=== PATIENT | male | born 1980 | race Caucasian/White ===

== ENCOUNTER 2016-08-17 13:33 | Inpatient (IN) | payer MEDICAID ==
[~2016-08-17] VITALS: Ht 177.8 cm; Wt 153.7 kg
[2016-08-17 13:34] VITALS: BP 130/93; PULSE 125; RESP 20; TEMP 98.6; O2SAT 98
--- NOTE | 2016-08-17 13:53 | PD ---
Physical Exam Time Seen by Provider: 13:50 Narrative Pt presents to the ED for evaluation of SOB and CP that began 2 days ago. States hx of PE, DVT, CHF. States SOB is worse with laying flat. Denies anticoagulation. Tachycardic, otherwise vital signs within normal limits. Awaiting bed placement. Data Data Last Documented VS Vital Signs Date Time Temp Pulse Resp B/P Pulse Ox O2 Delivery O2 Flow Rate FiO2 08/17/16 13:34 98.6 125 20 130/93 98 Room Air MDM Supervised Visit with ROSA MARIA: Rosemary Reddy Aug 17, 2016 13:53
--- NOTE | 2016-08-17 14:25 | PD ---
HPI Chief Complaint: Chest Pain Time Seen by Provider: 14:10 Travel History International Travel<30 days: No Contact w/Intl Traveler<30days: No Traveled to known affect area: No History of Present Illness HPI This is a 36-year-old male with history of hypertension, CHF with a reported EF of 35%, diagnosed last year, previous history of PE and DVT, presents for evaluation of chest pain, shortness of breath, bilateral leg pain. Symptoms started 2 days ago. He reports that substernal chest pressure as well as dyspnea which is worse when lying down or moving. He endorses bilateral leg pain and swelling as well. He reports a chronic cough, denies any acute change. Denies any nausea or vomiting, fevers or chills, recent travel, recent surgery. He reports that he was diagnosed with a leg DVT and pulmonary embolism in 2011. 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 He reports that he was placed on Coumadin but he quit using after 1-2 months secondary to financial constraints. Since then he has been taking aspirin. He reports [place] Dr. Chris Ku, but he is in the process of trying to establish care with a different primary care physician. He has no other complaints at this time. [facility] Past Medical History Cardiovascular Problems: Yes (CHF) Respiratory: Yes (PE) ?: Not Social History Tobacco Use: Yes Allergies-Medications (Allergen,Severity, Reaction): Coded Allergies: No Known Allergies (Unverified , 08/17/16) Reported Meds & Prescriptions Reported Meds & Active Scripts Active Reported Omeprazole 40 Mg Cap 40 Mg PO DAILY Trazodone (Trazodone HCl) 50 Mg Tab 12.5 Mg PO HS Celexa (Citalopram Hydrobromide) 10 Mg Tab 10 Mg PO DAILY Lisinopril 5 Mg Tab 5 Mg PO DAILY Review of Systems Except as stated in HPI: all other systems reviewed are Neg Physical Exam Narrative GENERAL: Well-developed well-nourished male in no acute distress. He is tachycardic. SKIN: Warm and dry. HEAD: Atraumatic. Normocephalic. EYES: Pupils equal and round. No scleral icterus. No injection or drainage. ENT: No nasal bleeding or discharge. Mucous membranes pink and moist. NECK: Trachea midline. No JVD. CARDIOVASCULAR: Regular rate and rhythm. No murmur appreciated. RESPIRATORY: No accessory muscle use. Clear to auscultation. Breath sounds equal bilaterally. No crackles no wheezing or rhonchi GASTROINTESTINAL: Abdomen soft, non-tender, nondistended. Hepatic and splenic margins not palpable. MUSCULOSKELETAL: No obvious deformities. 1+ lower extremity edema bilaterally. There is some tenderness to palpation of the Thighs. NEUROLOGICAL: Awake and alert. No obvious cranial nerve deficits. Motor grossly within normal limits. Normal speech. PSYCHIATRIC: Appropriate mood and affect; insight and judgment normal. Data Data Last Documented VS Vital Signs Date Time Temp Pulse Resp B/P Pulse Ox O2 Delivery O2 Flow Rate FiO2 08/17/16 18:40 115 16 134/73 99 Room Air 08/17/16 14:18 2 08/17/16 13:34 98.6 Orders Electrocardiogram (08/17/16 ) B-Type Natriuretic Peptide (08/17/16 14:21) Ckmb (Isoenzyme) Profile (08/17/16 14:21) Complete Blood Count With Diff (08/17/16 14:21) Magnesium (Mg) (08/17/16 14:21) Prothrombin Time / Inr (Pt) (08/17/16 14:21) Act Partial Throm Time (Ptt) (08/17/16 14:21) Troponin I (08/17/16 14:21) Chest, Single Ap (08/17/16 14:21) Ecg Monitoring (08/17/16 14:21) Bilateral Bp Monitoring (08/17/16 14:21) Iv Access Insert/Monitor (08/17/16 14:21) Oximetry (08/17/16 14:21) Oxygen Administration (08/17/16 14:21) Sodium Chloride 0.9% Flush (Ns Flush) (08/17/16 14:30) Ct Pulmonary Angiogram (08/17/16 14:21) Us Leg Venous Doppler Bilat (08/17/16 14:21) Comprehensive Metabolic Panel (08/17/16 14:21) Morphine Inj (Morphine Inj) (08/17/16 16:00) CKMB (08/17/16 14:39) CKMB% (08/17/16 14:39) Ondansetron Inj (Zofran Inj) (08/17/16 16:30) Ondansetron Inj (Zofran Inj) (08/17/16 16:31) Iohexol 350 Inj (Omnipaque 350 Inj) (08/17/16 17:21) Ventilation & Perfusion Scan (08/17/16 ) Admit Order (Ed Use Only) (08/17/16 18:54) Labs Laboratory Tests Test 08/17/16 14:39 White Blood Count 8.5 TH/MM3 Red Blood Count 4.27 MIL/MM3 Hemoglobin 10.0 GM/DL Hematocrit 32.3 % Mean Corpuscular Volume 75.6 FL Mean Corpuscular Hemoglobin 23.4 PG Mean Corpuscular Hemoglobin 30.9 % Concent Red Cell Distribution Width 18.5 % Platelet Count 184 TH/MM3 Mean Platelet Volume 8.5 FL Neutrophils (%) (Auto) 75.0 % Lymphocytes (%) (Auto) 17.0 % Monocytes (%) (Auto) 5.0 % Eosinophils (%) (Auto) 2.3 % Basophils (%) (Auto) 0.7 % Neutrophils # (Auto) 6.4 TH/MM3 Lymphocytes # (Auto) 1.4 TH/MM3 Monocytes # (Auto) 0.4 TH/MM3 Eosinophils # (Auto) 0.2 TH/MM3 Basophils # (Auto) 0.1 TH/MM3 CBC Comment DIFF FINAL Differential Comment Prothrombin Time 12.9 SEC Prothromb Time International 1.2 RATIO Ratio Activated Partial 26.3 SEC Thromboplast Time Sodium Level 139 MEQ/L Potassium Level 4.4 MEQ/L Chloride Level 106 MEQ/L Carbon Dioxide Level 23.8 MEQ/L Anion Gap 9 MEQ/L Blood Urea Nitrogen 13 MG/DL Creatinine 0.88 MG/DL Estimat Glomerular Filtration 97 ML/MIN Rate Random Glucose 93 MG/DL Calcium Level 8.2 MG/DL Magnesium Level 1.7 MG/DL Total Bilirubin 0.9 MG/DL Aspartate Amino Transf 32 U/L (AST/SGOT) Alanine Aminotransferase 47 U/L (ALT/SGPT) Alkaline Phosphatase 102 U/L Total Creatine Kinase 118 U/L Creatine Kinase MB 2.1 NG/ML Troponin I 0.03 NG/ML B-Type Natriuretic Peptide 311 PG/ML Total Protein 7.5 GM/DL Albumin 3.1 GM/DL MDM Medical Decision Making Medical Screen Exam Complete: Yes Emergency Medical Condition: Yes Medical Record Reviewed: Yes Interpretation(s) EKG sinus tachycardia rate 124 Differential Diagnosis PE, CHF exacerbation, pneumonia, spontaneous pneumothorax, pleural effusion, acute coronary syndrome, pericarditis, myocarditis Narrative Course 36-year-old male with reported history of DVT/PE diagnosed in 2012, CHF diagnosed in 2016, presents for evaluation of 2 days of chest pain, shortness of breath and lower extremity edema. He is tachycardic in triage but he is not hypoxic. The patient was placed on ECG monitoring and pulse oximetry. A 12- lead EKG was obtained. Plan is for basic lab work, chest x-ray, CT pulmonary angiogram, ultrasound of the lower extremities. Lab work is been reviewed. Hemoglobin is 10. BNP mildly elevated at 311. CT angiography is nondiagnostic for PE and a VQ scan is recommended if clinically indicated. [id number] diffuse cardiomegaly. Given the patient's history of DVT and PE, noncompliant on anticoagulation, tachycardia and dyspnea here, the plan would be to admit the patient for chest pain, likely rule out ACS/PE. The patient is agreeable. Procedures EKG Prior to Arrival: Yes Diagnosis Primary Impression: Chest pain Qualified Code: R07.9 - Chest pain, unspecified type Admitting Information Admitting Physician Requests: Observation Wil Vargas Aug 17, 2016 14:25 Wil Vargas Aug 17, 2016 14:25
[2016-08-17] MEDS ORDERED: LISI-519 PO (14:28)
[2016-08-17] MEDS ORDERED: CELE10TA PO (14:28)
[2016-08-17] MEDS ORDERED: TRAZ50TA12 PO (14:28)
[2016-08-17] MEDS ORDERED: OMEP40CA2 PO (14:28)
[2016-08-17] MEDS ORDERED: SODIUM CHLORIDE 0.9% FLUSH 10 ML FLUSH IVF PRN (14:30)
--- NOTE | 2016-08-17 15:17 | RADRPT ---
EXAM DATE/TIME: 08/17/2016 14:36 [facility] COMPARISON: No previous studies available for comparison. INDICATIONS : Bilateral leg pain. MEDICAL HISTORY : Congestive heart failure. Deep venous thrombosis. Pulmonary embolism. Anticoagulant therapy, Aspirin 81mg. SURGICAL HISTORY : None. ENCOUNTER: Initial ACUITY: 4 - 6 days PAIN SCORE: 9/10 LOCATION: Bilateral leg. TECHNIQUE: Venous ultrasound of the left and right leg was performed from the inguinal ligament to the proximal calf. Real-time, color Doppler and spectral tracing, compression and augmentation techniques were us ed. FINDINGS: RIGHT LEG: There is normal compressibility of the deep venous system from the inguinal region to the proximal ca lf. No echogenic clot is seen in the lumen of the common femoral, femoral, popliteal, and posterior tibial veins. There is a normal response of the venous system to proximal and distal augmentation an d respiration. LEFT LEG: There is normal compressibility of the deep venous system from the inguinal region to the proximal ca lf. No echogenic clot is seen in the lumen of the common femoral, femoral, popliteal, and posterior tibial veins. There is a normal response of the venous system to proximal and distal augmentation an d respiration. CONCLUSION: Negative for deep venous thrombosis. John Solorio MD FACR on August 17, 2016 at 15:14 Board Certified Radiologist. This report was verified electronically.
[2016-08-17 15:30] VITALS: BP_SYST 136; BP_SYST 138; BP_DIAS 88; BP_DIAS 93
--- NOTE | 2016-08-17 15:43 | RADRPT ---
EXAM DATE/TIME: 08/17/2016 15:08 [facility] COMPARISON: No previous studies available for comparison. INDICATIONS : Short of breath, chest pain. MEDICAL HISTORY : Congestive heart failure. hx of PE SURGICAL HISTORY : None. ENCOUNTER: Initial ACUITY: 1 day PAIN SCORE: 6/10 LOCATION: Bilateral chest FINDINGS: Significant enlargement of the cardiac silhouette. No definite focal pleural or parenchymal opacities . Bony thorax is intact. CONCLUSION: 1. Significant enlargement of the cardiac silhouette. 2. Otherwise, no acute abnormality. Chet Booth MD on August 17, 2016 at 15:40 Board Certified Radiologist. This report was verified electronically.
[2016-08-17 15:44] LABS: AUTOMATED NEUTROPHIL # 6.4 TH/MM3 (1.8-7.7); BASOPHIL # 0.1 TH/MM3 (0-0.2); BASOPHIL % 0.7 % (0.0-2.0); EOSINOPHIL # 0.2 TH/MM3 (0-0.4); EOSINOPHIL % 2.3 % (0.0-4.0); HEMATOCRIT 32.3 % (39.0-51.0); HEMO FLAGS DIFF FINAL; LYMPHOCYTE # 1.4 TH/MM3 (1.0-4.8); MEAN CELL VOLUME 75.6 FL (80.0-100.0); MEAN CORPUSCULAR HEMOGLOBIN 23.4 PG (27.0-34.0); MEAN CORPUSCULAR HGB CONC 30.9 % (32.0-36.0); PLATELET COUNT 184 TH/MM3 (150-450); RED BLOOD COUNT 4.27 MIL/MM3 (4.50-5.90); RED CELL DISTRIBUTION WIDTH 18.5 % (11.6-17.2); WHITE BLOOD COUNT 8.5 TH/MM3 (4.0-11.0)
[2016-08-17 15:55] LABS: APTT (PATIENT) 26.3 SEC (24.3-30.1); INTERNATIONAL NORMALIZED RATIO 1.2 RATIO; PROTHROMBIN TIME - PATIENT 12.9 SEC (9.8-11.6)
[2016-08-17] MEDS ORDERED: MORPHINE SULFATE 4 MG/ML INJ IV PUSH ONE (16:00)
[2016-08-17 16:05] LABS: ALKALINE PHOSPHATASE 102 U/L (45-117); ALT (GPT) 47 U/L (12-78); ANION GAP 9 MEQ/L (5-15); AST (GOT) 32 U/L (15-37); BICARBONATE 23.8 MEQ/L (21.0-32.0); BLOOD UREA NITROGEN 13 MG/DL (7-18); CHLORIDE 106 MEQ/L (98-107); CREATINE KINASE 118 U/L (39-308); GLOMERULAR FILTRATION RATE 97 ML/MIN (>89); MAGNESIUM 1.7 MG/DL (1.5-2.5); SODIUM (NA) 139 MEQ/L (136-145); TOTAL BILIRUBIN ADULT 0.9 MG/DL (0.2-1.0)
[2016-08-17 16:06] LABS: POTASSIUM 4.4 MEQ/L (3.5-5.1)
[2016-08-17 16:18] LABS: CKMB 2.1 NG/ML (0.5-3.6)
[2016-08-17] MEDS ORDERED: ONDANSETRON HCL 4 MG/2 ML VIAL IV PUSH ONE (16:30)
[2016-08-17] MEDS ORDERED: ONDANSETRON HCL 4 MG/2 ML VIAL ONE (16:31)
[2016-08-17] MEDS ORDERED: IOHEXOL 350 MG/ML 10 ML VIAL (for RAD DIAG) IV ONE (17:21)
--- NOTE | 2016-08-17 17:41 | RADRPT ---
EXAM DATE/TIME: 08/17/2016 17:24 [facility] COMPARISON: No previous studies available for comparison. INDICATIONS : Chest pain with shorthness of breath past 2 days. History of emboli. IV CONTRAST: 74 cc Omnipaque 350 (iohexol) IV RADIATION DOSE: 23.38 CTDIvol (mGy) MEDICAL HISTORY : Cardiovascular disease. Hypertension. Pulnonary emboli SURGICAL HISTORY : None. ENCOUNTER: Initial ACUITY: 2 days PAIN SCALE: 6/10 LOCATION: Bilateral chest TECHNIQUE: Volumetric scanning of the chest was performed using a pulmonary embolism protocol MIP images were re constructed. Using automated exposure control and adjustment of the mA and/or kV according to patien t size, radiation dose was kept as low as reasonably achievable to obtain optimal diagnostic quality images. DICOM format image data is available electronically for review and comparison. FINDINGS: PULMONARY ARTERIES: Poor opacification of the pulmonary arteries. This is nondiagnostic for PE. LUNGS: There is no consolidation or pneumothorax . No concerning pulmonary nodule is visualized. PLEURAE: There is no pleural thickening or pleural effusion. MEDIASTINUM: There is good visualization of the great vessels of the middle mediastinum. No evidence of mediastin al or hilar adenopathy/mass. The heart size is diffusely enlarged. MUSCULOSKELETAL: Within normal limits for patient age. MISCELLANEOUS: The visualized upper abdominal organs demonstrate no acute abnormality. CONCLUSION: 1. Nondiagnostic for PE. A VQ scan could be performed if clinically indicated. 2. No acute pulmonary infiltrates 3. Moderate to prominent diffuse cardiomegaly. Sudheer Faulkner MD on August 17, 2016 at 17:37 Board Certified Radiologist. This report was verified electronically.
[2016-08-17 18:40] VITALS: BP 134/73; PULSE 115; RESP 16; O2SAT 99
--- NOTE | 2016-08-17 19:06 | HHI.HP ---
[facility] Service Family Medicine Primary Care Physician No Primary Care Physician Admission Diagnosis chest pain Diagnoses: International Travel<30 Days: No Contact w/Intl Traveler<30days: No Known Affected Area: No History of Present Illness Patient is a 36-year-old male with a PMH significant for CHF, HTN, PE in 2011. Presented today due to progressive worsening SOB over the last 2 days. Reports significant orthopnea with the slightest supine position when trying to lay down. Reports that he is only able to fall asleep for short intervals before he waking up gasping for air. During these episodes he endorses chest tightness, palpitations and skipped beats, diaphoresis, and nausea. Reports that over the last 2 months his exercise tolerance has significantly decreased. He has become more aware of this as he has become more active since moving to [place]. Reports giving SOB with only walking 100 feet. This is also associated with chest tightness. Does report 80 pound weight gain over the last 6-7 months. Denies any recent travel or sedentary activity. Has had an increased amount of fast food over the last several days. Reports prior history of PE was due to sedentary lifestyle. He was diagnosed with CHF one year ago but has no clear etiology on information about progression of events. Review of Systems Constitutional: COMPLAINS OF: Diaphoretic episodes, Weight gain, Change in appetite, DENIES: Fever Eyes: DENIES: Blurred vision, Eye pain Ears, nose, mouth, throat: COMPLAINS OF: Toothache (recently on abx treatment in anticipation of tooth removal), DENIES: Running Nose Respiratory: COMPLAINS OF: Shortness of breath, DENIES: Cough Cardiovascular: COMPLAINS OF: Chest pain, Palpitations, Dyspnea on Exertion, Lower Extremity Edema, Orthopnea Gastrointestinal: COMPLAINS OF: Abdominal pain, Nausea, DENIES: Black stools, Bloody stools, Constipation, Diarrhea, Vomiting, Difficulty Swallowing Genitourinary: DENIES: Hematuria, Dysuria Musculoskeletal: COMPLAINS OF: Joint Swelling, DENIES: Joint pain Integumentary: DENIES: Rash Hematologic/lymphatic: DENIES: Bruising, Lymphadenopathy Neurologic: DENIES: Headache Past Family Social History Past Medical History PE in 2011-non compliant with medication. Was only on therapy for 1-2mths. Contributed to sedentary lifestyle CHF 35%-etiology unclear (2015) Splenomegaly- etiology unclear HTN Past Surgical History Gallstones Appendectomy Reported Medications Reported Meds & Active Scripts Active Reported Omeprazole 40 Mg Cap 40 Mg PO DAILY Trazodone (Trazodone HCl) 50 Mg Tab 12.5 Mg PO HS Celexa (Citalopram Hydrobromide) 10 Mg Tab 10 Mg PO DAILY Lisinopril 5 Mg Tab 5 Mg PO DAILY Allergies: Coded Allergies: No Known Allergies (Unverified , 08/17/16) Family History Mother: lung cancer Father: melanoma/skin cancer Multiple members with cardiac issues Social History Recently moved from [place]. Does not follow with a doctor in the area Alcohol: denies Tobacco: 1/2ppd x23yrs Illicit: Denies present use of marijuana. Did use (smoked) cocaine about 10years ago. Physical Exam Vital Signs Vital Signs Date Time Temp Pulse Resp B/P Pulse Ox O2 Delivery O2 Flow Rate FiO2 08/17/16 18:40 115 16 134/73 99 Room Air 08/17/16 15:30 136/93 138/88 08/17/16 14:18 99 Nasal Cannula 2 08/17/16 13:34 98.6 125 20 130/93 98 Room Air Physical Exam GENERAL: This is a morbidly obese male sitting at the side of bed in no acute distress. SKIN: No rashes, ecchymoses. Cool and dry. EYES: Pupils equal round and reactive. Extraocular motions intact. No scleral icterus. No injection or drainage. ENT: Nose without bleeding, purulent drainage. Throat without erythema, tonsillar hypertrophy or exudate. Uvula midline. Airway patent. NECK: Trachea midline. No lymphadenopathy. Supple, nontender, no meningeal signs. CARDIOVASCULAR: Very muffled and distand heart sounds due to body habitus. Regular rate and rhythm without obvious murmurs, gallops, or rubs. RESPIRATORY: Clear to auscultation. Breath sounds equal bilaterally. No wheezes , rales, or rhonchi. GASTROINTESTINAL: Abdomen soft. MUSCULOSKELETAL: Extremities without clubbing, cyanosis. 2+ pitting edema bilaterally up to knees. No calf tenderness. NEUROLOGICAL: Awake and alert. Motor and sensory grossly within normal limits. Normal speech. Laboratory Laboratory Tests Test 08/17/16 14:39 White Blood Count 8.5 Red Blood Count 4.27 Hemoglobin 10.0 Hematocrit 32.3 Mean Corpuscular Volume 75.6 Mean Corpuscular Hemoglobin 23.4 Mean Corpuscular Hemoglobin 30.9 Concent Red Cell Distribution Width 18.5 Platelet Count 184 Mean Platelet Volume 8.5 Neutrophils (%) (Auto) 75.0 Lymphocytes (%) (Auto) 17.0 Monocytes (%) (Auto) 5.0 Eosinophils (%) (Auto) 2.3 Basophils (%) (Auto) 0.7 Neutrophils # (Auto) 6.4 Lymphocytes # (Auto) 1.4 Monocytes # (Auto) 0.4 Eosinophils # (Auto) 0.2 Basophils # (Auto) 0.1 CBC Comment DIFF FINAL Differential Comment Prothrombin Time 12.9 Prothromb Time International 1.2 Ratio Activated Partial 26.3 Thromboplast Time Sodium Level 139 Potassium Level 4.4 Chloride Level 106 Carbon Dioxide Level 23.8 Anion Gap 9 Blood Urea Nitrogen 13 Creatinine 0.88 Estimat Glomerular Filtration 97 Rate Random Glucose 93 Calcium Level 8.2 Magnesium Level 1.7 Total Bilirubin 0.9 Aspartate Amino Transf 32 (AST/SGOT) Alanine Aminotransferase 47 (ALT/SGPT) Alkaline Phosphatase 102 Total Creatine Kinase 118 Creatine Kinase MB 2.1 Troponin I 0.03 B-Type Natriuretic Peptide 311 Total Protein 7.5 Albumin 3.1 Result Diagram: 08/17/16 1439 08/17/161438 Imaging Last Impressions Lower Extremity Ultrasound 08/17/161420 Signed Impressions: Service Date/Time: Wednesday, August 17, 2016 14:36 - CONCLUSION: Negative for deep venous thrombosis. John Solorio MD FACR Chest X-Ray 08/17/161420 Signed Impressions: Service Date/Time: Wednesday, August 17, 2016 15:08 - CONCLUSION: 1. Significant enlargement of the cardiac silhouette. 2. Otherwise, no acute abnormality. Chet Booth MD CT Angiography 08/17/161420 Signed Impressions: Service Date/Time: Wednesday, August 17, 2016 17:24 - CONCLUSION: 1. Nondiagnostic for PE. A VQ scan could be performed if clinically indicated. 2. No acute pulmonary infiltrates 3. Moderate to prominent diffuse cardiomegaly. Sudheer Faulkner MD Lung Scan-VQ Nuclear Medicine 08/17/16 0000 Signed Impressions: Service Date/Time: Wednesday, August 17, 2016 20:25 - CONCLUSION: 1. No evidence for pulmonary embolus. Madi Simmons MD Assessment and Plan Assessment and Plan 36yo male with PMH significant for CHF, HTN, PE in 2011. Admitted for progressive SOB likely due to CHF exacerbation Code Status Full Problem List: (1) Acute exacerbation of CHF (congestive heart failure) Status: Acute Plan: History of CHF with an EF of 35%. Does not follow with a vat cleaner currently. Clinical history suggestive of fluid overload in the setting of increased salt intake. Symptoms are likely exacerbated by and linked to obesity hypoventilation syndrome. BNP slightly elevated but this, in conjunction with clinical history, supports exacerbation. -UDS ordered -ACS evaluation * EKG significant for sinus tachy -cardiac telemetry -Lipid panel in AM -monitor I&Os -echo ordered * stress test after echo due to concern for significant CHF Medications: * Aspirin x1 * Lasix 40mg daily + 20 KCL * lisinopril 5mg daily (2) SOB (shortness of breath) Status: Acute Plan: Concern for PE due to history of prior PE in 2011. CTA nondiagnostic. VQ scan negative. Suspect obesity hypoventilation syndrome. -recommend sleep study as outpatient for CPAP (3) Anemia Status: Acute Plan: Incidental finding of anemia with low MCV. Etiology unclear but may be due to excessive NSAID intake due to recent toothache. Denies any rectal bleeding/melena -Retic count elevated -ferritin and TIBC ordered -Hemoccult ordered -blood smear ordered (4) Sinus tachycardia Status: Acute Plan: Continues to have persistent sinus tachy. May be related to poor conditioning and/or anemia. -continue to monitor. (5) Nutrition, metabolism, and development symptoms Status: Acute Plan: Diet: NPO at midnight for possible stress tomorrow Fluids: none Electrolytes: unremarkable DVT PPX: Heparin q8 GI PPX: continue home PPI Suzy-Dominique Engle MD R2 Aug 17, 2016 19:06
[2016-08-17] MEDS ORDERED: ACETAMINOPHEN 325 MG TAB PO PRN (19:45)
[2016-08-17] MEDS ORDERED: SODIUM CHLORIDE 0.9% FLUSH 10 ML FLUSH IV FLUSH PRN (19:45)
[2016-08-17] MEDS ORDERED: SENNOSIDES 8.6 MG TAB PO PRN (19:45)
[2016-08-17] MEDS ORDERED: ASPIRIN 81 MG CHEW TAB PO SCH (19:45)
[2016-08-17] MEDS ORDERED: MAGNESIUM HYDROXIDE SUSP 30 ML CUP PO PRN (19:45)
[2016-08-17] MEDS ORDERED: NALOXONE HCL 0.4 MG/ML AMP IV PRN (19:45)
[2016-08-17] MEDS ORDERED: BISACODYL 10 MG SUPP RECTAL PRN (19:45)
[2016-08-17] MEDS ORDERED: ACETAMINOPHEN/HYDROcodone 325 MG/5 MG TAB PO PRN (19:45)
[2016-08-17] MEDS ORDERED: ENALAPRILAT 1.25 MG/ML VIAL IV PRN (20:15)
[2016-08-17] MEDS ORDERED: FUROSEMIDE 40 MG/4 ML VIAL IV PUSH ONE (20:15)
[2016-08-17] MEDS: MORPHINE SULFATE 4 MG/ML INJ IV PRN (20:55)
[2016-08-17] MEDS: DOCUSATE SODIUM 50 MG/SENNA 8.6 MG TAB PO SCH (21:00)
[2016-08-17] MEDS ORDERED: SODIUM CHLORIDE 0.9% FLUSH 10 ML FLUSH IV FLUSH SCH (21:00)
--- NOTE | 2016-08-17 21:05 | RADRPT ---
EXAM DATE/TIME: 08/17/2016 20:25 [facility] COMPARISON: No previous studies available for comparison. INDICATIONS : Chest pain with dyspnea and bilateral leg pain. DOSE: 8.5 mCi Tc99m MAA IV 0.75 mCi Tc99m DTPA aerosol MEDICAL HISTORY : Congestive hearrt failure. Hypertension. Deep venous thrombosis. Pulmonary embolism. Smoker. SURGICAL HISTORY : Appendectomy. ENCOUNTER: Initial ACUITY: 2 days PAIN SCALE: 3/10 LOCATION: chest TECHNIQUE: Following five minutes of tidal breathing of DTPA aerosol, planar images of the lungs were performed in eight projections. The patient was then injected with MAA, and eight-view perfusion scan was perf ormed. FINDINGS: There is a homogeneous pattern of aerosol delivery to the periphery of both lungs. No focal ventilat ory defects are seen. The perfusion lung scan demonstrates a homogenous pattern of uptake in both lungs. No segmental or s ubsegmental defects are seen. CONCLUSION: 1. No evidence for pulmonary embolus. Madi Simmons MD on August 17, 2016 at 21:01 Board Certified Radiologist. This report was verified electronically.
[2016-08-17 21:42] VITALS: PULSE 123
[2016-08-17] MEDS: HEPARIN SODIUM - SQ 10,000 UNITS/ML VIAL SQ SCH (21:51)
[2016-08-17] MEDS: SODIUM CHLORIDE 0.9% FLUSH 10 ML FLUSH IV FLUSH SCH (21:52)
[2016-08-17 22:16] VITALS: BP 129/90; PULSE 121; RESP 20; TEMP 97.8; O2SAT 97
[2016-08-17 23:14] LABS: RETIC % 3.6 % (0.4-3.0); REVIEW FLAG FINAL
[2016-08-17] MEDS: CALCIUM CARBONATE 500 MG CHEWABLE TAB CHEW PRN (23:46)
[2016-08-18] VITALS (13 sets, daily range): BP systolic 116–121; BP diastolic 58–86; PULSE 112–123; RESP 16–20; TEMP 97.6–98.3; O2SAT 95–100
[2016-08-18] MEDS ORDERED: ENALAPRILAT 1.25 MG/ML VIAL IV PRN (00:30)
[2016-08-18] MEDS: LISINOPRIL 5 MG TAB PO SCH ×2 (00:45→09:43)
[2016-08-18] MEDS: ACETAMINOPHEN/HYDROcodone 325 MG/10 MG TAB PO PRN ×3 (00:49→22:23)
[2016-08-18] MEDS: MORPHINE SULFATE 4 MG/ML INJ IV PRN ×3 (03:58→17:46)
[2016-08-18 04:09] LABS: AUTOMATED NEUTROPHIL # 6.3 TH/MM3 (1.8-7.7); BASOPHIL # 0.1 TH/MM3 (0-0.2); BASOPHIL % 0.7 % (0.0-2.0); EOSINOPHIL # 0.2 TH/MM3 (0-0.4); EOSINOPHIL % 2.4 % (0.0-4.0); HEMATOCRIT 29.9 % (39.0-51.0); HEMO FLAGS DIFF FINAL; LYMPH % 17.7 % (9.0-44.0); LYMPHOCYTE # 1.5 TH/MM3 (1.0-4.8); MEAN CELL VOLUME 74.7 FL (80.0-100.0); MEAN CORPUSCULAR HEMOGLOBIN 24.2 PG (27.0-34.0); MEAN CORPUSCULAR HGB CONC 32.5 % (32.0-36.0); MONO % 6.2 % (0.0-8.0); PLATELET COUNT 191 TH/MM3 (150-450); RED CELL DISTRIBUTION WIDTH 18.3 % (11.6-17.2); WHITE BLOOD COUNT 8.6 TH/MM3 (4.0-11.0)
[2016-08-18 04:35] LABS: ANION GAP 5 MEQ/L (5-15); BICARBONATE 29.6 MEQ/L (21.0-32.0); BLOOD UREA NITROGEN 13 MG/DL (7-18); CHLORIDE 103 MEQ/L (98-107); GLOMERULAR FILTRATION RATE 86 ML/MIN (>89); MAGNESIUM 1.7 MG/DL (1.5-2.5); POTASSIUM 3.9 MEQ/L (3.5-5.1); SODIUM (NA) 138 MEQ/L (136-145); TRANSFERRIN IRON PROFILE 314 MG/DL (200-360)
[2016-08-18 04:38] LABS: FERRITIN 40 NG/ML (26-388); HDL CHOLESTEROL 24.8 MG/DL (40.0-60.0); LDL CHOLESTEROL 60 MG/DL (0-99)
[2016-08-18] MEDS: HEPARIN SODIUM - SQ 10,000 UNITS/ML VIAL SQ SCH ×3 (06:18→21:42)
--- NOTE | 2016-08-18 07:41 | HHI.FPPN ---
Subjective Remarks Manjinder Wilcox is a 36yo gentleman with h/o CHF (last EF 35%), PE, obesity, and HTN admitted for worsening SOB x 2 days. Associated with orthopnea and paroxysmal nocturnal dyspnea. When he has these dyspneic episodes, he has associated chest tightness, palpitations, diaphoresis, and nausea. Worsening exercise tolerance x 2 months, with SOB after walking 100 feet. + weight gain of 80# over 6 months. For further details, please see resident H&P. This morning, he reports continued shortness of breath, which is slightly improved since receiving IV lasix. He reports having to lay on his abdomen, in prone position rather than on his back due to worsening SOB when supine. He reports good UOP with lasix administration and somewhat improved edema after lasix as well. ROS: + SOB, + chest pain, + orthopnea, + PND, + palpitations, + dyspnea on exertion. No nausea. + vomiting last night x 1. No hematemesis. All other systems reviewed are negative. PMH/PSxH/SocHx/FamHx: Per resident H&P. Significant for: CHF diagnosed in 2015 with EF 35%, PE in 2012 treated x 1-2 months due to nonadherence, HTN, splenomegaly, cholelithiasis. H/O appendectomy. Mother h/o lung cancer. Father with h/o melanoma. Moved to [facility] from [place] recently. No alcohol. 12 pack year tobacco history. Denies current recreational drug use, with h/o marijuana and cocaine. Objective Vitals Vital Signs Date Time Temp Pulse Resp B/P Pulse Ox O2 Delivery O2 Flow Rate FiO2 08/18/16 06:39 96 21 08/18/16 04:03 20 08/18/16 03:20 98.0 123 20 118/58 97 08/18/16 03:13 119 08/18/16 02:51 20 08/17/16 22:16 97.8 121 20 129/90 97 08/17/16 21:42 123 08/17/16 18:40 115 16 134/73 99 Room Air 08/17/16 15:30 136/93 138/88 08/17/16 14:18 99 Nasal Cannula 2 08/17/16 13:34 98.6 125 20 130/93 98 Room Air I/O 7/5/17 08/17/16 08/17/16 08/18/16 08/18/16 08/18/16 07:00 15:00 23:00 07:00 15:00 23:00 Intake Total 240 ml Output Total 600 ml Balance -360 ml Intake Oral 240 ml Output Urine Total 600 ml Result Diagram: 08/18/16 0354 08/18/16 0354 Objective Remarks GENERAL: in NAD, no resp distress, nontoxic. Talks in complete sentences. Initially lying prone in the hospital bed upon our entry to room. HEENT: NCAT, EOMI, no scleral icterus, no conjunctival injection. MMM. Poor dentition. NECK: Supple, no meningeal signs. CV: RRR, S1 S2. No murmurs. CHEST/PULM: CTAB, no crackles, no wheezes. Decreased breath sounds due to body habitus. ABD/GI: Obese. +BS, soft, nondistended. Mild tenderness at LUQ. Unable to palpate for hepatosplenomegaly due to habitus. EXT: 3+ pitting edema to knees. No calf tenderness. NEURO: Awake, alert. Grossly nonfocal. Normal muscle tone. SKIN: No rashes, no jaundice. Multiple tattoos. PSYCH: Mood and affect are appropriate. Speech fluent. Does not appear to respond to internal stimuli. A/P Assessment and Plan 36yo male with PMH significant for CHF, HTN, PE in 2011. Admitted for progressive SOB likely due to CHF exacerbation Attending Attestation Patient seen, examined, and discussed with resident team. Problem List: (1) Acute exacerbation of CHF (congestive heart failure) Status: Acute Plan: History of CHF with an EF of 35%. Does not follow with a funnel coater currently. Clinical history suggestive of fluid overload in the setting of increased salt intake. Symptoms are likely exacerbated by and linked to obesity hypoventilation syndrome. BNP only slightly elevated but this, in conjunction with clinical history, supports exacerbation. -UDS positive for opiates (administered in the hospital) -ACS evaluation essentially negative with serial troponins. * EKG significant for sinus tachy -cardiac telemetry without events overnight, occasional PVCs only. -Lipid panel with low HDL - may benefit from treatment. -monitor I&Os -echo ordered * stress test after echo due to concern for significant CHF possibly caused by ischemic cardiomyopathy * Hold on beta sekou as patient in CHF exacerbation Medications: * Aspirin x1 * Lasix 40mg daily + 20 KCL * lisinopril 5mg daily (2) SOB (shortness of breath) Status: Acute Plan: Likely secondary to CHF exacerbation but also consider PE vs CAD / ischemia vs sleep apnea vs obesity hypoventilation syndrome vs deconditioning vs other. CTA, VQ and Doppler US of lower extremities are not suggestive of PE. Of note, pt with h/o PE in 2012. Recommend sleep study as outpatient for CPAP treatment. Echo and stress test as above. Add incentive spirometry. Oxygen supplementation as needed. (3) Sinus tachycardia Status: Acute Plan: Continues to have persistent sinus tachy. May be related to poor conditioning and/or anemia. -continue to monitor with telemetry. Echo and stress test as above. (4) Microcytic anemia Status: Chronic Plan: Incidental finding of anemia with low MCV. Etiology unclear but may be due to excessive NSAID intake due to recent toothache. Denies any rectal bleeding/melena Pt reports a h/o chronic anemia for which he underwent a partial work up which was never completed. -Request records from prior [facility] facility. -Retic count elevated -ferritin and TIBC indicative of iron deficiency. -Hemoccult ordered -peripheral blood smear ordered (5) Splenomegaly Status: Chronic Plan: Unable to palpate splenomegaly due to habitus. Given anemia, known h/o splenomegaly (per pt), will evaluate with Abd US. HIV testing, Hepatitis profile as well. (Pt has consented) Consider CT abdomen to evaluate if indicated. Problem Qualifiers (1) Acute exacerbation of CHF (congestive heart failure): Qualified Code: I50.23 - Acute on chronic systolic congestive heart failure Chloe Pappas MD Aug 18, 2016 07:41
[2016-08-18] MEDS: CITALOPRAM HYDROBROMIDE 20 MG TAB PO SCH (09:00)
[2016-08-18] MEDS ORDERED: LISINOPRIL 5 MG TAB PO SCH (09:00)
[2016-08-18] MEDS: PANTOPRAZOLE SOD 40 MG DELAYED RELEASE TAB PO SCH (09:41)
[2016-08-18] MEDS: POTASSIUM CHLORIDE 20 MEQ CONTROLLED RELEASE TAB PO SCH (09:43)
[2016-08-18] MEDS: DOCUSATE SODIUM 50 MG/SENNA 8.6 MG TAB PO SCH ×2 (09:44→21:00)
[2016-08-18] MEDS: FUROSEMIDE 40 MG/4 ML VIAL IV PUSH SCH (09:44)
[2016-08-18] MEDS: SODIUM CHLORIDE 0.9% FLUSH 10 ML FLUSH IV FLUSH SCH ×2 (09:44→21:42)
[2016-08-18 11:12] LABS: BLOOD, URINE NEG (NEG); COMMENT (UR) CULT NOT INDICATED; CULTURE IF INDICATED CULT NOT INDICATED; GLUCOSE,URINE NEG (NEG); HYALINE CAST, URINE 3 /lpf (RARE); KETONE, URINE NEG (NEG); MUCUS URINE FEW /lpf (OCC); NITRITE,URINE NEG (NEG); PH, URINE 5.5 (5.0-8.5); SQUAMOUS EPITHELIAL CELL URINE <1 /hpf (0-5); URINE COLOR YELLOW (YELLW/STRAW)
[2016-08-18 11:14] LABS: AMPHETAMINE, URINE NEG (NEG); BARBITURATES, URINE NEG (NEG); COCAINE, URINE NEG (NEG)
--- NOTE | 2016-08-18 13:58 | RADRPT ---
EXAM DATE/TIME: 08/18/2016 10:30 [place] COMPARISON: CT PULMONARY ANGIOGRAM, August 17, 2016, 17:24. INDICATIONS : Abdominal pain. MEDICAL HISTORY : Congestive heart failure. Hypertension. Palpitations. Dsypnea. Pulmonary embolism. Pancitopenia. De nse liver. Anemia. Enlarged spleen. Substance use. SURGICAL HISTORY : Appendectomy. ENCOUNTER: Initial ACUITY: 1 day PAIN SCORE: 8/10 LOCATION: Abdomen. MEASUREMENTS: LIVER: 20.0 cm length COMMON DUCT: 6 mm RIGHT KIDNEY: 13.1 x 6.7 x 5.2 cm LEFT KIDNEY: 12.6 x 5.4 x 4.0 cm SPLEEN: 17.2 cm length AORTA: 2.7cm maximal FINDINGS: LIVER: Increased echotexture without focal lesion or ductal dilatation. Main portal vein is patent with hep atopedal blood flow. COMMON DUCT: No intraluminal mass or stone visualized. GALLBLADDER: There are stones within the gallbladder. Gallbladder wall measures 6 mm. Sonographic Marquez's sign is negative. PANCREAS: Not adequately visualized secondary to bowel gas. RIGHT KIDNEY: No hydronephrosis, stone or mass. LEFT KIDNEY: No hydronephrosis, stone or mass. SPLEEN: No focal lesion. AORTA: Non aneurysmal. IVC: Within normal limits. CONCLUSION: 1. Image quality less than optimal secondary to patient body habitus. There is cholelithiasis with as sociated mild gallbladder wall thickening. However, sonographic Marquez's sign is negative suggesting against acute cholecystitis. 2. Hepatomegaly with steatosis. 3. Splenomegaly. Shaquille Xavier MD on August 18, 2016 at 13:53 Board Certified Radiologist. This report was verified electronically.
--- NOTE | 2016-08-18 17:36 | EKG ---
Date Performed: 08/17/2016 Time Performed: 13:58:01 PTAGE: 36 years EKG: SINUS TACHYCARDIA NONSPECIFIC T-WAVE ABNORMALITY ABNORMAL RHYTHM ECG NO PREVIOUS TRACING DOCTOR: Maryann Quick Interpretating Date/Time 08/18/2016 17:34:26
--- NOTE | 2016-08-18 17:54 | ECHRPT ---
Indication: Chest pain, unspecified CONCLUSIONS Mildly dilated left ventricle. The left ventricular systolic function is severely reduced with an estimated ejection fraction of 25 %. There is global hypokinesis. The left atrial size is mildly dilated. There is mild tricuspid valve regurgitation. The estimated pulmonary arterial pressure is 34 mmHg. Mild mitral valve regurgitation. There is a trivial pericardial effusion present. BP: 118 / 58 HR: 123 Rhythm: Sinus MEASUREMENTS (Male / Female) Normal Values Technical Quality:Fair 2D ECHO LV Diastolic Diameter PLAX 5.0 cm 4.2 - 5.9 / 3.9 - 5.3 cm LV Systolic Diameter PLAX 4.6 cm IVS Diastolic Thickness 1.3 cm 0.6 - 1.0 / 0.6 - 0.9 cm LVPW Diastolic Thickness 0.9 cm 0.6 - 1.0 / 0.6 - 0.9 cm LV Relative Wall Thickness 0.4 RV Internal Dim ED PLAX 2.5 cm LA Systolic Diameter LX 4.6 cm 3.0 - 4.0 / 2.7 - 3.8 cm DOPPLER Mitral E Point Velocity 83.3 cm/s TR Peak Velocity 243.0 cm/s TR Peak Gradient 23.6 mmHg FINDINGS LEFT VENTRICLE Mildly dilated left ventricle. The left ventricular systolic function is severely reduced with an estimated ejection fraction of 2 5%. There is global hypokinesis. . RIGHT VENTRICLE Normal right ventricular size and systolic function. LEFT ATRIUM The left atrial size is mildly dilated. RIGHT ATRIUM The right atrial size is normal. ATRIAL SEPTUM Normal atrial septal thickness without atrial level shunting by limited color doppler interrogation. AORTA The aortic root and proximal ascending aorta are normal in size on limited imaging. MITRAL VALVE Mild mitral valve regurgitation. AORTIC VALVE Trileaflet aortic valve. No aortic valve stenosis or regurgitation. TRICUSPID VALVE There is mild tricuspid valve regurgitation. The estimated pulmonary arterial pressure is 34 mmHg. PULMONARY VALVE The pulmonary valve is not well visualized. VESSELS The inferior vena cava is normal in size. PERICARDIUM There is a trivial pericardial effusion present. Jorge Levin MD (Electronically Signed) Final Date:18 August 2016 17:53 Amended: 18 August 2016 19:24
[2016-08-18] MEDS ORDERED: LORazepam 0.5 MG TAB PO ONE (18:00)
--- NOTE | 2016-08-18 18:03 | EKG ---
Date Performed: 08/17/2016 Time Performed: 20:17:39 PTAGE: 36 years EKG: SINUS TACHYCARDIA MINIMAL VOLTAGE CRITERIA FOR LVH, CONSIDER NORMAL VARIANT NONSPECIFIC T-W AVE ABNORMALITY ABNORMAL ECG PREVIOUS TRACING : 08/17/2016 13.58 Compared to prior tracing no significant change DOCTOR: Maryann Quick Interpretating Date/Time 08/18/2016 18:01:38
--- NOTE | 2016-08-18 21:46 | HHI.PR ---
Addendum to Inpatient Note Addendum Reason: Additional Documentation Additional Information S: Resident's paged regarding patient with increasing shortness of breath. Patient stated that he did not feel that he was getting enough oxygen and asked to increase his CPAP. Respiratory therapy came to bedside and determined that patient would benefit from BiPAP. Patient seen and evaluated by residents at bedside. Patient states that he did not feel like he was getting enough air on the current CPAP settings. He tolerates room air with an oxygen saturation of 97% while sitting up, however while lying supine and trying to sleep, patient does not tolerate room air, desaturating to 85% and feels very short of breath. O: GENERAL: Well-nourished, well-developed morbidly obese male patient slumped in bed with CPAP mask in place. SKIN: Warm and dry. EYES: No scleral icterus. No conjunctival injection or drainage. NECK: Supple, trachea midline. CARDIOVASCULAR: Distant heart sounds, regular rate and rhythm without murmurs, gallops, or rubs. CHEST: Symmetric chest expansion with respiration. RESPIRATORY: Anterior lung coe clear to auscultation bilaterally. Distant breath sounds. Unable to speak in complete sentences without becoming short of breath. Able to speak in complete sentences and tolerate oral intake upon sitting up. A/P: - Initiate BiPAP overnight per respiratory therapy recommendation so that patient maintains adequate O2 saturation while sleeping. This requires transfer to a med/surge floor. - Elevate head of bed - Continue to monitor Siobhan Guy MD R2 Aug 18, 2016 21:46
[2016-08-19] VITALS (15 sets, daily range): BP systolic 115–135; BP diastolic 66–85; PULSE 117–125; RESP 16–22; TEMP 97.7–98.7; O2SAT 93–100
[2016-08-19] MEDS: ACETAMINOPHEN/HYDROcodone 325 MG/10 MG TAB PO PRN ×2 (03:20→08:41)
[2016-08-19] MEDS: HEPARIN SODIUM - SQ 10,000 UNITS/ML VIAL SQ SCH ×3 (05:17→20:24)
[2016-08-19] MEDS: MORPHINE SULFATE 4 MG/ML INJ IV PRN ×4 (05:18→23:21)
[2016-08-19] MEDS: PANTOPRAZOLE SOD 40 MG DELAYED RELEASE TAB PO SCH ×2 (08:40→09:00)
[2016-08-19] MEDS: LISINOPRIL 5 MG TAB PO SCH (08:40)
[2016-08-19] MEDS: CITALOPRAM HYDROBROMIDE 20 MG TAB PO SCH ×2 (08:40→09:00)
[2016-08-19] MEDS: DOCUSATE SODIUM 50 MG/SENNA 8.6 MG TAB PO SCH ×2 (08:40→20:24)
[2016-08-19] MEDS: POTASSIUM CHLORIDE 20 MEQ CONTROLLED RELEASE TAB PO SCH (08:40)
[2016-08-19] MEDS: FUROSEMIDE 40 MG/4 ML VIAL IV PUSH SCH (08:47)
[2016-08-19] MEDS: SODIUM CHLORIDE 0.9% FLUSH 10 ML FLUSH IV FLUSH SCH ×2 (08:47→20:24)
[2016-08-19 10:00] LABS: HEMATOCRIT 30.4 % (39.0-51.0); MEAN CELL VOLUME 74.1 FL (80.0-100.0); MEAN CORPUSCULAR HEMOGLOBIN 23.9 PG (27.0-34.0); MEAN CORPUSCULAR HGB CONC 32.2 % (32.0-36.0); PLATELET COUNT 196 TH/MM3 (150-450); RED BLOOD COUNT 4.09 MIL/MM3 (4.50-5.90); RED CELL DISTRIBUTION WIDTH 18.3 % (11.6-17.2); REVIEW FLAG FINAL; WHITE BLOOD COUNT 8.8 TH/MM3 (4.0-11.0)
[2016-08-19] MEDS ORDERED: oxyCODONE/ACETAMINOPHEN 5 MG/325 MG TAB PO PRN (10:00)
[2016-08-19] MEDS ORDERED: MORPHINE SULFATE 4 MG/ML INJ IV PRN (10:00)
[2016-08-19 10:26] LABS: BICARBONATE 27.2 MEQ/L (21.0-32.0); POTASSIUM 3.9 MEQ/L (3.5-5.1)
[2016-08-19] MEDS ORDERED: REGADENOSON INJ 0.4 MG/5 ML SYR ONE (10:34)
[2016-08-19] MEDS: oxyCODONE/ACETAMINOPHEN 10 MG/325 MG TAB PO PRN ×2 (13:24→20:24)
[2016-08-19] MEDS: SPIRONOLACTONE 25 MG TAB PO SCH (13:24)
[2016-08-19] MEDS: FERROUS SULFATE 325 MG (65 MG ELEMENTAL IRON) TAB PO SCH ×2 (13:24→20:24)
[2016-08-19] MEDS: ONDANSETRON HCL 4 MG/2 ML VIAL IVP PRN (13:26)
--- NOTE | 2016-08-19 16:24 | HHI.FPPN ---
Subjective Remarks Manjinder Wilcox is a 36yo gentleman with h/o CHF (last EF 35%), PE, obesity, and HTN admitted for worsening SOB x 2 days. Last night, patient desatted to 82% on CIPAP while laying back in bed. Showed improvement when returned to sitting position. Was placed on BiPAP and showed improvement in sx and PO2. Patient admitted to floor and continued on BiPAP. Patient also reports that chronic back and joint was not improved with norco and worsened with having to adjust due to sleepin in sitting position. States percocet has worked for him in the past. Denies chest pain or abdominal pain, diarrhea/constipation. (Marla Pat MD R1) Objective Vitals Vital Signs Date Time Temp Pulse Resp B/P Pulse Ox O2 Delivery O2 Flow Rate FiO2 08/19/16 13:56 96 21 08/19/16 13:46 96 30 08/19/16 12:00 98.4 119 20 121/66 97 08/19/16 10:48 97 21 08/19/16 08:10 Nasal Cannula 2.00 08/19/16 08:00 97.7 117 22 134/68 97 08/19/16 04:38 93 30 08/19/16 04:00 98.5 121 20 119/85 100 08/19/16 03:21 93 30 08/19/16 01:25 121 08/19/16 01:15 Nasal Cannula 2.00 08/19/16 00:49 98.1 120 20 120/83 96 08/19/16 00:19 97.8 118 20 120/67 96 08/18/16 23:46 112 08/18/16 23:42 18 08/18/16 22:38 100 30 08/18/16 20:00 122 08/18/16 19:53 98.1 118 18 116/65 100 08/18/16 19:32 99 30 08/18/16 18:00 18 08/18/16 15:57 97.6 116 16 121/86 96 I/O 08/18/16 08/18/16 08/18/16 08/19/16 08/19/16 08/19/16 07:00 15:00 23:00 07:00 15:00 23:00 Intake Total 240 ml 480 ml Output Total 600 ml Balance -360 ml 480 ml Intake Oral 240 ml 480 ml Output Urine Total 600 ml # Voids 2 # Bowel Movements 0 (Marla Pat MD R1) Result Diagram: 08/19/1693008/19/16930 Objective Remarks GENERAL: in NAD, no resp distress, nontoxic. Talks in complete sentences. HEENT: NCAT, EOMI, no scleral icterus, no conjunctival injection. CV: RRR, S1 S2. No murmurs. CHEST/PULM: CTAB, no crackles, no wheezes. Decreased breath sounds due to body habitus. ABD/GI: Obese. +BS, soft, nondistended. EXT: 3+ pitting edema to knees. No calf tenderness. NEURO: Awake, alert. Grossly nonfocal. Normal muscle tone. SKIN: No rashes, no jaundice. Multiple tattoos. PSYCH: Mood and affect are appropriate. Speech fluent. Does not appear to respond to internal stimuli. (Marla aPt MD R1) A/P Assessment and Plan 36yo male with PMH significant for CHF, HTN, PE in 2011. Admitted for progressive SOB likely due to CHF exacerbation (Marla Pat MD R1) Attending Attestation Patient seen and examined, discussed with resident team. I agree with assessment and management as documented and discussed with me. The patient has been seen and examined. The chart and all resident notes have been reviewed. I agree that inpatient care is appropriate and that a two midnight stay is expected for the reasons documented in the resident history and physical. I have discussed this with the resident and certify the resident s order for inpatient admission. Pt reports that he is feeling better after receiving BiPAP when he sleeps. Overnight, patient had desaturations to low 80s, requiring BiPAP. He expresses appreciation for the care that he has received. ROS: + edema, + SOB (although improved). No abdominal pain. No current chest pain. All other systems reviewed are negative. PMH/PSxH/SocHx/FamHx: Per resident H&P. Significant for: H/O CHF with last EF 35 % per pt report, PE in 2012, chronic anemia, splenomegaly gallstones. Appendectomy. Fam Hx of lung CA. + tobacco use; prior marijuana and cocaine. ( Chloe Pappas MD) Problem List: (1) Acute exacerbation of CHF (congestive heart failure) Status: Acute Plan: - EF on echo shows EF 25% and global hypokinesis - Will start spironolactone 25 mg PO daily, d/c potassium - consult cardiology for further management and AICD placement - will con't to monitor I&O's and weight checks (2) SOB (shortness of breath) Status: Acute Plan: Likely secondary to CHF exacerbation vs sleep apnea vs obesity hypoventilation syndrome - outpatient sleep study - stress test today and tomorrow - incentive spirometry - NC Oxygen supplementation as needed. - con't BIPAP at night with pulse ox monitor (3) Sinus tachycardia Status: Acute Plan: - Continues to have persistent sinus tachy. May be related to poor conditioning and/or anemia v CHF exacerbation. - should improve with treatment of CHF exacerbation - con't to monitor (4) Microcytic anemia Status: Chronic Plan: Stable - Hgb 9.8 today, low MCV Incidental finding of anemia with low MCV -ferritin and TIBC indicative of iron deficiency, however, also hemoglobinopathy also possible based on peripheral smear findings -Hemoccult neg - will consult w/patient whether he would like to pursue with electrophoresis - order iron supplements FEN: heart healthy diet DVT prophy: Heparin Code: Full Dispo: Monday, after stress test completed (Marla Pat MD R1) Problem Qualifiers (1) Acute exacerbation of CHF (congestive heart failure): Qualified Code: I50.23 - Acute on chronic systolic congestive heart failure Marla Pat MD R1 Aug 19, 2016 16:24 Chloe Pappas MD Aug 19, 2016 20:19
--- NOTE | 2016-08-19 23:07 | MB ---
cc: CLOVIS NAVARRETE DO DATE OF CONSULTATION 08/17/16 REASON FOR CONSULTATION Patient needs cardiology follow up, congestive heart failure. HISTORY OF PRESENT ILLNESS Manjinder Wilcox is a 36-year-old male who originally presented to [facility] on August 17, 2016 due to shortness of breath. He states that his shortness of breath has gotten progressively worse. He has been unable to sleep as he is unable to lay flat. When he lays flat he feels that he is drowning. He will wake up gasping for air during these episodes. He states that during these episodes he also gets some chest tightness and palpitations. He states that he has put on around 40 pounds in the past 6 months. He also notes shortness of breath with walking a short distance. He admits that he eats at fast food restaurants and has been doing this excessively over the past several days. He notes that he was previously diagnosed with congestive heart failure while in [place], while there he underwent some type of ischemic evaluation but he is unsure of the results. PAST MEDICAL HISTORY 1. Pulmonary embolus (2001). 2. Congestive heart failure with an unknown etiology. 3. Splenomegaly. 4. Hypertension. PAST SURGICAL HISTORY 1. Gallstones. 2. Appendectomy. ALLERGIES NO KNOWN DRUG ALLERGIES. MEDICATIONS 1. Lisinopril 5 milligrams daily ( the patient was previously on but since change in his insurance was unable to get for a while so had stopped it for sometime). 2. [id number] milligrams daily. 3. Trazodone 12.5 milligrams at night. 4. Omeprazole 40 milligrams daily. FAMILY HISTORY Mother had history of lung cancer. Father had melanoma and skin cancer. Denies sudden cardiac within the family. SOCIAL HISTORY The patient recently moved to [facility] from [place]. He denies alcohol. Denies drug abuse other than smoking cocaine about 10 years ago. He smoked around a half pack of cigarettes a day. REVIEW OF SYSTEMS 14-systems were reviewed including osteopathic, pertinent positives and negatives above otherwise negative. PHYSICAL EXAMINATION VITAL SIGNS: Temperature 98.5, heart rate 120, blood pressure 122/77, respirations 20, pulse ox 95% on room air. GENERAL: In general the patient appears mildly disheveled but alert, awake and oriented, in no acute distress. HEENT: Extraocular muscles intact. Mucous membranes moist. NECK: Supple. No JVD at 45 degrees. No carotid bruits heard bilaterally. Carotid upstroke is brisk in nature. HEART: Heart is tachycardic. Positive first and second heart sounds noted. No murmurs, gallops or rubs. ___ difficult to ascertain due to body habitus. LUNGS: Decrease breath sounds bilaterally. No overt wheezes, rales or rhonchi. ABDOMEN: Obese, nontender, nondistended. No organomegaly noted. EXTREMITIES: Show 1 to 2+ pitting edema bilaterally. NEUROLOGICALLY: No focal deficits. SKIN: Warm, dry and intact. OSTEOPATHIC: Mild lordosis. No kyphoscoliosis or paraspinal tender points. LABORATORY FINDINGS Hemoglobin 9.8, hematocrit 30.4, platelets 196. Potassium 3.9, BUN 16, creatinine 0.94. Troponin negative times three. BNP 311. Total cholesterol 107, LDL 60, HDL 25, triglycerides 111. CARDIOLOGY STUDIES Electrocardiogram (July 18, 2016 at 20:17) sinus tachycardia, LVH by voltage criteria, nonspecific STT wave changes. IMPRESSION 1. Acute exacerbation of congestive heart failure. 2. Cardiomyopathy of unknown cause with an ejection fraction of 25% and global hypokinesis. 3. Sinus tachycardia. 4. Microcytic anemia. 5. Morbid obesity with a BMI of 50. 6. Previous medical noncompliance. 7. History of PE in 2011. 8. Hypertension. 9. Tobacco abuse. RECOMMENDATIONS 1. Mr. Wilcox appears to have an episode of acute exacerbation of congestive heart failure which may be due to noncompliance with sodium intake due to excessive fast food recently. 2. Previously he was on Lisinopril but no other heart failure medications and he will need to be started back on Lisinopril as well as carvedilol. 3. We will continue to diurese him as possible with Lasix. 4. It is difficult to ascertain if a cause for his congestive heart failure has been established as he is unsure of his previous testing. As of now he has undergone the first portion of his pharmacologic nuclear stress test with his second portion tomorrow. 5. If any ischemic areas are noted we will plan on cardiac catheterization once he is able to lay flat. 6. I was asked to consider if the patient is recommended an AICD and at this time I would say no even though he was told previously that his ejection fraction is low. Concern is that he does not have an established etiology of his cardiomyopathy, but secondly he has not been on optimal medical treatment for three months. 7. I have counseled the patient for greater than 3 minutes about tobacco cessation which he states he is not ready to quit at this time. Thank you for allowing me to see Manjinder Wilcox. If there are any questions please do not hesitate to call. Clovis Navarrete DO VGP/EO /10:21 PM /10:37 PM
[2016-08-19] MEDS: CARVEDILOL 3.125 MG TAB PO SCH (23:20)
[2016-08-19] MEDS: LACTULOSE SYRUP 20 GM/30 ML CUP PO PRN (23:27)
[2016-08-20] VITALS (10 sets, daily range): BP systolic 111–126; BP diastolic 79–84; PULSE 105–122; RESP 16–20; TEMP 97.4–98.5; O2SAT 95–100
[2016-08-20] MEDS: oxyCODONE/ACETAMINOPHEN 10 MG/325 MG TAB PO PRN ×3 (03:10→18:58)
[2016-08-20] MEDS: LORazepam 0.5 MG TAB PO PRN ×2 (04:05→10:01)
[2016-08-20] MEDS: HEPARIN SODIUM - SQ 10,000 UNITS/ML VIAL SQ SCH ×3 (06:14→20:48)
[2016-08-20] MEDS: MORPHINE SULFATE 4 MG/ML INJ IV PRN ×3 (06:15→22:01)
[2016-08-20] MEDS: ASPIRIN 81 MG CHEW TAB CHEW SCH (08:46)
[2016-08-20] MEDS: FUROSEMIDE 40 MG/4 ML VIAL IV PUSH SCH (08:47)
[2016-08-20] MEDS: SODIUM CHLORIDE 0.9% FLUSH 10 ML FLUSH IV FLUSH SCH ×2 (08:48→20:51)
[2016-08-20] MEDS: FERROUS SULFATE 325 MG (65 MG ELEMENTAL IRON) TAB PO SCH ×2 (08:51→20:46)
[2016-08-20] MEDS: DOCUSATE SODIUM 50 MG/SENNA 8.6 MG TAB PO SCH ×2 (08:52→20:45)
[2016-08-20] MEDS: PANTOPRAZOLE SOD 40 MG DELAYED RELEASE TAB PO SCH (08:52)
[2016-08-20] MEDS: SPIRONOLACTONE 25 MG TAB PO SCH (08:52)
[2016-08-20] MEDS: CITALOPRAM HYDROBROMIDE 20 MG TAB PO SCH (08:53)
[2016-08-20] MEDS: CARVEDILOL 3.125 MG TAB PO SCH ×2 (08:54→20:45)
[2016-08-20] MEDS: LISINOPRIL 5 MG TAB PO SCH (08:54)
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
[2016-08-20] MEDS: GABAPENTIN 400 MG CAP PO SCH ×2 (13:00→18:00)
[2016-08-20] MEDS: CALCIUM CARBONATE 500 MG CHEWABLE TAB CHEW PRN (13:05)
--- NOTE | 2016-08-20 13:06 | RADRPT ---
EXAM DATE/TIME: 08/19/2016 10:21 [place] COMPARISON: No previous studies available for comparison. INDICATIONS : Left chest pain with dyspnea. Abnormal EKG. DOSE: 30.4 mCi Tc99m Myoview at stress. 32 mCi Tc99m Myoview at rest. 0.4 mg Lexiscan STRESS SYMPTOMS: Nausea, warm feeling and chest pain. EJECTION FRACTION: 26% MEDICAL HISTORY : Congestive hearrt failure. Hypertension. Deep venous thrombosis. Smoker. GERD. SURGICAL HISTORY : Appendectomy. ENCOUNTER: Initial ACUITY: 2 days PAIN SCALE: 6/10 LOCATION: Left chest TECHNIQUE: The patient underwent pharmacologic stress with infusion of prescribed dose. Continuous ECG tracing was monitored during stress. Gated SPECT imaging was performed after stress and conventional SPECT i maging was performed at rest. The examination was performed on a SPECT/CT scanner, both attenuation and non-corrected datasets were reviewed. FINDINGS: DISTRIBUTION: The maximum perfused segment at stress is in the <anterolateral wall. PERFUSION STUDY: The chamber appears dilated on the axial images . The pattern of perfusion at stress is within normal limits. GATED STUDY: There is intact wall motion and thickening with global hypokinesis. CONCLUSION: Global hypokinesis with a dilated chamber. Ejection fraction calculated to be only 26% RISK CATEGORY: 3 Gulshan Woody MD on August 20, 2016 at 13:02 Board Certified Radiologist. This report was verified electronically.
--- NOTE | 2016-08-20 13:25 | PD.CARD.PN ---
Subjective Subjective Remarks Still with shortness of breath, denies chest pain Objective Medications Current Medications Medications (Trade) Dose Ordered Sig/Gideon Route Start Time Stop Time Status Last Admin (CeleXA) 10 mg DAILY PO 08/18/16 09:00 08/20/16 08:53 (Protonix) 40 mg DAILY PO 08/18/16 09:00 08/18/16 09:41 (NS Flush) 2 ml UNSCH PRN IV FLUSH 08/17/16 19:45 (NS Flush) 2 ml BID IV FLUSH 08/17/16 21:00 08/20/16 08:48 (Zofran Inj) 4 mg Q6H PRN IVP 08/17/16 19:45 08/19/16 13:26 (Heparin Inj) 5,000 units Q8HR SQ 08/17/16 22:00 08/20/16 06:14 (Tylenol) 650 mg Q6H PRN PO 08/17/16 19:45 (Morphine Inj) 4 mg Q3H PRN IV 08/17/16 19:45 08/20/16 10:02 (Narcan Inj) 0.4 mg UNSCH PRN IV 08/17/16 19:45 (Mercy-Colace) 1 tab BID PO 08/17/16 21:00 08/20/16 08:52 (Milk Of Magnesia Liq) 30 ml Q12H PRN PO 08/17/16 19:45 (Senokot) 17.2 mg Q12H PRN PO 08/17/16 19:45 (Dulcolax Supp) 10 mg DAILY PRN RECTAL 08/17/16 19:45 (Lactulose Liq) 30 ml DAILY PRN PO 08/17/16 19:45 08/19/16 23:27 (Vasotec Inj) 1.25 mg Q6H PRN IV 08/17/16 20:15 (Tums Chew) 500 mg Q6H PRN CHEW 08/17/16 23:30 08/20/16 13:05 (Prinivil) 5 mg DAILY PO 08/18/16 00:30 08/20/16 08:54 (Vasotec Inj) 1.25 mg Q6H PRN IV 08/18/16 00:30 (Lasix Inj) 40 mg DAILY IV PUSH 08/18/16 09:00 08/20/16 08:47 (Ativan) 0.5 mg Q6H PRN PO 08/18/16 18:00 08/20/16 10:01 (Percocet 5-325 Mg) 1 tab Q6H PRN PO 08/19/16 10:00 (Percocet 10-325 Mg) 1 tab Q6H PRN PO 08/19/16 10:00 08/20/16 08:55 (Morphine Inj) 4 mg Q3H PRN IV 08/19/16 10:00 (Ferrous Sulfate) 325 mg BID PO 08/19/16 11:00 08/20/16 08:51 (Aldactone) 25 mg DAILY PO 08/19/16 11:30 08/20/16 08:52 (Aspirin Chew) 81 mg DAILY CHEW 08/20/16 09:00 08/20/16 08:46 (Coreg) 3.125 mg Q12HR PO 08/19/16 22:30 08/20/16 08:54 (Neurontin) 400 mg TID PO 08/20/16 13:00 (Skelaxin) 800 mg HS PO 08/20/16 21:00 Vital Signs / I&O Vital Signs Date Time Temp Pulse Resp B/P Pulse Ox O2 Delivery O2 Flow Rate FiO2 08/20/16 09:54 96 21 08/20/16 09:00 98.5 117 20 126/79 95 08/20/16 08:05 111 08/20/16 05:12 97.7 122 16 121/84 98 08/20/16 04:08 100 30 08/19/16 23:50 98.7 123 16 115/85 95 08/19/16 20:17 98.0 125 16 135/82 98 08/19/16 20:10 123 08/19/16 20:07 21 08/19/16 19:30 Nasal Cannula 2.00 08/19/16 16:00 98.5 120 20 122/77 95 08/19/16 16:00 Room Air 08/19/16 13:56 96 21 08/19/16 13:46 96 30 I/O 08/19/16 08/19/16 08/19/16 08/20/16 08/20/16 08/20/16 07:00 15:00 23:00 07:00 15:00 23:00 Intake Total 480 ml 480 ml 480 ml 480 ml Output Total 550 ml 150 ml Balance 480 ml -70 ml 330 ml 480 ml Intake Oral 480 ml 480 ml 480 ml 480 ml Output Urine Total 550 ml 150 ml # Voids 2 2 # Bowel Movements 0 0 0 2 Physical Exam GENERAL: NAD, AAOx3 SKIN: Warm and dry. HEAD: Atraumatic. Normocephalic. EYES: Pupils equal and round. No scleral icterus. No injection or drainage. ENT: No nasal bleeding or discharge. Mucous membranes pink and moist. NECK: Trachea midline. No JVD. CARDIOVASCULAR: Regular rhythm, tachycardic RESPIRATORY: No accessory muscle use. Decreased breath sounds bilaterally GASTROINTESTINAL: Abdomen soft, non-tender, nondistended. Hepatic and splenic margins not palpable. MUSCULOSKELETAL: 1-2+ pitting edema bilaterally NEUROLOGICAL: Awake and alert. No obvious cranial nerve deficits. Motor grossly within normal limits. Five out of 5 muscle strength in the arms and legs. Normal speech. PSYCHIATRIC: Appropriate mood and affect; insight and judgment normal. Laboratory Laboratory Tests Test 08/17/16 08/17/16 08/18/16 08/18/16 14:39 20:24 03:54 10:00 White Blood Count 8.5 TH/MM3 8.6 TH/MM3 (4.0-11.0) (4.0-11.0) Red Blood Count 4.27 MIL/MM3 4.00 MIL/MM3 (4.50-5.90) (4.50-5.90) Hemoglobin 10.0 GM/DL 9.7 GM/DL (13.0-17.0) (13.0-17.0) Hematocrit 32.3 % 29.9 % (39.0-51.0) (39.0-51.0) Mean Corpuscular Volume 75.6 FL 74.7 FL (80.0-100.0) (80.0-100.0) Mean Corpuscular Hemoglobin 23.4 PG 24.2 PG (27.0-34.0) (27.0-34.0) Mean Corpuscular Hemoglobin 30.9 % 32.5 % Concent (32.0-36.0) (32.0-36.0) Red Cell Distribution Width 18.5 % 18.3 % (11.6-17.2) (11.6-17.2) Platelet Count 184 TH/MM3 191 TH/MM3 (150-450) (150-450) Mean Platelet Volume 8.5 FL 8.0 FL (7.0-11.0) (7.0-11.0) Neutrophils (%) (Auto) 75.0 % 73.0 % (16.0-70.0) (16.0-70.0) Lymphocytes (%) (Auto) 17.0 % 17.7 % (9.0-44.0) (9.0-44.0) Monocytes (%) (Auto) 5.0 % (0.0-8.0) 6.2 % (0.0-8.0) Eosinophils (%) (Auto) 2.3 % (0.0-4.0) 2.4 % (0.0-4.0) Basophils (%) (Auto) 0.7 % (0.0-2.0) 0.7 % (0.0-2.0) Neutrophils # (Auto) 6.4 TH/MM3 6.3 TH/MM3 (1.8-7.7) (1.8-7.7) Lymphocytes # (Auto) 1.4 TH/MM3 1.5 TH/MM3 (1.0-4.8) (1.0-4.8) Monocytes # (Auto) 0.4 TH/MM3 0.5 TH/MM3 (0-0.9) (0-0.9) Eosinophils # (Auto) 0.2 TH/MM3 0.2 TH/MM3 (0-0.4) (0-0.4) Basophils # (Auto) 0.1 TH/MM3 0.1 TH/MM3 (0-0.2) (0-0.2) CBC Comment DIFF FINAL DIFF FINAL Differential Comment Blood Smear Pathologist Review Reticulocyte Count 3.6 % (0.4-3.0) Absolute Reticulocyte Count 155.5 MIL/L (20.0-150.0) Prothrombin Time 12.9 SEC (9.8-11.6) Prothromb Time International 1.2 RATIO Ratio Activated Partial 26.3 SEC Thromboplast Time (24.3-30.1) Sodium Level 139 MEQ/L 138 MEQ/L (136-145) (136-145) Potassium Level 4.4 MEQ/L 3.9 MEQ/L (3.5-5.1) (3.5-5.1) Chloride Level 106 MEQ/L 103 MEQ/L (98-107) (98-107) Carbon Dioxide Level 23.8 MEQ/L 29.6 MEQ/L (21.0-32.0) (21.0-32.0) Anion Gap 9 MEQ/L (5-15) 5 MEQ/L (5-15) Blood Urea Nitrogen 13 MG/DL (7-18) 13 MG/DL (7-18) Creatinine 0.88 MG/DL 0.98 MG/DL (0.60-1.30) (0.60-1.30) Estimat Glomerular Filtration 97 ML/MIN (>89) 86 ML/MIN (>89) Rate Random Glucose 93 MG/DL 99 MG/DL (74-106) (74-106) Calcium Level 8.2 MG/DL 8.0 MG/DL (8.5-10.1) (8.5-10.1) Magnesium Level 1.7 MG/DL 1.7 MG/DL (1.5-2.5) (1.5-2.5) Total Bilirubin 0.9 MG/DL (0.2-1.0) Aspartate Amino Transf 32 U/L (15-37) (AST/SGOT) Alanine Aminotransferase 47 U/L (12-78) (ALT/SGPT) Alkaline Phosphatase 102 U/L (45-117) Total Creatine Kinase 118 U/L 93 U/L (39-308) 80 U/L (39-308) (39-308) Creatine Kinase MB 2.1 NG/ML (0.5-3.6) Troponin I 0.03 NG/ML 0.03 NG/ML 0.03 NG/ML (0.02-0.05) (0.02-0.05) (0.02-0.05) B-Type Natriuretic Peptide 311 PG/ML (0-100) Total Protein 7.5 GM/DL (6.4-8.2) Albumin 3.1 GM/DL (3.4-5.0) Iron Level 32 MCG/DL (65-175) Total Iron Binding Capacity 440 MCG/DL (250-450) Percent Iron Saturation 7.3 % (20-50) Ferritin 40 NG/ML (26-388) Triglycerides Level 111 MG/DL (42-150) Cholesterol Level 107 MG/DL (120-200) LDL Cholesterol 60 MG/DL (0-99) HDL Cholesterol 24.8 MG/DL (40.0-60.0) Cholesterol/HDL Ratio 4.31 RATIO Urine Color YELLOW (YELLW/STRAW) Urine Turbidity CLEAR (CLEAR) Urine pH 5.5 (5.0-8.5) Urine Specific [place] 1.029 (1.002-1.035) Urine Protein TRACE mg/dL (NEG-TRACE) Urine Glucose (UA) NEG mg/dL (NEG) Urine Ketones NEG mg/dL (NEG) Urine Occult Blood NEG (NEG) Urine Nitrite NEG (NEG) Urine Bilirubin NEG (NEG) Urine Urobilinogen LESS THAN 2.0 MG/DL (LESS THAN 2.0) Urine Leukocyte Esterase NEG (NEG) Urine RBC 1 /hpf (0-3) Urine WBC 1 /hpf (0-5) Urine Squamous Epithelial <1 /hpf (0-5) Cells Urine Hyaline Casts 3 /lpf (RARE) Urine Mucus FEW /lpf (OCC) Microscopic Urinalysis Comment CULT NOT INDICATED Urine Opiates Screen POS (NEG) Urine Barbiturates Screen NEG (NEG) Urine Amphetamines Screen NEG (NEG) Urine Benzodiazepines Screen NEG (NEG) Urine Cocaine Screen NEG (NEG) Urine Cannabinoids Screen NEG (NEG) Test 08/18/16 08/19/16 12:14 09:31 Hepatitis A IgM Antibody NEGATIVE (NEGATIVE) Hepatitis B Surface Antigen NEGATIVE (NEGATIVE) Hepatitis B Core IgM Antibody NEGATIVE (NEGATIVE) Hepatitis C Antibody NEGATIVE (NEGATIVE) HIV (1&2) Antibody NEGATIVE (NEGATIVE) White Blood Count 8.8 TH/MM3 (4.0-11.0) Red Blood Count 4.09 MIL/MM3 (4.50-5.90) Hemoglobin 9.8 GM/DL (13.0-17.0) Hematocrit 30.4 % (39.0-51.0) Mean Corpuscular Volume 74.1 FL (80.0-100.0) Mean Corpuscular Hemoglobin 23.9 PG (27.0-34.0) Mean Corpuscular Hemoglobin 32.2 % Concent (32.0-36.0) Red Cell Distribution Width 18.3 % (11.6-17.2) Platelet Count 196 TH/MM3 (150-450) Mean Platelet Volume 8.3 FL (7.0-11.0) Sodium Level 135 MEQ/L (136-145) Potassium Level 3.9 MEQ/L (3.5-5.1) Chloride Level 99 MEQ/L (98-107) Carbon Dioxide Level 27.2 MEQ/L (21.0-32.0) Anion Gap 9 MEQ/L (5-15) Blood Urea Nitrogen 16 MG/DL (7-18) Creatinine 0.94 MG/DL (0.60-1.30) Estimat Glomerular Filtration 90 ML/MIN (>89) Rate Random Glucose 110 MG/DL (74-106) Calcium Level 8.5 MG/DL (8.5-10.1) Assessment and Plan Problem List: (1) Acute exacerbation of CHF (congestive heart failure) (2) SOB (shortness of breath) (3) Sinus tachycardia (4) Anemia (5) Splenomegaly (6) Microcytic anemia (7) Morbid obesity with body mass index (BMI) of 40.0 or higher Assessment and Plan 1) Has not diuresed well, will attempt to increase Lasix dose to see if it helps , will have to watch creatinine 2) Stress test showing no ischemic areas Con't heart failure medications 3) Not an AICD candidate, has not been on optimal medical management for over 3 months 4) Tobacco cessation Problem Qualifiers (1) Acute exacerbation of CHF (congestive heart failure): Qualified Code: I50.23 - Acute on chronic systolic congestive heart failure Clovis Pearson DO Aug 20, 2016 13:25
[2016-08-20] MEDS: IRON SUCROSE INJ 200 MG in SODIUM CHLORIDE 0.9% INJ 100 ML IV SCH (14:47)
--- NOTE | 2016-08-20 16:09 | MB ---
cc: ДМИТРИЙ MOSER MD DATE OF CONSULTATION: 08/20/2016. REASON FOR CONSULTATION: Microcytic hypochromic anemia. CHIEF COMPLAINT: 1. Increasing difficulty breathing, especially while lying down. 2. Progressive lower extremity edema, abdominal distension and unintended weight gain of approximately 40 pounds over the past four months. HISTORY OF PRESENT ILLNESS: Mr. 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 Mr. Wilcox recently relocated to the [facility] from [place], [place]. He had been in [place] for about two years. Prior to this, he and his moved from [facility] to [facility]. He has no followup in this area and is new to all the medical providers here. Mr. Wilcox's history with difficulty breathing, congestive heart failure and anemia goes back to about a year and a half ago. His describes symptoms of progressive difficulty breathing, fatigue and weakness that developed about a year and a half ago. The patient was evaluated and treated at the [facility] in [place]. While there, he was found on cardiac functional assessment to have congestive heart failure. He was also found on abdominal imaging to have splenomegaly. He had pancytopenia as she describes at that time and the patient was seen by a building materials sales attendant as well as a corridor redevelopment manager, both located in [facility]. Per the patient's , there appeared to be no true consensus as to the etiology of the congestive heart failure or the cause of splenomegaly. From what she recalls, the patient did receive oral iron replacement therapy for a period of time with which his anemia did resolve; however, a cause of the iron deficiency anemia was not identified. The patient and his relocated to the [facility] about two months ago, and over this period of time Mr. Wilcox had been on his lisinopril as well as other antihypertensive medications. She tells me that there were multiple changes made to his congestive heart failure medication regimen over the past year and a half. At some point, he was on Coreg and this was discontinued and at some point he was also on Lasix, which was also discontinued. Prior to this admission, Mr. Wilcox had several weeks of progressive difficulty breathing. The reports worsening snoring when he was able to sleep; however, over the past few days he has not been able to sleep because the moment he would "try to recline to sleep" he would feel a "choking sensation" and would sit up. She tells me the patient has been dozing off to sleep for several seconds in the middle of a sentence and is concerned about him being able to get enough rest. Additionally, he developed chest pain on the day of presentation to the hospital and was brought into the emergency department. Echocardiography performed indicated an left ventricular ejection fraction of about 25% and this was confirmed on nuclear medicine cardiac functional assessment. His hemoglobin was noted be 10 gm/dl. His MCV was in the mid 70s and his RDW was elevated. Serum iron studies indicate likely iron deficiency with normal ferritin, low percent iron saturation, borderline elevated TIBC as well. PAST MEDICAL HISTORY: 1. Reported history of scarlet fever as a child. 2. History of DVT and PE, treated with anticoagulation a little over 10 years ago. 3. Congestive heart failure. 4. Hypertension. 5. Morbid obesity. 6. Anxiety. 7. Steatohepatitis. 8. Splenomegaly. 9. Obstructive sleep apnea. PAST SURGICAL HISTORY: Appendectomy. FAMILY HISTORY AND SOCIAL HISTORY: Mother was a smoker, she had lung cancer. She is living. Father has had multiple melanoma skin cancers. SOCIAL HISTORY: The patient lives at home with his . He has two children aged 15 and 11. 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 He reports smoking about a pack a day for 20 years; more recently he has cut down to about a third of a pack daily. ALLERGIES: 1. PENICILLIN. 2. TORADOL. 3. TRAMADOL. CURRENT INPATIENT MEDICATIONS: 1. Iron sucrose 200 milligrams IV daily. 2. Aspirin 81 milligrams once a day. 3. Calcium carbonate 500 milligrams q. 6 hours as needed. 4. Coreg 3.125 milligrams p.o. q. 12. 5. Citalopram 10 milligrams p.o. daily. 6. Enalapril 1.25 milligrams IV q. 6 hours as needed. 7. Lasix 40 milligrams IV daily. 8. Gabapentin 400 milligrams p.o. three times a day. 9. Heparin 500 units subcutaneous q. 8 hours. 10. Lisinopril 40 milligrams subcutaneous daily. 11. Lorazepam 0.5 milligrams p.o. q. 6 hours as needed for anxiety. 12. 800 milligrams p.o. at bedtime. 13. Zofran 4 milligrams IV q. 6 hours as needed for nausea. 14. Oxycodone / acetaminophen 5 / 325 one tablet p.o. q. 6 hours. 15. Pantoprazole 40 milligrams p.o. daily. 16. Spironolactone 25 milligrams p.o. daily. REVIEW OF SYSTEMS: A thirteen point review of systems was obtained and the following are the pertinent positives: CONSTITUTIONAL: Fatigue, weakness. Denies fevers, chills or night sweats. HEAD, EYES, EARS, NOSE, THROAT: Denies headaches, denies blurry vision, denies difficulty swallowing. Reports recent toothache / tooth infection. RESPIRATORY: Reports difficulty breathing with minimal exertion and even at rest. Denies cough, hemoptysis. Denies pleuritic chest pain. CARDIOVASCULAR: Reports orthopnea, reports PND. Denies palpitations, reports lower extremity edema. Denies angina-like chest pain. GASTROINTESTINAL: Denies nausea, vomiting, diarrhea hematochezia, melena. Reports abdominal distension. : Denies dysuria, hematuria, urinary incontinence. LOWER EXTREMITIES: Bilateral pretibial edema. No calf tenderness. LIVESTOCK FARM MANAGER: Denies any focal sensory or motor deficits. PHYSICAL EXAMINATION: VITAL SIGNS: The vital signs reveal temperature 98.5 degrees Fahrenheit, heart rate 117 beats per minute, respiratory rate 20, blood pressure is 126/79, 02 saturations are 95% on two liters nasal cannula. GENERAL PHYSICAL APPEARANCE: Mr. Wilcox is a young male. He is heavyset. He is sitting up at the side of the bed. His is at bedside. She does most of the talking. Mr. Wilcox seems to nod off to sleep for seconds at a time mid-sentence. He does appear to be somewhat pale. HEAD, EYES, EARS, NOSE, THROAT: Head is atraumatic and normocephalic. Conjunctivae are mildly pale. The sclerae are anicteric. Extraocular muscles intact. Pupils equal, round and reactive to light and accommodation. ORAL EXAM: No pharyngeal erythema. NECK EXAM: No palpable cervical or supraclavicular lymphadenopathy. RESPIRATORY EXAM: Good air movement bilaterally. No added breath sounds. CARDIOVASCULAR EXAM: Regular rate and rhythm. S1 plus S2. No obvious murmurs, rubs or gallops. ABDOMINAL EXAM: Obese belly. Soft and nontender. He does have what appears to be anasarca of the lower abdominal wall. The examination is limited by his body habitus. LOWER EXTREMITIES: Pitting edema over bilateral lower extremities. No calf tenderness. LIVESTOCK FARM MANAGER: No focal sensory or motor deficits. He does seem to not be able to maintain consciousness due to dozing off to sleep. LABORATORY FINDINGS: Blood work dated 08/19/2016: WBC count 8.8, hemoglobin 90, 9.8 gm/dl, hematocrit 30.4%, MCV 74, platelet count is 196,000. Absolute reticulocyte count is 155. Chemistries: Sodium 135, potassium 3.9, chloride 99, bicarb 27.2, BUN 16, creatinine 0.94, EGFR 90, random glucose 110, calcium 8.5. Serum iron studies: Iron level 32 (low), TIBC 440 (borderline elevated), percent iron saturation 7.3%, ferritin level is 40 (lower limit of normal 26). IMAGING STUDIES: Abdominal ultrasound dated 08/18/2016: Hepatomegaly with steatosis, splenomegaly with spleen measuring 17.5 cm. Ultrasound Dopplers of the lower extremities dated 08/17/2016 indicate no evidence of lower extremity deep venous thrombosis. Neck CT angiogram dated 08/17/2016 indicates nondiagnostic for pulmonary emboli. No acute pulmonary infiltrates. Moderate to prominently diffuse cardiomegaly with enlargement of all the chambers. Myocardial perfusion scan dated 08/19/2016: Indicates global hypokinesis with dilated chambers. Ejection fraction calculated at approximately 26%. ASSESSMENT: Mr. Wilcox is a 36-year-old man with multiple medical comorbid conditions. It appears his medical issues are routed in his morbid obesity, obstructive sleep apnea, congestive heart failure, personal history of tobaccoism, and from a hematologic standpoint, he has iron deficiency anemia with resultant microcytosis. He presented to the hospital with complaints of progressive difficulty breathing, chest pain, fatigue and severe obstructive sleep apnea with inability to sleep at night. I did review his serum iron studies and they appear to be consistent with iron deficiency given the microcytosis, elevated RDW, low percentage iron saturation, borderline elevation in TIBC, elevated reticulocyte count. RECOMMENDATIONS: 1. Microcytic anemia: I would like to continue oral iron replacement therapy; however, to replete his iron stores more rapidly, I would like him to receive intravenous iron replacement with iron sucrose 200 mg daily x3 doses. Await stool for occult blood studies. He ought to also at some point be evaluated GI and this may be done as an outpatient. 2. Continue ongoing workup for his congestive heart failure. I would suggest especially addressing his obstructive sleep apnea which based on the updated [place] Study findings was an important under-recognized etiology for congestive heart failure. MD RAKAN Kaye/CHON /2:10 PM /3:50 PM
[2016-08-20] MEDS: ONDANSETRON HCL 4 MG/2 ML VIAL IVP PRN (18:55)
[2016-08-20] MEDS: LACTULOSE SYRUP 20 GM/30 ML CUP PO PRN (18:58)
[2016-08-20] MEDS: METAXALONE 800 MG TAB PO SCH (20:46)
[2016-08-21] VITALS (9 sets, daily range): BP systolic 109–132; BP diastolic 59–98; PULSE 95–115; RESP 20; TEMP 97.4–97.9; O2SAT 93–98
[2016-08-21] MEDS: oxyCODONE/ACETAMINOPHEN 10 MG/325 MG TAB PO PRN ×2 (03:10→09:13)
[2016-08-21] MEDS: HEPARIN SODIUM - SQ 10,000 UNITS/ML VIAL SQ SCH ×3 (06:05→21:20)
[2016-08-21] MEDS: ONDANSETRON HCL 4 MG/2 ML VIAL IVP PRN (06:06)
[2016-08-21] MEDS: MORPHINE SULFATE 4 MG/ML INJ IV PRN (06:07)
[2016-08-21] MEDS: PANTOPRAZOLE SOD 40 MG DELAYED RELEASE TAB PO SCH (09:00)
[2016-08-21] MEDS: ASPIRIN 81 MG CHEW TAB CHEW SCH (09:11)
[2016-08-21] MEDS: CITALOPRAM HYDROBROMIDE 20 MG TAB PO SCH (09:11)
[2016-08-21] MEDS: DOCUSATE SODIUM 50 MG/SENNA 8.6 MG TAB PO SCH ×2 (09:11→21:20)
[2016-08-21] MEDS: LISINOPRIL 5 MG TAB PO SCH (09:12)
[2016-08-21] MEDS: SPIRONOLACTONE 25 MG TAB PO SCH (09:12)
[2016-08-21] MEDS: FERROUS SULFATE 325 MG (65 MG ELEMENTAL IRON) TAB PO SCH ×2 (09:12→21:20)
[2016-08-21] MEDS: GABAPENTIN 400 MG CAP PO SCH ×3 (09:12→17:39)
[2016-08-21] MEDS: FUROSEMIDE 40 MG/4 ML VIAL IV PUSH SCH (09:13)
[2016-08-21] MEDS: IRON SUCROSE INJ 200 MG in SODIUM CHLORIDE 0.9% INJ 100 ML IV SCH (09:13)
[2016-08-21] MEDS: CARVEDILOL 3.125 MG TAB PO SCH ×2 (09:13→21:20)
[2016-08-21] MEDS: SODIUM CHLORIDE 0.9% FLUSH 10 ML FLUSH IV FLUSH SCH ×2 (09:16→21:00)
--- NOTE | 2016-08-21 10:02 | HHI.FPPN ---
Subjective Remarks No acute events overnight. Patient has remained tachycardic to the 110s, but otherwise afebrile and vital signs stable. Patient denies any shortness of breath or chest pain at rest. However, he continues to endorse anxiety, pleuritic chest pain, feeling tired. He also endorses some pleuritic chest pain and 1 episode of nonbilious nonbloody vomiting that look like what he just ate last night. He reports that his back pain may be a little bit better and his leg pain is about the same. Discussed the results of his stress test and his plan of care with the patient and his . Patient reported yesterday that he is going to quit smoking. Patient reports difficulty tolerating BiPAP. He doesn't like the feeling of air forcefully being pushed into his lungs. Pt reports cold legs that hurt worse with walking. (Jose Antonio Moreno MD R1) Objective Vitals Vital Signs Date Time Temp Pulse Resp B/P Pulse Ox O2 Delivery O2 Flow Rate FiO2 08/21/16 09:00 111 08/21/16 09:00 Room Air 08/21/16 08:00 97.7 112 20 129/98 97 08/21/16 04:00 97.9 115 20 132/94 95 08/21/16 00:00 97.4 112 20 121/83 96 08/20/16 20:15 Nasal Cannula 2.00 08/20/16 20:14 112 08/20/16 20:00 97.4 112 20 117/84 97 08/20/16 19:52 97 08/20/16 16:00 97.7 105 20 111/83 95 08/20/16 12:00 98.5 117 20 126/79 95 I/O 08/20/16 08/20/16 08/20/16 08/21/16 08/21/16 08/21/16 07:00 15:00 23:00 07:00 15:00 23:00 Intake Total 480 ml 480 ml 240 ml 240 ml Output Total 150 ml 150 ml Balance 480 ml 480 ml 90 ml 90 ml Intake Oral 480 ml 480 ml 240 ml 240 ml Output Urine Total 150 ml 150 ml # Voids 2 3 # Bowel Movements 2 1 1 1 (Jose Antonio Moreno MD R1) Result Diagram: 08/19/1631 08/19/16930 Objective Remarks GENERAL: Obese male patient lying prone in bed in NAD, no resp distress, nontoxic. Talks in complete sentences. HEENT: NCAT, EOMI, no scleral icterus, no conjunctival injection. CV: RRR, S1 S2. No murmurs. CHEST/PULM: CTAB, no crackles, no wheezes. ABD/GI: Obese, nondistended. EXT: 2+ pitting edema to knees. Legs taut with edema and diffusely tender to palpation. No calf tenderness. Relatively cold legs. BACK: Grossly normal NEURO: Awake, alert. Grossly nonfocal. Normal muscle tone. SKIN: No rashes, no jaundice. Multiple tattoos. PSYCH: Mood and affect are appropriate. Speech fluent. (Jose Antonio Moreno MD R1) A/P Assessment and Plan 36yo male with PMH significant for CHF, HTN, PE in 2011. Admitted for progressive SOB likely due to CHF exacerbation Discharge Planning Anticipate discharge on Monday after we call provider services to arrange discharge with CPAP or BiPAP. We'll call provider services at . He may get medical equipment from [facility], [employer]. (Jose Antonio Moreno MD R1) Attending Attestation Patient seen and examined, discussed with resident team. I agree with assessment and management as documented and discussed with me. Pt complains of waves/episodes of shortness of breath and tachypnea, which last a few minutes and then resolve. With this, he feels incredibly anxious like a panic attack. He denies chest pain or chest pressure. He refuses work up at this time, including EKG, ABG, cardiac enzymes, etc. He also complains of n/v since yesterday and gets up to bathroom to vomit after my exam/interaction. For N/V: Consider opiates causing n/v; gallstones; anxiety; etc. Will provide IV zofran. Hold opiates. HIDA scan tomorrow. Consider GI consult if indicated. If cholecystectomy is indicated, he would be high risk for surgery. (Chloe Pappas MD) Problem List: (1) Acute exacerbation of CHF (congestive heart failure) Status: Acute Plan: - EF on echo shows EF 25% and global hypokinesis. Stress test was negative. - Will start spironolactone 25 mg PO daily, d/c potassium - cardiology consult appreciated. started carvedilol bid. Appreciate recommendations below: 1) Has not diuresed well, will attempt to increase Lasix dose to see if it helps , will have to watch creatinine 2) Stress test showing no ischemic areas; Con't heart failure medications 3) Not an AICD candidate, has not been on optimal medical management for over 3 months 4) Tobacco cessation - patient has reported that he intends to quit; discussed resources yesterday - will con't to monitor I&O's and weight checks (2) SOB (shortness of breath) Status: Acute Plan: Likely secondary to CHF exacerbation vs sleep apnea vs obesity hypoventilation syndrome vs anemia vs anxiety vs. multi-factorial - will look into discharging patient with BiPAP or CPAP after this inpatient admission. we deem it medically necessary. If not possible, will recommend outpatient sleep study. - stress test negative for reversible ischemia - incentive spirometry - NC Oxygen supplementation as needed. - con't BiPAP at night as tolerated with pulse ox monitor - continue Ativan PRN (3) Sinus tachycardia Status: Acute Plan: - Continues to have persistent sinus tachycardia. May be related to poor conditioning and/or anemia v CHF exacerbation v excessive sympathetic tone - may improve with treatment of CHF exacerbation; patient may need increased dose of beta sekou - con't to monitor (4) Microcytic anemia Status: Chronic Plan: Stable - Hgb 9.8 today, low MCV, hypochromic, increased RDW c/w iron deficiency anemia , but unknown etiology of blood loss given Hemoccult negative. - iron studies unclear for iron deficiency vs anemia of chronic disease, inflammation, malignancy, however, hemoglobinopathy also possible based on peripheral smear findings - Hgb electrophoresis pending - ordered iron supplements - hematology consult: Continue oral iron replacement therapy, IV iron with iron sucrose 200 mg daily 3 doses. Hemoccult negative. Outpatient sleep study for SHERLY as a contributing factor to his CHF. FEN: heart healthy diet DVT prophylaxis: Heparin Code: Full Dispo: Monday, after stress test completed (5) Low back pain radiating to both legs Status: Acute Plan: Patient reports chronic low back pain with neuropathic pain radiating down both legs. Discussed with patient that his leg pain is likely multifactorial with a combination of claudication, edema, neuropathic pain. Discussed with patient that he may need to be started on cilostazol as an outpatient. Gabapentin 400 mg by mouth 3 times a day Skelaxin daily at bedtime Patient has been on these medications and past, so we know they're well- tolerated (Jose Antonio Moreno MD R1) Problem Qualifiers (1) Acute exacerbation of CHF (congestive heart failure): Qualified Code: I50.23 - Acute on chronic systolic congestive heart failure Jose Antonio Moreno MD R1 Aug 21, 2016 10:02 Chloe Pappas MD Aug 21, 2016 15:20
--- NOTE | 2016-08-21 12:05 | PD.CARD.PN ---
Subjective Subjective Remarks No events overnight Feels somewhat better Unwilling to wear Bipap last night, will attempt again tonight Objective Medications Current Medications Medications (Trade) Dose Ordered Sig/Gideon Route Start Time Stop Time Status Last Admin (CeleXA) 10 mg DAILY PO 08/18/16 09:00 08/21/16 09:11 (Protonix) 40 mg DAILY PO 08/18/16 09:00 08/18/16 09:41 (NS Flush) 2 ml UNSCH PRN IV FLUSH 08/17/16 19:45 (NS Flush) 2 ml BID IV FLUSH 08/17/16 21:00 08/21/16 09:16 (Zofran Inj) 4 mg Q6H PRN IVP 08/17/16 19:45 08/21/16 06:06 (Heparin Inj) 5,000 units Q8HR SQ 08/17/16 22:00 08/21/16 06:05 (Tylenol) 650 mg Q6H PRN PO 08/17/16 19:45 (Morphine Inj) 4 mg Q3H PRN IV 08/17/16 19:45 08/21/16 06:07 (Narcan Inj) 0.4 mg UNSCH PRN IV 08/17/16 19:45 (Mercy-Colace) 1 tab BID PO 08/17/16 21:00 08/21/16 09:11 (Milk Of Magnesia Liq) 30 ml Q12H PRN PO 08/17/16 19:45 (Senokot) 17.2 mg Q12H PRN PO 08/17/16 19:45 (Dulcolax Supp) 10 mg DAILY PRN RECTAL 08/17/16 19:45 (Lactulose Liq) 30 ml DAILY PRN PO 08/17/16 19:45 08/20/16 18:58 (Vasotec Inj) 1.25 mg Q6H PRN IV 08/17/16 20:15 (Tums Chew) 500 mg Q6H PRN CHEW 08/17/16 23:30 08/20/16 13:05 (Prinivil) 5 mg DAILY PO 08/18/16 00:30 08/21/16 09:12 (Vasotec Inj) 1.25 mg Q6H PRN IV 08/18/16 00:30 (Lasix Inj) 40 mg DAILY IV PUSH 08/18/16 09:00 08/21/16 09:13 (Ativan) 0.5 mg Q6H PRN PO 08/18/16 18:00 08/20/16 10:01 (Percocet 5-325 Mg) 1 tab Q6H PRN PO 08/19/16 10:00 (Percocet 10-325 Mg) 1 tab Q6H PRN PO 08/19/16 10:00 08/21/16 09:13 (Morphine Inj) 4 mg Q3H PRN IV 08/19/16 10:00 (Ferrous Sulfate) 325 mg BID PO 08/19/16 11:00 08/21/16 09:12 (Aldactone) 25 mg DAILY PO 08/19/16 11:30 08/21/16 09:12 (Aspirin Chew) 81 mg DAILY CHEW 08/20/16 09:00 08/21/16 09:11 (Coreg) 3.125 mg Q12HR PO 08/19/16 22:30 08/21/16 09:13 (Neurontin) 400 mg TID PO 08/20/16 13:00 08/21/16 09:12 Metaxalone 800 mg 800 mg HS PO 08/20/16 21:00 08/20/16 20:46 (Venofer Inj/NS Inj) 110 ml @ 110 mls/hr DAILY IV 08/20/16 14:00 08/22/16 09:59 08/21/16 09:13 Vital Signs / I&O Vital Signs Date Time Temp Pulse Resp B/P Pulse Ox O2 Delivery O2 Flow Rate FiO2 08/21/16 10:38 98 21 08/21/16 09:00 111 08/21/16 09:00 Room Air 08/21/16 08:00 97.7 112 20 129/98 97 08/21/16 04:00 97.9 115 20 132/94 95 08/21/16 00:00 97.4 112 20 121/83 96 08/20/16 20:15 Nasal Cannula 2.00 08/20/16 20:14 112 08/20/16 20:00 97.4 112 20 117/84 97 08/20/16 19:52 97 08/20/16 16:00 97.7 105 20 111/83 95 I/O 7/8/17 708/20/16 08/21/16 08/21/16 08/21/16 07:00 15:00 23:00 07:00 15:00 23:00 Intake Total 480 ml 480 ml 240 ml 240 ml Output Total 150 ml 150 ml Balance 480 ml 480 ml 90 ml 90 ml Intake Oral 480 ml 480 ml 240 ml 240 ml Output Urine Total 150 ml 150 ml # Voids 2 3 # Bowel Movements 2 1 1 1 Physical Exam GENERAL: NAD, AAOx3 SKIN: Warm and dry. HEAD: Atraumatic. Normocephalic. EYES: Pupils equal and round. No scleral icterus. No injection or drainage. ENT: No nasal bleeding or discharge. Mucous membranes pink and moist. NECK: Trachea midline. No JVD. CARDIOVASCULAR: Regular rhythm, tachycardic RESPIRATORY: No accessory muscle use. Decreased breath sounds bilaterally GASTROINTESTINAL: Abdomen soft, non-tender, nondistended. Hepatic and splenic margins not palpable. MUSCULOSKELETAL: 1-2+ pitting edema bilaterally NEUROLOGICAL: Awake and alert. No obvious cranial nerve deficits. Motor grossly within normal limits. Five out of 5 muscle strength in the arms and legs. Normal speech. PSYCHIATRIC: Appropriate mood and affect; insight and judgment normal. Assessment and Plan Problem List: (1) Acute exacerbation of CHF (congestive heart failure) (2) SOB (shortness of breath) (3) Sinus tachycardia (4) Anemia (5) Splenomegaly (6) Microcytic anemia (7) Morbid obesity with body mass index (BMI) of 40.0 or higher Assessment and Plan 1) Has not diuresed well, will attempt to increase Lasix dose to see if it helps , will have to watch creatinine 2) Stress test showing no ischemic areas Con't heart failure medications 3) Not an AICD candidate, has not been on optimal medical management for over 3 months 4) Tobacco cessation 5) Attempt Bipap, agree with Dr. Espinal's consult that SHERLY may be a significant component here Problem Qualifiers (1) Acute exacerbation of CHF (congestive heart failure): Qualified Code: I50.23 - Acute on chronic systolic congestive heart failure Clovis Pearson DO Aug 21, 2016 12:05
[2016-08-21] MEDS: LORazepam 0.5 MG TAB PO PRN (14:24)
[2016-08-21] MEDS ORDERED: FUROSEMIDE 40 MG/4 ML VIAL IV PUSH ONE (14:30)
[2016-08-21] MEDS ORDERED: ACETAMINOPHEN 1000 MG/100 ML VIAL IV PRN (15:15)
[2016-08-21] MEDS: METAXALONE 800 MG TAB PO SCH (21:00)
[2016-08-21] MEDS ORDERED: ACETAMINOPHEN 1000 MG/100 ML VIAL IV ONE (22:30)
[2016-08-22] VITALS (10 sets, daily range): BP systolic 105–131; BP diastolic 55–86; PULSE 103–216; RESP 19–22; TEMP 97.4–98.1; O2SAT 90–98
[2016-08-22] MEDS: HEPARIN SODIUM - SQ 10,000 UNITS/ML VIAL SQ SCH ×3 (04:59→20:46)
[2016-08-22] MEDS: ACETAMINOPHEN 1000 MG/100 ML VIAL IV SCH ×2 (04:59→12:00)
--- NOTE | 2016-08-22 08:22 | RADRPT ---
EXAM DATE/TIME: 08/22/2016 08:08 [facility] COMPARISON: CHEST SINGLE AP, August 17, 2016, 15:08. INDICATIONS : Shortness of breath. CHF. MEDICAL HISTORY : Cardiovascular disease. Hypertension. Pulnonary emboli SURGICAL HISTORY : None. ENCOUNTER: Initial ACUITY: 4 - 6 days PAIN SCORE: 5/10 LOCATION: Bilateral chest FINDINGS: Redemonstration of marked enlargement of the cardiac silhouette. Mild diffuse interstitial prominence exaggerated by low lung volumes. The vascularity is minimally indistinct. Remainder of the exam is u nchanged. CONCLUSION: 1. Cardiomegaly with mild positive fluid balance. Chet Booth MD on August 22, 2016 at 8:19 Board Certified Radiologist. This report was verified electronically.
[2016-08-22] MEDS: DOCUSATE SODIUM 50 MG/SENNA 8.6 MG TAB PO SCH ×2 (08:26→20:45)
[2016-08-22] MEDS: IRON SUCROSE INJ 200 MG in SODIUM CHLORIDE 0.9% INJ 100 ML IV SCH (08:26)
[2016-08-22] MEDS: SPIRONOLACTONE 25 MG TAB PO SCH (08:27)
[2016-08-22] MEDS: FUROSEMIDE 40 MG/4 ML VIAL IV PUSH SCH (08:27)
[2016-08-22] MEDS: FERROUS SULFATE 325 MG (65 MG ELEMENTAL IRON) TAB PO SCH ×2 (08:27→20:45)
[2016-08-22] MEDS: CITALOPRAM HYDROBROMIDE 20 MG TAB PO SCH (08:27)
[2016-08-22] MEDS: GABAPENTIN 400 MG CAP PO SCH ×3 (08:28→17:19)
[2016-08-22] MEDS: SODIUM CHLORIDE 0.9% FLUSH 10 ML FLUSH IV FLUSH SCH ×2 (08:28→20:46)
[2016-08-22] MEDS: CARVEDILOL 3.125 MG TAB PO SCH (08:28)
[2016-08-22] MEDS: LISINOPRIL 5 MG TAB PO SCH (08:28)
[2016-08-22] MEDS: ASPIRIN 81 MG CHEW TAB CHEW SCH (08:29)
[2016-08-22] MEDS: PANTOPRAZOLE SOD 40 MG DELAYED RELEASE TAB PO SCH (08:37)
[2016-08-22 09:31] LABS: AUTOMATED NEUTROPHIL # 6.2 TH/MM3 (1.8-7.7); BASOPHIL # 0.1 TH/MM3 (0-0.2); BASOPHIL % 0.7 % (0.0-2.0); EOSINOPHIL # 0.2 TH/MM3 (0-0.4); EOSINOPHIL % 2.1 % (0.0-4.0); HEMATOCRIT 31.6 % (39.0-51.0); HEMO FLAGS DIFF FINAL; LYMPH % 17.6 % (9.0-44.0); LYMPHOCYTE # 1.5 TH/MM3 (1.0-4.8); MEAN CELL VOLUME 75.7 FL (80.0-100.0); MEAN CORPUSCULAR HEMOGLOBIN 23.7 PG (27.0-34.0); MEAN CORPUSCULAR HGB CONC 31.2 % (32.0-36.0); NEUT % 72.6 % (16.0-70.0); PLATELET COUNT 226 TH/MM3 (150-450); RED BLOOD COUNT 4.18 MIL/MM3 (4.50-5.90); RED CELL DISTRIBUTION WIDTH 18.3 % (11.6-17.2); WHITE BLOOD COUNT 8.5 TH/MM3 (4.0-11.0)
[2016-08-22 09:44] LABS: BICARBONATE 30.8 MEQ/L (21.0-32.0); POTASSIUM 4.1 MEQ/L (3.5-5.1)
[2016-08-22] MEDS ORDERED: SINCALIDE 5 MCG/5 ML VIAL IV PUSH ONE (11:39)
--- NOTE | 2016-08-22 12:40 | RADRPT ---
EXAM DATE/TIME: 08/22/2016 10:07 [facility] COMPARISON: CT PULMONARY ANGIOGRAM, August 17, 2016, 17:24. US ABDOMEN - COMPLETE, August 18, 2016, 10:30. INDICATIONS : Right upper quadrant pain. DOSE: 4.1 mCi Tc99m Mebrofenin IV MEDICATION: 2.5 mcg Cholecystokinin IV; No symptomatic response. Cholecystokinin was administered by slow infusion over 8 minutes beginning at 75 minutes. MEDICAL HISTORY : Congestive hearrt failure. Hypertension. SURGICAL HISTORY : Inguinal hernia repair. Appendectomy. ENCOUNTER: Initial ACUITY: 1 day PAIN SCALE: 2/10 LOCATION: Right upper quadrant TECHNIQUE: Following the intravenous administration of radiotracer, dynamic sequential image were performed with continuous acquisition. Time-activity curves were generated. FINDINGS: HEPATIIC KINETICS: There is prompt uptake of radiotracer in the liver. No focal defects are seen. There is normal rate of washout from the hepatic parenchyma. BILIARY CLEARANCE: Activity is first seen in the extrahepatic biliary system at 10-15 minutes. There is normal excretio n into the small bowel. GALLBLADDER: Activity is first seen in the gallbladder at 70 minutes. POST CHOLECYSTOKININ: After Cholecystokinin administration, there is poor emptying of the gallbladder with a less than 20 % ejection fraction. Common bile duct kinetics are normal and there is no evidence of biliary obstruc tion. BILIARY ENTERIC REFLUX: None observed. CLINICAL: The patient was asymptomatic after Cholecystokinin administration. CONCLUSION: Delayed gallbladder filling and sluggish gallbladder response to CCK suggesting chronic cholecystitis . Shaquille Moya MD on August 22, 2016 at 12:33 Board Certified Radiologist. This report was verified electronically.
[2016-08-22] MEDS ORDERED: KETOROLAC TROMETHAMINE 30 MG/ML (IVP) VIAL IV PUSH PRN (14:30)
[2016-08-22] MEDS ORDERED: KETOROLAC TROMETHAMINE 30 MG/ML (IVP) VIAL IV PUSH ONE (14:30)
--- NOTE | 2016-08-22 15:10 | HHI.FPPN ---
Subjective Remarks No acute events overnight. Patient has remained tachycardic to the 110s, but otherwise afebrile and vital signs stable. Patient states shortness of breath has improved and denies chest pain at rest. However, he reports he has finally been able to sleep and has been feeling fatigued. Endorses continued pain in legs. States he has been able to eat food w/o vomiting, hasn't vomited since the day before yesterday; he thinks that IV Tylenol caused his vomiting. He did not receive BIPAP last night because "he didn't ask for it," and "nobody came by to set it up." In addition, he states he has been taking Lasix and " urinating alot." Does not have any other complaints. (Marla Pat MD R1) Objective Vitals Vital Signs Date Time Temp Pulse Resp B/P Pulse Ox O2 Delivery O2 Flow Rate FiO2 08/22/16 12:50 98.1 111 20 131/86 98 08/22/16 08:20 Room Air 08/22/16 08:02 109 08/22/16 08:00 97.8 110 20 105/67 90 08/22/16 06:25 97.7 103 20 114/74 97 08/22/16 01:34 97.5 106 19 114/68 93 08/22/16 00:02 18 08/21/16 21:30 Nasal Cannula 2.00 08/21/16 21:06 97.4 104 20 112/64 95 08/21/16 20:00 95 08/21/16 16:00 97.8 105 20 109/60 95 I/O 08/21/16 08/21/16 08/21/16 08/22/16 08/22/16 08/22/16 07:00 15:00 23:00 07:00 15:00 23:00 Intake Total 240 ml 720 ml 86 ml 360 ml Output Total 150 ml Balance 90 ml 720 ml 86 ml 360 ml Intake Oral 240 ml 720 ml 360 ml IV Total 86 ml Output Urine Total 150 ml # Voids 1 # Bowel Movements 1 5 (Marla Pat MD R1) Result Diagram: 08/22/16 0821 08/22/16 0821 Imaging Last Impressions Chest X-Ray 08/22/16 0700 Signed Impressions: Service Date/Time: Monday, August 22, 2016 08:08 - CONCLUSION: 1. Cardiomegaly with mild positive fluid balance. Chet Booth MD Hepatobiliary Scan Nuclear Medicine 08/22/16 0600 Signed Impressions: Service Date/Time: Monday, August 22, 2016 10:07 - CONCLUSION: Delayed gallbladder filling and sluggish gallbladder response to CCK suggesting chronic cholecystitis. Shaquille Moya MD Myocardial Perfusion Scan Nuc Med 08/19/16 06 Signed Impressions: Service Date/Time: Friday, August 19, 2016 10:21 - CONCLUSION: Global hypokinesis with a dilated chamber. Ejection fraction calculated to be only 26%% RISK CATEGORY: 3 Gulshan Woody MD Abdomen Ultrasound 08/18/16 0000 Signed Impressions: Service Date/Time: August 10:30 - CONCLUSION: 1. Image quality less than optimal secondary to patient body habitus. There is cholelithiasis with associated mild gallbladder wall thickening. However, sonographic Marquez' s sign is negative suggesting against acute cholecystitis. 2. Hepatomegaly with steatosis. 3. Splenomegaly. Shaquille Xavier MD Lower Extremity Ultrasound 08/17/161420 Signed Impressions: Service Date/Time: Wednesday, August 17, 2016 14:36 - CONCLUSION: Negative for deep venous thrombosis. John Solorio MD FACR CT Angiography 08/17/16 142 Signed Impressions: Service Date/Time: Wednesday, August 17, 2016 17:24 - CONCLUSION: 1. Nondiagnostic for PE. A VQ scan could be performed if clinically indicated. 2. No acute pulmonary infiltrates 3. Moderate to prominent diffuse cardiomegaly. Sudheer Faulkner MD Lung Scan-VQ Nuclear Medicine 08/17/16 0000 Signed Impressions: Service Date/Time: Wednesday, August 17, 2016 20:25 - CONCLUSION: 1. No evidence for pulmonary embolus. Madi Simmons MD Objective Remarks GENERAL: Obese male patient lying prone in bed in NAD, no resp distress. HEENT: NCAT, EOMI, no scleral icterus, no conjunctival injection. CV: RRR, S1 S2. No murmurs. CHEST/PULM: CTAB, no crackles, no wheezes. ABD/GI: Obese, nondistended, normal bowel sounds in all 4 quadrants. Tenderness to palpation of the RUQ. EXT: 2+ pitting edema to knees. Legs taut with edema and diffusely tender to palpation. BACK: Grossly normal NEURO: Awake, alert. Grossly nonfocal. Normal muscle tone. SKIN: No rashes, no jaundice. Multiple tattoos. PSYCH: Mood and affect are appropriate. Speech fluent. (Marla Pat MD R1) A/P Assessment and Plan 36yo male with PMH significant for CHF, HTN, PE in 2011. Admitted for progressive SOB likely due to CHF exacerbation Discharge Planning Anticipate discharge on Monday. Attempts were made to contact insurance about securing a BIPAP w/discharge but unsuccessful. Patient w/need to f/u with cardio and pulm to undergo sleep study before obtaining BIPAP. (Marla Pat MD R1) Attending Attestation Patient seen, examined, and discussed with resident team. I agree with assessment and management as documented and discussed with me. Pt reports he is feeling better. He is seen initially sleeping in room laying fairly flat and comfortable. Awakens to voice easily. He did not use BiPAP last night despite being encouraged to do so and being advised that settings were changed. He will consider using this tonight. Again the team expressed concern that sleep apnea is a significant source of his problems. (Chloe Pappas MD) Problem List: (1) Acute exacerbation of CHF (congestive heart failure) Status: Acute Plan: - EF on echo shows EF 25% and global hypokinesis. Negative stress test. - spironolactone 25 mg PO daily, carvedilol - patient has shown significant improvement with Lasix. Suspect patient is fluid positive today. Will provide 40mg IV Lasix today in addition to 60 mg IV Lasix daily scheduled - cardiology consulted appreciated - will con't to monitor I&O's and weight checks (2) SOB (shortness of breath) Status: Acute Plan: Likely secondary to CHF exacerbation in combination with sleep apnea and obesity hypoventilation syndrome - recommend outpatient sleep study ALTAGRACIA and obtaining BIPAP - incentive spirometry - NC Oxygen supplementation as needed. - con't BiPAP at night as tolerated with pulse ox monitor - continue Ativan PRN - PFTs results pending (3) Sinus tachycardia Status: Acute Plan: - Continues to have persistent sinus tachycardia since admission. May be related to poor conditioning in combination with anemia v CHF exacerbation - may improve with treatment of CHF exacerbation, 40 mg IV Lasix today in addition to scheduled 60 mg IV Lasix - patient should f/u with PCP or genetics physician for tachycardia. BB should be increased at least after 2 weeks (started 08/19/16). - con't to monitor (4) Microcytic anemia Status: Chronic Plan: Stable - Hgb <10, low MCV, hypochromic, increased RDW c/w iron deficiency anemia, hemoccult negative - iron supplements daily (5) Low back pain radiating to both legs Status: Chronic Plan: Patient reports chronic low back pain with neuropathic pain radiating down both legs. Likely multifactorial with a combination of arthritis, edema, neuropathic pain. - cilastozol outpatient Gabapentin 400 mg by mouth 3 times a day Skelaxin daily at bedtime (6) FEN Status: Acute Plan: FEN: heart healthy diet DVT prophylaxis: Heparin Code: Full (Marla Pat MD R1) Problem Qualifiers (1) Acute exacerbation of CHF (congestive heart failure): Qualified Code: I50.23 - Acute on chronic systolic congestive heart failure Marla Pat MD R1 Aug 22, 2016 15:10 Chloe Pappas MD Aug 22, 2016 20:16
[2016-08-22] MEDS ORDERED: ACETAMINOPHEN 1000 MG/100 ML VIAL IV PRN (15:30)
--- NOTE | 2016-08-22 17:58 | PD.CARD.PN ---
Subjective Subjective Remarks Overall less heavy breathing Feels he urinated a lot from Lasix Objective Medications Current Medications Medications (Trade) Dose Ordered Sig/Gideon Route Start Time Stop Time Status Last Admin (CeleXA) 10 mg DAILY PO 08/18/16 09:00 08/22/16 08:27 (Protonix) 40 mg DAILY PO 08/18/16 09:00 08/18/16 09:41 (NS Flush) 2 ml UNSCH PRN IV FLUSH 08/17/16 19:45 (NS Flush) 2 ml BID IV FLUSH 08/17/16 21:00 08/22/16 08:28 (Zofran Inj) 4 mg Q6H PRN IVP 08/17/16 19:45 08/21/16 06:06 (Heparin Inj) 5,000 units Q8HR SQ 08/17/16 22:00 08/22/16 13:31 (Morphine Inj) 4 mg Q3H PRN IV 08/17/16 19:45 Hold 08/21/16 06:07 (Narcan Inj) 0.4 mg UNSCH PRN IV 08/17/16 19:45 (Mercy-Colace) 1 tab BID PO 08/17/16 21:00 08/22/16 08:26 (Milk Of Magnesia Liq) 30 ml Q12H PRN PO 08/17/16 19:45 (Senokot) 17.2 mg Q12H PRN PO 08/17/16 19:45 (Dulcolax Supp) 10 mg DAILY PRN RECTAL 08/17/16 19:45 (Lactulose Liq) 30 ml DAILY PRN PO 08/17/16 19:45 08/20/16 18:58 (Tums Chew) 500 mg Q6H PRN CHEW 08/17/16 23:30 08/20/16 13:05 (Prinivil) 5 mg DAILY PO 08/18/16 00:30 08/22/16 08:28 (Vasotec Inj) 1.25 mg Q6H PRN IV 08/18/16 00:30 (Ativan) 0.5 mg Q6H PRN PO 08/18/16 18:00 08/21/16 14:24 (Percocet 10-325 Mg) 1 tab Q6H PRN PO 08/19/16 10:00 Hold 08/21/16 09:13 (Morphine Inj) 4 mg Q3H PRN IV 08/19/16 10:00 Hold (Ferrous Sulfate) 325 mg BID PO 08/19/16 11:00 08/22/16 08:27 (Aldactone) 25 mg DAILY PO 08/19/16 11:30 08/22/16 08:27 (Aspirin Chew) 81 mg DAILY CHEW 08/20/16 09:00 08/22/16 08:29 (Coreg) 3.125 mg Q12HR PO 08/19/16 22:30 08/22/16 08:28 (Neurontin) 400 mg TID PO 08/20/16 13:00 08/22/16 17:19 (Skelaxin) 800 mg HS PO 08/20/16 21:00 08/21/16 21:00 (Lasix Inj) 60 mg DAILY IV PUSH 08/22/16 09:00 08/22/16 08:27 (Lasix Inj) 40 mg ONCE ONCE IV PUSH 08/22/16 21:00 08/22/16 21:01 (Ofirmev Inj) 1,000 mg Q6H PRN IV 08/22/16 15:30 Vital Signs / I&O Vital Signs Date Time Temp Pulse Resp B/P Pulse Ox O2 Delivery O2 Flow Rate FiO2 08/22/16 16:00 97.4 107 20 121/55 94 08/22/16 14:36 91 21 08/22/16 12:50 98.1 111 20 131/86 98 08/22/16 08:20 Room Air 08/22/16 08:02 109 08/22/16 08:00 97.8 110 20 105/67 90 08/22/16 06:25 97.7 103 20 114/74 97 08/22/16 01:34 97.5 106 19 114/68 93 08/22/16 00:02 18 08/21/16 21:30 Nasal Cannula 2.00 08/21/16 21:06 97.4 104 20 112/64 95 08/21/16 20:00 95 I/O 08/21/16 08/21/16 08/21/16 08/22/16 08/22/16 08/22/16 07:00 15:00 23:00 07:00 15:00 23:00 Intake Total 240 ml 720 ml 86 ml 360 ml Output Total 150 ml Balance 90 ml 720 ml 86 ml 360 ml Intake Oral 240 ml 720 ml 360 ml IV Total 86 ml Output Urine Total 150 ml # Voids 1 # Bowel Movements 1 5 Physical Exam GENERAL: NAD, AAOx3 SKIN: Warm and dry. HEAD: Atraumatic. Normocephalic. EYES: Pupils equal and round. No scleral icterus. No injection or drainage. ENT: No nasal bleeding or discharge. Mucous membranes pink and moist. NECK: Trachea midline. No JVD. CARDIOVASCULAR: Regular rhythm, tachycardic RESPIRATORY: No accessory muscle use. Decreased breath sounds bilaterally GASTROINTESTINAL: Abdomen soft, non-tender, nondistended. Hepatic and splenic margins not palpable. MUSCULOSKELETAL: 1-2+ pitting edema bilaterally NEUROLOGICAL: Awake and alert. No obvious cranial nerve deficits. Motor grossly within normal limits. Five out of 5 muscle strength in the arms and legs. Normal speech. PSYCHIATRIC: Appropriate mood and affect; insight and judgment normal. Laboratory Laboratory Tests Test 08/22/16 08:21 White Blood Count 8.5 TH/MM3 Red Blood Count 4.18 MIL/MM3 Hemoglobin 9.9 GM/DL Hematocrit 31.6 % Mean Corpuscular Volume 75.7 FL Mean Corpuscular Hemoglobin 23.7 PG Mean Corpuscular Hemoglobin 31.2 % Concent Red Cell Distribution Width 18.3 % Platelet Count 226 TH/MM3 Mean Platelet Volume 8.2 FL Neutrophils (%) (Auto) 72.6 % Lymphocytes (%) (Auto) 17.6 % Monocytes (%) (Auto) 7.0 % Eosinophils (%) (Auto) 2.1 % Basophils (%) (Auto) 0.7 % Neutrophils # (Auto) 6.2 TH/MM3 Lymphocytes # (Auto) 1.5 TH/MM3 Monocytes # (Auto) 0.6 TH/MM3 Eosinophils # (Auto) 0.2 TH/MM3 Basophils # (Auto) 0.1 TH/MM3 CBC Comment DIFF FINAL Differential Comment Sodium Level 135 MEQ/L Potassium Level 4.1 MEQ/L Chloride Level 97 MEQ/L Carbon Dioxide Level 30.8 MEQ/L Anion Gap 7 MEQ/L Blood Urea Nitrogen 17 MG/DL Creatinine 0.89 MG/DL Estimat Glomerular Filtration 96 ML/MIN Rate Random Glucose 89 MG/DL Calcium Level 8.2 MG/DL Lipase 67 U/L Assessment and Plan Problem List: (1) Acute exacerbation of CHF (congestive heart failure) (2) SOB (shortness of breath) (3) Sinus tachycardia (4) Anemia (5) Splenomegaly (6) Microcytic anemia (7) Morbid obesity with body mass index (BMI) of 40.0 or higher Assessment and Plan 1) Diuresed today... weight is currently down from 159kg on admit to 154kg 2) Stress test showing no ischemic areas Con't heart failure medications 3) Not an AICD candidate, has not been on optimal medical management for over 3 months 4) Tobacco cessation 5) Attempt Bipap, agree with Dr. Espinal's consult that SHERLY may be a significant component here 6) May have Pickwickian Syndrome, with SHERLY/OHS which would go with his overall symptoms/comorbidities 7) Will increase Coreg to 6.25mg BID Problem Qualifiers (1) Acute exacerbation of CHF (congestive heart failure): Qualified Code: I50.23 - Acute on chronic systolic congestive heart failure Clovis Pearson DO Aug 22, 2016 17:58
[2016-08-22] MEDS: CARVEDILOL 6.25 MG TAB PO SCH (20:45)
[2016-08-22] MEDS: METAXALONE 800 MG TAB PO SCH (20:46)
[2016-08-22] MEDS ORDERED: FUROSEMIDE 40 MG/4 ML VIAL IV PUSH ONE (21:00)
[2016-08-23] VITALS (8 sets, daily range): BP systolic 97–122; BP diastolic 65–105; PULSE 98–114; RESP 16–18; TEMP 97.8–98.3; O2SAT 93–97
[2016-08-23] MEDS: HEPARIN SODIUM - SQ 10,000 UNITS/ML VIAL SQ SCH ×2 (05:44→13:31)
[2016-08-23] MEDS: FUROSEMIDE 40 MG/4 ML VIAL IV PUSH SCH (07:47)
[2016-08-23] MEDS: SPIRONOLACTONE 25 MG TAB PO SCH (07:47)
[2016-08-23] MEDS: GABAPENTIN 400 MG CAP PO SCH ×2 (07:48→13:30)
[2016-08-23] MEDS: LISINOPRIL 5 MG TAB PO SCH (07:48)
[2016-08-23] MEDS: CARVEDILOL 6.25 MG TAB PO SCH (07:48)
[2016-08-23] MEDS: ASPIRIN 81 MG CHEW TAB CHEW SCH (07:48)
[2016-08-23] MEDS: CITALOPRAM HYDROBROMIDE 20 MG TAB PO SCH (07:48)
[2016-08-23] MEDS: FERROUS SULFATE 325 MG (65 MG ELEMENTAL IRON) TAB PO SCH (07:48)
[2016-08-23] MEDS: SODIUM CHLORIDE 0.9% FLUSH 10 ML FLUSH IV FLUSH SCH (07:49)
[2016-08-23] MEDS: DOCUSATE SODIUM 50 MG/SENNA 8.6 MG TAB PO SCH (07:55)
[2016-08-23] MEDS: PANTOPRAZOLE SOD 40 MG DELAYED RELEASE TAB PO SCH (07:55)
[2016-08-23 08:46] LABS: HEMATOCRIT 30.9 % (39.0-51.0); MEAN CELL VOLUME 75.3 FL (80.0-100.0); MEAN CORPUSCULAR HEMOGLOBIN 24.3 PG (27.0-34.0); MEAN CORPUSCULAR HGB CONC 32.3 % (32.0-36.0); PLATELET COUNT 230 TH/MM3 (150-450); RED CELL DISTRIBUTION WIDTH 18.5 % (11.6-17.2); REVIEW FLAG FINAL; WHITE BLOOD COUNT 9.9 TH/MM3 (4.0-11.0)
[2016-08-23 09:05] LABS: BICARBONATE 28.7 MEQ/L (21.0-32.0)
[2016-08-23] MEDS ORDERED: SPIR25 PO (10:54)
[2016-08-23] MEDS ORDERED: FURO1TAB60 PO (10:54)
[2016-08-23] MEDS ORDERED: CARV6.25 PO (10:54)
[2016-08-23] MEDS ORDERED: LORA-392 PO (10:54)
[2016-08-23] MEDS ORDERED: FERR325T20 PO (10:54)
--- NOTE | 2016-08-23 10:56 | HHI.DCPOC ---
Discharge Care Plan Diagnosis: (1) Acute exacerbation of CHF (congestive heart failure) (2) Microcytic anemia Goals to Promote Your Health * To prevent worsening of your condition and complications * To maintain your health at the optimal level Directions to Meet Your Goals Take your medications as prescribed Follow your dietary instruction Follow activity as directed Keep your appointments as scheduled Take your immunizations and boosters as scheduled If your symptoms worsen call your PCP, if no PCP go to Urgent Care Center or Emergency Room Smoking is Dangerous to Your Health. Avoid second hand smoke Call the 24-hour hour crisis hotline for domestic abuse at Marla Pat MD R1 Aug 23, 2016 10:56
--- NOTE | 2016-08-23 12:44 | PD.CARD.PN ---
Subjective Subjective Remarks No chest pain, decreased shortness of breath Objective Medications Current Medications Medications (Trade) Dose Ordered Sig/Gideon Route Start Time Stop Time Status Last Admin (CeleXA) 10 mg DAILY PO 08/18/16 09:00 08/23/16 07:48 (Protonix) 40 mg DAILY PO 08/18/16 09:00 08/18/16 09:41 (NS Flush) 2 ml UNSCH PRN IV FLUSH 08/17/16 19:45 (NS Flush) 2 ml BID IV FLUSH 08/17/16 21:00 08/23/16 07:49 (Zofran Inj) 4 mg Q6H PRN IVP 08/17/16 19:45 08/21/16 06:06 (Heparin Inj) 5,000 units Q8HR SQ 08/17/16 22:00 08/23/16 05:44 (Morphine Inj) 4 mg Q3H PRN IV 08/17/16 19:45 Hold 08/21/16 06:07 (Narcan Inj) 0.4 mg UNSCH PRN IV 08/17/16 19:45 (Mercy-Colace) 1 tab BID PO 08/17/16 21:00 08/22/16 20:45 (Milk Of Magnesia Liq) 30 ml Q12H PRN PO 08/17/16 19:45 (Senokot) 17.2 mg Q12H PRN PO 08/17/16 19:45 (Dulcolax Supp) 10 mg DAILY PRN RECTAL 08/17/16 19:45 (Lactulose Liq) 30 ml DAILY PRN PO 08/17/16 19:45 08/20/16 18:58 (Tums Chew) 500 mg Q6H PRN CHEW 08/17/16 23:30 08/20/16 13:05 (Prinivil) 5 mg DAILY PO 08/18/16 00:30 08/23/16 07:48 (Vasotec Inj) 1.25 mg Q6H PRN IV 08/18/16 00:30 (Ativan) 0.5 mg Q6H PRN PO 08/18/16 18:00 08/21/16 14:24 (Percocet 10-325 Mg) 1 tab Q6H PRN PO 08/19/16 10:00 Hold 08/21/16 09:13 (Morphine Inj) 4 mg Q3H PRN IV 08/19/16 10:00 Hold (Ferrous Sulfate) 325 mg BID PO 08/19/16 11:00 08/23/16 07:48 (Aldactone) 25 mg DAILY PO 08/19/16 11:30 08/23/16 07:47 (Aspirin Chew) 81 mg DAILY CHEW 08/20/16 09:00 08/23/16 07:48 (Neurontin) 400 mg TID PO 08/20/16 13:00 08/23/16 07:48 (Skelaxin) 800 mg HS PO 08/20/16 21:00 08/22/16 20:46 (Lasix Inj) 60 mg DAILY IV PUSH 08/22/16 09:00 08/23/16 07:47 (Ofirmev Inj) 1,000 mg Q6H PRN IV 08/22/16 15:30 (Coreg) 6.25 mg Q12HR PO 08/22/16 21:00 08/23/16 07:48 Vital Signs / I&O Vital Signs Date Time Temp Pulse Resp B/P Pulse Ox O2 Delivery O2 Flow Rate FiO2 08/23/16 12:30 93 21 08/23/16 09:45 106 08/23/16 08:00 98.3 108 16 122/74 97 08/23/16 07:58 Room Air 08/23/16 04:25 97 Room Air 08/23/16 04:00 97.8 109 18 106/65 96 08/23/16 00:10 Room Air 08/23/16 00:00 97.8 114 18 108/79 94 08/22/16 22:34 90 21 08/22/16 21:10 Room Air 08/22/16 20:37 113 08/22/16 20:00 97.6 114 22 97 08/22/16 16:00 Room Air 08/22/16 16:00 97.4 107 20 121/55 94 08/22/16 14:36 91 21 08/22/16 12:50 98.1 111 20 131/86 98 I/O 08/22/16 08/22/16 08/22/16 08/23/16 08/23/16 08/23/16 07:00 15:00 23:00 07:00 15:00 23:00 Intake Total 86 ml 360 ml 482 ml 240 ml Output Total 250 ml Balance 86 ml 360 ml 232 ml 240 ml Intake Oral 360 ml 480 ml 240 ml IV Total 86 ml 2 ml Output Urine Total 250 ml # Voids 1 Physical Exam GENERAL: NAD, AAOx3 SKIN: Warm and dry. HEAD: Atraumatic. Normocephalic. EYES: Pupils equal and round. No scleral icterus. No injection or drainage. ENT: No nasal bleeding or discharge. Mucous membranes pink and moist. NECK: Trachea midline. No JVD. CARDIOVASCULAR: Regular rhythm, tachycardic RESPIRATORY: No accessory muscle use. Decreased breath sounds bilaterally GASTROINTESTINAL: Abdomen soft, non-tender, nondistended. Hepatic and splenic margins not palpable. MUSCULOSKELETAL: 1-2+ pitting edema bilaterally NEUROLOGICAL: Awake and alert. No obvious cranial nerve deficits. Motor grossly within normal limits. Five out of 5 muscle strength in the arms and legs. Normal speech. PSYCHIATRIC: Appropriate mood and affect; insight and judgment normal. Laboratory Laboratory Tests Test 08/23/16 08:00 White Blood Count 9.9 TH/MM3 Red Blood Count 4.10 MIL/MM3 Hemoglobin 10.0 GM/DL Hematocrit 30.9 % Mean Corpuscular Volume 75.3 FL Mean Corpuscular Hemoglobin 24.3 PG Mean Corpuscular Hemoglobin 32.3 % Concent Red Cell Distribution Width 18.5 % Platelet Count 230 TH/MM3 Mean Platelet Volume 8.0 FL Sodium Level 133 MEQ/L Potassium Level 4.0 MEQ/L Chloride Level 97 MEQ/L Carbon Dioxide Level 28.7 MEQ/L Anion Gap 7 MEQ/L Blood Urea Nitrogen 14 MG/DL Creatinine 0.93 MG/DL Estimat Glomerular Filtration 91 ML/MIN Rate Random Glucose 92 MG/DL Calcium Level 8.3 MG/DL Assessment and Plan Problem List: (1) Acute exacerbation of CHF (congestive heart failure) (2) SOB (shortness of breath) (3) Sinus tachycardia (4) Anemia (5) Splenomegaly (6) Microcytic anemia (7) Morbid obesity with body mass index (BMI) of 40.0 or higher Assessment and Plan 1) Diuresed today... weight is currently down from 159kg on admit to 154kg In and Outs not accurate as patient not following instructions... would follow weights 2) Stress test showing no ischemic areas Con't heart failure medications 3) Not an AICD candidate, has not been on optimal medical management for over 3 months 4) Tobacco cessation 5) Attempt Bipap, agree with Dr. Espinal's consult that SHERLY may be a significant component here... will attempt at home 6) May have Pickwickian Syndrome, with SHERLY/OHS which would go with his overall symptoms/comorbidities 7) Will increase Coreg to 6.25mg BID 8) Cardiovascularly stable for discharge, he will call his insurance to see who takes it in the area Problem Qualifiers (1) Acute exacerbation of CHF (congestive heart failure): Qualified Code: I50.23 - Acute on chronic systolic congestive heart failure Clovis Pearson DO Aug 23, 2016 12:44
--- NOTE | 2016-08-23 14:15 | HHI.FPPN ---
Subjective Remarks Patient is a 36yo male with PMH significant for CHF, HTN, PE in 2011. Admitted for treatment of COPD exacerbation. Patient endorses con't pain "in my joints, everywhere). Has not used the pain medication (IV Tylenol) provided. States that "nothing good has come out of this hospital visit." Did not use BIPAP last night. States all he wants to do is sleep, was only using BIPAP in an effort to try to sleep better. Denies shortness of breath, constipation, or chest pain. No problems with PO intake. (Marla Pat MD R1) Objective Vitals Vital Signs Date Time Temp Pulse Resp B/P Pulse Ox O2 Delivery O2 Flow Rate FiO2 08/23/16 12:30 93 21 08/23/16 12:00 98.3 98 16 104/65 95 08/23/16 09:45 106 08/23/16 08:00 98.3 108 16 122/74 97 08/23/16 07:58 Room Air 08/23/16 04:25 97 Room Air 08/23/16 04:00 97.8 109 18 106/65 96 08/23/16 00:10 Room Air 08/23/16 00:00 97.8 114 18 108/79 94 08/22/16 22:34 90 21 08/22/16 21:10 Room Air 08/22/16 20:37 113 08/22/16 20:00 97.6 114 22 97 08/22/16 16:00 Room Air 08/22/16 16:00 97.4 107 20 121/55 94 08/22/16 14:36 91 21 I/O 08/22/16 08/22/16 08/22/16 08/23/16 08/23/16 08/23/16 07:00 15:00 23:00 07:00 15:00 23:00 Intake Total 86 ml 360 ml 482 ml 240 ml Output Total 250 ml Balance 86 ml 360 ml 232 ml 240 ml Intake Oral 360 ml 480 ml 240 ml IV Total 86 ml 2 ml Output Urine Total 250 ml # Voids 1 (Marla Pat MD R1) Result Diagram: 08/23/16 0800 08/23/16 0800 Objective Remarks GENERAL: Obese male patient lying prone in bed in NAD, no resp distress. HEENT: NCAT, EOMI, no scleral icterus, no conjunctival injection. CV: distant heart sounds due to body habitus, RRR, S1 S2. No murmurs. CHEST/PULM: CTAB, no crackles, no wheezes. ABD/GI: Obese, nondistended, normal bowel sounds in all 4 quadrants. EXT: 2+ pitting edema to knees. Legs taut with edema and no tenderness to palpation. BACK: Grossly normal NEURO: Awake, alert. Grossly nonfocal. Normal muscle tone. SKIN: No rashes, no jaundice. Multiple tattoos. PSYCH: Mood and affect are appropriate. Speech fluent. (Marla Pat MD R1) A/P Assessment and Plan 36yo morbidly obese male with PMH significant for CHF, HTN, PE in 2011. Admitted for progressive SOB likely due to CHF exacerbation Discharge Planning D/C today (Marla Pat MD R1) Attending Attestation Patient seen, examined, and discussed with Dr. Pat. I agree with assessment and management as documented and discussed with me. Pt has lost weight since hospital visit, likely secondary to diuresis. He reports that he has not been using the urinal to measure his I/Os. He did not use the BiPAP despite extensive discussion yesterday as to the importance of trying it. Case discussed with cardiology, who agrees with discharge. Discussed with patient the importance of taking his medications as prescribed, and of follow up with cardiology, pulmonology, and PCP. Discussed with patient that likely his sleep apnea is a big contributor to his medical problems. Discharge home today. Greater than 30 minutes spent personally counselling and coordinating care at discharge. (Chloe Pappas MD) Problem List: (1) Acute exacerbation of CHF (congestive heart failure) Status: Acute Plan: - EF on echo shows EF 25% and global hypokinesis. Negative stress test for ischemic areas. - spironolactone 25 mg PO daily, carvedilol, lasix 60 mg IV daily, home med lisinopril - Additional 40 mg IV lasix given today and yesterday - lost around 5.3 kg in weight this admission. patient shows slight hyponatremia of 135. Will reduce lasix administration upon d/c - cardiology consulted. Coreg increased to 6.25 BID - will con't to monitor I&O's and weight checks (2) SOB (shortness of breath) Status: Acute Plan: Worsens w/movement. Likely secondary to CHF exacerbation in combination with obstructive sleep apnea and obesity hypoventilation syndrome - PFT results show w/restrictive lung disease, consistent with obesity hypoventilation syndrome - counseled patient on weight loss - recommend outpatient sleep study ALTAGRACIA and obtaining BIPAP - incentive spirometry, NC Oxygen supplementation as needed. - con't BiPAP at night as tolerated with pulse ox monitor - continue Ativan PRN for anxiety (3) Sinus tachycardia Status: Acute Plan: - Continues to have persistent sinus tachycardia since admission. May be related to poor conditioning and CHF exacerbation, with microcytic anemia as a possible contributing factor - patient should f/u with PCP or air quality specialist for tachycardia. BB may be increased at least after 2 weeks (started 08/19/16). - con't to monitor vitals daily (4) Microcytic anemia Status: Chronic Plan: Stable - Hgb <10, low MCV, hypochromic, increased RDW c/w iron deficiency anemia, hemoccult negative - iron supplements daily (5) Low back pain radiating to both legs Status: Chronic Plan: Patient reports chronic low back pain with neuropathic pain radiating down both legs. Likely multifactorial with a combination of arthritis, edema, neuropathic pain. Gabapentin 400 mg by mouth 3 times a day Skelaxin daily at bedtime (6) FEN Status: Acute Plan: FEN: heart healthy diet DVT prophylaxis: Heparin Code: Full (Marla Pat MD R1) Problem Qualifiers (1) Acute exacerbation of CHF (congestive heart failure): Qualified Code: I50.23 - Acute on chronic systolic congestive heart failure Marla Pat MD R1 Aug 23, 2016 14:15 Chloe Pappas MD Aug 23, 2016 20:10
--- NOTE | 2016-08-23 14:57 | HHI.DS ---
Discharge Summary Admission Date Aug 19, 2016 at 11:40 Discharge Date: Aug 23, 2016 Admitting Diagnosis chest pain (1) Acute exacerbation of CHF (congestive heart failure) Diagnosis: Principal Plan: - EF on echo shows EF 25% and global hypokinesis. Negative stress test. - spironolactone 25 mg PO daily, carvedilol, lasix 60 mg IV daily, home med lisinopril - additional 40 mg IV lasix given today and yesterday - lost around 5.3 kg in weight this admission. patient shows slight hyponatremia of 135. Will reduce lasix administration upon d/c - cardiology consulted. Coreg increased to 6.25 BID - will con't to monitor I&O's and weight checks (2) SOB (shortness of breath) Diagnosis: Principal Plan: Worsens w/movement. Likely secondary to CHF exacerbation in combination with obstructive sleep apnea and obesity hypoventilation syndrome - PFT results show w/restrictive lung disease, consistent with obesity hypoventilation syndrome - counseled patient on weight loss - recommend outpatient sleep study ALTAGRACIA and obtaining BIPAP - incentive spirometry, NC Oxygen supplementation as needed. - con't BiPAP at night as tolerated with pulse ox monitor - continue Ativan PRN for anxiety (3) Sinus tachycardia Diagnosis: Principal Plan: - Continues to have persistent sinus tachycardia since admission. May be related to poor conditioning and CHF exacerbation, with microcytic anemia as a possible contributing factor - patient should f/u with PCP or [facility] for tachycardia. BB may be increased at least after 2 weeks (started 08/19/16). - con't to monitor vitals daily (4) Microcytic anemia Diagnosis: Secondary Plan: Stable - Hgb <10, low MCV, hypochromic, increased RDW c/w iron deficiency anemia, hemoccult negative - iron supplements daily (5) Low back pain radiating to both legs Diagnosis: Secondary Plan: Patient reports chronic low back pain with neuropathic pain radiating down both legs. Likely multifactorial with a combination of arthritis, edema, neuropathic pain. Gabapentin 400 mg by mouth 3 times a day Skelaxin daily at bedtime (6) FEN Plan: FEN: heart healthy diet DVT prophylaxis: Heparin Code: Full Consultants cardiology, hematology Procedures Cardiac stress test 08/19-08/20 Brief History Patient is a 36-year-old male with a PMH significant for CHF, HTN, PE in 2011. Presented today due to progressive worsening SOB over the last 2 days. Reports significant orthopnea with the slightest supine position when trying to lay down. Reports that he is only able to fall asleep for short intervals before he waking up gasping for air. During these episodes he endorses chest tightness, palpitations and skipped beats, diaphoresis, and nausea. Reports that over the last 2 months his exercise tolerance has significantly decreased. He has become more aware of this as he has become more active since moving to [place]. Reports giving SOB with only walking 100 feet. This is also associated with chest tightness. Does report 80 pound weight gain over the last 6-7 months. Denies any recent travel or sedentary activity. Has had an increased amount of fast food over the last several days. Reports prior history of PE was due to sedentary lifestyle. He was diagnosed with CHF one year ago but has no clear etiology on information about progression of events. CBC/BMP: 08/23/16 0800 08/23/16 0800 Significant Findings Laboratory Tests Test 08/22/16 08/23/16 08:21 08:00 Red Blood Count 4.18 MIL/MM3 4.10 MIL/MM3 (4.50-5.90) (4.50-5.90) Hemoglobin 9.9 GM/DL 10.0 GM/DL (13.0-17.0) (13.0-17.0) Hematocrit 31.6 % 30.9 % (39.0-51.0) (39.0-51.0) Mean Corpuscular Volume 75.7 FL 75.3 FL (80.0-100.0) (80.0-100.0) Mean Corpuscular Hemoglobin 23.7 PG 24.3 PG (27.0-34.0) (27.0-34.0) Mean Corpuscular Hemoglobin 31.2 % Concent (32.0-36.0) Red Cell Distribution Width 18.3 % 18.5 % (11.6-17.2) (11.6-17.2) Neutrophils (%) (Auto) 72.6 % (16.0-70.0) Sodium Level 135 MEQ/L 133 MEQ/L (136-145) (136-145) Chloride Level 97 MEQ/L 97 MEQ/L (98-107) (98-107) Calcium Level 8.2 MG/DL 8.3 MG/DL (8.5-10.1) (8.5-10.1) Lipase 67 U/L (73-393) Imaging Chest X-Ray 08/22/16 0700 Signed Impressions: Service Date/Time: Monday, August 22, 2016 08:08 - CONCLUSION: 1. Cardiomegaly with mild positive fluid balance. Chet Booth MD Hepatobiliary Scan Nuclear Medicine 08/22/16 0600 Signed Impressions: Service Date/Time: Monday, August 22, 2016 10:07 - CONCLUSION: Delayed gallbladder filling and sluggish gallbladder response to CCK suggesting chronic cholecystitis. Shaquille Moya MD Abdomen Ultrasound 08/18/16 0000 Signed Impressions: Service Date/Time: August 10:30 - CONCLUSION: 1. Image quality less than optimal secondary to patient body habitus. There is cholelithiasis with associated mild gallbladder wall thickening. However, sonographic Marquez' s sign is negative suggesting against acute cholecystitis. 2. Hepatomegaly with steatosis. 3. Splenomegaly. Shaquille Xavier MD Lower Extremity Ultrasound [id number]/[id number] Signed Impressions: Service Date/Time: Wednesday, August 17, 2016 14:36 - CONCLUSION: Negative for deep venous thrombosis. John Solorio MD FACR Chest X-Ray [id number]/17/[id number] Signed Impressions: Service Date/Time: Wednesday, August 17, 2016 15:08 - CONCLUSION: 1. Significant enlargement of the cardiac silhouette. 2. Otherwise, no acute abnormality. Chet Booth MD CT Angiography 08/17/16 142 Signed Impressions: Service Date/Time: Wednesday, August 17, 2016 17:24 - CONCLUSION: 1. Nondiagnostic for PE. A VQ scan could be performed if clinically indicated. 2. No acute pulmonary infiltrates 3. Moderate to prominent diffuse cardiomegaly. Sudheer Faulkner MD Lung Scan-VQ Nuclear Medicine 08/17/16 0000 Signed Impressions: Service Date/Time: Wednesday, August 17, 2016 20:25 - CONCLUSION: 1. No evidence for pulmonary embolus. Madi Simmons MD PE at Discharge GENERAL: Obese male patient lying prone in bed in NAD, no resp distress. HEENT: NCAT, EOMI, no scleral icterus, no conjunctival injection. CV: Distant heart sounds due to body habitus, RRR, S1 S2. No murmurs. CHEST/PULM: CTAB, no crackles, no wheezes. ABD/GI: Obese, nondistended, normal bowel sounds in all 4 quadrants. EXT: 2+ pitting edema to knees. Legs taut with edema and no tenderness to palpation. BACK: Grossly normal NEURO: Awake, alert. Grossly nonfocal. Normal muscle tone. SKIN: No rashes, no jaundice. Multiple tattoos. PSYCH: Mood and affect are appropriate. Speech fluent. Hospital Course Patient is a 36-year-old male with a PMH significant for CHF (EF of 35%), HTN, PE in 2011 who presented on 08/19/16 with progressive worsening SOB over the last 2 days. SOB worsened with laying down. In the ED, ACS was ruled out, EKG performed showed only sinus tachycardia. No tachyarrhythmias were observed on overnight telemetry. Sinus tachycardia attributed to poor conditioning and possibly anemia. Patient was found to be edematous in the lower extremities and BNP was found to be elevated, so echo and stress test were ordered, and patient was given 40 mg Lasix as a part of treatment for CHF exacerbation. Cardiology was consulted. Due to concern about possible PE given patient's history, CTA and VQ scan were performed, found to be negative. Patient stated he had planned to attend sleep study outpatient for CPAP but never made it. On 08/19/16, patient had an episode of shortness of breath while moving to lay back in bed, with oxygen saturation dropping to 82%. Showed improvement in returning to sitting position. BIPAP was ordered, and patient showed improvement in symptoms on 08/20 and 08/21. However, patient did not use BIPAP afterwards, stating it was uncomfortable. Echo results showed systolic ejection fraction of 25% and global hypokinesis. Spironolactone and Carvedilol were added to patient's active medication list. Stress test negative for ischemic areas. It was determined that untreated obstructive sleep apnea and obesity hypoventilation syndrome were likely contributing factors to CHF and shortness of breath. Microcytic anemia was found on CBC and splenomegaly was observed on imaging. Ferritin levels were ordered and result was low. Hematology was consulted and patient was given iron supplements for iron deficiency anemia. Electrophoresis was ordered and negative for hemoglobinopathy. Splenomegaly noted on imaging attributed to splenic congestion from hepatic steatosis. On 08/21, patient had an episode of vomiting food and nausea and right upper quadrant pain. Abdominal U/S was ordered due to concern for gallbladder disease. Results showed a chronic cholecystitis, not likely the cause of the acute symptoms. Patient was taking opiate pain medications at the time, which were held, and patient symptoms improved. Patient was counseled on weight loss, compliance with medications, and appropriate follow-up w/cardiology and pulmonology for sleep study. It was found that patient's insurance would not allow for discharge with BIPAP machine without diagnostic sleep study. Patient was discharged with appropriate instructions and to f/u with PCP to help with proper coordination of next steps. Because patient underwent significant diuresis in the last two days of hospitalization, f/u up w/BMP was ordered to monitor electrolytes. . Pt Condition on Discharge: Stable Discharge Disposition: Discharge Home Discharge Instructions DIET: Follow Instructions for: Heart Healthy Diet Activities you can perform: Regular-No Restrictions Follow up Referrals: Cardiology - 2 Weeks PCP Follow-up - 2 Weeks Pulmonology New Orders: BASIC METABOLIC PROF - 1 Week New Medications: Furosemide (Lasix) 40 Mg Tab 40 MG PO BID #60 Ref 0 TAB Carvedilol (Coreg) 6.25 Mg Tab 6.25 MG PO Q12HR #60 TAB Ferrous Sulfate (Ferosul) 325 Mg Tablet 325 MG PO BID #60 TAB Lorazepam (Ativan) 0.5 Mg Tab 0.5 MG PO Q6H PRN Anxiety/Insomnia #10 TAB Spironolactone (Aldactone) 25 Mg Tab 25 MG PO DAILY #30 TAB Continued Medications: Citalopram (Celexa) 10 Mg Tab 10 MG PO DAILY Control Depression #30 Ref 0 TAB Lisinopril (Lisinopril) 5 Mg Tab 5 MG PO DAILY Blood Pressure Management #30 Ref 0 TAB Omeprazole (Omeprazole) 40 Mg Cap 40 MG PO DAILY #30 Ref 0 CAP Discontinued Medications: Trazodone (Trazodone) 50 Mg Tab 12.5 MG PO HS Control Depression #30 Ref 0 TAB Marla Pat MD R1 Aug 23, 2016 14:57
== END 2016-08-23 17:43 | disposition home or self-care (01) | DRG 292 ==
LOC: NEPC 13:33 → UNDOADMOB 18:55 → NEDA 18:55 → NEDH 18:55 → OBSVTOIN 19:13 → INTOOBSV 19:13 → NEPGCP 21:24 → N04B 08-19 00:49 → OBSVTOIN 08-19 11:40
PROVIDERS: ADMIT Family Medicine; ATTEND Family Medicine
PROC: 5A09457 Assistance with Respiratory Ventilation, 24-96 Consecutive Hours, Continuous Positive Airway Pressure (ICD-10-PCS; principal; 2016-08-19)
DX: I50.23 Acute on chronic systolic (congestive) heart failure (principal); E66.2 Morbid (severe) obesity with alveolar hypoventilation; I42.9 Cardiomyopathy, unspecified; Z68.42 Body mass index [BMI] 45.0-49.9, adult; R16.1 Splenomegaly, not elsewhere classified; G62.9 Polyneuropathy, unspecified; I10 Essential (primary) hypertension; D50.9 Iron deficiency anemia, unspecified; F17.210 Nicotine dependence, cigarettes, uncomplicated; R00.0 Tachycardia, unspecified; G47.33 Obstructive sleep apnea (adult) (pediatric); M54.5 Low back pain; Z86.711 Personal history of pulmonary embolism
CPT/HCPCS: 71010; 71275; 76700; 76937; 78227; 78452; 78582; 80048; 80053; 80061; 80074; 80307; 81001; 82272; 82550; 82552; 82728; 83020; 83540; 83550; 83690; 83735; 83880; 84484; 85025; 85027; 85044; 85060; 85610; 85730; 86703; 93005; 93017; 93306; 93970; 94002; 94003; 94060; 94150; 94620; 96374; 96375; A9502; A9537; A9540; A9567; J0131; J1644; J1756; J1940; J2270; J2405; J2785; J2805; Q9967

== ENCOUNTER 2016-09-18 23:50 | Emergency (ER) | payer MEDICAID ==
[~2016-09-18] VITALS: Ht 180.3 cm; Wt 153.0 kg
[~2016-09-18 23:50] MED LIST: CARV6.25 PO; CELE10TA PO; FERR325T20 PO; FURO1TAB60 PO; LISI-519 PO; LORA-392 PO; OMEP40CA2 PO; SPIR25 PO
[2016-09-18 23:52] VITALS: BP_SYST 160; BP_SYST 180; BP_DIAS 80; BP_DIAS 86; PULSE 120; RESP 20; TEMP 98; O2SAT 99
--- NOTE | 2016-09-19 00:57 | PD ---
HPI Chief Complaint: Oral / Dental Pain or Problem Time Seen by Provider: 00:45 Travel History International Travel<30 days: No Contact w/Intl Traveler<30days: No Traveled to known affect area: No History of Present Illness HPI This is a 36-year-old male with history of CHF who presents for evaluation of dental pain. Symptoms started one month ago. The pain is an aching pain localized to the right maxillary first premolar and first molar. It is constant and worse when chewing, unrelieved with the use [id number] NSAIDs. He was seen by a dentist 6 days ago and prescribed Flagyl and Tylenol with Codeine which has not helped with his symptoms. He is being referred to an oral surgeon, currently in the process of that. He is here today primarily for pain control. Denies any fevers or chills. No other complaints. PFSH Past Medical History Anemia: Yes Anxiety: Yes Depression: No Cancer: No Cardiovascular Problems: Yes (CHF) Chest Pain: Yes Congestive Heart Failure: Yes Endocrine: No GERD: Yes Genitourinary: No Hiatal Hernia: Yes Hypertension: Yes Immune Disorder: No Implanted Vascular Access Dvce: No Musculoskeletal: Yes Neurologic: Yes Psychiatric: Yes Reproductive: No Respiratory: Yes (PE) Immunizations Current: Yes Tetanus Vaccination: < 5 Years Influenza Vaccination: Yes Past Surgical History Appendectomy: Yes (NOVEMBER 2015) Other Surgery: Yes (apendectomy november 2015) Social History Alcohol Use: No Tobacco Use: Yes Substance Use: No Allergies-Medications (Allergen,Severity, Reaction): Coded Allergies: Ketorolac (Verified Allergy, Severe, GENERALIZED HIVES/RASH WHICH LAST FOR ABOUT A WEEK, 09/19/16) Penicillin (Verified Allergy, Severe, Anaphylaxis, 09/19/16) Tramadol (Verified Allergy, Severe, GENERALIZED HIVES WHICH LAST FOR ABOUT A WEEK, 09/19/16) Reported Meds & Prescriptions Reported Meds & Active Scripts Active Lortab (Hydrocodone-Acetaminophen) 5-325 Mg Tab 1 Tab PO Q6H PRN Magic Mouthwash Adult Liq (Multi-Ingredient Mouthwash/Gargle) 120 Ml Susp 10 Ml SWISH-SPIT ACHS Each 5mL contains: Nystatin 200,000units, Diphenhydramine 4.25mg, Viscous Lidocaine 10mg, Adams syrup 0.8 mL Clindamycin (Clindamycin HCl) 300 Mg Cap 300 Mg PO TID Ativan (Lorazepam) 0.5 Mg Tab 0.5 Mg PO Q6H PRN Coreg (Carvedilol) 6.25 Mg Tab 6.25 Mg PO Q12HR Aldactone (Spironolactone) 25 Mg Tab 25 Mg PO DAILY Lasix (Furosemide) 40 Mg Tab 40 Mg PO BID Ferosul (Ferrous Sulfate) 325 Mg Tablet 325 Mg PO BID Reported Omeprazole 40 Mg Cap 40 Mg PO DAILY Celexa (Citalopram Hydrobromide) 10 Mg Tab 10 Mg PO DAILY Lisinopril 5 Mg Tab 5 Mg PO DAILY Review of Systems Except as stated in HPI: all other systems reviewed are Neg Physical Exam Narrative GENERAL: Well-developed well-nourished male who appears uncomfortable on initial examination. SKIN: Warm and dry. HEAD: Atraumatic. Normocephalic. EYES: Pupils equal and round. No scleral icterus. No injection or drainage. ENT: No nasal bleeding or discharge. Mucous membranes pink and moist. Some dental decay is noted to the maxillary mandibular teeth. He has some tenderness to palpation to the right maxillary first premolar and first molar. There is no gingival edema, no facial edema, no trismus, no sublingual edema. There is no lymphadenopathy. NECK: Trachea midline. No JVD. CARDIOVASCULAR: Regular rate and rhythm. No murmur appreciated. RESPIRATORY: No accessory muscle use. Clear to auscultation. Breath sounds equal bilaterally. Data Data Last Documented VS Vital Signs Date Time Temp Pulse Resp B/P Pulse Ox O2 Delivery O2 Flow Rate FiO2 09/18/16 23:52 98.0 120 20 160/80 99 Room Air Orders Bupivacaine Pf 0.5% Inj (Marcaine Pf 0.5 (09/19/16 01:00) Lidocaine Pf 1% Inj (Xylocaine-Mpf 1% In (09/19/16 01:00) Electrocardiogram (09/19/16 ) Clindamycin (Cleocin) (09/19/16 01:45) MDM Medical Decision Making Medical Screen Exam Complete: Yes Emergency Medical Condition: Yes Medical Record Reviewed: Yes Differential Diagnosis Dental caries, pulpitis, pericoronitis, periodontal abscess Narrative Course 36-year-old male presents with one-month duration dental pain, unrelieved after the completion of prescriptions for Flagyl and Tylenol with Codeine. On initial examination he is tachycardic and therefore an EKG has been ordered. EKG reveals sinus tachycardia with a rate of 127. The patient reports that his heart rate is always elevated, typically in the 120s, he is currently on carvedilol for rate control. The patient was admitted here for chest pain in early August and he was consistently tachycardic during his whole stay. He is currently in the process of trying to establish care with a supply aide for outpatient follow-up in regards to sinus tachycardia and his congestive heart failure. He is not having any palpitations or chest pain or shortness of breath today. The plan will be to provide the patient with a dental block and start him on clindamycin. The alveolar block was performed with a mixture of 0.5% Marcaine and 1% lidocaine. This completely relieved the patient's pain. He is stable for discharge. Diagnosis Primary Impression: Dental caries Additional Instructions: Medication as prescribed. Do not drive or drink alcohol when taking Lortab. Follow-up with oral surgeon as scheduled. Return for any emergent medical conditions. Med/Other Pt SpecificInfo: Prescription(s) given Scripts Hydrocodone-Acetaminophen (Lortab)5-325 Mg Tab1 Tab PO Q6H PRN (PAIN) #20 TAB Ref 0 Prov:Carmelita Orozco MD 09/19/16 Zsbpyrcx-Ofmpbxcebiusnbd-Tmcgxhfxq Liq (Magic Mouthwash Adult Liq)120 Ml Susp10 Ml SWISH-SPIT ACHS #120 ML Ref 1 Each 5mL contains: Nystatin 200,000units, Diphenhydramine 4.25mg, Viscous Lidocaine 10mg, Adams syrup 0.8 mL Prov:Carmelita Orozco MD 09/19/16 Clindamycin 300 Mg [id number] Mg PO TID #21 CAP Ref 0 Prov:Carmelita Orozco MD 09/19/16 Disposition: DISCHARGE HOME Condition: Stable Wil Vargas Sep 19, 2016 00:57
[2016-09-19] MEDS ORDERED: BUPIVACAINE HCL PF 0.5% 10 ML VIAL INFIL ONE (01:00)
[2016-09-19] MEDS ORDERED: LIDOCAINE HCL 1% PF 30 ML VIAL INFIL ONE (01:00)
[2016-09-19] MEDS ORDERED: MAGICADU2 SWISH-SPIT (01:40)
[2016-09-19] MEDS ORDERED: HYDR-3533 PO (01:40)
[2016-09-19] MEDS ORDERED: CLIN1CAP6 PO (01:40)
[2016-09-19] MEDS ORDERED: CLINDAMYCIN 150 MG CAP PO ONE (01:45)
--- NOTE | 2016-09-19 16:41 | EKG ---
Date Performed: 09/19/2016 Time Performed: 00:51:54 PTAGE: 36 years EKG: SINUS TACHYCARDIA POSSIBLE LEFT VENTRICULAR HYPERTROPHY NONSPECIFIC T-WAVE ABNORMALITY ABNO RMAL ECG PREVIOUS TRACING 08/17/2016 20.17.39 Since previous tracing, no significant change noted DOCTOR: Tray Lofton Interpretating Date/Time 09/19/2016 16:40:53
== END 2016-09-19 02:00 | disposition home or self-care (01) ==
LOC: NEPD 23:50
DX: K02.9 Dental caries, unspecified (principal); I11.0 Hypertensive heart disease with heart failure; I50.9 Heart failure, unspecified; K21.9 Gastro-esophageal reflux disease without esophagitis; Z88.0 Allergy status to penicillin
CPT/HCPCS: 93005; 96372

== ENCOUNTER 2016-09-29 07:34 | Inpatient (IN) | payer MEDICAID ==
[~2016-09-29] VITALS: Ht 177.8 cm; Wt 161.1 kg
[~2016-09-29 07:34] MED LIST changes: +CLIN1CAP6 PO; +HYDR-3533 PO; +MAGICADU2 SWISH-SPIT
[2016-09-29 07:37] VITALS: BP 123/86; PULSE 104; RESP 18; TEMP 97.6; O2SAT 97
--- NOTE | 2016-09-29 08:30 | PD ---
HPI Chief Complaint: Respiratory Symptoms Time Seen by Provider: 08:14 Travel History International Travel<30 days: No Contact w/Intl Traveler<30days: No Traveled to known affect area: No History of Present Illness HPI 36-year-old male complains of coughing congestion shortness of breath generalized malaise and weakness. Patient has history of CHF and PE. Patient states that he started having productive cough 7 days ago and get worse for the past 3 days. Patient also has decrease in urine output for the past 3 days. Patient states that he has been confused. Patient states that he has mild aching headache. Patient denies any visual change. Patient denies any neck pain. Patient states that the cough is persistent and nonproductive. Patient denies any chest pain. Patient denies abdominal pain. Patient denies any nausea vomiting diarrhea. Patient states that he has increasing swelling low extremity recently. Patient has history of CHF with ejection fraction between 20-25%. Patient also has history of PE and was on Coumadin in the past. Patient was advised by his physician to stop taking Coumadin because of financial situation. PFSH Past Medical History Anemia: Yes Anxiety: Yes Depression: No Cancer: No Cardiovascular Problems: Yes (chf) Chest Pain: Yes Congestive Heart Failure: Yes Diminished Hearing: No Endocrine: No GERD: Yes Genitourinary: No Hiatal Hernia: Yes Hypertension: Yes Immune Disorder: No Implanted Vascular Access Dvce: No Musculoskeletal: Yes Neurologic: Yes Psychiatric: Yes Reproductive: No Respiratory: Yes (PE) Immunizations Current: Yes Tetanus Vaccination: < 5 Years Influenza Vaccination: Yes Past Surgical History Appendectomy: Yes (NOVEMBER 2015) Other Surgery: Yes (apendectomy november 2015) Social History Alcohol Use: No Tobacco Use: Yes (1 ppd) Substance Use: Yes (HX CRACK) Allergies-Medications (Allergen,Severity, Reaction): Coded Allergies: ketorolac (Verified Allergy, Severe, GENERALIZED HIVES/RASH WHICH LAST FOR ABOUT A WEEK, 09/29/16) penicillin G (Verified Allergy, Severe, Anaphylaxis, 09/29/16) tramadol (Verified Allergy, Severe, GENERALIZED HIVES WHICH LAST FOR ABOUT A WEEK, 09/29/16) Reported Meds & Prescriptions Reported Meds & Active Scripts Active Lortab (Hydrocodone-Acetaminophen) 5-325 Mg Tab 1 Tab PO Q6H PRN Ativan (Lorazepam) 0.5 Mg Tab 0.5 Mg PO Q6H PRN Coreg (Carvedilol) 6.25 Mg Tab 6.25 Mg PO Q12HR Aldactone (Spironolactone) 25 Mg Tab 25 Mg PO DAILY Lasix (Furosemide) 40 Mg Tab 40 Mg PO BID Ferosul (Ferrous Sulfate) 325 Mg Tablet 325 Mg PO BID Reported Omeprazole 40 Mg Cap 40 Mg PO DAILY Celexa (Citalopram Hydrobromide) 10 Mg Tab 10 Mg PO DAILY Lisinopril 5 Mg Tab 5 Mg PO DAILY Review of Systems General / Constitutional: No: Fever Eyes: No: Visual changes HENT: No: Headaches Cardiovascular: No: Chest Pain or Discomfort Respiratory: Positive: Cough, Shortness of Breath Gastrointestinal: No: Abdominal Pain Genitourinary: No: Dysuria Musculoskeletal: No: Pain Skin: No Rash Neurologic: No: Weakness Psychiatric: No: Depression Endocrine: No: Polydipsia Hematologic/Lymphatic: No: Easy Bruising Physical Exam Narrative GENERAL: Well-nourished, well-developed patient. SKIN: Focused skin assessment warm/dry. HEAD: Normocephalic. EYES: Bilateral scleral icterus. No injection or drainage. NECK: Supple, trachea midline. No JVD or lymphadenopathy. CARDIOVASCULAR: Regular rate and rhythm without murmurs, gallops, or rubs. RESPIRATORY: Breath sounds equal bilaterally. No accessory muscle use. Patient has mild expiratory wheezes bilaterally. Mild rhonchi at the bases. GASTROINTESTINAL: Abdomen soft, non-tender, nondistended. MUSCULOSKELETAL: No cyanosis, or edema. BACK: Nontender without obvious deformity. No CVA tenderness. Neurologic exam normal. Data Data Last Documented VS Vital Signs Date Time Temp Pulse Resp B/P Pulse Ox O2 Delivery O2 Flow Rate FiO2 09/29/16 07:58 96 Room Air 09/29/16 07:37 97.6 104 18 123/86 Orders Electrocardiogram (09/29/16 08:23) Complete Blood Count With Diff (09/29/16 08:23) Comprehensive Metabolic Panel (09/29/16 08:23) Creatine Kinase (Cpk) (09/29/16 08:23) Troponin I (09/29/16 08:23) B-Type Natriuretic Peptide (09/29/16 08:23) Prothrombin Time / Inr (Pt) (09/29/16 08:23) Act Partial Throm Time (Ptt) (09/29/16 08:23) Blood Culture (09/29/16 08:23) Urinalysis - C+S If Indicated (09/29/16 08:23) Thyroid Stimulating Hormone (09/29/16 08:23) Influenzae A/B Antigen (09/29/16 08:23) Chest, Single Ap (09/29/16 08:23) Iv Access Insert/Monitor (09/29/16 08:23) Ecg Monitoring (09/29/16:) Oximetry (09/29/16 08:23) Lactic Acid (09/29/16 08:23) CKMB (09/29/16 08:40) CKMB% (09/29/16 08:40) Ammonia (09/29/16 10:12) Labs Laboratory Tests Test 09/29/16 08:40 White Blood Count 7.7 TH/MM3 Red Blood Count 5.08 MIL/MM3 Hemoglobin 13.0 GM/DL Hematocrit 41.4 % Mean Corpuscular Volume 81.4 FL Mean Corpuscular Hemoglobin 25.6 PG Mean Corpuscular Hemoglobin 31.4 % Concent Red Cell Distribution Width 22.6 % Platelet Count 47 TH/MM3 Mean Platelet Volume 8.8 FL Neutrophils (%) (Auto) 77.6 % Lymphocytes (%) (Auto) 14.8 % Monocytes (%) (Auto) 5.2 % Eosinophils (%) (Auto) 2.2 % Basophils (%) (Auto) 0.2 % Neutrophils # (Auto) 6.0 TH/MM3 Lymphocytes # (Auto) 1.1 TH/MM3 Monocytes # (Auto) 0.4 TH/MM3 Eosinophils # (Auto) 0.2 TH/MM3 Basophils # (Auto) 0.0 TH/MM3 CBC Comment AUTO DIFF Prothrombin Time 40.1 SEC Prothromb Time International 3.4 RATIO Ratio Activated Partial 35.5 SEC Thromboplast Time Sodium Level 129 MEQ/L Potassium Level 4.4 MEQ/L Chloride Level 95 MEQ/L Carbon Dioxide Level 27.4 MEQ/L Anion Gap 7 MEQ/L Blood Urea Nitrogen 46 MG/DL Creatinine 1.49 MG/DL Estimat Glomerular Filtration 53 ML/MIN Rate Random Glucose 92 MG/DL Lactic Acid Level 2.2 mmol/L Calcium Level 7.6 MG/DL Total Bilirubin 11.4 MG/DL Aspartate Amino Transf 1159 U/L (AST/SGOT) Alanine Aminotransferase 2184 U/L (ALT/SGPT) Alkaline Phosphatase 174 U/L Total Creatine Kinase 497 U/L Creatine Kinase MB 10.8 NG/ML Creatine Kinase MB % 2.2 % Troponin I 0.07 NG/ML B-Type Natriuretic Peptide 1164 PG/ML Total Protein 6.1 GM/DL Albumin 2.6 GM/DL Thyroid Stimulating Hormone 1.590 uIU/ML 3rd Gen [facility] Medical Decision Making Medical Screen Exam Complete: Yes Emergency Medical Condition: Yes Interpretation(s) 8:30 AM. EKG shows sinus tachycardia at rate 102. Nonspecific ST-T wave change. Differential Diagnosis Differential diagnosis including bronchitis, pneumonia, PE, pneumothorax, acute exacerbation CHF. Narrative Course 36-year-old male with coughing congestion shortness of breath. Diagnosis Primary Impression: Acute renal failure Qualified Code: N17.9 - Acute renal failure, unspecified acute renal failure type Additional Impressions: Transaminitis CHF (congestive heart failure) Qualified Code: I50.9 - Acute on chronic congestive heart failure, unspecified congestive heart failure type Admitting Information Admitting Physician Requests: it Celestine White MD Sep 29, 2016 08:30
--- NOTE | 2016-09-29 08:47 | RADRPT ---
EXAM DATE/TIME: 09/29/2016 08:24 [facility] COMPARISON: CHEST SINGLE AP, August 22, 2016, 8:08. INDICATIONS : Shortness of breath. MEDICAL HISTORY : Congestive heart failure. Hypertension SURGICAL HISTORY : Inguinal hernia repair. Appendectomy. ENCOUNTER: Initial ACUITY: 4 - 6 days PAIN SCORE: 0/10 LOCATION: Bilateral chest FINDINGS: The heart is enlarged. Slight increased aeration of the lungs is noted with minimal residual pulmona ry vascular congestion noted. CONCLUSION: 1. Increased aeration of the lungs with minimal residual pulmonary vascular congestion. 2. Marked cardiomegaly. Suraj Vaughan MD on September 29, 2016 at 8:41 Board Certified Radiologist. This report was verified electronically.
[2016-09-29 09:00] VITALS: BP 137/82; PULSE 108; RESP 20; O2SAT 96
[2016-09-29 09:25] LABS: BASOPHIL % 0.2 % (0.0-2.0); EOSINOPHIL # 0.2 TH/MM3 (0-0.4); EOSINOPHIL % 2.2 % (0.0-4.0); HEMATOCRIT 41.4 % (39.0-51.0); LYMPH % 14.8 % (9.0-44.0); LYMPHOCYTE # 1.1 TH/MM3 (1.0-4.8); MEAN CELL VOLUME 81.4 FL (80.0-100.0); MEAN CORPUSCULAR HEMOGLOBIN 25.6 PG (27.0-34.0); MEAN CORPUSCULAR HGB CONC 31.4 % (32.0-36.0); MONO % 5.2 % (0.0-8.0); NEUT % 77.6 % (16.0-70.0); PLATELET COUNT 47 TH/MM3 (150-450); RED BLOOD COUNT 5.08 MIL/MM3 (4.50-5.90); RED CELL DISTRIBUTION WIDTH 22.6 % (11.6-17.2); WHITE BLOOD COUNT 7.7 TH/MM3 (4.0-11.0)
[2016-09-29 09:35] LABS: HEMO FLAGS AUTO DIFF
[2016-09-29 09:41] LABS: APTT (PATIENT) 35.5 SEC (24.3-30.1); INTERNATIONAL NORMALIZED RATIO 3.4 RATIO; PROTHROMBIN TIME - PATIENT 40.1 SEC (9.8-11.6)
[2016-09-29 09:58] LABS: ALKALINE PHOSPHATASE 174 U/L (45-117); ALT (GPT) 2184 U/L (12-78); ANION GAP 7 MEQ/L (5-15); AST (GOT) 1159 U/L (15-37); BICARBONATE 27.4 MEQ/L (21.0-32.0); BLOOD UREA NITROGEN 46 MG/DL (7-18); CHLORIDE 95 MEQ/L (98-107); CREATINE KINASE 497 U/L (39-308); GLOMERULAR FILTRATION RATE 53 ML/MIN (>89); POTASSIUM 4.4 MEQ/L (3.5-5.1); SODIUM (NA) 129 MEQ/L (136-145)
[2016-09-29 09:59] LABS: TOTAL BILIRUBIN ADULT 11.4 MG/DL (0.2-1.0)
[2016-09-29 10:11] LABS: CKMB 10.8 NG/ML (0.5-3.6)
[2016-09-29 10:18] LABS: BANDS 12 % (0-6); CORRECTED NUCLEATED RBC 2 /100 WBC (0-0); EOSINOPHILS 3 % (0-4); METAMYELOCYTES 1 % (0-1); NEUTROPHIL # MANUAL DIFF 6.9 TH/MM3 (1.8-7.7); POLYS (SEG NEUTROPHILS) 76 % (16-70); WBC DIFF SAMPLE 100
[2016-09-29 10:19] LABS: OVALOCYTES 1+ (NORMAL); PLATELET ESTIMATE SMEAR LOW (NORMAL)
[2016-09-29 10:20] LABS: PLATELET MORPHOLOGY NORMAL (NORMAL); SCAN/DIFF FINAL DIFF MANUAL
[2016-09-29] MEDS ORDERED: SODIUM CHLOR 0.9% 1000 ML INJ 1,000 ML IV SCH (10:54)
[2016-09-29] MEDS ORDERED: NALOXONE HCL 0.4 MG/ML AMP IV PRN (11:00)
[2016-09-29] MEDS ORDERED: ONDANSETRON HCL 4 MG/2 ML VIAL IVP PRN (11:00)
[2016-09-29] MEDS ORDERED: BISACODYL 10 MG SUPP RECTAL PRN (11:00)
[2016-09-29] MEDS ORDERED: MAGNESIUM HYDROXIDE SUSP 30 ML CUP PO PRN (11:00)
[2016-09-29] MEDS ORDERED: SODIUM CHLORIDE 0.9% FLUSH 10 ML FLUSH IV FLUSH PRN (11:00)
[2016-09-29] MEDS ORDERED: LACTULOSE SYRUP 20 GM/30 ML CUP PO PRN (11:00)
[2016-09-29] MEDS ORDERED: SENNOSIDES 8.6 MG TAB PO PRN (11:00)
--- NOTE | 2016-09-29 12:16 | HHI.HP ---
[facility] No Primary Care Physician Admission Diagnosis acute renal failure. Transaminitis. Acute exacerbation CHF. Diagnoses: Chief Complaint: Shortness of breath, weakness. Travel History International Travel<30 Days: No Contact w/Intl Traveler <30 Da: No Traveled to Known Affected Are: No History of Present Illness This is a pleasant 36 y/o male with cough and shortness of breath, generalized malaise and weakness, he has history of CHF, and PE not taking Warfarin for the last 10 years, as per patient having productive cough, for the last seven days, got worse for the last 3 days, decreased urine output for the past 3 days, has been confused, with mild aching headache, denied any visual changes, denied Neck pain , persistent cough, denied chest pain, no abdominal pain, no nausea, vomit or diarrhea, y chest pain. worsening lower extremity edema, has CHF with EF 20-25% . Seen in Emergency room and discussed at this time with Doctor Celestine White for me is more related to Hepatic Failure due to elevated INR in 3.4 he states he is been mixing Marijuana and Cocaine but denied any alcohol intake, as per ER specialist questioned about Tylenol and asked for Drug screen and Tylenol level , consult placed to GI specialist, will continue heart healthy diet and follow recommendations he is morbidly obese. he was seen on recent opportunities in ER. he states he has slurred speech and somnolence. Review of Systems ROS Limitations: Altered Mental Status, Speech Impaired Constitutional: DENIES: Fever, Chills, Change in appetite Endocrine: DENIES: Heat/cold intolerance Eyes: DENIES: Blurred vision, Eye pain Except as stated in HPI: all other systems reviewed are Neg Past Family Social History Past Medical History Anemia Anxiety disorder CHF GERD Hypertension Hiatal Hernia PE by history Morbid Obesity Past Surgical History Appendectomy November 2015 Reported Medications Reported Meds & Active Scripts Active Lortab (Hydrocodone-Acetaminophen) 5-325 Mg Tab 1 Tab PO Q6H PRN Ativan (Lorazepam) 0.5 Mg Tab 0.5 Mg PO Q6H PRN Coreg (Carvedilol) 6.25 Mg Tab 6.25 Mg PO Q12HR Aldactone (Spironolactone) 25 Mg Tab 25 Mg PO DAILY Lasix (Furosemide) 40 Mg Tab 40 Mg PO BID Ferosul (Ferrous Sulfate) 325 Mg Tablet 325 Mg PO BID Reported Omeprazole 40 Mg Cap 40 Mg PO DAILY Celexa (Citalopram Hydrobromide) 10 Mg Tab 10 Mg PO DAILY Lisinopril 5 Mg Tab 5 Mg PO DAILY Allergies: Coded Allergies: ketorolac (Verified Allergy, Severe, GENERALIZED HIVES/RASH WHICH LAST FOR ABOUT A WEEK, 09/29/16) penicillin G (Verified Allergy, Severe, Anaphylaxis, 09/29/16) tramadol (Verified Allergy, Severe, GENERALIZED HIVES WHICH LAST FOR ABOUT A WEEK, 09/29/16) Active Ordered Medications Current Medications Medications (Trade) Dose Ordered Sig/Gideon Route Start Time Stop Time Status Last Admin (NS Flush) 2 ml UNSCH PRN IV FLUSH 09/29/16 11:00 (NS Flush) 2 ml BID IV FLUSH 09/29/16 21:00 (Zofran Inj) 4 mg Q6H PRN IVP 09/29/16 11:00 (Narcan Inj) 0.4 mg UNSCH PRN IV 09/29/16 11:00 (Mercy-Colace) 1 tab BID PO 09/29/16 21:00 (Milk Of Magnesia Liq) 30 ml Q12H PRN PO 09/29/16 11:00 (Senokot) 17.2 mg Q12H PRN PO 09/29/16 11:00 (Dulcolax Supp) 10 mg DAILY PRN RECTAL 09/29/16 11:00 (Lactulose Liq) 30 ml DAILY PRN PO 09/29/16 11:00 (Mucinex Er) 600 mg BID PO 09/29/16 12:30 09/29/16 14:01 (CeleXA) 10 mg DAILY PO 09/30/16 09:00 (Ferrous Sulfate) 325 mg BID PO 09/29/16 21:00 (Prinivil) 5 mg DAILY PO 09/30/16 09:00 (Aldactone) 25 mg DAILY PO 09/30/16 09:00 (Protonix) 40 mg DAILY PO 09/30/16 09:00 (Lopressor) 12.5 mg Q12HR PO 09/29/16 13:00 09/29/16 14:01 (Pill Splitter) 1 ea UNSCH PRN OTHER 09/29/16 13:45 Sodium Chloride 2 ml 2 ml UNSCH PRN IVF 09/29/16 15:00 Acetylcysteine 98383 mg/Dextrose 301.25 ml @ 200 mls/ hr ONCE IV 09/29/16 15:00 09/29/16 15:59 Acetylcysteine 6750 mg/Dextrose 533.75 ml @ 125 mls/ hr ONCE IV 09/29/16 16:00 09/29/16 19:59 (Acetadote Inj/ D5W 1000 ml Inj) 1,067.5 ml @ 62.5 mls/ hr ONCE IV 09/29/16 20:00 09/30/16 11:59 Family History Mother with Lung cancer Social History tobacco dependence one pack daily also mixed with Cocaine denies other toxic habits. states is at home with his children and do not work, asking for disability. Physical Exam Vital Signs Vital Signs Date Time Temp Pulse Resp B/P Pulse Ox O2 Delivery O2 Flow Rate FiO2 09/29/16 07:58 96 Room Air 09/29/16 07:37 97.6 104 18 123/86 97 Room Air 09/29/16 07:37 97.6 104 18 123/86 97 Physical Exam GENERAL: Well developed, Morbid obesity. SKIN: Focused skin assessment warm/dry. HEAD: Normocephalic. EYES: Bilateral scleral icterus. No injection or drainage. NECK: Supple, trachea midline. No JVD or lymphadenopathy. CARDIOVASCULAR: Regular rate and rhythm without murmurs, gallops, or rubs. RESPIRATORY: Breath sounds equal bilaterally. No accessory muscle use. Patient has mild expiratory wheezes bilaterally. Mild rhonchi at the bases. GASTROINTESTINAL: Abdomen soft, non-tender, severe distention due to fat. edema. MUSCULOSKELETAL: No cyanosis, Edema 4+ BACK: Nontender without obvious deformity. No CVA tenderness. Neurologic exam normal. slurred speech. Laboratory Laboratory Tests Test 09/29/16 08:40 White Blood Count 7.7 Red Blood Count 5.08 Hemoglobin 13.0 Hematocrit 41.4 Mean Corpuscular Volume 81.4 Mean Corpuscular Hemoglobin 25.6 Mean Corpuscular Hemoglobin 31.4 Concent Red Cell Distribution Width 22.6 Platelet Count 47 Mean Platelet Volume 8.8 Neutrophils (%) (Auto) 77.6 Lymphocytes (%) (Auto) 14.8 Monocytes (%) (Auto) 5.2 Eosinophils (%) (Auto) 2.2 Basophils (%) (Auto) 0.2 Neutrophils # (Auto) 6.0 Lymphocytes # (Auto) 1.1 Monocytes # (Auto) 0.4 Eosinophils # (Auto) 0.2 Basophils # (Auto) 0.0 CBC Comment AUTO DIFF Differential Total Cells 100 Counted Neutrophils % (Manual) 76 Band Neutrophils % 12 Lymphocytes % 3 Monocytes % 5 Eosinophils % 3 Neutrophils # (Manual) 6.9 Metamyelocytes 1 Nucleated Red Blood Cells 2 Differential Comment FINAL DIFF MANUAL Platelet Estimate LOW Platelet Morphology Comment NORMAL Ovalocytes 1+ Prothrombin Time 40.1 Prothromb Time International 3.4 Ratio Activated Partial 35.5 Thromboplast Time Sodium Level 129 Potassium Level 4.4 Chloride Level 95 Carbon Dioxide Level 27.4 Anion Gap 7 Blood Urea Nitrogen 46 Creatinine 1.49 Estimat Glomerular Filtration 53 Rate Random Glucose 92 Lactic Acid Level 2.2 Calcium Level 7.6 Total Bilirubin 11.4 Aspartate Amino Transf 1159 (AST/SGOT) Alanine Aminotransferase 2184 (ALT/SGPT) Alkaline Phosphatase 174 Total Creatine Kinase 497 Creatine Kinase MB 10.8 Creatine Kinase MB % 2.2 Troponin I 0.07 B-Type Natriuretic Peptide 1164 Total Protein 6.1 Albumin 2.6 Thyroid Stimulating Hormone 1.590 3rd Gen Date/Time Procedure Status Source Growth 09/29/16 08:45 Influenza Types A,B Antigen (MUNDO) - Final Complete Nasal Washing Positive For Flu B Antigen 09/29/16 08:23 Aerobic Blood Culture Received Blood Peripheral Pending 09/29/16 08:23 Anaerobic Blood Culture Received Blood Peripheral Pending Result Diagram: 09/29/16 0840 09/29/16 0840 Imaging Last Impressions Chest X-Ray 09/29/16 0823 Signed Impressions: Service Date/Time: September 08:24 - CONCLUSION: 1. Increased aeration of the lungs with minimal residual pulmonary vascular congestion. 2. Marked cardiomegaly. Suraj Vaughan MD Assessment and Plan Assessment and Plan 1. Liver Failure ALT double from AST making more cellular liver damage, questioned for what the patient says Intoxication discussed with Doctor Celestine White and asked for Toxicology screen also Tylenol level asked by ER specialist. consult placed for GI specialist. CT abdomen and Pelvis no contrast due to KENIA. 2. Anxiety disorder by history 3. CHF with EF 20-25%, with BNP 1164, he states he does not like to continue Coreg, I switch for low dose of Metoprolol 4. GERD by history on gastric protection on home PPIs 5. Hypertension controlled 6. PE by history not using Warfarin as per patient for the last 10 years. 7. Morbid Obesity strongly recommended diet and exercise as outpatient. 8. Thrombocytopenia 47 no clear reason for this 9. Altered Mental status and slurred speech asked for CT brain. 10. Increased CK levels at this time overloaded may help a trial of Albumin IV two doses and follow result in am tomorrow. 11. Equivocal troponin elevation DVT prophylaxis he has INR in 3.4 Discussed with doctor Celestine White Code Status Full Code. Discussed Condition With Patient and ER specialist. Physician Certification 2 Midnight Certification Type: Admission for Inpatient Services Order for Inpatient Services The services are ordered in accordance with Medicare regulations or non- Medicare payer requirements, as applicable. In the case of services not specified as inpatient-only, they are appropriately provided as inpatient services in accordance with the 2-midnight benchmark. Estimated LOS (days): 3 days is the estimated time the patient will need to remain in the hospital, assuming treatment plan goals are met and no additional complications. Post-Hospital Plan: Not yet determined Jerry Reese MD Sep 29, 2016 12:16
[2016-09-29] MEDS: RESP: BUDESONIDE 0.5 MG/2 ML NEB NEB SCH ×2 (12:30→20:00)
[2016-09-29 13:10] LABS: CKMB 10.3 NG/ML (0.5-3.6)
[2016-09-29 13:10] LABS: BLOOD, URINE SMALL (NEG); COMMENT (UR) CULT NOT INDICATED; CULTURE IF INDICATED CULT NOT INDICATED; GLUCOSE,URINE NEG (NEG); KETONE, URINE NEG (NEG); NITRITE,URINE NEG (NEG); URINE COLOR DARK-YELLOW (YELLW/STRAW)
[2016-09-29] MEDS ORDERED: PILL SPLITTER OTHER PRN (13:45)
[2016-09-29] MEDS: METOPROLOL TARTRATE 25 MG TAB PO SCH ×2 (14:01→21:36)
[2016-09-29] MEDS: guaiFENesin E.R. 600 MG TAB PO SCH ×2 (14:01→21:36)
[2016-09-29 14:03] VITALS: BP 127/77
--- NOTE | 2016-09-29 14:11 | PD.CONS ---
HPI History of Present Illness This is a 36 year old male with a history of congestive heart failure and pulmonary embolism, who presented to the ER for evaluation of worsening cough, fevers, generalized malaise and weakness, and decreased urinary output. He is very lethargic and not able to provide much history. When I ask him questions, he becomes slightly agitated and tells me "I just cannot think right now, I'm in too much pain to talk to you." But then he cannot tell me where his pain is and drifts back to sleep. He has a history of Pulmonary embolism back in 2011, but states that he has not taken coumadin since that time. He denies any history of hepatitis or liver cirrhosis. He reports that he gets chronic pain from tooth problems and he takes a lot of Tylenol. He cannot quantify the amount but states he takes large amounts of Tylenol at home, although he cannot tell me the last time that he took this. He is not having any nausea, vomiting , abdominal pain. I was not able to provide any further history from the patient. He denies any history of liver disease in himself or other family members. He adamantly denies any ETOH use. He cannot tell the name of his physician. (Miriam De La Cruz) PFSH Past Medical History Anemia Anxiety disorder CHF GERD Hypertension Hiatal Hernia PE 2011 Past Surgical History Appendectomy (Miriam De La Cruz) Coded Allergies: ketorolac (Verified Allergy, Severe, GENERALIZED HIVES/RASH WHICH LAST FOR ABOUT A WEEK, 09/29/16) penicillin G (Verified Allergy, Severe, Anaphylaxis, 09/29/16) tramadol (Verified Allergy, Severe, GENERALIZED HIVES WHICH LAST FOR ABOUT A WEEK, 09/29/16) Medications Allergies Coded Allergies Type Severity Reaction Last Updated Verified ketorolac Allergy Severe GENERALIZED HIVES/RASH WHICH LAST FOR ABOUT A WEEK Yes penicillin G Allergy Severe Anaphylaxis 09/29/16 Yes tramadol Allergy Severe GENERALIZED HIVES WHICH LAST FOR ABOUT A WEEK 09/29/16 Yes Active Scripts Medications Dose Route/Sig Days Date Category Lortab (Hydrocodone-Acetaminophen) 5-325 Mg Tab 1 Tab PO Q6H PRN 09/19/16 Rx Ativan (Lorazepam) 0.5 Mg Tab 0.5 Mg PO Q6H PRN 08/23/16 Rx Coreg (Carvedilol) 6.25 Mg Tab 6.25 Mg PO Q12HR 08/23/16 Rx Aldactone (Spironolactone) 25 Mg Tab 25 Mg PO DAILY 08/23/16 Rx Lasix (Furosemide) 40 Mg Tab 40 Mg PO BID 08/23/16 Rx Ferosul (Ferrous Sulfate) 325 Mg Tablet 325 Mg PO BID 08/23/16 Rx Omeprazole 40 Mg Cap 40 Mg PO DAILY 08/17/16 Reported Celexa (Citalopram Hydrobromide) 10 Mg Tab 10 Mg PO DAILY 08/17/16 Reported Lisinopril 5 Mg Tab 5 Mg PO DAILY 08/17/16 Reported Family History Denies any family history of liver disease Social History Tobacco 1 PPD Denies ETOH Hx crack cocaine (Miriam De La Cruz) Review of Systems Constitutional: COMPLAINS OF: Fatigue, Fever, Chills Respiratory: COMPLAINS OF: Cough, Shortness of breath Cardiovascular: DENIES: Chest pain Gastrointestinal: COMPLAINS OF: Constipation, Heartburn, DENIES: Abdominal pain, Black stools, Bloody stools, Nausea, Vomiting Musculoskeletal: COMPLAINS OF: Back pain Psychiatric: COMPLAINS OF: Confusion ROS Poor historian. Unable to provide much history (Miriam De La Cruz) GI Exam Vitals I&O Vital Signs Date Time Temp Pulse Resp B/P Pulse Ox O2 Delivery O2 Flow Rate FiO2 09/29/16 14:03 102 20 127/77 97 09/29/16 07:58 96 Room Air 09/29/16 07:37 97.6 104 18 123/86 97 Room Air 09/29/16 07:37 97.6 104 18 123/86 97 Imaging Last Impressions Chest X-Ray 09/29/16 08 Signed Impressions: Service Date/Time: September 08:24 - CONCLUSION: 1. Increased aeration of the lungs with minimal residual pulmonary vascular congestion. 2. Marked cardiomegaly. Suraj Vaughan MD Laboratory Test 09/29/16 09/29/16 09/29/16 08:40 12:05 12:30 White Blood Count 7.7 TH/MM3 Red Blood Count 5.08 MIL/MM3 Hemoglobin 13.0 GM/DL Hematocrit 41.4 % Mean Corpuscular Volume 81.4 FL Mean Corpuscular Hemoglobin 25.6 PG Mean Corpuscular Hemoglobin 31.4 % Concent Red Cell Distribution Width 22.6 % Platelet Count 47 TH/MM3 Mean Platelet Volume 8.8 FL Neutrophils (%) (Auto) 77.6 % Lymphocytes (%) (Auto) 14.8 % Monocytes (%) (Auto) 5.2 % Eosinophils (%) (Auto) 2.2 % Basophils (%) (Auto) 0.2 % Neutrophils # (Auto) 6.0 TH/MM3 Lymphocytes # (Auto) 1.1 TH/MM3 Monocytes # (Auto) 0.4 TH/MM3 Eosinophils # (Auto) 0.2 TH/MM3 Basophils # (Auto) 0.0 TH/MM3 CBC Comment AUTO DIFF Differential Total Cells 100 Counted Neutrophils % (Manual) 76 % Band Neutrophils % 12 % Lymphocytes % 3 % Monocytes % 5 % Eosinophils % 3 % Neutrophils # (Manual) 6.9 TH/MM3 Metamyelocytes 1 % Nucleated Red Blood Cells 2 /100 WBC Differential Comment FINAL DIFF MANUAL Platelet Estimate LOW Platelet Morphology Comment NORMAL Ovalocytes 1+ Prothrombin Time 40.1 SEC Prothromb Time International 3.4 RATIO Ratio Activated Partial 35.5 SEC Thromboplast Time Sodium Level 129 MEQ/L Potassium Level 4.4 MEQ/L Chloride Level 95 MEQ/L Carbon Dioxide Level 27.4 MEQ/L Anion Gap 7 MEQ/L Blood Urea Nitrogen 46 MG/DL Creatinine 1.49 MG/DL Estimat Glomerular Filtration 53 ML/MIN Rate Random Glucose 92 MG/DL Lactic Acid Level 2.2 mmol/L Calcium Level 7.6 MG/DL Total Bilirubin 11.4 MG/DL Aspartate Amino Transf 1159 U/L (AST/SGOT) Alanine Aminotransferase 2184 U/L (ALT/SGPT) Alkaline Phosphatase 174 U/L Total Creatine Kinase 497 U/L 356 U/L Creatine Kinase MB 10.8 NG/ML 10.3 NG/ML Creatine Kinase MB % 2.2 % 2.9 % Troponin I 0.07 NG/ML 0.06 NG/ML B-Type Natriuretic Peptide 1164 PG/ML Total Protein 6.1 GM/DL Albumin 2.6 GM/DL Thyroid Stimulating Hormone 1.590 uIU/ML 3rd Gen Ammonia 28 MCMOL/L Urine Color DARK-YELLOW Urine Turbidity CLEAR Urine pH 6.0 Urine Specific [place] 1.023 Urine Protein TRACE mg/dL Urine Glucose (UA) NEG mg/dL Urine Ketones NEG mg/dL Urine Occult Blood SMALL Urine Nitrite NEG Urine Bilirubin SMALL Urine Urobilinogen 2.0 MG/DL Urine Leukocyte Esterase NEG Urine RBC 1 /hpf Urine WBC LESS THAN 1 /hpf Microscopic Urinalysis Comment CULT NOT INDICATED Date/Time Procedure Status Source Growth 09/29/16 12:15 Aerobic Blood Culture Received Blood Peripheral Pending 09/29/16 12:15 Anaerobic Blood Culture Received Blood Peripheral Pending 09/29/16 08:45 Influenza Types A,B Antigen (MUNDO) - Final Complete Nasal Washing Positive For Flu B Antigen Physical Examination HEENT: Normocephalic; atraumatic; + jaundice. CHEST: Resp even/unlabored, course CARDIAC: Regular ABDOMEN: Soft, obese, nondistended, nontender; hepatomegaly; bowel sounds are present in all four quadrants. EXTREMITIES: BLE edema. SKIN: BLE slightly erythematous, + jaundice. 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 Pt has a hx of CHF with low EF, but also admits to taking large amount of Tylenol on a regular basis. He is very somnolent and it is difficult to obtain a clear history from the patient. His coag's are elevated. He is very adamant that he has not been on coumadin since 2011. Will start acetylcysteine per protocol in case there is any Tyelenol toxicity component. He does deny any ETOH use. Will also get toxicology screen and liver workup along with US. Of note , positive for flu. Differentials include medication induced, including possible tylenol toxicity, shocked liver, viral hepatitis, vs other. - Coagulopathy. He does have a history of PE, but states he has not been on coumadin since 2011. He does admit to taking large amounts of Tylenol for tooth pain. PT 40.1, INR 3.4, APTT 35.5. - AMS. Ammonia 28. Per attending. - Fever, fatigue, malaise. WBC 7.7. FLU B Ag (+). BCx pending. - Cough. CXR (09/29/16)---> increased aeration of the lungs with minimal residual pulmonary vascular congestion, marked cardiomegaly. - GERD. 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 Protonix - Supportive care - Further recommendations to follow based on results of above - Pt seen and examined by Dr. Navarrete and myself and this note is written on his behalf (Miriam De La Cruz) Physician Comments Patient seen and examined Agree with above Continue with current supportive care Monitor labs Acute hepatitis etiology unclear but patient presents with a history of excessive Tylenol use we will start with the Mucomyst protocol Liver workup in progress (Ernesto Navarrete MD) Miriam De La Cruz Sep 29, 2016 14:10 Ernesto Navarrete MD Sep 29, 2016 19:03
[2016-09-29] MEDS ORDERED: WATER IV SCH ×2 (15:00)
[2016-09-29] MEDS ORDERED: DEXTROSE 5% IV SCH ×6 (15:00→20:00)
[2016-09-29] MEDS ORDERED: ACETYLCYSTEINE IV SCH ×6 (15:00→20:00)
[2016-09-29] MEDS ORDERED: SODIUM CHLORIDE 0.9% FLUSH 10 ML FLUSH IVF PRN (15:00)
[2016-09-29] MEDS ORDERED: WATE IV SCH ×4 (16:00→20:00)
[2016-09-29 16:10] VITALS: BP 106/77; PULSE 99; RESP 18; TEMP 98.4; O2SAT 97
[2016-09-29 16:15] LABS: ACETAMINOPHEN LESS THAN 2.0 MCG/ML (10.0-30.0); ALCOHOL LESS THAN 3 MG/DL (0-5)
--- NOTE | 2016-09-29 16:44 | EKG ---
Date Performed: 09/29/2016 Time Performed: 08:11:23 PTAGE: 36 years EKG: SINUS TACHYCARDIA POSSIBLE LEFT ATRIAL ENLARGEMENT NONSPECIFIC T-WAVE ABNORMALITY ABNORMAL RHYTHM ECG PREVIOUS TRACING : 09/19/2016 00.51 Compared to prior tracing no significant change DOCTOR: Thien Arias Interpretating Date/Time 09/29/2016 16:42:40
[2016-09-29] MEDS: ALBUMIN HUMAN 25% 25 GM/100 ML BAGP IV SCH (17:28)
--- NOTE | 2016-09-29 18:04 | RADRPT ---
EXAM DATE/TIME: 09/29/2016 16:56 [facility] COMPARISON: No previous studies available for comparison. INDICATIONS : Increased lab values. MEDICAL HISTORY : Hypercholesterolemia. Gastroesophageal reflux disease. Congestive heart failure. Numbness. Irregular heartbeat. Hypertension. Cholelithiasis. Hiatal hernia. Pulmonary embolism. Liver disease. PTSD. Anxi ety. Anemia. Thrombocytopenia. Measles. SURGICAL HISTORY : Appendectomy. ENCOUNTER: Subsequent ACUITY: 1 day PAIN SCORE: 3/10 LOCATION: Bilateral upper quadrant MEASUREMENTS: LIVER: 19.6 cm length COMMON DUCT: 4 mm RIGHT KIDNEY: 13.9 x 6.0 x 6.0 cm SPLEEN: Non visualized. FINDINGS: The study is suboptimal due to the patient's body habitus. LIVER: The liver is prominent with increased echogenicity and no focal mass or ductal dilatation.. COMMON DUCT: No intraluminal mass or stone visualized. GALLBLADDER: There are multiple echogenic gallstones with posterior shadowing. The gallbladder wall is mildly thic kened measuring 5 mm with no pericholecystic fluid. PANCREAS: Not visualized or evaluated. RIGHT KIDNEY: No hydronephrosis, stone or mass. SPLEEN: Not visualized or evaluated. CONCLUSION: 1. Cholelithiasis with gallbladder wall thickening and no pericholecystic fluid. 2. No evidence of biliary obstruction. 3. The liver is enlarged with findings characteristic of fatty infiltration. Jose Antonio Miles MD on September 29, 2016 at 18:01 Board Certified Radiologist. This report was verified electronically.
--- NOTE | 2016-09-29 18:15 | RADRPT ---
EXAM DATE/TIME: 09/29/2016 18:04 [facility] COMPARISON: No previous studies available for comparison. INDICATIONS : Altered mental status. RADIATION DOSE: 64.41 CTDIvol (mGy) ; Tabletop CT Head; Patient motion MEDICAL HISTORY : Hypertension. SURGICAL HISTORY : None. ENCOUNTER: Initial ACUITY: 1 day PAIN SCALE: 0/10 LOCATION: cranial TECHNIQUE: Multiple contiguous axial images were obtained of the head. Using automated exposure control and adj ustment of the mA and/or kV according to patient size, radiation dose was kept as low as reasonably a chievable to obtain optimal diagnostic quality images. DICOM format image data is available electro nically for review and comparison. FINDINGS: CEREBRUM: The ventricles are normal for age. No evidence of midline shift, mass lesion, hemorrhage or acute in farction. No extra-axial fluid collections are seen. POSTERIOR FOSSA: The cerebellum and brainstem are intact. The 4th ventricle is midline. The cerebellopontine angle i s unremarkable. EXTRACRANIAL: The visualized portion of the orbits is intact. SKULL: The calvaria is intact. No evidence of skull fracture. CONCLUSION: Normal examination for a patient of this age. Madi Simmons MD on September 29, 2016 at 18:12 Board Certified Radiologist. This report was verified electronically.
[2016-09-29 19:00] VITALS: PULSE 99
--- NOTE | 2016-09-29 19:03 | RADRPT ---
EXAM DATE/TIME: 09/29/2016 18:07 [facility] COMPARISON: No previous studies available for comparison. INDICATIONS : Abdominal pain, decreased urine output. Evaluate liver disorder. ORAL CONTRAST: No oral contrast ingested. RADIATION DOSE: 22.95 CTDIvol (mGy) ; Patient body habitus MEDICAL HISTORY : Hypertension. Congestive heart failure. Hernia, hiatal. SURGICAL HISTORY : Appendectomy. ENCOUNTER: Initial ACUITY: 1 day PAIN SCALE: 6/10 LOCATION: abdomen TECHNIQUE: Volumetric scanning of the abdomen and pelvis was performed. Using automated exposure control and ad justment of the mA and/or kV according to patient size, radiation dose was kept as low as reasonably achievable to obtain optimal diagnostic quality images. DICOM format image data is available electro nically for review and comparison. FINDINGS: Minimal basilar atelectasis. No focal liver lesions. Spleen enlarged up to 18.6 cm in length. Multipl e calcified gallstones. No biliary ductal dilatation. Adrenals, kidneys and pancreas unremarkable. There is mild anasarca. Trace ascites. No bowel obstruction. Colonic diverticula without evidence for diverticulitis. Bladder mildly distended with a right-sided bladder diverticulum extending into the inguinal canal on the right and some fluid in the left inguinal canal. CONCLUSION: 1. Mild anasarca and ascites. Splenomegaly. No focal liver lesions. 2. Multiple calcified gallstones without biliary ductal dilatation. 3. There is bladder diverticulum on the right extending into the proximal right inguinal canal. Fluid in left inguinal canal. No bowel obstruction or free air. Madi Simmons MD on September 29, 2016 at 18:51 Board Certified Radiologist. This report was verified electronically.
[2016-09-29] MEDS: RESP: ALBUTEROL 2.5 MG/IPRATROPIUM 0.5 MG NEB (SCH) NEB (20:00)
[2016-09-29 20:35] VITALS: O2SAT 98
[2016-09-29] MEDS: SODIUM CHLORIDE 0.9% FLUSH 10 ML FLUSH IV FLUSH SCH (21:00)
[2016-09-29] MEDS ORDERED: CARVEDILOL 6.25 MG TAB PO SCH (21:00)
[2016-09-29] MEDS: DOCUSATE SODIUM 50 MG/SENNA 8.6 MG TAB PO SCH (21:36)
[2016-09-29] MEDS: FERROUS SULFATE 325 MG (65 MG ELEMENTAL IRON) TAB PO SCH (21:36)
[2016-09-30] VITALS (9 sets, daily range): BP systolic 103–144; BP diastolic 68–90; PULSE 102–114; RESP 18–20; TEMP 97.4–98.3; O2SAT 93–100
[2016-09-30] MEDS: RESP: ALBUTEROL 2.5 MG/IPRATROPIUM 0.5 MG NEB (SCH) NEB ×5 (01:22→19:55)
[2016-09-30] MEDS: ALBUMIN HUMAN 25% 25 GM/100 ML BAGP IV SCH (03:15)
[2016-09-30] MEDS: RESP: BUDESONIDE 0.5 MG/2 ML NEB NEB SCH ×2 (07:56→19:55)
[2016-09-30] MEDS: PANTOPRAZOLE SOD 40 MG DELAYED RELEASE TAB PO SCH (08:38)
[2016-09-30] MEDS: METOPROLOL TARTRATE 25 MG TAB PO SCH ×2 (08:38→21:43)
[2016-09-30] MEDS: guaiFENesin E.R. 600 MG TAB PO SCH ×2 (08:39→21:43)
[2016-09-30] MEDS: DOCUSATE SODIUM 50 MG/SENNA 8.6 MG TAB PO SCH ×2 (08:39→21:55)
[2016-09-30] MEDS: CITALOPRAM HYDROBROMIDE 20 MG TAB PO SCH (08:39)
[2016-09-30] MEDS: SPIRONOLACTONE 25 MG TAB PO SCH (08:39)
[2016-09-30] MEDS: FERROUS SULFATE 325 MG (65 MG ELEMENTAL IRON) TAB PO SCH ×2 (08:39→21:43)
[2016-09-30] MEDS: LISINOPRIL 5 MG TAB PO SCH (08:39)
[2016-09-30] MEDS: SODIUM CHLORIDE 0.9% FLUSH 10 ML FLUSH IV FLUSH SCH ×2 (08:40→21:55)
--- NOTE | 2016-09-30 09:17 | HHI.GIFU ---
Subjective Remarks Resting in bed. Lethargic, but slightly improved from yesterday as far as his mental status. Significant coughing, mildly labored breathing. (Miriam De La Cruz) Objective Vitals I&O Vital Signs Date Time Temp Pulse Resp B/P Pulse Ox O2 Delivery O2 Flow Rate FiO2 09/30/16 08:00 97.9 104 18 115/69 98 09/30/16 07:57 97 09/30/16 04:00 97.4 102 20 133/75 96 09/30/16 00:00 98.3 106 18 130/90 93 09/29/16 20:35 98 21 09/29/16 19:00 99 09/29/16 16:10 98.4 99 18 106/77 97 09/29/16 14:03 102 20 127/77 97 I/O 09/29/16 09/29/16 09/29/16 09/30/16 09/30/16 09/30/16 07:00 15:00 23:00 07:00 15:00 23:00 Intake Total 300 ml Balance 300 ml Intake IV Total 300 ml # Voids 4 Laboratory Laboratory Tests Test 09/29/16 09/29/16 12:05 12:30 Ammonia 28 Total Creatine Kinase 356 Creatine Kinase MB 10.3 Creatine Kinase MB % 2.9 Troponin I 0.06 Acetaminophen Level LESS THAN 2.0 Ethyl Alcohol Level LESS THAN 3 Urine Color DARK-YELLOW Urine Turbidity CLEAR Urine pH 6.0 Urine Specific [place] 1.023 Urine Protein TRACE Urine Glucose (UA) NEG Urine Ketones NEG Urine Occult Blood SMALL Urine Nitrite NEG Urine Bilirubin SMALL Urine Urobilinogen 2.0 Urine Leukocyte Esterase NEG Urine RBC 1 Urine WBC LESS THAN 1 Microscopic Urinalysis Comment CULT NOT INDICATED Urine Opiates Screen NEG Urine Barbiturates Screen NEG Urine Amphetamines Screen NEG Urine Benzodiazepines Screen NEG Urine Cocaine Screen POS Urine Cannabinoids Screen POS Date/Time Procedure Status Source Growth 09/29/16 12:15 Aerobic Blood Culture Resulted Blood Peripheral Pending 09/29/16 12:15 Anaerobic Blood Culture - Final Resulted Blood Peripheral QNS - SEE AEROBE REPORT 09/29/16 08:45 Influenza Types A,B Antigen (MUNDO) - Final Complete Nasal Washing Positive For Flu B Antigen Imaging Last Impressions Chest X-Ray 09/29/16 0823 Signed Impressions: Service Date/Time: September 08:24 - CONCLUSION: 1. Increased aeration of the lungs with minimal residual pulmonary vascular congestion. 2. Marked cardiomegaly. Suraj Vaughan MD Liver Ultrasound 09/29/16 0000 Signed Impressions: Service Date/Time: September 16:56 - CONCLUSION: 1. Cholelithiasis with gallbladder wall thickening and no pericholecystic fluid. 2. No evidence of biliary obstruction. 3. The liver is enlarged with findings characteristic of fatty infiltration. Jose Antonio Miles MD Head CT 09/29/16 0000 Signed Impressions: Service Date/Time: September 18:04 - CONCLUSION: Normal examination for a patient of this age. Madi Simmons MD Abdomen/Pelvis CT 09/29/16 0000 Signed Impressions: Service Date/Time: , September 29, 2016 18:07 - CONCLUSION: 1. Mild anasarca and ascites. Splenomegaly. No focal liver lesions. 2. Multiple calcified gallstones without biliary ductal dilatation. 3. There is bladder diverticulum on the right extending into the proximal right inguinal canal. Fluid in left inguinal canal. No bowel obstruction or free air. Madi Simmons MD Physical Exam HEENT: Normocephalic; atraumatic; + jaundice. CHEST: Resp even/unlabored, course CARDIAC: Regular ABDOMEN: Soft, obese, nondistended, nontender; hepatomegaly; bowel sounds are present in all four quadrants. EXTREMITIES: BLE edema. SKIN: BLE slightly erythematous, + jaundice. 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 Pt has a hx of CHF with low EF, but also admits to taking large amount of Tylenol on a regular basis. He is very somnolent and it is difficult to obtain a clear history from the patient. His coag's are elevated. He is very adamant that he has not been on coumadin since 2011. No ETOH use, but was (+) cocaine and cannabinoids. Acetaminophen < 2.0, ETOH <3. (+) FLU B. Of note, patient admitted to taking large amounts of Tylenol for tooth pain, but not for two days. confirmed this. Timed LFTs/INR/Ammonia was cancelled by lab and has not been drawn since admission. Called lab. Liver workup labs were ordered yesterday, but not drawn. Liver Ultrasound (09/29/16)-----> 1. Cholelithiasis with gallbladder wall thickening and no pericholecystic fluid. 2. No evidence of biliary obstruction. 3. The liver is enlarged with findings characteristic of fatty infiltration Differentials include medication induced , including possible tylenol toxicity, shocked liver, viral hepatitis, vs other. Acetylcysteine IV per protocol. - Coagulopathy. He does have a history of PE, but states he has not been on coumadin since 2011. This was confirmed by his today. PT 40.1, INR 3.4 , APTT 35.5 yesterday, repeat labs have not been drawn. - AMS. Ammonia 28 yesterday, still lethargic Per attending. - Fever, fatigue, malaise. FLU B Ag (+). BCx pending. - Cough. CXR (09/29/16)---> increased aeration of the lungs with minimal residual pulmonary vascular congestion, marked cardiomegaly. - GERD. 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 Protonix - Supportive care - Further recommendations to follow based on results of above - Pt seen and examined by Dr. Navarrete and myself and this note is written on his behalf (Miriam De La Cruz) Physician Comments Patient seen and examined agree with above Continue with current supportive care Monitor labs With a drug screen coming back positive for cannabis and cocaine most likely patient had drug-induced hepatitis or shocked liver as a result (Ernesto Navarrete MD) Miriam De La Cruz Sep 30, 2016 09:17 Ernesto Navarrete MD Sep 30, 2016 22:20
--- NOTE | 2016-09-30 10:19 | HHI.PR ---
Subjective Remarks This is a pleasant 36 y/o male with cough and shortness of breath, generalized malaise and weakness, he has history of CHF, and PE not taking Warfarin for the last 10 years, as per patient having productive cough, for the last seven days, got worse for the last 3 days, decreased urine output for the past 3 days, has been confused, with mild aching headache, denied any visual changes, denied Neck pain , persistent cough, denied chest pain, no abdominal pain, no nausea, vomit or diarrhea, y chest pain. worsening lower extremity edema, has CHF with EF 20-25% . Seen in Emergency room and discussed at this time with Doctor Celestine White for me is more related to Hepatic Failure due to elevated INR in 3.4 he states he is been mixing Marijuana and Cocaine but denied any alcohol intake, as per ER specialist questioned about Tylenol and asked for Drug screen and Tylenol level , consult placed to GI specialist, will continue heart healthy diet and follow recommendations he is morbidly obese. he was seen on recent opportunities in ER. he states he has slurred speech and somnolence. 09/30: Seen in his bedroom laying in bed, discussed with patient and nurse Mr. Canchola also with his mother Mrs. Wolf to the phone number [phone] she knows he son abuse substances for a long time, and also for his Heart condition, she wants to get Cardiology involved in his Son's Case I agree, he was seen in the past by Doctor Clovis Pearson was consulted, the patient has positive marijuana and Cocaine during this admission also he states he was mixing some substances we do not know what else he took and is not in our screen to produce this Liver Damage, no nausea, vomit or diarrhea. Objective Vital Signs Date Time Temp Pulse Resp B/P Pulse Ox O2 Delivery O2 Flow Rate FiO2 09/30/16 08:00 97.9 104 18 115/69 98 09/30/16 07:57 97 09/30/16 04:00 97.4 102 20 133/75 96 09/30/16 00:00 98.3 106 18 130/90 93 09/29/16 20:35 98 21 09/29/16 19:00 99 09/29/16 16:10 98.4 99 18 106/77 97 09/29/16 14:03 102 20 127/77 97 I/O 09/29/16 09/29/16 09/29/16 09/30/16 09/30/16 09/30/16 06:59 14:59 22:59 06:59 14:59 22:59 Intake Total 300 ml Balance 300 ml Intake IV Total 300 ml # Voids 4 Result Diagram: 09/29/16 0840 09/29/16 0840 Imaging Last Impressions Chest X-Ray 09/29/16 0823 Signed Impressions: Service Date/Time: September 08:24 - CONCLUSION: 1. Increased aeration of the lungs with minimal residual pulmonary vascular congestion. 2. Marked cardiomegaly. Suraj Vaughan MD Liver Ultrasound 09/29/16 0000 Signed Impressions: Service Date/Time: September 16:56 - CONCLUSION: 1. Cholelithiasis with gallbladder wall thickening and no pericholecystic fluid. 2. No evidence of biliary obstruction. 3. The liver is enlarged with findings characteristic of fatty infiltration. Jose Antonio Miles MD Head CT 09/29/16 0000 Signed Impressions: Service Date/Time: , September 29, 2016 18:04 - CONCLUSION: Normal examination for a patient of this age. Madi Simmons MD Abdomen/Pelvis CT 09/29/16 0000 Signed Impressions: Service Date/Time: September 18:07 - CONCLUSION: 1. Mild anasarca and ascites. Splenomegaly. No focal liver lesions. 2. Multiple calcified gallstones without biliary ductal dilatation. 3. There is bladder diverticulum on the right extending into the proximal right inguinal canal. Fluid in left inguinal canal. No bowel obstruction or free air. Madi Simmons MD Procedures None Other Results Laboratory Tests Test 09/29/16 09/29/16 09/29/16 08:40 12:05 12:30 White Blood Count 7.7 TH/MM3 Red Blood Count 5.08 MIL/MM3 Hemoglobin 13.0 GM/DL Hematocrit 41.4 % Mean Corpuscular Volume 81.4 FL Mean Corpuscular Hemoglobin 25.6 PG Mean Corpuscular Hemoglobin 31.4 % Concent Red Cell Distribution Width 22.6 % Platelet Count 47 TH/MM3 Mean Platelet Volume 8.8 FL Neutrophils (%) (Auto) 77.6 % Lymphocytes (%) (Auto) 14.8 % Monocytes (%) (Auto) 5.2 % Eosinophils (%) (Auto) 2.2 % Basophils (%) (Auto) 0.2 % Neutrophils # (Auto) 6.0 TH/MM3 Lymphocytes # (Auto) 1.1 TH/MM3 Monocytes # (Auto) 0.4 TH/MM3 Eosinophils # (Auto) 0.2 TH/MM3 Basophils # (Auto) 0.0 TH/MM3 CBC Comment AUTO DIFF Differential Total Cells 100 Counted Neutrophils % (Manual) 76 % Band Neutrophils % 12 % Lymphocytes % 3 % Monocytes % 5 % Eosinophils % 3 % Neutrophils # (Manual) 6.9 TH/MM3 Metamyelocytes 1 % Nucleated Red Blood Cells 2 /100 WBC Differential Comment FINAL DIFF MANUAL Platelet Estimate LOW Platelet Morphology Comment NORMAL Ovalocytes 1+ Prothrombin Time 40.1 SEC Prothromb Time International 3.4 RATIO Ratio Activated Partial 35.5 SEC Thromboplast Time Sodium Level 129 MEQ/L Potassium Level 4.4 MEQ/L Chloride Level 95 MEQ/L Carbon Dioxide Level 27.4 MEQ/L Anion Gap 7 MEQ/L Blood Urea Nitrogen 46 MG/DL Creatinine 1.49 MG/DL Estimat Glomerular Filtration 53 ML/MIN Rate Random Glucose 92 MG/DL Lactic Acid Level 2.2 mmol/L Calcium Level 7.6 MG/DL Total Bilirubin 11.4 MG/DL Aspartate Amino Transf 1159 U/L (AST/SGOT) Alanine Aminotransferase 2184 U/L (ALT/SGPT) Alkaline Phosphatase 174 U/L B-Type Natriuretic Peptide 1164 PG/ML Total Protein 6.1 GM/DL Albumin 2.6 GM/DL Thyroid Stimulating Hormone 1.590 uIU/ML 3rd Gen Ammonia 28 MCMOL/L Total Creatine Kinase 356 U/L Creatine Kinase MB 10.3 NG/ML Creatine Kinase MB % 2.9 % Troponin I 0.06 NG/ML Acetaminophen Level LESS THAN 2.0 MCG/ML Ethyl Alcohol Level LESS THAN 3 MG/DL Urine Color DARK-YELLOW Urine Turbidity CLEAR Urine pH 6.0 Urine Specific [place] 1.023 Urine Protein TRACE mg/dL Urine Glucose (UA) NEG mg/dL Urine Ketones NEG mg/dL Urine Occult Blood SMALL Urine Nitrite NEG Urine Bilirubin SMALL Urine Urobilinogen 2.0 MG/DL Urine Leukocyte Esterase NEG Urine RBC 1 /hpf Urine WBC LESS THAN 1 /hpf Microscopic Urinalysis Comment CULT NOT INDICATED Urine Opiates Screen NEG Urine Barbiturates Screen NEG Urine Amphetamines Screen NEG Urine Benzodiazepines Screen NEG Urine Cocaine Screen POS Urine Cannabinoids Screen POS Objective Remarks GENERAL: Well developed, Morbid obesity. SKIN: Focused skin assessment warm/dry. HEAD: Normocephalic. EYES: Bilateral scleral icterus. No injection or drainage. NECK: Supple, trachea midline. No JVD or lymphadenopathy. CARDIOVASCULAR: Regular rate and rhythm without murmurs, gallops, or rubs. RESPIRATORY: Breath sounds equal bilaterally. No accessory muscle use. Patient has mild expiratory wheezes bilaterally. Mild rhonchi at the bases. GASTROINTESTINAL: Abdomen soft, non-tender, severe distention due to fat. edema. MUSCULOSKELETAL: No cyanosis, Edema 4+, but improving, BACK: Nontender without obvious deformity. No CVA tenderness. Neurologic exam normal. slurred speech. Medications and IVs Current Medications Medications (Trade) Dose Ordered Sig/Gideon Route Start Time Stop Time Status Last Admin (NS Flush) 2 ml UNSCH PRN IV FLUSH 09/29/16 11:00 (NS Flush) 2 ml BID IV FLUSH 09/29/16 21:00 09/29/16 21:00 (Zofran Inj) 4 mg Q6H PRN IVP 09/29/16 11:00 (Narcan Inj) 0.4 mg UNSCH PRN IV 09/29/16 11:00 (Mercy-Colace) 1 tab BID PO 09/29/16 21:00 09/30/16 08:39 (Milk Of Magnesia Liq) 30 ml Q12H PRN PO 09/29/16 11:00 (Senokot) 17.2 mg Q12H PRN PO 09/29/16 11:00 (Dulcolax Supp) 10 mg DAILY PRN RECTAL 09/29/16 11:00 (Lactulose Liq) 30 ml DAILY PRN PO 09/29/16 11:00 (Mucinex Er) 600 mg BID PO 09/29/16 12:30 09/30/16 08:39 (CeleXA) 10 mg DAILY PO 09/30/16 09:00 09/30/16 08:39 (Ferrous Sulfate) 325 mg BID PO 09/29/16 21:00 09/30/16 08:39 (Prinivil) 5 mg DAILY PO 09/30/16 09:00 09/30/16 08:39 (Aldactone) 25 mg DAILY PO 09/30/16 09:00 09/30/16 08:39 (Protonix) 40 mg DAILY PO 09/30/16 09:00 09/30/16 08:38 (Lopressor) 12.5 mg Q12HR PO 09/29/16 13:00 09/30/16 08:38 (Pill Splitter) 1 ea UNSCH PRN OTHER 09/29/16 13:45 Sodium Chloride 2 ml 2 ml UNSCH PRN IVF 09/29/16 15:00 (Acetadote Inj/ D5W 1000 ml Inj) 1,067.5 ml @ 62.5 mls/ hr ONCE IV 09/29/16 20:00 09/30/16 11:59 09/29/16 22:49 (Albumin 25% Inj) 25 gm Q12H IV 09/29/16 16:00 09/30/16 12:00 09/30/16 03:15 A/P Assessment and Plan 1. Liver Failure ALT double from AST making more cellular liver damage, questioned for what the patient says Intoxication Drug screen positive for marijuana and Cocaine. 2. Anxiety disorder by history 3. CHF with EF 20-25%, with BNP 1164, he states he does not like to continue Coreg, will continue low dose metoprolol and added Diuretics. will start with 40 mg and follow in am tomorrow. with laboratory, 4. GERD by history on gastric protection on home PPIs 5. Hypertension controlled 6. PE by history not using Warfarin as per patient for the last 10 years. 7. Morbid Obesity strongly recommended diet and exercise as outpatient. 8. Thrombocytopenia improving to 64 9. Altered Mental status and slurred speech asked for CT brain. Improved to full alert and oriented x 4. 10. Increased CK Improving. 11. Equivocal troponin elevation DVT prophylaxis he has INR in 2.5 Discussed with patient and nurse Mr. Canchola also with his mother Mrs. Wolf to the phone number [phone] she knows he son abuse substances for a long time, and also for his Heart condition, she wants to get Cardiology involved in his Son's Case I agree, he was seen in the past by Doctor Clovis Pearson was consulted, the patient has positive marijuana and Cocaine during this admission also he states he was mixing some substances we do not know what else he took and is not in our screen to produce this Liver Damage. Code Status Full Code. Discharge Planning Once cleared by specialists. Jerry Reese MD Sep 30, 2016 10:19
[2016-09-30] MEDS ORDERED: cefTRIAXone INJ 1,000 MG in SODIUM CHLORIDE 0.9% INJ 100 ML IV SCH (11:00)
[2016-09-30 12:33] LABS: AUTOMATED NEUTROPHIL # 5.9 TH/MM3 (1.8-7.7); BASOPHIL % 0.5 % (0.0-2.0); EOSINOPHIL # 0.2 TH/MM3 (0-0.4); EOSINOPHIL % 2.2 % (0.0-4.0); HEMATOCRIT 39.8 % (39.0-51.0); LYMPHOCYTE # 1.3 TH/MM3 (1.0-4.8); MEAN CELL VOLUME 79.8 FL (80.0-100.0); MEAN CORPUSCULAR HEMOGLOBIN 26.2 PG (27.0-34.0); MEAN CORPUSCULAR HGB CONC 32.8 % (32.0-36.0); MONO % 7.6 % (0.0-8.0); NEUT % 73.7 % (16.0-70.0); PLATELET COUNT 64 TH/MM3 (150-450); RED BLOOD COUNT 4.99 MIL/MM3 (4.50-5.90); RED CELL DISTRIBUTION WIDTH 23.1 % (11.6-17.2)
[2016-09-30 12:35] LABS: HEMO FLAGS AUTO DIFF
[2016-09-30 12:43] LABS: INTERNATIONAL NORMALIZED RATIO 2.5 RATIO; PROTHROMBIN TIME - PATIENT 28.6 SEC (9.8-11.6)
[2016-09-30 13:05] LABS: ALKALINE PHOSPHATASE 189 U/L (45-117); ALT (GPT) 1464 U/L (12-78); ANION GAP 8 MEQ/L (5-15); AST (GOT) 467 U/L (15-37); BICARBONATE 31.5 MEQ/L (21.0-32.0); BLOOD UREA NITROGEN 34 MG/DL (7-18); CHLORIDE 94 MEQ/L (98-107); GLOMERULAR FILTRATION RATE 64 ML/MIN (>89); POTASSIUM 3.7 MEQ/L (3.5-5.1); SODIUM (NA) 133 MEQ/L (136-145); TOTAL BILIRUBIN ADULT 10.3 MG/DL (0.2-1.0)
[2016-09-30 13:06] LABS: ALKALINE PHOSPHATASE 183 U/L (45-117); ALT (GPT) 1390 U/L (12-78); CREATINE KINASE 176 U/L (39-308); FERRITIN 305 NG/ML (26-388); TOTAL BILIRUBIN ADULT 9.9 MG/DL (0.2-1.0); TRANSFERRIN IRON PROFILE 236 MG/DL (200-360)
[2016-09-30 13:13] LABS: AST (GOT) 462 U/L (15-37); INDIRECT BILIRUBIN 4.1 MG/DL (0.0-0.8)
[2016-09-30 13:18] LABS: ACETAMINOPHEN LESS THAN 2.0 MCG/ML (10.0-30.0); ALCOHOL LESS THAN 3 MG/DL (0-5)
[2016-09-30 13:28] LABS: PLATELET ESTIMATE SMEAR LOW (NORMAL); PLATELET MORPHOLOGY NORMAL (NORMAL); SCAN/DIFF AUTO DIFF CONFIRMED
[2016-09-30] MEDS: OSELTAMIVIR PHOSPHATE 30 MG CAP PO SCH (13:34)
[2016-09-30] MEDS: CLINDAMYCIN INJ 600 MG in SODIUM CHLORIDE 0.9% INJ 100 ML IV SCH ×2 (15:13→21:55)
[2016-09-30 16:16] LABS: INTERNATIONAL NORMALIZED RATIO 2.4 RATIO; PROTHROMBIN TIME - PATIENT 27.5 SEC (9.8-11.6)
[2016-09-30 16:29] LABS: INDIRECT BILIRUBIN 3.6 MG/DL (0.0-0.8); TOTAL BILIRUBIN ADULT 9.2 MG/DL (0.2-1.0)
[2016-09-30] MEDS: FUROSEMIDE 20 MG/2 ML VIAL IV PUSH SCH (17:19)
[2016-09-30] MEDS ORDERED: FUROSEMIDE 40 MG/4 ML VIAL IV PUSH SCH (18:00)
[2016-09-30 21:29] LABS: INTERNATIONAL NORMALIZED RATIO 2.3 RATIO; PROTHROMBIN TIME - PATIENT 26.3 SEC (9.8-11.6)
[2016-09-30 21:39] LABS: INDIRECT BILIRUBIN 3.3 MG/DL (0.0-0.8); TOTAL BILIRUBIN ADULT 8.4 MG/DL (0.2-1.0)
--- NOTE | 2016-09-30 23:38 | MB ---
cc: CLOVIS NAVARRETE DO DATE OF CONSULTATION 09/30/16 REASON FOR CONSULTATION Congestive heart failure. HISTORY OF PRESENT ILLNESS Manjinder Wilcox is a 36-year-old male who presented to [facility] on September 29, 2016 due to a cough and shortness of breath. He also states that he was feeling general malaise and weakness. He has had a productive cough for the past week or so and it got worse over the past 3 days. He has also noticed he has not been urinating as much. He was previously seen for chest pain and congestive heart failure. He was placed on carvedilol but states that he stopped it because he felt like it was slowing him down too much. He admits that he has been in more pain as part of his chronic pain and he attempted to try marijuana to see if this made him feel better. He was positive for marijuana and cocaine. He felt that the marijuana was most likely laced with cocaine. In seeing him he currently is without chest pain or palpitations. His shortness of breath is essentially chronic in nature. PAST MEDICAL HISTORY 1. Anemia. 2. Anxiety disorder. 3. Systolic congestive heart failure. 4. Gastroesophageal reflux disease. 5. Hypertension. 6. Hiatal hernia. 7. History of PE. 8. Morbid obesity. PAST SURGICAL HISTORY Appendectomy (November 2015). ALLERGIES 1. KETOROLAC. 2. PENICILLIN. 3. TRAMADOL. MEDICATIONS 1. Lisinopril 5 milligrams daily. 2. Celexa 10 milligrams daily. 3. Ativan 1/2 milligram every 6 hours as needed for anxiety. 4. Coreg 6.25 milligrams every 12 hours. 5. Iron 325 milligrams b.i.d. 6. Lasix 40 milligrams b.i.d. 7. Aldactone 25 milligrams daily. 8. Lortab 5/325 milligrams every 6 hours as needed for pain. 9. Omeprazole 40 milligrams daily. FAMILY HISTORY Denies premature coronary artery disease or sudden cardiac within the family. SOCIAL HISTORY The patient admits to smoking tobacco as well as trying marijuana to help with his sleep. He denies to me directly that he used cocaine and feels that his marijuana was most likely laced with cocaine. REVIEW OF SYSTEMS 14-systems were reviewed including osteopathic. Pertinent positives and negatives above, otherwise negative. PHYSICAL EXAMINATION VITAL SIGNS: Temperature 97.7, heart rate 110, blood pressure 144/83, respirations 18, pulse ox 94% on room air. GENERAL: In general the patient appears well in no acute distress, alert, awake and oriented x3. HEENT: Extraocular muscles intact. Mucous membranes moist. NECK: Neck is supple. No JVD at 45 degrees. No carotid bruits heard bilaterally. Carotid upstroke is brisk in nature. HEART: Heart is regular rate and rhythm. Positive first and second heart sounds with a 1/6 holosystolic murmur noted at the apex. LUNGS: Lungs have decreased breath sounds bilaterally but no overt wheezes, rales or rhonchi. ABDOMEN: Soft, nontender, nondistended. No organomegaly noted. EXTREMITIES: Show 1+ pitting edema bilaterally. Venous stasis ulcers appear to be present. NEUROLOGICALLY: No focal deficits. SKIN: Warm, dry and intact. OSTEOPATHIC: Mild lordosis. No kyphoscoliosis or paraspinal tender points. LABORATORY FINDINGS Hemoglobin 13.1, hematocrit 39.8, platelets 64. INR 2.3. Potassium 3.7, BUN 34, creatinine 1.27, AST 467, ALT 1464. Troponin 0.07 decreasing to 0.05. UDS positive for cocaine and cannabis. Flu B positive. CARDIOLOGY STUDIES Electrocardiogram (September 29, 2016 at 08:11) sinus tachycardia, left atrial enlargement, nonspecific ST-T wave changes. IMPRESSION 1. Systolic congestive heart failure, somewhat decompensated. 2. Shortness of breath due to congestive heart failure as well as influenza B positive. 3. Liver failure which may be somewhat due to congestive heart failure versus possible viral illness. 4. Anxiety disorder by history. 5. Positive for cocaine and marijuana for which the patient states he was using marijuana to decrease his pain and this was most likely laced with cocaine. 6. Hypertension. 7. History of PE. 8. Morbid obesity. 9. Thrombocytopenia. 10. Minimally elevated troponin most likely secondary to his overall illness. RECOMMENDATIONS 1. He will continue on Lasix IV for his overall congestive heart failure. 2. I will continue on his medications for his congestive heart failure including spironolactone and lisinopril. Carvedilol will be switched to metoprolol tartrate that can be switched to metoprolol succinate upon discharge. 3. Spoke to him for greater than 3 minutes about tobacco cessation which he is not ready to quit. 4. Will consider BiPap at night due to his possibility of his obstructive sleep apnea being a component of his overall heart failure, hypertension and shortness of breath. 5. At this time he is not a candidate for AICD placement as he has not been on optimal medical treatment for 3 months. I have asked that he call his insurance agency to see which caddy in the area takes his insurance. 6. Further recommendations will be made based on the hospital course. Thank you for allowing me to see Manjinder Wilcox. If there are any questions please do not hesitate to call. Clovis Navarrete DO VGP/EO /10:49 PM /11:09 PM
[2016-10-01] VITALS (9 sets, daily range): BP systolic 111–146; BP diastolic 57–77; PULSE 106–121; RESP 18–21; TEMP 96.5–98.5; O2SAT 96–100
[2016-10-01] MEDS: RESP: ALBUTEROL 2.5 MG/IPRATROPIUM 0.5 MG NEB (SCH) NEB ×6 (04:00→19:57)
[2016-10-01] MEDS: CLINDAMYCIN INJ 600 MG in SODIUM CHLORIDE 0.9% INJ 100 ML IV SCH ×3 (05:30→21:57)
[2016-10-01] MEDS: RESP: BUDESONIDE 0.5 MG/2 ML NEB NEB SCH ×2 (08:14→19:57)
[2016-10-01] MEDS: DOCUSATE SODIUM 50 MG/SENNA 8.6 MG TAB PO SCH ×2 (09:00→21:56)
[2016-10-01] MEDS: FUROSEMIDE 20 MG/2 ML VIAL IV PUSH SCH (09:00)
[2016-10-01] MEDS: SODIUM CHLORIDE 0.9% FLUSH 10 ML FLUSH IV FLUSH SCH ×2 (09:00→21:57)
[2016-10-01 09:17] LABS: BICARBONATE 25.7 MEQ/L (21.0-32.0); MAGNESIUM 2.5 MG/DL (1.5-2.5)
[2016-10-01 09:18] LABS: POTASSIUM 4.6 MEQ/L (3.5-5.1)
[2016-10-01 09:25] LABS: CALCIUM-PROTEIN CORRECTED 7.6 MG/DL (8.5-10.1); TOTAL BILIRUBIN ADULT 7.6 MG/DL (0.2-1.0)
[2016-10-01] MEDS: guaiFENesin E.R. 600 MG TAB PO SCH ×2 (10:03→21:56)
[2016-10-01] MEDS: PANTOPRAZOLE SOD 40 MG DELAYED RELEASE TAB PO SCH (10:03)
[2016-10-01] MEDS: SPIRONOLACTONE 25 MG TAB PO SCH (10:04)
[2016-10-01] MEDS: OSELTAMIVIR PHOSPHATE 30 MG CAP PO SCH (10:05)
[2016-10-01] MEDS: FERROUS SULFATE 325 MG (65 MG ELEMENTAL IRON) TAB PO SCH ×2 (10:06→21:55)
[2016-10-01] MEDS: CITALOPRAM HYDROBROMIDE 20 MG TAB PO SCH (10:06)
[2016-10-01] MEDS: LISINOPRIL 5 MG TAB PO SCH (10:07)
[2016-10-01] MEDS: METOPROLOL TARTRATE 25 MG TAB PO SCH ×2 (10:08→21:56)
[2016-10-01] MEDS ORDERED: BUMETANIDE INJ 1 MG/4 ML VIAL IV PUSH ONE (10:45)
--- NOTE | 2016-10-01 11:01 | HHI.PR ---
Subjective Remarks This is a pleasant 36 y/o male with cough and shortness of breath, generalized malaise and weakness, he has history of CHF, and PE not taking Warfarin for the last 10 years, as per patient having productive cough, for the last seven days, got worse for the last 3 days, decreased urine output for the past 3 days, has been confused, with mild aching headache, denied any visual changes, denied Neck pain , persistent cough, denied chest pain, no abdominal pain, no nausea, vomit or diarrhea, y chest pain. worsening lower extremity edema, has CHF with EF 20-25% . Seen in Emergency room and discussed at this time with Doctor Celestine White for me is more related to Hepatic Failure due to elevated INR in 3.4 he states he is been mixing Marijuana and Cocaine but denied any alcohol intake, as per ER specialist questioned about Tylenol and asked for Drug screen and Tylenol level , consult placed to GI specialist, will continue heart healthy diet and follow recommendations he is morbidly obese. he was seen on recent opportunities in ER. he states he has slurred speech and somnolence. 09/30: Seen in his bedroom laying in bed, discussed with patient and nurse Mr. Canchola also with his mother Mrs. Wolf to the phone number [phone] she knows he son abuse substances for a long time, and also for his Heart condition, she wants to get Cardiology involved in his Son's Case I agree, he was seen in the past by Doctor Clovis Pearson was consulted, the patient has positive marijuana and Cocaine during this admission also he states he was mixing some substances we do not know what else he took and is not in our screen to produce this Liver Damage. 10/01: Seen in his bedroom and discussed with his , also his children present, explained in the presence of nurse Miss Del Toro that he needs to stop abusing substances if he wants to improve his condition, seen by emr specialist switched to Lopressor and from Lasix to Bumex. no nausea, vomit or diarrhea. Objective Vital Signs Date Time Temp Pulse Resp B/P Pulse Ox O2 Delivery O2 Flow Rate FiO2 10/01/16 08:16 98 21 10/01/16 08:00 97.5 113 20 125/57 98 10/01/16 04:47 97.6 106 18 146/70 100 10/01/16 01:08 97.8 107 21 123/74 100 09/30/16 20:16 97.5 111 18 143/83 100 09/30/16 20:00 114 09/30/16 19:57 96 09/30/16 16:29 97.7 113 18 103/68 94 09/30/16 12:00 98.1 110 18 144/83 94 I/O 09/30/16 09/30/16 09/30/16 10/01/16 10/01/16 10/01/16 07:00 15:00 23:00 07:00 15:00 23:00 Intake Total 1437 ml Balance 1437 ml Intake Oral 480 ml IV Total 957 ml # Voids 6 3 # Bowel Movements 2 Result Diagram: 09/30/16 1203 10/01/16 0730 Imaging Last Impressions Chest X-Ray 09/29/16 0823 Signed Impressions: Service Date/Time: September 08:24 - CONCLUSION: 1. Increased aeration of the lungs with minimal residual pulmonary vascular congestion. 2. Marked cardiomegaly. Suraj Vaughan MD Liver Ultrasound 09/29/16 0000 Signed Impressions: Service Date/Time: September 16:56 - CONCLUSION: 1. Cholelithiasis with gallbladder wall thickening and no pericholecystic fluid. 2. No evidence of biliary obstruction. 3. The liver is enlarged with findings characteristic of fatty infiltration. Jose Antonio Miles MD Head CT 09/29/16 0000 Signed Impressions: Service Date/Time: September 18:04 - CONCLUSION: Normal examination for a patient of this age. Madi Simmons MD Abdomen/Pelvis CT 09/29/16 0000 Signed Impressions: Service Date/Time: September 18:07 - CONCLUSION: 1. Mild anasarca and ascites. Splenomegaly. No focal liver lesions. 2. Multiple calcified gallstones without biliary ductal dilatation. 3. There is bladder diverticulum on the right extending into the proximal right inguinal canal. Fluid in left inguinal canal. No bowel obstruction or free air. Madi Simmons MD Procedures None Other Results Laboratory Tests Test 09/29/16 09/29/16 09/29/16 09/30/16 08:40 12:05 12:30 09:47 Differential Total Cells 100 Counted Neutrophils % (Manual) 76 % Band Neutrophils % 12 % Lymphocytes % 3 % Monocytes % 5 % Eosinophils % 3 % Neutrophils # (Manual) 6.9 TH/MM3 Metamyelocytes 1 % Nucleated Red Blood Cells 2 /100 WBC Ovalocytes 1+ Activated Partial 35.5 SEC Thromboplast Time B-Type Natriuretic Peptide 1164 PG/ML Thyroid Stimulating Hormone 1.590 uIU/ML 3rd Gen Creatine Kinase MB 10.3 NG/ML Creatine Kinase MB % 2.9 % Urine Color DARK-YELLOW Urine Turbidity CLEAR Urine pH 6.0 Urine Specific [place] 1.023 Urine Protein TRACE mg/dL Urine Glucose (UA) NEG mg/dL Urine Ketones NEG mg/dL Urine Occult Blood SMALL Urine Nitrite NEG Urine Bilirubin SMALL Urine Urobilinogen 2.0 MG/DL Urine Leukocyte Esterase NEG Urine RBC 1 /hpf Urine WBC LESS THAN 1 /hpf Microscopic Urinalysis Comment CULT NOT INDICATED Urine Opiates Screen NEG Urine Barbiturates Screen NEG Urine Amphetamines Screen NEG Urine Benzodiazepines Screen NEG Urine Cocaine Screen POS Urine Cannabinoids Screen POS Tumor Marker Alpha Fetoprotein 3.0 NG/ML Salicylates Level LESS THAN 1.7 MG/DL HIV (1&2) Antibody NEGATIVE Test 09/30/16 09/30/16 10/01/16 12:03 20:49 07:30 White Blood Count 8.0 TH/MM3 Red Blood Count 4.99 MIL/MM3 Hemoglobin 13.1 GM/DL Hematocrit 39.8 % Mean Corpuscular Volume 79.8 FL Mean Corpuscular Hemoglobin 26.2 PG Mean Corpuscular Hemoglobin 32.8 % Concent Red Cell Distribution Width 23.1 % Platelet Count 64 TH/MM3 Mean Platelet Volume 9.8 FL Neutrophils (%) (Auto) 73.7 % Lymphocytes (%) (Auto) 16.0 % Monocytes (%) (Auto) 7.6 % Eosinophils (%) (Auto) 2.2 % Basophils (%) (Auto) 0.5 % Neutrophils # (Auto) 5.9 TH/MM3 Lymphocytes # (Auto) 1.3 TH/MM3 Monocytes # (Auto) 0.6 TH/MM3 Eosinophils # (Auto) 0.2 TH/MM3 Basophils # (Auto) 0.0 TH/MM3 CBC Comment AUTO DIFF Differential Comment AUTO DIFF CONFIRMED Platelet Estimate LOW Platelet Morphology Comment NORMAL Lactic Acid Level 2.3 mmol/L Iron Level 70 MCG/DL Total Iron Binding Capacity 330 MCG/DL Percent Iron Saturation 21.2 % Ferritin 305 NG/ML Total Creatine Kinase 176 U/L Troponin I 0.05 NG/ML Lipase 362 U/L Acetaminophen Level LESS THAN 2.0 MCG/ML Ethyl Alcohol Level LESS THAN 3 MG/DL Prothrombin Time 26.3 SEC Prothromb Time International 2.3 RATIO Ratio Direct Bilirubin 5.1 MG/DL Indirect Bilirubin 3.3 MG/DL Ammonia 36 MCMOL/L Sodium Level 128 MEQ/L Potassium Level 4.6 MEQ/L Chloride Level 95 MEQ/L Carbon Dioxide Level 25.7 MEQ/L Anion Gap 7 MEQ/L Blood Urea Nitrogen 28 MG/DL Creatinine 1.10 MG/DL Estimat Glomerular Filtration 75 ML/MIN Rate Random Glucose 121 MG/DL Calcium Level 7.1 MG/DL Protein Corrected Calcium 7.6 MG/DL Magnesium Level 2.5 MG/DL Total Bilirubin 7.6 MG/DL Aspartate Amino Transf 261 U/L (AST/SGOT) Alanine Aminotransferase 1028 U/L (ALT/SGPT) Alkaline Phosphatase 175 U/L Total Protein 6.2 GM/DL Albumin 2.7 GM/DL Objective Remarks GENERAL: Well developed, Morbid obesity. SKIN: Focused skin assessment warm/dry. HEAD: Normocephalic. EYES: Bilateral scleral icterus. No injection or drainage. NECK: Supple, trachea midline. No JVD or lymphadenopathy. CARDIOVASCULAR: Regular rate and rhythm without murmurs, gallops, or rubs. RESPIRATORY: Breath sounds equal bilaterally. No accessory muscle use. Patient has mild expiratory wheezes bilaterally. Mild rhonchi at the bases. GASTROINTESTINAL: Abdomen soft, non-tender, severe distention due to fat. edema. MUSCULOSKELETAL: No cyanosis, Edema 4+, but improving, BACK: Nontender without obvious deformity. No CVA tenderness. Neurologic exam normal. slurred speech. Medications and IVs Current Medications Medications (Trade) Dose Ordered Sig/Gideon Route Start Time Stop Time Status Last Admin (NS Flush) 2 ml UNSCH PRN IV FLUSH 09/29/16 11:00 (NS Flush) 2 ml BID IV FLUSH 09/29/16 21:00 10/01/16 09:00 (Zofran Inj) 4 mg Q6H PRN IVP 09/29/16 11:00 (Narcan Inj) 0.4 mg UNSCH PRN IV 09/29/16 11:00 (Mercy-Colace) 1 tab BID PO 09/29/16 21:00 09/30/16 08:39 (Milk Of Magnesia Liq) 30 ml Q12H PRN PO 09/29/16 11:00 (Senokot) 17.2 mg Q12H PRN PO 09/29/16 11:00 (Dulcolax Supp) 10 mg DAILY PRN RECTAL 09/29/16 11:00 (Lactulose Liq) 30 ml DAILY PRN PO 09/29/16 11:00 (Mucinex Er) 600 mg BID PO 09/29/16 12:30 10/01/16 10:03 (CeleXA) 10 mg DAILY PO 09/30/16 09:00 10/01/16 10:06 (Ferrous Sulfate) 325 mg BID PO 09/29/16 21:00 10/01/16 10:06 (Prinivil) 5 mg DAILY PO 09/30/16 09:00 10/01/16 10:07 (Aldactone) 25 mg DAILY PO 09/30/16 09:00 10/01/16 10:04 (Protonix) 40 mg DAILY PO 09/30/16 09:00 10/01/16 10:03 (Lopressor) 12.5 mg Q12HR PO 09/29/16 13:00 10/01/16 10:08 (Pill Splitter) 1 ea UNSCH PRN OTHER 09/29/16 13:45 (NS Flush) 2 ml UNSCH PRN IVF 09/29/16 15:00 Oseltamivir Phosphate 30 mg 30 mg DAILY PO 09/30/16 12:00 10/01/16 10:05 (Cleocin Inj/NS Inj) 104 ml @ 208 mls/hr Q8H IV 09/30/16 14:00 10/01/16 05:30 (Bumex Inj) 1 mg BID@,18 IV PUSH 10/01/16 18:00 A/P Assessment and Plan 1. Liver Failure ALT double from AST making more cellular liver damage, questioned for what the patient says Intoxication Drug screen positive for marijuana and Cocaine. 2. Anxiety disorder by history 3. CHF with EF 20-25%, with BNP 1164, on Lopressor and Bumex Doctor Clovis Pearson emr specialist following. 4. GERD by history on gastric protection on home PPIs 5. Hypertension controlled 6. PE by history not using Warfarin as per patient for the last 10 years. 7. Morbid Obesity strongly recommended diet and exercise as outpatient. 8. Thrombocytopenia improving to 64 9. Altered Mental status and slurred speech asked for CT brain. Improved to full alert and oriented x 4. 10. Increased CK Improving. 11. Equivocal troponin elevation DVT prophylaxis he has INR in 2.3 Discussed with patient, his , his children in the room and nurse Miss Del Toro all questions answered to the best of my abilities. Code Status Full Code. Discharge Planning Once cleared by specialists. Jerry Reese MD Oct 01, 2016 11:01 Once cleared by specialists. Jerry Reese MD Oct 01, 2016 11:01
--- NOTE | 2016-10-01 13:04 | HHI.GIFU ---
Subjective Remarks Awake and alert , complaining about generalized pain and SOB. Objective Vitals I&O Vital Signs Date Time Temp Pulse Resp B/P Pulse Ox O2 Delivery O2 Flow Rate FiO2 10/01/16 12:00 97.8 114 19 111/75 96 10/01/16 11:22 111 10/01/16 08:16 98 21 10/01/16 08:00 97.5 113 20 125/57 98 10/01/16 04:47 97.6 106 18 146/70 100 10/01/16 01:08 97.8 107 21 123/74 100 09/30/16 20:16 97.5 111 18 143/83 100 09/30/16 20:00 114 09/30/16 19:57 96 09/30/16 16:29 97.7 113 18 103/68 94 I/O 09/30/16 09/30/16 09/30/16 10/01/16 10/01/16 10/01/16 07:00 15:00 23:00 07:00 15:00 23:00 Intake Total 1437 ml Balance 1437 ml Intake Oral 480 ml IV Total 957 ml # Voids 6 3 # Bowel Movements 2 Laboratory Laboratory Tests Test 09/30/16 09/30/16 10/01/16 15:42 20:49 07:30 Prothrombin Time 27.5 26.3 Prothromb Time International 2.4 2.3 Ratio Total Bilirubin 9.2 8.4 7.6 Direct Bilirubin 5.6 5.1 Indirect Bilirubin 3.6 3.3 Aspartate Amino Transf 373 333 261 (AST/SGOT) Alanine Aminotransferase 1298 1172 1028 (ALT/SGPT) Alkaline Phosphatase 169 170 175 Ammonia 20 36 Total Protein 6.2 6.1 6.2 Albumin 2.9 2.8 2.7 Sodium Level 128 Potassium Level 4.6 Chloride Level 95 Carbon Dioxide Level 25.7 Anion Gap 7 Blood Urea Nitrogen 28 Creatinine 1.10 Estimat Glomerular Filtration 75 Rate Random Glucose 121 Calcium Level 7.1 Protein Corrected Calcium 7.6 Magnesium Level 2.5 Date/Time Procedure Status Source Growth 09/29/16 12:15 Aerobic Blood Culture - Preliminary Resulted Blood Peripheral NO GROWTH IN 2 DAYS 09/29/16 12:15 Anaerobic Blood Culture - Final Resulted Blood Peripheral QNS - SEE AEROBE REPORT 09/29/16 08:45 Influenza Types A,B Antigen (MUNDO) - Final Complete Nasal Washing Positive For Flu B Antigen 09/29/16 08:23 Aerobic Blood Culture Received Blood Peripheral Pending 09/29/16 08:23 Anaerobic Blood Culture Received Blood Peripheral Pending Physical Exam HEENT: Normocephalic; atraumatic; + jaundice. CHEST: Resp even/unlabored, course CARDIAC: Regular ABDOMEN: Soft, obese, nondistended, nontender; hepatomegaly; bowel sounds are present in all four quadrants. EXTREMITIES: BLE edema. SKIN: BLE slightly erythematous, + jaundice. PRODUCTION CONTROL COORDINATOR: Somnolent Assessment and Plan Plan ASSESSMENT: - Acute hepatitis, etiology unclear. Pt has a hx of CHF with low EF, but also admits to taking large amount of Tylenol on a regular basis. He is very somnolent and it is difficult to obtain a clear history from the patient. His coag's are elevated. He is very adamant that he has not been on coumadin since 2011. No ETOH use, but was (+) cocaine and cannabinoids. Acetaminophen < 2.0, ETOH <3. (+) FLU B. Of note, patient admitted to taking large amounts of Tylenol for tooth pain, but not for two days. confirmed this. Timed LFTs/INR/Ammonia was cancelled by lab and has not been drawn since admission. Called lab. Liver workup labs were ordered yesterday, but not drawn. Liver Ultrasound (09/29/16)-----> 1. Cholelithiasis with gallbladder wall thickening and no pericholecystic fluid. 2. No evidence of biliary obstruction. 3. The liver is enlarged with findings characteristic of fatty infiltration Differentials include medication induced , including possible tylenol toxicity, shocked liver, viral hepatitis, vs other. Acetylcysteine IV per protocol. - Coagulopathy. He does have a history of PE, but states he has not been on coumadin since 2011. This was confirmed by his today. PT 40.1, INR 3.4 , APTT 35.5 yesterday, repeat labs have not been drawn. - AMS. Ammonia 28 yesterday, still lethargic Per attending. - Fever, fatigue, malaise. FLU B Ag (+). BCx pending. - Cough. CXR (09/29/16)---> increased aeration of the lungs with minimal residual pulmonary vascular congestion, marked cardiomegaly. - GERD. 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 Protonix - Supportive care - Further recommendations to follow based on results of above Alexis Still MD Oct 01, 2016 13:04
--- NOTE | 2016-10-01 13:35 | PD.CARD.PN ---
Subjective Subjective Remarks No events overnight Not sleeping, overall exhausted No chest pain Objective Medications Current Medications Medications (Trade) Dose Ordered Sig/[place] Route Start Time Stop Time Status Last Admin (NS Flush) 2 ml UNSCH PRN IV FLUSH 09/29/16 11:00 (NS Flush) 2 ml BID IV FLUSH 09/29/16 21:00 10/01/16 09:00 (Zofran Inj) 4 mg Q6H PRN IVP 09/29/16 11:00 (Narcan Inj) 0.4 mg UNSCH PRN IV 09/29/16 11:00 (Mercy-Colace) 1 tab BID PO 09/29/16 21:00 09/30/16 08:39 (Milk Of Magnesia Liq) 30 ml Q12H PRN PO 09/29/16 11:00 (Senokot) 17.2 mg Q12H PRN PO 09/29/16 11:00 (Dulcolax Supp) 10 mg DAILY PRN RECTAL 09/29/16 11:00 (Lactulose Liq) 30 ml DAILY PRN PO 09/29/16 11:00 (Mucinex Er) 600 mg BID PO 09/29/16 12:30 10/01/16 10:03 (CeleXA) 10 mg DAILY PO 09/30/16 09:00 10/01/16 10:06 (Ferrous Sulfate) 325 mg BID PO 09/29/16 21:00 10/01/16 10:06 (Prinivil) 5 mg DAILY PO 09/30/16 09:00 10/01/16 10:07 (Aldactone) 25 mg DAILY PO 09/30/16 09:00 10/01/16 10:04 (Protonix) 40 mg DAILY PO 09/30/16 09:00 10/01/16 10:03 (Lopressor) 12.5 mg Q12HR PO 09/29/16 13:00 10/01/16 10:08 (Pill Splitter) 1 ea UNSCH PRN OTHER 09/29/16 13:45 (NS Flush) 2 ml UNSCH PRN IVF 09/29/16 15:00 Oseltamivir Phosphate 30 mg 30 mg DAILY PO 09/30/16 12:00 10/01/16 10:05 (Cleocin Inj/NS Inj) 104 ml @ 208 mls/hr Q8H IV 09/30/16 14:00 10/01/16 05:30 (Bumex Inj) 1 mg BID@,18 IV PUSH 10/01/16 18:00 Vital Signs / I&O Vital Signs Date Time Temp Pulse Resp B/P Pulse Ox O2 Delivery O2 Flow Rate FiO2 10/01/16 12:00 97.8 114 19 111/75 96 10/01/16 11:22 111 10/01/16 08:16 98 21 10/01/16 08:00 97.5 113 20 125/57 98 10/01/16 04:47 97.6 106 18 146/70 100 10/01/16 01:08 97.8 107 21 123/74 100 09/30/16 20:16 97.5 111 18 143/83 100 09/30/16 20:00 114 09/30/16 19:57 96 09/30/16 16:29 97.7 113 18 103/68 94 I/O 09/30/16 09/30/16 09/30/16 10/01/16 10/01/16 10/01/16 07:00 15:00 23:00 07:00 15:00 23:00 Intake Total 1437 ml Balance 1437 ml Intake Oral 480 ml IV Total 957 ml # Voids 6 3 # Bowel Movements 2 Physical Exam GENERAL: NAD, AAOx3 SKIN: Warm and dry. HEAD: Atraumatic. Normocephalic. EYES: Pupils equal and round. No scleral icterus. No injection or drainage. ENT: No nasal bleeding or discharge. Mucous membranes pink and moist. NECK: Trachea midline. No JVD. CARDIOVASCULAR: Regular rate and rhythm. RESPIRATORY: No accessory muscle use. Decreased breath sounds bilaterally GASTROINTESTINAL: Abdomen soft, non-tender, nondistended. Hepatic and splenic margins not palpable. MUSCULOSKELETAL: 1-2+ pitting edema NEUROLOGICAL: Awake and alert. No obvious cranial nerve deficits. Motor grossly within normal limits. Five out of 5 muscle strength in the arms and legs. Normal speech. PSYCHIATRIC: Appropriate mood and affect; insight and judgment normal. Laboratory Laboratory Tests Test 09/30/16 09/30/16 10/01/16 15:42 20:49 07:30 Prothrombin Time 27.5 SEC 26.3 SEC Prothromb Time International 2.4 RATIO 2.3 RATIO Ratio Total Bilirubin 9.2 MG/DL 8.4 MG/DL 7.6 MG/DL Direct Bilirubin 5.6 MG/DL 5.1 MG/DL Indirect Bilirubin 3.6 MG/DL 3.3 MG/DL Aspartate Amino Transf 373 U/L 333 U/L 261 U/L (AST/SGOT) Alanine Aminotransferase 1298 U/L 1172 U/L 1028 U/L (ALT/SGPT) Alkaline Phosphatase 169 U/L 170 U/L 175 U/L Ammonia 20 MCMOL/L 36 MCMOL/L Total Protein 6.2 GM/DL 6.1 GM/DL 6.2 GM/DL Albumin 2.9 GM/DL 2.8 GM/DL 2.7 GM/DL Sodium Level 128 MEQ/L Potassium Level 4.6 MEQ/L Chloride Level 95 MEQ/L Carbon Dioxide Level 25.7 MEQ/L Anion Gap 7 MEQ/L Blood Urea Nitrogen 28 MG/DL Creatinine 1.10 MG/DL Estimat Glomerular Filtration 75 ML/MIN Rate Random Glucose 121 MG/DL Calcium Level 7.1 MG/DL Protein Corrected Calcium 7.6 MG/DL Magnesium Level 2.5 MG/DL Assessment and Plan Problem List: (1) Transaminitis (2) Flu (3) CHF (congestive heart failure) (4) SOB (shortness of breath) (5) Low back pain radiating to both legs (6) Morbid obesity with body mass index (BMI) of 40.0 or higher (7) Sinus tachycardia Assessment and Plan 1) Transaminitis per GI 2) Chronic systolic heart failure Con't current medications Did not like Coreg, so switched to Lopressor Did not like Lasix, so switched to Bumex 3) Previous MPI negative for ischemia 4) Tobacco/marijuana cessation Claims not have used cocaine, but felt his marijuana was laced with it Problem Qualifiers (1) CHF (congestive heart failure): Qualified Code: I50.9 - Acute on chronic congestive heart failure, unspecified congestive heart failure type Clovis Pearson DO Oct 01, 2016 13:35
[2016-10-01] MEDS: BUMETANIDE INJ 1 MG/4 ML VIAL IV PUSH SCH (17:33)
[2016-10-02] VITALS (7 sets, daily range): BP systolic 108–125; BP diastolic 73–94; PULSE 107–115; RESP 17–22; TEMP 96.7–99; O2SAT 95–100
[2016-10-02] MEDS: RESP: ALBUTEROL 2.5 MG/IPRATROPIUM 0.5 MG NEB (SCH) NEB ×5 (04:00→20:30)
--- NOTE | 2016-10-02 06:18 | HHI.PR ---
Subjective Remarks This is a pleasant 36 y/o male with cough and shortness of breath, generalized malaise and weakness, he has history of CHF, and PE not taking Warfarin for the last 10 years, as per patient having productive cough, for the last seven days, got worse for the last 3 days, decreased urine output for the past 3 days, has been confused, with mild aching headache, denied any visual changes, denied Neck pain , persistent cough, denied chest pain, no abdominal pain, no nausea, vomit or diarrhea, y chest pain. worsening lower extremity edema, has CHF with EF 20-25% . Seen in Emergency room and discussed at this time with Doctor Celestine Whiet for me is more related to Hepatic Failure due to elevated INR in 3.4 he states he is been mixing Marijuana and Cocaine but denied any alcohol intake, as per ER specialist questioned about Tylenol and asked for Drug screen and Tylenol level , consult placed to GI specialist, will continue heart healthy diet and follow recommendations he is morbidly obese. he was seen on recent opportunities in ER. he states he has slurred speech and somnolence. 09/30: Seen in his bedroom laying in bed, discussed with patient and nurse Mr. Canchola also with his mother Mrs. Wolf to the phone number [phone] she knows he son abuse substances for a long time, and also for his Heart condition, she wants to get Cardiology involved in his Son's Case I agree, he was seen in the past by Doctor Clovis Pearson was consulted, the patient has positive marijuana and Cocaine during this admission also he states he was mixing some substances we do not know what else he took and is not in our screen to produce this Liver Damage. 10/01: Seen in his bedroom and discussed with his , also his children present, explained in the presence of nurse Miss Del Toro that he needs to stop abusing substances if he wants to improve his condition, seen by retail zone specialist switched to Lopressor and from Lasix to Bumex. 10/02: The patient was discussed with him his children were left out of the room also with his Mother he was asked again what he is taking he tells to his Mother and to me that he is mixing Marijuana and Crack cocaine, asked how he is abusing this drugs he states he only smokes them, also abuse Energy drinks and Soda, More than 45 minutes talking and discussing different issues with his Mother, she is planning to come back with the patient to [place] to try to help him there with an shipping and receiving specialist, discussed at this time with Doctor Clovis Pearson and with nurse Mr. Lawrence patient Improving condition on present medicines. Objective Vital Signs Date Time Temp Pulse Resp B/P Pulse Ox O2 Delivery O2 Flow Rate FiO2 10/02/16 04:22 96.7 115 18 117/74 100 10/02/16 00:49 96.8 112 18 124/94 100 10/01/16 21:02 96.5 112 18 114/77 98 10/01/16 19:56 98 21 10/01/16 15:59 98.5 121 19 120/75 97 10/01/16 12:00 97.8 114 19 111/75 96 10/01/16 11:22 111 10/01/16 08:16 98 21 10/01/16 08:00 97.5 113 20 125/57 98 I/O 10/01/16 10/01/16 10/01/16 10/02/16 10/02/16 10/02/16 07:00 15:00 23:00 07:00 15:00 23:00 Intake Total 1920 ml Balance 1920 ml Intake Oral 1920 ml # Voids 3 5 4 Result Diagram: 09/30/16 1203 10/01/16 0730 Imaging Last Impressions Chest X-Ray 09/29/16 0823 Signed Impressions: Service Date/Time: September 08:24 - CONCLUSION: 1. Increased aeration of the lungs with minimal residual pulmonary vascular congestion. 2. Marked cardiomegaly. Suraj Vaughan MD Liver Ultrasound 09/29/16 0000 Signed Impressions: Service Date/Time: September 16:56 - CONCLUSION: 1. Cholelithiasis with gallbladder wall thickening and no pericholecystic fluid. 2. No evidence of biliary obstruction. 3. The liver is enlarged with findings characteristic of fatty infiltration. Jose Antonio Miles MD Head CT 09/29/16 0000 Signed Impressions: Service Date/Time: September 18:04 - CONCLUSION: Normal examination for a patient of this age. Madi Simmons MD Abdomen/Pelvis CT 09/29/16 0000 Signed Impressions: Service Date/Time: September 18:07 - CONCLUSION: 1. Mild anasarca and ascites. Splenomegaly. No focal liver lesions. 2. Multiple calcified gallstones without biliary ductal dilatation. 3. There is bladder diverticulum on the right extending into the proximal right inguinal canal. Fluid in left inguinal canal. No bowel obstruction or free air. Madi Simmons MD Procedures None Other Results Laboratory Tests Test 09/29/16 09/29/16 09/29/16 09/30/16 08:40 12:05 12:30 09:47 Differential Total Cells 100 Counted Neutrophils % (Manual) 76 % Band Neutrophils % 12 % Lymphocytes % 3 % Monocytes % 5 % Eosinophils % 3 % Neutrophils # (Manual) 6.9 TH/MM3 Metamyelocytes 1 % Nucleated Red Blood Cells 2 /100 WBC Ovalocytes 1+ Activated Partial 35.5 SEC Thromboplast Time B-Type Natriuretic Peptide 1164 PG/ML Thyroid Stimulating Hormone 1.590 uIU/ML 3rd Gen Creatine Kinase MB 10.3 NG/ML Creatine Kinase MB % 2.9 % Urine Color DARK-YELLOW Urine Turbidity CLEAR Urine pH 6.0 Urine Specific [place] 1.023 Urine Protein TRACE mg/dL Urine Glucose (UA) NEG mg/dL Urine Ketones NEG mg/dL Urine Occult Blood SMALL Urine Nitrite NEG Urine Bilirubin SMALL Urine Urobilinogen 2.0 MG/DL Urine Leukocyte Esterase NEG Urine RBC 1 /hpf Urine WBC LESS THAN 1 /hpf Microscopic Urinalysis Comment CULT NOT INDICATED Urine Opiates Screen NEG Urine Barbiturates Screen NEG Urine Amphetamines Screen NEG Urine Benzodiazepines Screen NEG Urine Cocaine Screen POS Urine Cannabinoids Screen POS Tumor Marker Alpha Fetoprotein 3.0 NG/ML Salicylates Level LESS THAN 1.7 MG/DL HIV (1&2) Antibody NEGATIVE Anti-Smooth Muscle Antibody Negative Test 09/30/16 09/30/16 10/01/16 12:03 20:49 07:30 White Blood Count 8.0 TH/MM3 Red Blood Count 4.99 MIL/MM3 Hemoglobin 13.1 GM/DL Hematocrit 39.8 % Mean Corpuscular Volume 79.8 FL Mean Corpuscular Hemoglobin 26.2 PG Mean Corpuscular Hemoglobin 32.8 % Concent Red Cell Distribution Width 23.1 % Platelet Count 64 TH/MM3 Mean Platelet Volume 9.8 FL Neutrophils (%) (Auto) 73.7 % Lymphocytes (%) (Auto) 16.0 % Monocytes (%) (Auto) 7.6 % Eosinophils (%) (Auto) 2.2 % Basophils (%) (Auto) 0.5 % Neutrophils # (Auto) 5.9 TH/MM3 Lymphocytes # (Auto) 1.3 TH/MM3 Monocytes # (Auto) 0.6 TH/MM3 Eosinophils # (Auto) 0.2 TH/MM3 Basophils # (Auto) 0.0 TH/MM3 CBC Comment AUTO DIFF Differential Comment AUTO DIFF CONFIRMED Platelet Estimate LOW Platelet Morphology Comment NORMAL Lactic Acid Level 2.3 mmol/L Iron Level 70 MCG/DL Total Iron Binding Capacity 330 MCG/DL Percent Iron Saturation 21.2 % Ferritin 305 NG/ML Total Creatine Kinase 176 U/L Troponin I 0.05 NG/ML Lipase 362 U/L Acetaminophen Level LESS THAN 2.0 MCG/ML Ethyl Alcohol Level LESS THAN 3 MG/DL [id number] 235 mg/dL Prothrombin Time 26.3 SEC Prothromb Time International 2.3 RATIO Ratio Direct Bilirubin 5.1 MG/DL Indirect Bilirubin 3.3 MG/DL Ammonia 36 MCMOL/L Sodium Level 128 MEQ/L Potassium Level 4.6 MEQ/L Chloride Level 95 MEQ/L Carbon Dioxide Level 25.7 MEQ/L Anion Gap 7 MEQ/L Blood Urea Nitrogen 28 MG/DL Creatinine 1.10 MG/DL Estimat Glomerular Filtration 75 ML/MIN Rate Random Glucose 121 MG/DL Calcium Level 7.1 MG/DL Protein Corrected Calcium 7.6 MG/DL Magnesium Level 2.5 MG/DL Total Bilirubin 7.6 MG/DL Aspartate Amino Transf 261 U/L (AST/SGOT) Alanine Aminotransferase 1028 U/L (ALT/SGPT) Alkaline Phosphatase 175 U/L Total Protein 6.2 GM/DL Albumin 2.7 GM/DL Objective Remarks GENERAL: Well developed, Morbid obesity. SKIN: Focused skin assessment warm/dry. HEAD: Normocephalic. EYES: Bilateral scleral icterus. No injection or drainage. NECK: Supple, trachea midline. No JVD or lymphadenopathy. CARDIOVASCULAR: Regular rate and rhythm without murmurs, gallops, or rubs. RESPIRATORY: Breath sounds equal bilaterally. No accessory muscle use. Patient has mild expiratory wheezes bilaterally. Mild rhonchi at the bases. GASTROINTESTINAL: Abdomen soft, non-tender, severe distention due to fat. edema. MUSCULOSKELETAL: No cyanosis, Edema 4+, but improving, BACK: Nontender without obvious deformity. No CVA tenderness. Neurologic exam normal. Medications and IVs Current Medications Medications (Trade) Dose Ordered Sig/Gideon Route Start Time Stop Time Status Last Admin (NS Flush) 2 ml UNSCH PRN IV FLUSH 09/29/16 11:00 (NS Flush) 2 ml BID IV FLUSH 09/29/16 21:00 10/01/16 21:57 (Zofran Inj) 4 mg Q6H PRN IVP 09/29/16 11:00 (Narcan Inj) 0.4 mg UNSCH PRN IV 09/29/16 11:00 (Mercy-Colace) 1 tab BID PO 09/29/16 21:00 10/01/16 21:56 (Milk Of Magnesia Liq) 30 ml Q12H PRN PO 09/29/16 11:00 (Senokot) 17.2 mg Q12H PRN PO 09/29/16 11:00 (Dulcolax Supp) 10 mg DAILY PRN RECTAL 09/29/16 11:00 (Lactulose Liq) 30 ml DAILY PRN PO 09/29/16 11:00 (Mucinex Er) 600 mg BID PO 09/29/16 12:30 10/01/16 21:56 (CeleXA) 10 mg DAILY PO 09/30/16 09:00 10/01/16 10:06 (Ferrous Sulfate) 325 mg BID PO 09/29/16 21:00 10/01/16 21:55 (Prinivil) 5 mg DAILY PO 09/30/16 09:00 10/01/16 10:07 (Aldactone) 25 mg DAILY PO 09/30/16 09:00 10/01/16 10:04 (Protonix) 40 mg DAILY PO 09/30/16 09:00 10/01/16 10:03 (Lopressor) 12.5 mg Q12HR PO 09/29/16 13:00 10/01/16 21:56 (Pill Splitter) 1 ea UNSCH PRN OTHER 09/29/16 13:45 (NS Flush) 2 ml UNSCH PRN IVF 09/29/16 15:00 Oseltamivir Phosphate 30 mg 30 mg DAILY PO 09/30/16 12:00 10/01/16 10:05 (Cleocin Inj/NS Inj) 104 ml @ 208 mls/hr Q8H IV 09/30/16 14:00 10/01/16 21:57 (Bumex Inj) 1 mg BID@09,18 IV PUSH 10/01/16 18:00 10/01/16 17:33 A/P Assessment and Plan 1. Liver Failure ALT double from AST making more cellular liver damage, questioned for what the patient says Intoxication Drug screen positive for marijuana and Cocaine. Zaki improvement from admission, definitely associated with the history of drug abuse, the patient also states he abuse Tylenol and Advil, Energy drinks. 2. Anxiety disorder by history 3. CHF with EF 20-25%, with BNP 1164, on Lopressor and Bumex Doctor Clovis Pearson retail zone specialist following. 4. GERD by history on gastric protection on home PPIs 5. Hypertension controlled 6. PE by history not using Warfarin as per patient for the last 10 years. 7. Morbid Obesity strongly recommended diet and exercise as outpatient. 8. Thrombocytopenia improving to 64 9. Altered Mental status and slurred speech asked for CT brain. Improved to full alert and oriented x 4. 10. Equivocal troponin elevation 11. SHERLY on CPAP asked for RT for CPAP DVT prophylaxis he has INR in 2.3 Discussed with patient, and with Mrs. Wolf his Mother for more than 45 minutes, she asked for all possibilities for her son she wants to go with him to [place]. input given by nurse Mr. Lawrence appreciated. Follow laboratory in am tomorrow customer care manager for discharge add Albumin IV to improve diuresis. As Always a pleasure to talk about cases receive input and recommendations by retail zone specialist Doctor Clovis Pearson highly appreciated. Code Status Full Code. Discharge Planning Once cleared by specialists. Jerry Reese MD Oct 02, 2016 06:18
[2016-10-02] MEDS: FERROUS SULFATE 325 MG (65 MG ELEMENTAL IRON) TAB PO SCH ×2 (09:00→19:54)
[2016-10-02] MEDS: BUMETANIDE INJ 1 MG/4 ML VIAL IV PUSH SCH ×2 (09:00→17:24)
[2016-10-02] MEDS: PANTOPRAZOLE SOD 40 MG DELAYED RELEASE TAB PO SCH (09:00)
[2016-10-02] MEDS: DOCUSATE SODIUM 50 MG/SENNA 8.6 MG TAB PO SCH ×2 (09:00→19:55)
[2016-10-02] MEDS: CITALOPRAM HYDROBROMIDE 20 MG TAB PO SCH (09:00)
[2016-10-02] MEDS: guaiFENesin E.R. 600 MG TAB PO SCH ×2 (09:00→19:55)
[2016-10-02] MEDS: RESP: BUDESONIDE 0.5 MG/2 ML NEB NEB SCH ×2 (09:00→20:30)
[2016-10-02] MEDS: LISINOPRIL 5 MG TAB PO SCH (09:00)
[2016-10-02] MEDS: SODIUM CHLORIDE 0.9% FLUSH 10 ML FLUSH IV FLUSH SCH ×2 (09:00→19:56)
[2016-10-02] MEDS: METOPROLOL TARTRATE 25 MG TAB PO SCH ×2 (09:00→19:55)
[2016-10-02] MEDS: SPIRONOLACTONE 25 MG TAB PO SCH (09:00)
[2016-10-02] MEDS: OSELTAMIVIR PHOSPHATE 30 MG CAP PO SCH (09:00)
[2016-10-02] MEDS: CLINDAMYCIN INJ 600 MG in SODIUM CHLORIDE 0.9% INJ 100 ML IV SCH ×3 (14:00→22:08)
[2016-10-02] MEDS: ALBUMIN HUMAN 25% 12.5 GM/50 ML BAGP IV SCH (15:47)
[2016-10-02] MEDS ORDERED: LIDOCAINE HCL 5% PATCH T-DERMAL ONE (19:30)
--- NOTE | 2016-10-02 20:09 | PD.CARD.PN ---
Subjective Subjective Remarks Patient seen this morning No chest pain SOB stable Objective Medications Current Medications Medications (Trade) Dose Ordered Sig/Gideon Route Start Time Stop Time Status Last Admin (NS Flush) 2 ml UNSCH PRN IV FLUSH 09/29/16 11:00 (NS Flush) 2 ml BID IV FLUSH 09/29/16 21:00 10/02/16 19:56 (Zofran Inj) 4 mg Q6H PRN IVP 09/29/16 11:00 (Narcan Inj) 0.4 mg UNSCH PRN IV 09/29/16 11:00 (Mercy-Colace) 1 tab BID PO 09/29/16 21:00 10/02/16 19:55 (Milk Of Magnesia Liq) 30 ml Q12H PRN PO 09/29/16 11:00 (Senokot) 17.2 mg Q12H PRN PO 09/29/16 11:00 (Dulcolax Supp) 10 mg DAILY PRN RECTAL 09/29/16 11:00 (Lactulose Liq) 30 ml DAILY PRN PO 09/29/16 11:00 (Duoneb Neb) 1 ampule Q4HR NEB NEB 09/29/16 16:00 10/02/16 09:00 (Pulmicort Respule Neb) 0.5 mg Q12HR NEB NEB 09/29/16 12:30 10/02/16 09:00 (Mucinex Er) 600 mg BID PO 09/29/16 12:30 10/02/16 19:55 (CeleXA) 10 mg DAILY PO 09/30/16 09:00 10/02/16 09:00 (Ferrous Sulfate) 325 mg BID PO 09/29/16 21:00 10/02/16 19:54 (Prinivil) 5 mg DAILY PO 09/30/16 09:00 10/02/16 09:00 (Aldactone) 25 mg DAILY PO 09/30/16 09:00 10/02/16 09:00 (Protonix) 40 mg DAILY PO 09/30/16 09:00 10/02/16 09:00 (Lopressor) 12.5 mg Q12HR PO 09/29/16 13:00 10/02/16 19:55 (Pill Splitter) 1 ea UNSCH PRN OTHER 09/29/16 13:45 (NS Flush) 2 ml UNSCH PRN IVF 09/29/16 15:00 (Tamiflu) 30 mg DAILY PO 09/30/16 12:00 10/02/16 09:00 Clindamycin Phosphate 600 mg/ Sodium Chloride 104 ml @ 208 mls/hr Q8H IV 09/30/16 14:00 10/02/16 14:00 (Bumex Inj) 1 mg BID@09,18 IV PUSH 10/01/16 18:00 10/02/16 17:24 (Albumin 25% Inj) 12.5 gm Q12H IV 10/02/16 14:00 10/02/16 15:47 Vital Signs / I&O Vital Signs Date Time Temp Pulse Resp B/P (MAP) Pulse Ox O2 Delivery O2 Flow Rate FiO2 10/02/16 16:00 99.0 112 20 117/73 (88) 96 10/02/16 12:00 98.0 108 17 111/76 (88) 98 10/02/16 08:00 98.4 113 20 125/74 (91) 96 10/02/16 04:22 96.7 115 18 117/74 (88) 100 10/02/16 00:49 96.8 112 18 124/94 (104) 100 10/01/16 21:02 96.5 112 18 114/77 (89) 98 I/O 10/01/16 10/01/16 10/01/16 10/02/16 10/02/16 10/02/16 06:59 14:59 22:59 06:59 14:59 22:59 Intake Total 1920 ml 1680 ml Balance 1920 ml 1680 ml Intake Oral 1920 ml 1680 ml # Voids 3 5 4 Physical Exam GENERAL: NAD, AAOx3 SKIN: Warm and dry. HEAD: Atraumatic. Normocephalic. EYES: Pupils equal and round. No scleral icterus. No injection or drainage. ENT: No nasal bleeding or discharge. Mucous membranes pink and moist. NECK: Trachea midline. No JVD. CARDIOVASCULAR: Regular rate and rhythm. RESPIRATORY: No accessory muscle use. Decreased breath sounds bilaterally GASTROINTESTINAL: Abdomen soft, non-tender, nondistended. Hepatic and splenic margins not palpable. MUSCULOSKELETAL: 1-2+ pitting edema NEUROLOGICAL: Awake and alert. No obvious cranial nerve deficits. Motor grossly within normal limits. Five out of 5 muscle strength in the arms and legs. Normal speech. PSYCHIATRIC: Appropriate mood and affect; insight and judgment normal. Laboratory Laboratory Tests Test 10/02/16 06:55 Assessment and Plan Problem List: (1) Transaminitis ICD Codes: R74.0 - Nonspecific elevation of levels of transaminase and lactic acid dehydrogenase [LDH] Status: Acute (2) Flu ICD Codes: J11.1 - Influenza due to unidentified influenza virus with other respiratory manifestations Status: Acute (3) CHF (congestive heart failure) ICD Codes: I50.9 - Heart failure, unspecified Status: Acute (4) SOB (shortness of breath) ICD Codes: R06.02 - Shortness of breath Status: Acute (5) Low back pain radiating to both legs ICD Codes: M54.5 - Low back pain Status: Chronic (6) Morbid obesity with body mass index (BMI) of 40.0 or higher ICD Codes: E66.01 - Morbid (severe) obesity due to excess calories Status: Acute (7) Sinus tachycardia ICD Codes: R00.0 - Tachycardia, unspecified Status: Acute Assessment and Plan 1) Transaminitis per GI 2) Chronic systolic heart failure Con't current medications Did not like Coreg, so switched to Lopressor Did not like Lasix, so switched to Bumex Doing better on Bumex 3) Previous MPI negative for ischemia 4) Tobacco/marijuana cessation Claims not have used cocaine, but felt his marijuana was laced with it... now admitting to smoking crack cocaine and marijuana mixed Also abuses energy drinks Overall he needs to be on BB therapy for his cardiomyopathy, if he continues to use crack cocaine then it should be switched back to Coreg 5) CPAP for SHERLY Problem Qualifiers (1) CHF (congestive heart failure): Clovis Pearson DO Oct 02, 2016 20:09
[2016-10-03] VITALS (10 sets, daily range): BP systolic 97–122; BP diastolic 60–80; PULSE 108–117; RESP 16–20; TEMP 97.3–98.3; O2SAT 93–98
[2016-10-03] MEDS: ALBUMIN HUMAN 25% 12.5 GM/50 ML BAGP IV SCH ×2 (01:34→17:45)
[2016-10-03] MEDS: RESP: ALBUTEROL 2.5 MG/IPRATROPIUM 0.5 MG NEB (SCH) NEB ×4 (03:50→11:19)
[2016-10-03] MEDS: CLINDAMYCIN INJ 600 MG in SODIUM CHLORIDE 0.9% INJ 100 ML IV SCH ×3 (06:32→22:45)
[2016-10-03] MEDS: RESP: BUDESONIDE 0.5 MG/2 ML NEB NEB SCH ×2 (07:57→21:20)
[2016-10-03] MEDS: SODIUM CHLORIDE 0.9% FLUSH 10 ML FLUSH IV FLUSH SCH ×2 (09:00→21:00)
[2016-10-03] MEDS: METOPROLOL TARTRATE 25 MG TAB PO SCH ×2 (09:00→22:47)
[2016-10-03 09:36] LABS: AUTOMATED NEUTROPHIL # 4.5 TH/MM3 (1.8-7.7); BASOPHIL % 0.5 % (0.0-2.0); EOSINOPHIL # 0.2 TH/MM3 (0-0.4); EOSINOPHIL % 2.9 % (0.0-4.0); HEMATOCRIT 39.2 % (39.0-51.0); LYMPHOCYTE # 1.2 TH/MM3 (1.0-4.8); MEAN CELL VOLUME 80.7 FL (80.0-100.0); MEAN CORPUSCULAR HEMOGLOBIN 25.6 PG (27.0-34.0); MEAN CORPUSCULAR HGB CONC 31.7 % (32.0-36.0); NEUT % 68.6 % (16.0-70.0); PLATELET COUNT 112 TH/MM3 (150-450); RED BLOOD COUNT 4.86 MIL/MM3 (4.50-5.90); RED CELL DISTRIBUTION WIDTH 23.5 % (11.6-17.2); WHITE BLOOD COUNT 6.6 TH/MM3 (4.0-11.0)
[2016-10-03 09:43] LABS: HEMO FLAGS AUTO DIFF
[2016-10-03] MEDS: OSELTAMIVIR PHOSPHATE 30 MG CAP PO SCH (10:01)
[2016-10-03] MEDS: FERROUS SULFATE 325 MG (65 MG ELEMENTAL IRON) TAB PO SCH ×2 (10:01→22:45)
[2016-10-03] MEDS: DOCUSATE SODIUM 50 MG/SENNA 8.6 MG TAB PO SCH ×2 (10:01→21:00)
[2016-10-03] MEDS: BUMETANIDE INJ 1 MG/4 ML VIAL IV PUSH SCH ×2 (10:01→19:15)
[2016-10-03] MEDS: guaiFENesin E.R. 600 MG TAB PO SCH ×2 (10:01→22:45)
[2016-10-03 10:02] LABS: ALKALINE PHOSPHATASE 151 U/L (45-117); ALT (GPT) 602 U/L (12-78); ANION GAP 7 MEQ/L (5-15); AST (GOT) 92 U/L (15-37); BICARBONATE 30.3 MEQ/L (21.0-32.0); BLOOD UREA NITROGEN 30 MG/DL (7-18); CHLORIDE 94 MEQ/L (98-107); GLOMERULAR FILTRATION RATE 70 ML/MIN (>89); MAGNESIUM 2.2 MG/DL (1.5-2.5); POTASSIUM 4.1 MEQ/L (3.5-5.1); SODIUM (NA) 131 MEQ/L (136-145); TOTAL BILIRUBIN ADULT 5.6 MG/DL (0.2-1.0)
[2016-10-03] MEDS: SPIRONOLACTONE 25 MG TAB PO SCH (10:02)
[2016-10-03] MEDS: CITALOPRAM HYDROBROMIDE 20 MG TAB PO SCH (10:02)
[2016-10-03] MEDS: LISINOPRIL 5 MG TAB PO SCH (10:02)
[2016-10-03] MEDS: PANTOPRAZOLE SOD 40 MG DELAYED RELEASE TAB PO SCH (10:02)
[2016-10-03 10:20] LABS: OVALOCYTES 2+ (NORMAL); PLATELET ESTIMATE SMEAR LOW (NORMAL); PLATELET MORPHOLOGY NORMAL (NORMAL); SCAN/DIFF AUTO DIFF CONFIRMED; TEARDROP RBCS 1+ (NORMAL)
--- NOTE | 2016-10-03 10:23 | HHI.PR ---
Subjective Remarks This is a pleasant 36 y/o male with cough and shortness of breath, generalized malaise and weakness, he has history of CHF, and PE not taking Warfarin for the last 10 years, as per patient having productive cough, for the last seven days, got worse for the last 3 days, decreased urine output for the past 3 days, has been confused, with mild aching headache, denied any visual changes, denied Neck pain , persistent cough, denied chest pain, no abdominal pain, no nausea, vomit or diarrhea, y chest pain. worsening lower extremity edema, has CHF with EF 20-25% . Seen in Emergency room and discussed at this time with Doctor Celestine White for me is more related to Hepatic Failure due to elevated INR in 3.4 he states he is been mixing Marijuana and Cocaine but denied any alcohol intake, as per ER specialist questioned about Tylenol and asked for Drug screen and Tylenol level , consult placed to GI specialist, will continue heart healthy diet and follow recommendations he is morbidly obese. he was seen on recent opportunities in ER. he states he has slurred speech and somnolence. 09/30: Discussed with his mother Mrs. Wolf to the phone number [phone] she knows he son abuse substances for a long time, and also for his Heart condition, she wants to get Cardiology involved in his Son's Case I agree, he was seen in the past by Doctor Clovis Pearson was consulted, the patient has positive marijuana and Cocaine during this admission also he states he was mixing some substances we do not know what else he took and is not in our screen to produce this Liver Damage. 10/01: Discussed with his , also his children present, explained in the presence of nurse Miss Del Toro that he needs to stop abusing substances if he wants to improve his condition, seen by corporate real estate specialist switched to Lopressor and from Lasix to Bumex. 10/02: The patient was discussed with him his children were left out of the room also with his Mother he was asked again what he is taking he tells to his Mother and to me that he is mixing Marijuana and Crack cocaine, asked how he is abusing this drugs he states he only smokes them, also abuse Energy drinks and Soda, More than 45 minutes talking and discussing different issues with his Mother, she is planning to come back with the patient to [place] to try to help him 10/03: Seen in his bedroom, discussed with nurse Mr. Lawrence, patient stable improving Liver enzymes, continue supportive care. no nausea vomit or diarrhea and the patient is feeling better. Objective Vital Signs Date Time Temp Pulse Resp B/P (MAP) Pulse Ox O2 Delivery O2 Flow Rate FiO2 10/03/16 08:02 94 10/03/16 08:00 97.6 108 16 120/60 (80) 97 10/03/16 05:41 97.5 108 20 122/68 (86) 96 10/03/16 02:32 114 10/03/16 00:52 97.6 108 20 113/74 (87) 93 10/02/16 20:34 95 21 10/02/16 20:00 97.5 107 22 108/80 (89) 98 10/02/16 16:00 99.0 112 20 117/73 (88) 96 10/02/16 12:00 98.0 108 17 111/76 (88) 98 I/O 10/02/16 10/02/16 10/02/16 10/03/16 10/03/16 10/03/16 06:59 14:59 22:59 06:59 14:59 22:59 Intake Total 1680 ml 750 ml Balance 1680 ml 750 ml Intake Oral 1680 ml 250 ml IV Total 500 ml # Voids 4 # Bowel Movements 1 Result Diagram: 10/03/16 0830 10/03/16 0830 Imaging Last Impressions Chest X-Ray 09/29/16 0823 Signed Impressions: Service Date/Time: September 08:24 - CONCLUSION: 1. Increased aeration of the lungs with minimal residual pulmonary vascular congestion. 2. Marked cardiomegaly. Suraj Vaughan MD Liver Ultrasound 09/29/16 0000 Signed Impressions: Service Date/Time: September 16:56 - CONCLUSION: 1. Cholelithiasis with gallbladder wall thickening and no pericholecystic fluid. 2. No evidence of biliary obstruction. 3. The liver is enlarged with findings characteristic of fatty infiltration. Jose Antonio Miles MD Head CT 09/29/16 0000 Signed Impressions: Service Date/Time: September 18:04 - CONCLUSION: Normal examination for a patient of this age. Madi Simmons MD Abdomen/Pelvis CT 09/29/16 0000 Signed Impressions: Service Date/Time: September 18:07 - CONCLUSION: 1. Mild anasarca and ascites. Splenomegaly. No focal liver lesions. 2. Multiple calcified gallstones without biliary ductal dilatation. 3. There is bladder diverticulum on the right extending into the proximal right inguinal canal. Fluid in left inguinal canal. No bowel obstruction or free air. Madi Simmons MD Procedures None Other Results Laboratory Tests Test 09/29/16 08:40 09/29/16 12:05 09/29/16 12:30 09/30/16 09:47 Differential Total Cells Counted 100 Neutrophils % (Manual) 76 % Band Neutrophils % 12 % Lymphocytes % 3 % Monocytes % 5 % Eosinophils % 3 % Neutrophils # (Manual) 6.9 TH/MM3 Metamyelocytes 1 % Nucleated Red Blood Cells 2 /100 WBC Activated Partial Thromboplast Time 35.5 SEC B-Type Natriuretic Peptide 1164 PG/ML Thyroid Stimulating Hormone 3rd Gen 1.590 uIU/ML Creatine Kinase MB 10.3 NG/ML Creatine Kinase MB % 2.9 % Urine Color DARK-YELLOW Urine Turbidity CLEAR Urine pH 6.0 Urine Specific [place] 1.023 Urine Protein TRACE mg/dL Urine Glucose (UA) NEG mg/dL Urine Ketones NEG mg/dL Urine Occult Blood SMALL Urine Nitrite NEG Urine Bilirubin SMALL Urine Urobilinogen 2.0 MG/DL Urine Leukocyte Esterase NEG Urine RBC 1 /hpf Urine WBC LESS THAN 1 /hpf Microscopic Urinalysis Comment CULT NOT INDICATED Urine Opiates Screen NEG Urine Barbiturates Screen NEG Urine Amphetamines Screen NEG Urine Benzodiazepines Screen NEG Urine Cocaine Screen POS Urine Cannabinoids Screen POS Tumor Marker Alpha Fetoprotein 3.0 NG/ML Salicylates Level LESS THAN 1.7 MG/DL Anti-Smooth Muscle Antibody Negative Rapid Plasma Reagin NON-REACTIVE HIV (1&2) Antibody NEGATIVE Test 09/30/16 12:03 09/30/16 20:49 10/01/16 07:30 10/02/16 06:55 Lactic Acid Level 2.3 mmol/L Iron Level 70 MCG/DL Total Iron Binding Capacity 330 MCG/DL Percent Iron Saturation 21.2 % Ferritin 305 NG/ML Total Creatine Kinase 176 U/L Troponin I 0.05 NG/ML [id number] 235 mg/dL Lipase 362 U/L Acetaminophen Level LESS THAN 2.0 MCG/ML Ethyl Alcohol Level LESS THAN 3 MG/DL Prothrombin Time 26.3 SEC Prothromb Time International Ratio 2.3 RATIO Direct Bilirubin 5.1 MG/DL Indirect Bilirubin 3.3 MG/DL Ammonia 36 MCMOL/L Protein Corrected Calcium 7.6 MG/DL Test 10/03/16 08:30 White Blood Count 6.6 TH/MM3 Red Blood Count 4.86 MIL/MM3 Hemoglobin 12.4 GM/DL Hematocrit 39.2 % Mean Corpuscular Volume 80.7 FL Mean Corpuscular Hemoglobin 25.6 PG Mean Corpuscular Hemoglobin Concent 31.7 % Red Cell Distribution Width 23.5 % Platelet Count 112 TH/MM3 Mean Platelet Volume 9.1 FL Neutrophils (%) (Auto) 68.6 % Lymphocytes (%) (Auto) 18.0 % Monocytes (%) (Auto) 10.0 % Eosinophils (%) (Auto) 2.9 % Basophils (%) (Auto) 0.5 % Neutrophils # (Auto) 4.5 TH/MM3 Lymphocytes # (Auto) 1.2 TH/MM3 Monocytes # (Auto) 0.7 TH/MM3 Eosinophils # (Auto) 0.2 TH/MM3 Basophils # (Auto) 0.0 TH/MM3 CBC Comment AUTO DIFF Differential Comment AUTO DIFF CONFIRMED Platelet Estimate LOW Platelet Morphology Comment NORMAL Tear Drop Cells 1+ Ovalocytes 2+ Blood Urea Nitrogen 30 MG/DL Creatinine 1.17 MG/DL Random Glucose 86 MG/DL Total Protein 7.0 GM/DL Albumin 3.2 GM/DL Calcium Level 8.4 MG/DL Phosphorus Level 3.0 MG/DL Magnesium Level 2.2 MG/DL Alkaline Phosphatase 151 U/L Aspartate Amino Transf (AST/SGOT) 92 U/L Alanine Aminotransferase (ALT/SGPT) 602 U/L Total Bilirubin 5.6 MG/DL Sodium Level 131 MEQ/L Potassium Level 4.1 MEQ/L Chloride Level 94 MEQ/L Carbon Dioxide Level 30.3 MEQ/L Anion Gap 7 MEQ/L Estimat Glomerular Filtration Rate 70 ML/MIN Objective Remarks GENERAL: Well developed, Morbid obesity. SKIN: Focused skin assessment warm/dry. HEAD: Normocephalic. EYES: Bilateral scleral icterus. No injection or drainage. NECK: Supple, trachea midline. No JVD or lymphadenopathy. CARDIOVASCULAR: Regular rate and rhythm without murmurs, gallops, or rubs. RESPIRATORY: Decreased breath sounds bilateral, but no wheezing or crackles. GASTROINTESTINAL: Abdomen soft, non-tender, severe distention due to fat. edema. Weeping. MUSCULOSKELETAL: No cyanosis, Edema 4+, but improving, BACK: Nontender without obvious deformity. No CVA tenderness. Neurologic exam normal. Medications and IVs Current Medications Medications (Trade) Dose Ordered Sig/Gideon Route Start Time Stop Time Status Last Admin (NS Flush) 2 ml UNSCH PRN IV FLUSH 09/29/16 11:00 (NS Flush) 2 ml BID IV FLUSH 09/29/16 21:00 10/02/16 19:56 (Zofran Inj) 4 mg Q6H PRN IVP 09/29/16 11:00 (Narcan Inj) 0.4 mg UNSCH PRN IV 09/29/16 11:00 (Mercy-Colace) 1 tab BID PO 09/29/16 21:00 10/03/16 10:01 (Milk Of Magnesia Liq) 30 ml Q12H PRN PO 09/29/16 11:00 (Senokot) 17.2 mg Q12H PRN PO 09/29/16 11:00 (Dulcolax Supp) 10 mg DAILY PRN RECTAL 09/29/16 11:00 (Lactulose Liq) 30 ml DAILY PRN PO 09/29/16 11:00 (Duoneb Neb) 1 ampule Q4HR NEB NEB 09/29/16 16:00 10/03/16 07:57 (Pulmicort Respule Neb) 0.5 mg Q12HR NEB NEB 09/29/16 12:30 10/03/16 07:57 (Mucinex Er) 600 mg BID PO 09/29/16 12:30 10/03/16 10:01 (CeleXA) 10 mg DAILY PO 09/30/16 09:00 10/03/16 10:02 (Ferrous Sulfate) 325 mg BID PO 09/29/16 21:00 10/03/16 10:01 (Prinivil) 5 mg DAILY PO 09/30/16 09:00 10/03/16 10:02 (Aldactone) 25 mg DAILY PO 09/30/16 09:00 10/03/16 10:02 (Protonix) 40 mg DAILY PO 09/30/16 09:00 10/03/16 10:02 (Lopressor) 12.5 mg Q12HR PO 09/29/16 13:00 10/02/16 19:55 (Pill Splitter) 1 ea UNSCH PRN OTHER 09/29/16 13:45 (NS Flush) 2 ml UNSCH PRN IVF 09/29/16 15:00 (Tamiflu) 30 mg DAILY PO 09/30/16 12:00 10/03/16 10:01 Clindamycin Phosphate 600 mg/ Sodium Chloride 104 ml @ 208 mls/hr Q8H IV 09/30/16 14:00 10/03/16 06:32 (Bumex Inj) 1 mg BID@,18 IV PUSH 10/01/16 18:00 10/03/16 10:01 (Albumin 25% Inj) 12.5 gm Q12H IV 10/02/16 14:00 10/03/16 01:34 A/P Assessment and Plan 1. Liver Failure ALT double from AST making more cellular liver damage, questioned for what the patient says Intoxication Drug screen positive for marijuana and Cocaine. Zaki improvement from admission, definitely associated with the history of drug abuse, the patient also states he abuse Tylenol and Advil, Energy drinks. 2. Anxiety disorder by history 3. CHF with EF 20-25%, with BNP 1164, on Lopressor and Bumex Doctor Clovis Pearson corporate real estate specialist following. 4. GERD by history on gastric protection on home PPIs 5. Hypertension controlled 6. PE by history not using Warfarin as per patient for the last 10 years. follow INR in am tomorrow. 7. Morbid Obesity strongly recommended diet and exercise as outpatient. 8. Thrombocytopenia improving to 112 9. Altered Mental status and slurred speech asked for CT brain. Improved to full alert and oriented x 4. 10. Equivocal troponin elevation 11. SHERLY on CPAP asked for RT for CPAP 12. Venous Stasis probable Cellulitis on bilateral legs on Clindamycin IV. DVT prophylaxis he has INR in 2.3 Discussed with patient, and nurse Mr. Lawrence all questions answered to the best of my abilities. manager ct for discharge add Albumin IV to improve diuresis. Code Status Full Code. Discharge Planning Once cleared by specialists. Jerry Reese MD Oct 03, 2016 10:23
[2016-10-03 12:22] LABS: ANA SCREEN NEG (NEG)
--- NOTE | 2016-10-03 17:25 | PD.CARD.PN ---
Subjective Subjective Remarks No events overnight Sleeping in the chair today, no CP Objective Medications Current Medications Medications (Trade) Dose Ordered Sig/Gideon Route Start Time Stop Time Status Last Admin (NS Flush) 2 ml UNSCH PRN IV FLUSH 09/29/16 11:00 (NS Flush) 2 ml BID IV FLUSH 09/29/16 21:00 10/03/16 09:00 (Zofran Inj) 4 mg Q6H PRN IVP 09/29/16 11:00 (Narcan Inj) 0.4 mg UNSCH PRN IV 09/29/16 11:00 (Mercy-Colace) 1 tab BID PO 09/29/16 21:00 10/03/16 10:01 (Milk Of Magnesia Liq) 30 ml Q12H PRN PO 09/29/16 11:00 (Senokot) 17.2 mg Q12H PRN PO 09/29/16 11:00 (Dulcolax Supp) 10 mg DAILY PRN RECTAL 09/29/16 11:00 (Lactulose Liq) 30 ml DAILY PRN PO 09/29/16 11:00 (Pulmicort Respule Neb) 0.5 mg Q12HR NEB NEB 09/29/16 12:30 10/03/16 07:57 (Mucinex Er) 600 mg BID PO 09/29/16 12:30 10/03/16 10:01 (CeleXA) 10 mg DAILY PO 09/30/16 09:00 10/03/16 10:02 (Ferrous Sulfate) 325 mg BID PO 09/29/16 21:00 10/03/16 10:01 (Prinivil) 5 mg DAILY PO 09/30/16 09:00 10/03/16 10:02 (Aldactone) 25 mg DAILY PO 09/30/16 09:00 10/03/16 10:02 (Protonix) 40 mg DAILY PO 09/30/16 09:00 10/03/16 10:02 (Lopressor) 12.5 mg Q12HR PO 09/29/16 13:00 10/03/16 09:00 (Pill Splitter) 1 ea UNSCH PRN OTHER 09/29/16 13:45 (NS Flush) 2 ml UNSCH PRN IVF 09/29/16 15:00 (Tamiflu) 30 mg DAILY PO 09/30/16 12:00 10/03/16 10:01 Clindamycin Phosphate 600 mg/ Sodium Chloride 104 ml @ 208 mls/hr Q8H IV 09/30/16 14:00 10/03/16 13:49 (Bumex Inj) 1 mg BID@09,18 IV PUSH 10/01/16 18:00 10/03/16 10:01 (Albumin 25% Inj) 12.5 gm Q12H IV 10/02/16 14:00 10/03/16 01:34 Vital Signs / I&O Vital Signs Date Time Temp Pulse Resp B/P (MAP) Pulse Ox O2 Delivery O2 Flow Rate FiO2 10/03/16 16:00 97.3 116 18 118/73 (88) 95 10/03/16 12:00 97.9 110 18 97/70 (79) 98 10/03/16 08:02 94 10/03/16 08:00 97.6 108 16 120/60 (80) 97 10/03/16 05:41 97.5 108 20 122/68 (86) 96 10/03/16 02:32 114 10/03/16 00:52 97.6 108 20 113/74 (87) 93 10/02/16 20:34 95 21 10/02/16 20:00 97.5 107 22 108/80 (89) 98 I/O 10/02/16 10/02/16 10/02/16 10/03/16 10/03/16 10/03/16 07:00 15:00 23:00 07:00 15:00 23:00 Intake Total 1680 ml 750 ml 560 ml Balance 1680 ml 750 ml 560 ml Intake Oral 1680 ml 250 ml 560 ml IV Total 500 ml # Voids 4 2 # Bowel Movements 1 1 Physical Exam GENERAL: NAD, AAOx3 SKIN: Warm and dry. HEAD: Atraumatic. Normocephalic. EYES: Pupils equal and round. No scleral icterus. No injection or drainage. ENT: No nasal bleeding or discharge. Mucous membranes pink and moist. NECK: Trachea midline. No JVD. CARDIOVASCULAR: Regular rate and rhythm. RESPIRATORY: No accessory muscle use. Decreased breath sounds bilaterally GASTROINTESTINAL: Abdomen soft, non-tender, nondistended. Hepatic and splenic margins not palpable. MUSCULOSKELETAL: 1-2+ pitting edema NEUROLOGICAL: Awake and alert. No obvious cranial nerve deficits. Motor grossly within normal limits. Five out of 5 muscle strength in the arms and legs. Normal speech. PSYCHIATRIC: Appropriate mood and affect; insight and judgment normal. Laboratory Laboratory Tests Test 10/03/16 08:30 10/03/16 16:16 White Blood Count 6.6 TH/MM3 Red Blood Count 4.86 MIL/MM3 Hemoglobin 12.4 GM/DL Hematocrit 39.2 % Mean Corpuscular Volume 80.7 FL Mean Corpuscular Hemoglobin 25.6 PG Mean Corpuscular Hemoglobin Concent 31.7 % Red Cell Distribution Width 23.5 % Platelet Count 112 TH/MM3 Mean Platelet Volume 9.1 FL Neutrophils (%) (Auto) 68.6 % Lymphocytes (%) (Auto) 18.0 % Monocytes (%) (Auto) 10.0 % Eosinophils (%) (Auto) 2.9 % Basophils (%) (Auto) 0.5 % Neutrophils # (Auto) 4.5 TH/MM3 Lymphocytes # (Auto) 1.2 TH/MM3 Monocytes # (Auto) 0.7 TH/MM3 Eosinophils # (Auto) 0.2 TH/MM3 Basophils # (Auto) 0.0 TH/MM3 CBC Comment AUTO DIFF Differential Comment AUTO DIFF CONFIRMED Platelet Estimate LOW Platelet Morphology Comment NORMAL Tear Drop Cells 1+ Ovalocytes 2+ Blood Urea Nitrogen 30 MG/DL Creatinine 1.17 MG/DL Random Glucose 86 MG/DL Total Protein 7.0 GM/DL Albumin 3.2 GM/DL Calcium Level 8.4 MG/DL Phosphorus Level 3.0 MG/DL Magnesium Level 2.2 MG/DL Alkaline Phosphatase 151 U/L Aspartate Amino Transf (AST/SGOT) 92 U/L Alanine Aminotransferase (ALT/SGPT) 602 U/L Total Bilirubin 5.6 MG/DL Sodium Level 131 MEQ/L Potassium Level 4.1 MEQ/L Chloride Level 94 MEQ/L Carbon Dioxide Level 30.3 MEQ/L Anion Gap 7 MEQ/L Estimat Glomerular Filtration Rate 70 ML/MIN Assessment and Plan Problem List: (1) Transaminitis ICD Codes: R74.0 - Nonspecific elevation of levels of transaminase and lactic acid dehydrogenase [LDH] Status: Acute (2) Flu ICD Codes: J11.1 - Influenza due to unidentified influenza virus with other respiratory manifestations Status: Acute (3) CHF (congestive heart failure) ICD Codes: I50.9 - Heart failure, unspecified Status: Acute (4) SOB (shortness of breath) ICD Codes: R06.02 - Shortness of breath Status: Acute (5) Low back pain radiating to both legs ICD Codes: M54.5 - Low back pain Status: Chronic (6) Morbid obesity with body mass index (BMI) of 40.0 or higher ICD Codes: E66.01 - Morbid (severe) obesity due to excess calories Status: Acute (7) Sinus tachycardia ICD Codes: R00.0 - Tachycardia, unspecified Status: Acute Assessment and Plan 1) Transaminitis per GI 2) Chronic systolic heart failure Con't current medications Did not like Coreg, so switched to Lopressor Did not like Lasix, so switched to Bumex Doing better on Bumex 3) Previous MPI negative for ischemia 4) Tobacco/marijuana cessation Claims not have used cocaine, but felt his marijuana was laced with it... now admitting to smoking crack cocaine and marijuana mixed Also abuses energy drinks Overall he needs to be on BB therapy for his cardiomyopathy, if he continues to use crack cocaine then it should be switched back to Coreg 5) CPAP for SEHRLY Problem Qualifiers (1) CHF (congestive heart failure): Clovis Pearson DO Oct 03, 2016 17:25
--- NOTE | 2016-10-03 18:22 | HHI.GIFU ---
Subjective Remarks Up in chair. Still lethargic. No n/v. No abdominal pain. Denies chest pain. C/O weakness. Tolerating diet (Miriam De La Cruz) Objective Vitals I&O Vital Signs Date Time Temp Pulse Resp B/P (MAP) Pulse Ox O2 Delivery O2 Flow Rate FiO2 10/03/16 16:00 97.3 116 18 118/73 (88) 95 10/03/16 12:00 97.9 110 18 97/70 (79) 98 10/03/16 08:02 94 10/03/16 08:00 97.6 108 16 120/60 (80) 97 10/03/16 05:41 97.5 108 20 122/68 (86) 96 10/03/16 02:32 114 10/03/16 00:52 97.6 108 20 113/74 (87) 93 10/02/16 20:34 95 21 10/02/16 20:00 97.5 107 22 108/80 (89) 98 I/O 10/02/16 10/02/16 10/02/16 10/03/16 10/03/16 10/03/16 07:00 15:00 23:00 07:00 15:00 23:00 Intake Total 1680 ml 750 ml 560 ml Balance 1680 ml 750 ml 560 ml Intake Oral 1680 ml 250 ml 560 ml IV Total 500 ml # Voids 4 2 # Bowel Movements 1 1 Laboratory Laboratory Tests Test 10/03/16 08:30 10/03/16 16:16 White Blood Count 6.6 Red Blood Count 4.86 Hemoglobin 12.4 Hematocrit 39.2 Mean Corpuscular Volume 80.7 Mean Corpuscular Hemoglobin 25.6 Mean Corpuscular Hemoglobin Concent 31.7 Red Cell Distribution Width 23.5 Platelet Count 112 Mean Platelet Volume 9.1 Neutrophils (%) (Auto) 68.6 Lymphocytes (%) (Auto) 18.0 Monocytes (%) (Auto) 10.0 Eosinophils (%) (Auto) 2.9 Basophils (%) (Auto) 0.5 Neutrophils # (Auto) 4.5 Lymphocytes # (Auto) 1.2 Monocytes # (Auto) 0.7 Eosinophils # (Auto) 0.2 Basophils # (Auto) 0.0 CBC Comment AUTO DIFF Differential Comment AUTO DIFF CONFIRMED Platelet Estimate LOW Platelet Morphology Comment NORMAL Tear Drop Cells 1+ Ovalocytes 2+ Blood Urea Nitrogen 30 Creatinine 1.17 Random Glucose 86 Total Protein 7.0 Albumin 3.2 Calcium Level 8.4 Phosphorus Level 3.0 Magnesium Level 2.2 Alkaline Phosphatase 151 Aspartate Amino Transf (AST/SGOT) 92 Alanine Aminotransferase (ALT/SGPT) 602 Total Bilirubin 5.6 Sodium Level 131 Potassium Level 4.1 Chloride Level 94 Carbon Dioxide Level 30.3 Anion Gap 7 Estimat Glomerular Filtration Rate 70 Date/Time Source Procedure Growth Status 09/29/16 12:15 Blood Peripheral Aerobic Blood Culture - Preliminary NO GROWTH IN 4 DAYS Resulted 09/29/16 12:15 Blood Peripheral Anaerobic Blood Culture - Final QNS - SEE AEROBE REPORT Resulted 09/29/16 08:45 Nasal Washing Influenza Types A,B Antigen (MUNDO) - Final Positive For Flu B Antigen Complete Imaging Last Impressions Chest X-Ray 09/29/16 0823 Signed Impressions: Service Date/Time: September 08:24 - CONCLUSION: 1. Increased aeration of the lungs with minimal residual pulmonary vascular congestion. 2. Marked cardiomegaly. Suraj Vaughan MD Liver Ultrasound 09/29/16 0000 Signed Impressions: Service Date/Time: September 16:56 - CONCLUSION: 1. Cholelithiasis with gallbladder wall thickening and no pericholecystic fluid. 2. No evidence of biliary obstruction. 3. The liver is enlarged with findings characteristic of fatty infiltration. Jose Antonio Miles MD Head CT 09/29/16 0000 Signed Impressions: Service Date/Time: September 18:04 - CONCLUSION: Normal examination for a patient of this age. Madi Simmons MD Abdomen/Pelvis CT 09/29/16 0000 Signed Impressions: Service Date/Time: September 18:07 - CONCLUSION: 1. Mild anasarca and ascites. Splenomegaly. No focal liver lesions. 2. Multiple calcified gallstones without biliary ductal dilatation. 3. There is bladder diverticulum on the right extending into the proximal right inguinal canal. Fluid in left inguinal canal. No bowel obstruction or free air. Madi Simmons MD Physical Exam HEENT: Normocephalic; atraumatic; + jaundice. CHEST: Resp even/unlabored, course CARDIAC: Regular ABDOMEN: Soft, obese, nondistended, nontender; hepatomegaly; bowel sounds are present in all four quadrants. EXTREMITIES: BLE edema. SKIN: BLE slightly erythematous, + jaundice. [employer]SHMALLOW MAKER: Lethargic, oriented (Miriam De La rCuz) Assessment and Plan Plan ASSESSMENT: - Acute hepatitis, etiology unclear. Pt has a hx of CHF with low EF, but also admits to taking large amount of Tylenol on a regular basis. He is very somnolent and it is difficult to obtain a clear history from the patient. His coag's are elevated. He is very adamant that he has not been on coumadin since 2011. No ETOH use, but was (+) cocaine and cannabinoids. Acetaminophen < 2.0, ETOH <3. (+) FLU B. Of note, patient admitted to taking large amounts of Tylenol for tooth pain, but not for two days. confirmed this. Timed LFTs/INR/Ammonia was cancelled by lab and has not been drawn since admission. Called lab. Liver workup labs were ordered yesterday, but not drawn. Liver Ultrasound (09/29/16)-----> 1. Cholelithiasis with gallbladder wall thickening and no pericholecystic fluid. 2. No evidence of biliary obstruction. 3. The liver is enlarged with findings characteristic of fatty infiltration Differentials include medication induced , including possible tylenol toxicity, shocked liver, viral hepatitis, vs other. S/P Acetylcysteine IV per protocol. Hepatitis pending. NADINE negative. AMA pending. ASMA negative. Iron saturation 21.2%. Ferritin 305. AFP 3.0. Alpha 1 antitrypsin 235. Ceruloplasmin pending. LFTs are trending down. T. Bili 5.6, AST 92, ALT 602, Alk Phopsh 151. - Coagulopathy. He does have a history of PE, but states he has not been on coumadin since 2011. This was confirmed by his today. Improving, INR 2.3. - AMS. Improved. Was (+) Cocaine and MJ - Fever, fatigue, malaise. FLU B Ag (+). BCx no growth 4 days - Cough. CXR (09/29/16)---> increased aeration of the lungs with minimal residual pulmonary vascular congestion, marked cardiomegaly. - CHF, cardiology following. - GERD. PPI - Hx PE pt states in 2011 and he has been off of coumadin since 2011 PLAN: - AAKASH - Await hepatitis - Await AMA - Await ceruloplasmin - Monitor CBC, INR, LFT - Cont. Protonix - Supportive care - Further recommendations to follow based on results of above - Pt seen and examined by Dr. Navarrete and myself and this note is written on his behalf (Miriam De La Cruz) Physician Comments Seen and examined, plan as above, work up still pending. (Alexis Still MD) Miriam De La Cruz Oct 03, 2016 18:22 Alexis Still MD Oct 03, 2016 18:50
[2016-10-03] MEDS: LIDOCAINE HCL 5% PATCH T-DERMAL SCH (19:14)
[2016-10-04] VITALS (10 sets, daily range): BP systolic 106–117; BP diastolic 68–78; PULSE 87–110; RESP 16–18; TEMP 97.2–98.4; O2SAT 97–100
[2016-10-04] MEDS: ALBUMIN HUMAN 25% 12.5 GM/50 ML BAGP IV SCH ×2 (02:50→13:44)
[2016-10-04] MEDS: CLINDAMYCIN INJ 600 MG in SODIUM CHLORIDE 0.9% INJ 100 ML IV SCH ×2 (06:14→14:29)
[2016-10-04] MEDS: RESP: BUDESONIDE 0.5 MG/2 ML NEB NEB SCH ×2 (07:34→21:12)
[2016-10-04] MEDS: REMOVE OLD LIDOCAINE PATCH T-DERMAL SCH (08:00)
[2016-10-04] MEDS: OSELTAMIVIR PHOSPHATE 30 MG CAP PO SCH (08:40)
[2016-10-04] MEDS: guaiFENesin E.R. 600 MG TAB PO SCH ×2 (08:40→20:56)
[2016-10-04] MEDS: METOPROLOL TARTRATE 25 MG TAB PO SCH ×2 (08:40→20:56)
[2016-10-04] MEDS: PANTOPRAZOLE SOD 40 MG DELAYED RELEASE TAB PO SCH (08:40)
[2016-10-04] MEDS: SPIRONOLACTONE 25 MG TAB PO SCH (08:40)
[2016-10-04] MEDS: FERROUS SULFATE 325 MG (65 MG ELEMENTAL IRON) TAB PO SCH ×2 (08:40→20:56)
[2016-10-04] MEDS: CITALOPRAM HYDROBROMIDE 20 MG TAB PO SCH (08:40)
[2016-10-04] MEDS: SODIUM CHLORIDE 0.9% FLUSH 10 ML FLUSH IV FLUSH SCH ×2 (08:41→20:57)
[2016-10-04] MEDS: BUMETANIDE INJ 1 MG/4 ML VIAL IV PUSH SCH ×2 (08:41→18:27)
[2016-10-04] MEDS: LISINOPRIL 5 MG TAB PO SCH (08:42)
[2016-10-04] MEDS: DOCUSATE SODIUM 50 MG/SENNA 8.6 MG TAB PO SCH ×2 (08:42→20:58)
[2016-10-04 11:22] LABS: ANION GAP 10 MEQ/L (5-15); AST (GOT) 66 U/L (15-37); BICARBONATE 26.7 MEQ/L (21.0-32.0); BLOOD UREA NITROGEN 28 MG/DL (7-18); CHLORIDE 97 MEQ/L (98-107); GLOMERULAR FILTRATION RATE 70 ML/MIN (>89); SODIUM (NA) 134 MEQ/L (136-145)
--- NOTE | 2016-10-04 11:22 | HHI.PR ---
Subjective Remarks in no acute distress. denies chest pain or abdominal pain. no fever. Objective Vitals Vital Signs Date Time Temp Pulse Resp B/P (MAP) Pulse Ox O2 Delivery O2 Flow Rate FiO2 10/04/16 08:00 97.4 106 16 114/77 (89) 98 10/04/16 07:36 98 10/04/16 04:00 98.1 87 18 114/76 (89) 97 10/04/16 00:00 98.4 92 18 117/78 (91) 97 10/03/16 22:50 117 10/03/16 21:20 98 21 10/03/16 20:00 98.3 115 18 116/80 (92) 96 10/03/16 16:00 97.3 116 18 118/73 (88) 95 10/03/16 12:00 97.9 110 18 97/70 (79) 98 I/O 10/03/16 10/03/16 10/03/16 10/04/16 10/04/16 10/04/16 07:00 15:00 23:00 07:00 15:00 23:00 Intake Total 750 ml 560 ml Balance 750 ml 560 ml Intake Oral 250 ml 560 ml IV Total 500 ml # Voids 4 2 2 # Bowel Movements 1 1 Result Diagram: 10/03/16 0830 10/03/16 0830 Imaging Last Impressions Chest X-Ray 09/29/16 0823 Signed Impressions: Service Date/Time: September 08:24 - CONCLUSION: 1. Increased aeration of the lungs with minimal residual pulmonary vascular congestion. 2. Marked cardiomegaly. Suraj Vaughan MD Liver Ultrasound 09/29/16 0000 Signed Impressions: Service Date/Time: September 16:56 - CONCLUSION: 1. Cholelithiasis with gallbladder wall thickening and no pericholecystic fluid. 2. No evidence of biliary obstruction. 3. The liver is enlarged with findings characteristic of fatty infiltration. Jose Antonio Miles MD Head CT 09/29/16 0000 Signed Impressions: Service Date/Time: September 18:04 - CONCLUSION: Normal examination for a patient of this age. Madi Simmons MD Abdomen/Pelvis CT 09/29/16 0000 Signed Impressions: Service Date/Time: September 18:07 - CONCLUSION: 1. Mild anasarca and ascites. Splenomegaly. No focal liver lesions. 2. Multiple calcified gallstones without biliary ductal dilatation. 3. There is bladder diverticulum on the right extending into the proximal right inguinal canal. Fluid in left inguinal canal. No bowel obstruction or free air. Madi Simmons MD Objective Remarks GENERAL: This is a well-nourished, well-developed patient, in no apparent distress. CARDIOVASCULAR: Regular rate and regular rhythm without murmurs, gallops, or rubs. RESPIRATORY: Clear to auscultation. Breath sounds equal bilaterally. No wheezes , rales, or rhonchi. GASTROINTESTINAL: Abdomen soft, non-tender, nondistended. Normal, active bowel sounds MUSCULOSKELETAL: Extremities with bilateral pedal edema. NEURO: Alert & Oriented x4 to person, place, time, situation. Moves all ext x4 Medications and IVs Current Medications Sodium Chloride 1,000 ml @ 42 mls/hr [id number] IV Last administered on 11:13; Start 09/29/16 at 10:54; Stop 09/29/16 at 12:54; Status DC Sodium Chloride (NS Flush) 2 ml UNSCH PRN IV FLUSH FLUSH AFTER USING IV ACCESS ; Start 09/29/16 at 11:00 Sodium Chloride (NS Flush) 2 ml BID IV FLUSH Last administered on 10/04/16 08: 41; Start 09/29/16 at 21:00 Ondansetron HCl (Zofran Inj) 4 mg Q6H PRN IVP NAUSEA OR VOMITING; Start at 11:00 Naloxone HCl (Narcan Inj) 0.4 mg UNSCH PRN IV SEE LABEL COMMENTS; Start at 11:00 Senna/Docusate Sodium (Mercy-Colace) 1 tab BID PO Last administered on 10:01; Start 09/29/16 at 21:00 Magnesium Hydroxide (Milk Of Magnesia Liq) 30 ml Q12H PRN PO MILD - MODERATE CONSTIPATION; Start 09/29/16 at 11:00 Sennosides (Senokot) 17.2 mg Q12H PRN PO MODERATE - SEVERE CONSTIPATION; Start 09/29/16 at 11:00 Bisacodyl (Dulcolax Supp) 10 mg DAILY PRN RECTAL SEVERE CONSITIPATION; Start at 11:00 Lactulose (Lactulose Liq) 30 ml DAILY PRN PO SEVERE CONSITIPATION; Start at 11:00 Albuterol/ Ipratropium (Duoneb Neb) 1 ampule Q4HR NEB NEB Last administered on 10/03/16 07:57; Start 09/29/16 at 16:00; Stop 10/03/16 at 16:00; Status DC Budesonide (Pulmicort Respule Neb) 0.5 mg Q12HR NEB NEB Last administered on 07:34; Start 09/29/16 at 12:30 Guaifenesin (Mucinex Er) 600 mg BID PO Last administered on 10/04/16 08:40; Start 09/29/16 at 12:30 Carvedilol (Coreg) 6.25 mg Q12HR PO ; Start 09/29/16 at 21:00; Stop 09/29/16 at 21:00; Status DC Citalopram Hydrobromide (CeleXA) 10 mg DAILY PO Last administered on 10/04/16 08:40; Start 09/30/16 at 09:00 Ferrous Sulfate (Ferrous Sulfate) 325 mg BID PO Last administered on 10/04/16 08:40; Start 09/29/16 at 21:00 Lisinopril (Prinivil) 5 mg DAILY PO Last administered on 10/04/16 08:42; Start 09/30/16 at 09:00 Spironolactone (Aldactone) 25 mg DAILY PO Last administered on 10/04/16 08:40 ; Start 09/30/16 at 09:00 Pantoprazole Sodium (Protonix) 40 mg DAILY PO Last administered on 10/04/16 08 :40; Start 09/30/16 at 09:00 Metoprolol Tartrate (Lopressor) 12.5 mg Q12HR PO Last administered on 08:40; Start 09/29/16 at 13:00 Miscellaneous (Pill Splitter) 1 ea UNSCH PRN OTHER SEE LABEL COMMENTS; Start at 13:45 Sodium Chloride (NS Flush) 2 ml UNSCH PRN IVF FLUSH AFTER USING IV ACCESS; Start 09/29/16 at 15:00; Stop 10/03/16 at 18:31; Status DC Acetylcysteine 25998 mg/Dextrose 301.25 ml @ 200 mls/ hr ONCE IV Last administered on 09/29/16 15:58; Start 09/29/16 at 15:00; Stop 09/29/16 at 15:59 ; Status DC Acetylcysteine 6750 mg/Dextrose 533.75 ml @ 125 mls/ hr ONCE IV Last administered on 09/29/16 18:21; Start 09/29/16 at 16:00; Stop 09/29/16 at 19:59 ; Status DC Acetylcysteine 18944 mg/Dextrose 1,067.5 ml @ 62.5 mls/ hr ONCE IV Last administered on 09/29/16 22:49; Start 09/29/16 at 20:00; Stop 09/30/16 at 11:59 ; Status DC Albumin Human (Albumin 25% Inj) 25 gm Q12H IV Last administered on 09/30/16 03 :15; Start 09/29/16 at 16:00; Stop 09/30/16 at 12:00; Status DC Furosemide (Lasix Inj) 40 mg BID@,18 IV PUSH ; Start 09/30/16 at 18:00; Stop 09/30/16 at 18:00; Status DC Oseltamivir Phosphate (Tamiflu) 30 mg DAILY PO Last administered on 10/04/16 08:40; Start 09/30/16 at 12:00 Ceftriaxone Sodium 1000 mg/ Sodium Chloride 100 ml @ 200 mls/hr Q24H IV ; Start 09/30/16 at 11:00; Stop 09/30/16 at 12:19; Status DC Clindamycin Phosphate 600 mg/ Sodium Chloride 104 ml @ 208 mls/hr Q8H IV Last administered on 10/04/16 06:14; Start 09/30/16 at 14:00 Furosemide (Lasix Inj) 20 mg BID@09,18 IV PUSH ; Start 09/30/16 at 18:00; Stop 10/01/16 at 10:39; Status DC Bumetanide (Bumex Inj) 1 mg BID@,18 IV PUSH Last administered on 10/04/16 08 :41; Start 10/01/16 at 18:00 Bumetanide (Bumex Inj) 1 mg ONCE ONCE IV PUSH Last administered on 10/01/16 11:57; Start 10/01/16 at 10:45; Stop 10/01/16 at 10:50; Status DC Albumin Human (Albumin 25% Inj) 12.5 gm Q12H IV Last administered on 10/04/16 02:50; Start 10/02/16 at 14:00 Lidocaine HCl (Lidoderm 5% Patch.12 Hr) 1 patch ONCE ONCE T-DERMAL Last administered on 10/02/16 19:56; Start 10/02/16 at 19:30; Stop 10/02/16 at 19:31 ; Status DC Lidocaine HCl (Lidoderm 5% Patch.12 Hr) 1 patch Q24H T-DERMAL Last administered on 10/03/16 19:14; Start 10/03/16 at 20:00 Miscellaneous Information 1 Q24H T-DERMAL ; Start 10/04/16 at 08:00 A/P Assessment and Plan 1. Liver Failure Drug screen positive for marijuana and Cocaine. Zaki improvement from admission. hepatitis panel negative- GI following- follow the trend. 2. Anxiety disorder by history 3. CHF with EF 20-25%, with BNP 1164, on Lopressor and Bumex Doctor Clovis Pearson business services specialist sales following. continue Bumex,metoprolol and lisinopril. 4. GERD by history on gastric protection on home PPIs 5. Hypertension ; continue metoprolol and lisinopril. 6. PE by history not using Warfarin as per patient for the last 10 years. 7. Morbid Obesity strongly recommended diet and exercise as outpatient. 8. Thrombocytopenia - will monitor. 9. Altered Mental status and slurred speech asked for CT brain. - check ammonia level. 10. Equivocal troponin elevation - cardiology evaluation as noted above. 11. SHERLY on CPAP asked for RT for CPAP 12. Venous Stasis probable Cellulitis on bilateral legs on Clindamycin IV. Zhen Melgoza MD Oct 04, 2016 11:21
[2016-10-04 11:23] LABS: ALT (GPT) 400 U/L (12-78); INTERNATIONAL NORMALIZED RATIO 1.5 RATIO; PROTHROMBIN TIME - PATIENT 17.2 SEC (9.8-11.6)
[2016-10-04 11:25] LABS: ALKALINE PHOSPHATASE 143 U/L (45-117); TOTAL BILIRUBIN ADULT 4.2 MG/DL (0.2-1.0)
[2016-10-04 13:52] LABS: MITOCHONDRIAL ABS LESS THAN 20.0 U (<=20.0)
[2016-10-04] MEDS: LIDOCAINE HCL 5% PATCH T-DERMAL SCH (20:57)
[2016-10-05] VITALS (7 sets, daily range): BP systolic 95–138; BP diastolic 62–91; PULSE 91–115; RESP 17–18; TEMP 97.6–98.5; O2SAT 95–98
[2016-10-05] MEDS: ALBUMIN HUMAN 25% 12.5 GM/50 ML BAGP IV SCH ×2 (01:19→13:56)
[2016-10-05] MEDS: RESP: BUDESONIDE 0.5 MG/2 ML NEB NEB SCH ×2 (07:46→20:00)
[2016-10-05] MEDS: REMOVE OLD LIDOCAINE PATCH T-DERMAL SCH (08:00)
[2016-10-05] MEDS: DOCUSATE SODIUM 50 MG/SENNA 8.6 MG TAB PO SCH ×2 (09:00→20:41)
[2016-10-05] MEDS: LISINOPRIL 5 MG TAB PO SCH (09:00)
[2016-10-05] MEDS: SPIRONOLACTONE 25 MG TAB PO SCH (09:00)
[2016-10-05] MEDS: BUMETANIDE INJ 1 MG/4 ML VIAL IV PUSH SCH ×2 (09:00→17:26)
[2016-10-05] MEDS: SODIUM CHLORIDE 0.9% FLUSH 10 ML FLUSH IV FLUSH SCH ×2 (09:00→20:41)
[2016-10-05] MEDS: guaiFENesin E.R. 600 MG TAB PO SCH ×2 (09:36→20:40)
[2016-10-05] MEDS: OSELTAMIVIR PHOSPHATE 30 MG CAP PO SCH (09:36)
[2016-10-05] MEDS: FERROUS SULFATE 325 MG (65 MG ELEMENTAL IRON) TAB PO SCH ×2 (09:36→20:40)
[2016-10-05] MEDS: CITALOPRAM HYDROBROMIDE 20 MG TAB PO SCH (09:37)
[2016-10-05] MEDS: METOPROLOL TARTRATE 25 MG TAB PO SCH ×2 (09:39→20:41)
[2016-10-05] MEDS: PANTOPRAZOLE SOD 40 MG DELAYED RELEASE TAB PO SCH (10:01)
--- NOTE | 2016-10-05 10:52 | HHI.FF ---
Face to Face Verification Diagnosis: (1) Morbid obesity with body mass index (BMI) of 40.0 or higher Physical Therapy Order: Evaluate and Treat Home Health Nursing Order: Medical education Signs/symptoms of disease process Medication education-adverse effect Nursing assessment with vital signs I have seen patient Manjinder Wilcox on 10/05/16. My clinical findings support the need for the requested home health care services because: Ltd mobility - disease progression I certify that my clinical findings support that this patient is homebound because: Unsteady gait/balance Zhen Melgoza MD Oct 05, 2016 10:52
--- NOTE | 2016-10-05 10:52 | HHI.PR ---
Subjective Remarks in no acute distress. has some sore throat. afebrile. Objective Vitals Vital Signs Date Time Temp Pulse Resp B/P (MAP) Pulse Ox O2 Delivery O2 Flow Rate FiO2 10/05/16 08:00 98.2 110 18 112/74 (87) 97 10/05/16 07:47 98 21 10/05/16 04:00 98.5 91 18 124/83 (97) 97 10/04/16 23:09 110 10/04/16 21:24 98 21 10/04/16 21:00 98.2 98 18 106/75 (85) 100 10/04/16 20:00 97.2 107 18 115/77 (90) 98 10/04/16 16:00 98.3 108 16 111/70 (84) 98 10/04/16 12:00 98.2 100 18 106/68 (81) 97 I/O 10/04/16 10/04/16 10/04/16 10/05/16 10/05/16 10/05/16 07:00 15:00 23:00 07:00 15:00 23:00 Intake Total 240 ml 104 ml Balance 240 ml 104 ml Intake Oral 240 ml IV Total 104 ml # Voids 2 3 3 3 # Bowel Movements 1 Result Diagram: 10/03/16 0830 10/04/16 0915 Imaging Last Impressions Chest X-Ray 09/29/16 0823 Signed Impressions: Service Date/Time: September 08:24 - CONCLUSION: 1. Increased aeration of the lungs with minimal residual pulmonary vascular congestion. 2. Marked cardiomegaly. Suraj Vaughan MD Liver Ultrasound 09/29/16 0000 Signed Impressions: Service Date/Time: September 16:56 - CONCLUSION: 1. Cholelithiasis with gallbladder wall thickening and no pericholecystic fluid. 2. No evidence of biliary obstruction. 3. The liver is enlarged with findings characteristic of fatty infiltration. Jose Antonio Miles MD Head CT 09/29/16 0000 Signed Impressions: Service Date/Time: September 18:04 - CONCLUSION: Normal examination for a patient of this age. Madi Simmons MD Abdomen/Pelvis CT 09/29/16 0000 Signed Impressions: Service Date/Time: September 18:07 - CONCLUSION: 1. Mild anasarca and ascites. Splenomegaly. No focal liver lesions. 2. Multiple calcified gallstones without biliary ductal dilatation. 3. There is bladder diverticulum on the right extending into the proximal right inguinal canal. Fluid in left inguinal canal. No bowel obstruction or free air. Madi Simmons MD Objective Remarks GENERAL: This is a well-nourished, well-developed patient, in no apparent distress. CARDIOVASCULAR: Regular rate and regular rhythm without murmurs, gallops, or rubs. RESPIRATORY: Clear to auscultation. Breath sounds equal bilaterally. No wheezes , rales, or rhonchi. GASTROINTESTINAL: Abdomen soft, non-tender, nondistended. Normal, active bowel sounds MUSCULOSKELETAL: Extremities with bilateral pedal edema. NEURO: Alert & Oriented x4 to person, place, time, situation. Moves all ext x4 Medications and IVs Current Medications Sodium Chloride 1,000 ml @ 42 mls/hr [id number] IV Last administered on 11:13; Start 09/29/16 at 10:54; Stop 09/29/16 at 12:54; Status DC Sodium Chloride (NS Flush) 2 ml UNSCH PRN IV FLUSH FLUSH AFTER USING IV ACCESS ; Start 09/29/16 at 11:00 Sodium Chloride (NS Flush) 2 ml BID IV FLUSH Last administered on 10/05/16 09: 00; Start 09/29/16 at 21:00 Ondansetron HCl (Zofran Inj) 4 mg Q6H PRN IVP NAUSEA OR VOMITING; Start at 11:00 Naloxone HCl (Narcan Inj) 0.4 mg UNSCH PRN IV SEE LABEL COMMENTS; Start at 11:00 Senna/Docusate Sodium (Mercy-Colace) 1 tab BID PO Last administered on 10:01; Start 09/29/16 at 21:00 Magnesium Hydroxide (Milk Of Magnesia Liq) 30 ml Q12H PRN PO MILD - MODERATE CONSTIPATION; Start 09/29/16 at 11:00 Sennosides (Senokot) 17.2 mg Q12H PRN PO MODERATE - SEVERE CONSTIPATION; Start 09/29/16 at 11:00 Bisacodyl (Dulcolax Supp) 10 mg DAILY PRN RECTAL SEVERE CONSITIPATION; Start at 11:00 Lactulose (Lactulose Liq) 30 ml DAILY PRN PO SEVERE CONSITIPATION; Start at 11:00 Albuterol/ Ipratropium (Duoneb Neb) 1 ampule Q4HR NEB NEB Last administered on 10/03/16 07:57; Start 09/29/16 at 16:00; Stop 10/03/16 at 16:00; Status DC Budesonide (Pulmicort Respule Neb) 0.5 mg Q12HR NEB NEB Last administered on 07:46; Start 09/29/16 at 12:30 Guaifenesin (Mucinex Er) 600 mg BID PO Last administered on 10/05/16 09:36; Start 09/29/16 at 12:30 Carvedilol (Coreg) 6.25 mg Q12HR PO ; Start 09/29/16 at 21:00; Stop 09/29/16 at 21:00; Status DC Citalopram Hydrobromide (CeleXA) 10 mg DAILY PO Last administered on 10/05/16 09:37; Start 09/30/16 at 09:00 Ferrous Sulfate (Ferrous Sulfate) 325 mg BID PO Last administered on 10/05/16 09:36; Start 09/29/16 at 21:00 Lisinopril (Prinivil) 5 mg DAILY PO Last administered on 10/04/16 08:42; Start 09/30/16 at 09:00 Spironolactone (Aldactone) 25 mg DAILY PO Last administered on 10/04/16 08:40 ; Start 09/30/16 at 09:00 Pantoprazole Sodium (Protonix) 40 mg DAILY PO Last administered on 10/05/16 10 :01; Start 09/30/16 at 09:00 Metoprolol Tartrate (Lopressor) 12.5 mg Q12HR PO Last administered on 09:39; Start 09/29/16 at 13:00 Miscellaneous (Pill Splitter) 1 ea UNSCH PRN OTHER SEE LABEL COMMENTS; Start at 13:45 Sodium Chloride (NS Flush) 2 ml UNSCH PRN IVF FLUSH AFTER USING IV ACCESS; Start 09/29/16 at 15:00; Stop 10/03/16 at 18:31; Status DC Acetylcysteine 78938 mg/Dextrose 301.25 ml @ 200 mls/ hr ONCE IV Last administered on 09/29/16 15:58; Start 09/29/16 at 15:00; Stop 09/29/16 at 15:59 ; Status DC Acetylcysteine 6750 mg/Dextrose 533.75 ml @ 125 mls/ hr ONCE IV Last administered on 09/29/16 18:21; Start 09/29/16 at 16:00; Stop 09/29/16 at 19:59 ; Status DC Acetylcysteine 39455 mg/Dextrose 1,067.5 ml @ 62.5 mls/ hr ONCE IV Last administered on 09/29/16 22:49; Start 09/29/16 at 20:00; Stop 09/30/16 at 11:59 ; Status DC Albumin Human (Albumin 25% Inj) 25 gm Q12H IV Last administered on 09/30/16 03 :15; Start 09/29/16 at 16:00; Stop 09/30/16 at 12:00; Status DC Furosemide (Lasix Inj) 40 mg BID@ IV PUSH ; Start 09/30/16 at 18:00; Stop 09/30/16 at 18:00; Status DC Oseltamivir Phosphate (Tamiflu) 30 mg DAILY PO Last administered on 10/05/16 09:36; Start 09/30/16 at 12:00 Ceftriaxone Sodium 1000 mg/ Sodium Chloride 100 ml @ 200 mls/hr Q24H IV ; Start 09/30/16 at 11:00; Stop 09/30/16 at 12:19; Status DC Clindamycin Phosphate 600 mg/ Sodium Chloride 104 ml @ 208 mls/hr Q8H IV Last administered on 10/04/16 14:29; Start 09/30/16 at 14:00; Stop 10/04/16 at 16:10 ; Status DC Furosemide (Lasix Inj) 20 mg BID@,18 IV PUSH ; Start 09/30/16 at 18:00; Stop 10/01/16 at 10:39; Status DC Bumetanide (Bumex Inj) 1 mg BID@, IV PUSH Last administered on 10/04/16 18 :27; Start 10/01/16 at 18:00 Bumetanide (Bumex Inj) 1 mg ONCE ONCE IV PUSH Last administered on 10/01/16 11:57; Start 10/01/16 at 10:45; Stop 10/01/16 at 10:50; Status DC Albumin Human (Albumin 25% Inj) 12.5 gm Q12H IV Last administered on 10/05/16 01:19; Start 10/02/16 at 14:00 Lidocaine HCl (Lidoderm 5% Patch.12 Hr) 1 patch ONCE ONCE T-DERMAL Last administered on 10/02/16 19:56; Start 10/02/16 at 19:30; Stop 10/02/16 at 19:31 ; Status DC Lidocaine HCl (Lidoderm 5% Patch.12 Hr) 1 patch Q24H T-DERMAL Last administered on 10/04/16 20:57; Start 10/03/16 at 20:00 Miscellaneous Information 1 Q24H T-DERMAL Last administered on 10/05/16 08:00 ; Start 10/04/16 at 08:00 A/P Assessment and Plan 1. Liver Failure Drug screen positive for marijuana and Cocaine. Zaki improvement from admission. hepatitis panel negative- GI following- follow the trend. 2. Anxiety disorder by history 3. CHF with EF 20-25%, with BNP 1164, on Lopressor and Bumex Doctor Clovis Pearson ear specialist following. continue Bumex,metoprolol and lisinopril. 4. GERD by history on gastric protection on home PPIs 5. Hypertension ; continue metoprolol and lisinopril. 6. PE by history not using Warfarin as per patient for the last 10 years. 7. Morbid Obesity strongly recommended diet and exercise as outpatient. 8. Thrombocytopenia - will monitor. 9. Altered Mental status and slurred speech asked for CT brain. - ammonia level -pending. 10. Equivocal troponin elevation - cardiology evaluation as noted above. 11. SHERLY on CPAP asked for RT for CPAP 12. Venous Stasis - 13- oral thrush- start nystatin swish and swallow. Discharge Planning dc home within the next 24-48 hrs if stable and ok with consultants. case management for [facility]. Zhen Melgoza MD Oct 05, 2016 10:52
[2016-10-05] MEDS: NYSTATIN SUSP 500,000 U/5 ML CUP SWISH-SWAL SCH ×4 (12:01→20:39)
--- NOTE | 2016-10-05 17:12 | HHI.GIFU ---
Subjective Remarks Resting in bed. No n/v. No abdominal pain. Tolerating diet. (Miriam De La Cruz) Objective Vitals I&O Vital Signs Date Time Temp Pulse Resp B/P (MAP) Pulse Ox O2 Delivery O2 Flow Rate FiO2 10/05/16 16:00 98.2 115 17 138/91 (107) 95 10/05/16 12:00 97.6 106 17 95/62 (73) 95 10/05/16 08:00 98.2 110 18 112/74 (87) 97 10/05/16 07:47 98 21 10/05/16 04:00 98.5 91 18 124/83 (97) 97 10/04/16 23:09 110 10/04/16 21:24 98 21 10/04/16 21:00 98.2 98 18 106/75 (85) 100 10/04/16 20:00 97.2 107 18 115/77 (90) 98 I/O 10/04/16 10/04/16 10/04/16 10/05/16 10/05/16 10/05/16 07:00 15:00 23:00 07:00 15:00 23:00 Intake Total 240 ml 104 ml 442 ml 271 ml Balance 240 ml 104 ml 442 ml 271 ml Intake Oral 240 ml 442 ml 221 ml IV Total 104 ml 50 ml # Voids 2 3 3 3 # Bowel Movements 1 Laboratory Laboratory Tests Test 10/05/16 10:19 Ammonia 41 Date/Time Source Procedure Growth Status 09/29/16 12:15 Blood Peripheral Aerobic Blood Culture - Final NO GROWTH IN 5 DAYS Complete 09/29/16 12:15 Blood Peripheral Anaerobic Blood Culture - Final QNS - SEE AEROBE REPORT Complete 09/29/16 08:45 Nasal Washing Influenza Types A,B Antigen (MUNDO) - Final Positive For Flu B Antigen Complete Imaging Last Impressions Chest X-Ray 09/29/16 0823 Signed Impressions: Service Date/Time: September 08:24 - CONCLUSION: 1. Increased aeration of the lungs with minimal residual pulmonary vascular congestion. 2. Marked cardiomegaly. Suraj Vaughan MD Liver Ultrasound 09/29/16 0000 Signed Impressions: Service Date/Time: September 16:56 - CONCLUSION: 1. Cholelithiasis with gallbladder wall thickening and no pericholecystic fluid. 2. No evidence of biliary obstruction. 3. The liver is enlarged with findings characteristic of fatty infiltration. Jose Antonio Miles MD Head CT 09/29/16 0000 Signed Impressions: Service Date/Time: , September 29, 2016 18:04 - CONCLUSION: Normal examination for a patient of this age. Madi Simmons MD Abdomen/Pelvis CT 09/29/16 0000 Signed Impressions: Service Date/Time: September 18:07 - CONCLUSION: 1. Mild anasarca and ascites. Splenomegaly. No focal liver lesions. 2. Multiple calcified gallstones without biliary ductal dilatation. 3. There is bladder diverticulum on the right extending into the proximal right inguinal canal. Fluid in left inguinal canal. No bowel obstruction or free air. Madi Simmons MD Physical Exam HEENT: Normocephalic; atraumatic; + jaundice. CHEST: Resp even/unlabored, course CARDIAC: Regular ABDOMEN: Soft, obese, nondistended, nontender; hepatomegaly; bowel sounds are present in all four quadrants. EXTREMITIES: BLE edema. SKIN: BLE slightly erythematous, + jaundice. COMPUTER SYSTEMS DESIGN ANALYST: Lethargic, oriented (Miriam De La Cruz) Assessment and Plan Plan ASSESSMENT: - Acute hepatitis, etiology unclear. Pt has a hx of CHF with low EF, but also admits to taking large amount of Tylenol on a regular basis. He is very somnolent and it is difficult to obtain a clear history from the patient. His coag's are elevated. He is very adamant that he has not been on coumadin since 2011. No ETOH use, but was (+) cocaine and cannabinoids. Acetaminophen < 2.0, ETOH <3. (+) FLU B. Of note, patient admitted to taking large amounts of Tylenol for tooth pain, but not for two days. confirmed this. Timed LFTs/INR/Ammonia was cancelled by lab and has not been drawn since admission. Called lab. Liver workup labs were ordered yesterday, but not drawn. Liver Ultrasound (09/29/16)-----> 1. Cholelithiasis with gallbladder wall thickening and no pericholecystic fluid. 2. No evidence of biliary obstruction. 3. The liver is enlarged with findings characteristic of fatty infiltration Differentials include medication induced , including possible tylenol toxicity, shocked liver, viral hepatitis, vs other. S/P Acetylcysteine IV per protocol. Hepatitis pending. NADINE negative. AMA neg. ASMA negative. Iron saturation 21.2%. Ferritin 305. AFP 3.0. Alpha 1 antitrypsin 235. Ceruloplasmin 40. LFTs are trending down. - Coagulopathy. Improving. - AMS. Improved. Was (+) Cocaine and MJ Resolved. - Fever, fatigue, malaise. FLU B Ag (+). BCx no growth 5 days - Cough. CXR (09/29/16)---> increased aeration of the lungs with minimal residual pulmonary vascular congestion, marked cardiomegaly. - CHF, cardiology following. - GERD. PPI - Hx PE pt states in 2011 and he has been off of coumadin since 2011 PLAN: - AAKASH - PPI - LFT in am - If lft continues to improve, okay to d/c home from GI standpoint in am - Pt seen and examined by Dr. Still and myself and this note is written on his behalf (Miriam De La Cruz) Physician Comments Seen and plan as above, stable at the current time, please notify us if needed. (Alexis Still MD) Miriam De La Cruz Oct 05, 2016 17:12 Alexis Still MD Oct 05, 2016 22:25
--- NOTE | 2016-10-05 17:54 | PD.CARD.PN ---
Subjective Subjective Remarks No events overnight No chest pain/SOB Up and ambulating Objective Medications Current Medications Medications (Trade) Dose Ordered Sig/Gideon Route Start Time Stop Time Status Last Admin (NS Flush) 2 ml UNSCH PRN IV FLUSH 09/29/16 11:00 (NS Flush) 2 ml BID IV FLUSH 09/29/16 21:00 10/05/16 09:00 (Zofran Inj) 4 mg Q6H PRN IVP 09/29/16 11:00 (Narcan Inj) 0.4 mg UNSCH PRN IV 09/29/16 11:00 (Mercy-Colace) 1 tab BID PO 09/29/16 21:00 10/03/16 10:01 (Milk Of Magnesia Liq) 30 ml Q12H PRN PO 09/29/16 11:00 (Senokot) 17.2 mg Q12H PRN PO 09/29/16 11:00 (Dulcolax Supp) 10 mg DAILY PRN RECTAL 09/29/16 11:00 (Lactulose Liq) 30 ml DAILY PRN PO 09/29/16 11:00 (Pulmicort Respule Neb) 0.5 mg Q12HR NEB NEB 09/29/16 12:30 10/05/16 07:46 (Mucinex Er) 600 mg BID PO 09/29/16 12:30 10/05/16 09:36 (CeleXA) 10 mg DAILY PO 09/30/16 09:00 10/05/16 09:37 (Ferrous Sulfate) 325 mg BID PO 09/29/16 21:00 10/05/16 09:36 (Prinivil) 5 mg DAILY PO 09/30/16 09:00 10/04/16 08:42 (Aldactone) 25 mg DAILY PO 09/30/16 09:00 10/04/16 08:40 (Protonix) 40 mg DAILY PO 09/30/16 09:00 10/05/16 10:01 (Lopressor) 12.5 mg Q12HR PO 09/29/16 13:00 10/05/16 09:39 (Pill Splitter) 1 ea UNSCH PRN OTHER 09/29/16 13:45 (Tamiflu) 30 mg DAILY PO 09/30/16 12:00 10/05/16 09:36 (Bumex Inj) 1 mg BID@09,18 IV PUSH 10/01/16 18:00 10/05/16 17:26 (Albumin 25% Inj) 12.5 gm Q12H IV 10/02/16 14:00 10/05/16 13:56 (Lidoderm 5% Patch.12 Hr) 1 patch Q24H T-DERMAL 10/03/16 20:00 10/04/16 20:57 Miscellaneous Information 1 Q24H T-DERMAL 10/04/16 08:00 10/05/16 08:00 (Mycostatin Liq) 5 ml QID SWISH-SWAL 10/05/16 10:45 10/05/16 17:25 Vital Signs / I&O Vital Signs Date Time Temp Pulse Resp B/P (MAP) Pulse Ox O2 Delivery O2 Flow Rate FiO2 10/05/16 16:00 98.2 115 17 138/91 (107) 95 10/05/16 12:00 97.6 106 17 95/62 (73) 95 10/05/16 08:00 98.2 110 18 112/74 (87) 97 10/05/16 07:47 98 21 10/05/16 04:00 98.5 91 18 124/83 (97) 97 10/04/16 23:09 110 10/04/16 21:24 98 21 10/04/16 21:00 98.2 98 18 106/75 (85) 100 10/04/16 20:00 97.2 107 18 115/77 (90) 98 I/O 10/04/16 10/04/16 10/04/16 10/05/16 10/05/16 10/05/16 07:00 15:00 23:00 07:00 15:00 23:00 Intake Total 240 ml 104 ml 442 ml 271 ml Balance 240 ml 104 ml 442 ml 271 ml Intake Oral 240 ml 442 ml 221 ml IV Total 104 ml 50 ml # Voids 2 3 3 3 4 # Bowel Movements 1 1 Physical Exam GENERAL: NAD, AAOx3 SKIN: Warm and dry. HEAD: Atraumatic. Normocephalic. EYES: Pupils equal and round. No scleral icterus. No injection or drainage. ENT: No nasal bleeding or discharge. Mucous membranes pink and moist. NECK: Trachea midline. No JVD. CARDIOVASCULAR: Regular rate and rhythm. RESPIRATORY: No accessory muscle use. Decreased breath sounds bilaterally GASTROINTESTINAL: Abdomen soft, non-tender, nondistended. Hepatic and splenic margins not palpable. MUSCULOSKELETAL: 1-2+ pitting edema NEUROLOGICAL: Awake and alert. No obvious cranial nerve deficits. Motor grossly within normal limits. Five out of 5 muscle strength in the arms and legs. Normal speech. PSYCHIATRIC: Appropriate mood and affect; insight and judgment normal. Laboratory Laboratory Tests Test 10/05/16 10:19 Ammonia 41 MCMOL/L Assessment and Plan Problem List: (1) Transaminitis ICD Codes: R74.0 - Nonspecific elevation of levels of transaminase and lactic acid dehydrogenase [LDH] Status: Acute (2) Flu ICD Codes: J11.1 - Influenza due to unidentified influenza virus with other respiratory manifestations Status: Acute (3) CHF (congestive heart failure) ICD Codes: I50.9 - Heart failure, unspecified Status: Acute (4) SOB (shortness of breath) ICD Codes: R06.02 - Shortness of breath Status: Acute (5) Low back pain radiating to both legs ICD Codes: M54.5 - Low back pain Status: Chronic (6) Morbid obesity with body mass index (BMI) of 40.0 or higher ICD Codes: E66.01 - Morbid (severe) obesity due to excess calories Status: Acute (7) Sinus tachycardia ICD Codes: R00.0 - Tachycardia, unspecified Status: Acute Assessment and Plan 1) Transaminitis/Hepatitis per GI 2) Chronic systolic heart failure Con't current medications Did not like Coreg, so switched to Lopressor Will plan to increase the dose Did not like Lasix, so switched to Bumex Doing better on Bumex 3) Previous MPI negative for ischemia 4) Tobacco/marijuana cessation Claims not have used cocaine, but felt his marijuana was laced with it... now admitting to smoking crack cocaine and marijuana mixed Also abuses energy drinks Overall he needs to be on BB therapy for his cardiomyopathy, if he continues to use crack cocaine then it should be switched back to Coreg due to alpha/beta blockade 5) CPAP for SHERLY 6) No further cardiovascular issues Problem Qualifiers (1) CHF (congestive heart failure): Clovis Pearson DO Oct 05, 2016 17:54
[2016-10-05] MEDS: LIDOCAINE HCL 5% PATCH T-DERMAL SCH (20:40)
[2016-10-06] VITALS: BP 108/70; PULSE 106; RESP 20; TEMP 97.3; O2SAT 97
[2016-10-06] MEDS: ALBUMIN HUMAN 25% 12.5 GM/50 ML BAGP IV SCH ×2 (02:50→13:33)
[2016-10-06 04:00] VITALS: BP 131/82; PULSE 107; RESP 20; TEMP 98.2; O2SAT 97
[2016-10-06 07:42] LABS: ALT (GPT) 266 U/L (12-78); ANION GAP 8 MEQ/L (5-15); AST (GOT) 45 U/L (15-37); BICARBONATE 30.5 MEQ/L (21.0-32.0); BLOOD UREA NITROGEN 20 MG/DL (7-18); CHLORIDE 97 MEQ/L (98-107); GLOMERULAR FILTRATION RATE 66 ML/MIN (>89); POTASSIUM 3.9 MEQ/L (3.5-5.1); SODIUM (NA) 135 MEQ/L (136-145)
[2016-10-06 07:44] LABS: ALKALINE PHOSPHATASE 141 U/L (45-117); TOTAL BILIRUBIN ADULT 3.6 MG/DL (0.2-1.0)
[2016-10-06 07:59] VITALS: O2SAT 97
[2016-10-06] MEDS: RESP: BUDESONIDE 0.5 MG/2 ML NEB NEB SCH (07:59)
[2016-10-06] MEDS: REMOVE OLD LIDOCAINE PATCH T-DERMAL SCH (08:00)
[2016-10-06] MEDS: SODIUM CHLORIDE 0.9% FLUSH 10 ML FLUSH IV FLUSH SCH (08:35)
[2016-10-06 08:36] VITALS: BP 140/79; PULSE 106; RESP 20; TEMP 97.8; O2SAT 97
[2016-10-06] MEDS: SPIRONOLACTONE 25 MG TAB PO SCH (08:36)
[2016-10-06] MEDS: BUMETANIDE INJ 1 MG/4 ML VIAL IV PUSH SCH ×2 (08:36→17:36)
[2016-10-06] MEDS: OSELTAMIVIR PHOSPHATE 30 MG CAP PO SCH (08:37)
[2016-10-06] MEDS: METOPROLOL TARTRATE 25 MG TAB PO SCH (08:38)
[2016-10-06] MEDS: LISINOPRIL 5 MG TAB PO SCH (08:38)
[2016-10-06] MEDS: guaiFENesin E.R. 600 MG TAB PO SCH (08:38)
[2016-10-06] MEDS: FERROUS SULFATE 325 MG (65 MG ELEMENTAL IRON) TAB PO SCH (08:38)
[2016-10-06] MEDS: NYSTATIN SUSP 500,000 U/5 ML CUP SWISH-SWAL SCH ×3 (08:38→17:35)
[2016-10-06] MEDS: PANTOPRAZOLE SOD 40 MG DELAYED RELEASE TAB PO SCH (08:38)
[2016-10-06] MEDS: DOCUSATE SODIUM 50 MG/SENNA 8.6 MG TAB PO SCH (08:40)
[2016-10-06] MEDS: CITALOPRAM HYDROBROMIDE 20 MG TAB PO SCH (08:42)
--- NOTE | 2016-10-06 10:40 | PD.CARD.PN ---
Subjective Subjective Remarks No events overnight Objective Medications Current Medications Medications (Trade) Dose Ordered Sig/Gideon Route Start Time Stop Time Status Last Admin (NS Flush) 2 ml UNSCH PRN IV FLUSH 09/29/16 11:00 (NS Flush) 2 ml BID IV FLUSH 09/29/16 21:00 10/06/16 08:35 (Zofran Inj) 4 mg Q6H PRN IVP 09/29/16 11:00 (Narcan Inj) 0.4 mg UNSCH PRN IV 09/29/16 11:00 (Mercy-Colace) 1 tab BID PO 09/29/16 21:00 10/03/16 10:01 (Milk Of Magnesia Liq) 30 ml Q12H PRN PO 09/29/16 11:00 (Senokot) 17.2 mg Q12H PRN PO 09/29/16 11:00 (Dulcolax Supp) 10 mg DAILY PRN RECTAL 09/29/16 11:00 (Lactulose Liq) 30 ml DAILY PRN PO 09/29/16 11:00 (Pulmicort Respule Neb) 0.5 mg Q12HR NEB NEB 09/29/16 12:30 10/06/16 07:59 (Mucinex Er) 600 mg BID PO 09/29/16 12:30 10/06/16 08:38 (CeleXA) 10 mg DAILY PO 09/30/16 09:00 10/06/16 08:42 (Ferrous Sulfate) 325 mg BID PO 09/29/16 21:00 10/06/16 08:38 (Prinivil) 5 mg DAILY PO 09/30/16 09:00 10/06/16 08:38 (Aldactone) 25 mg DAILY PO 09/30/16 09:00 10/06/16 08:36 (Protonix) 40 mg DAILY PO 09/30/16 09:00 10/06/16 08:38 (Pill Splitter) 1 ea UNSCH PRN OTHER 09/29/16 13:45 (Tamiflu) 30 mg DAILY PO 09/30/16 12:00 10/06/16 08:37 (Bumex Inj) 1 mg BID@,18 IV PUSH 10/01/16 18:00 10/06/16 08:36 (Albumin 25% Inj) 12.5 gm Q12H IV 10/02/16 14:00 10/06/16 02:50 (Lidoderm 5% Patch.12 Hr) 1 patch Q24H T-DERMAL 10/03/16 20:00 10/04/16 20:57 Miscellaneous Information 1 Q24H T-DERMAL 10/04/16 08:00 10/05/16 08:00 (Mycostatin Liq) 5 ml QID SWISH-SWAL 10/05/16 10:45 10/06/16 08:38 (Lopressor) 25 mg Q12HR PO 10/05/16 21:00 10/06/16 08:38 (Roxicodone) 5 mg Q6H PRN PO 10/05/16 20:00 10/06/16 08:51 Vital Signs / I&O Vital Signs Date Time Temp Pulse Resp B/P (MAP) Pulse Ox O2 Delivery O2 Flow Rate FiO2 10/06/16 09:51 20 10/06/16 08:36 97.8 106 20 140/79 (99) 97 10/06/16 07:59 97 10/06/16 04:00 98.2 107 20 131/82 (98) 97 10/06/16 00:00 97.3 106 20 108/70 (83) 97 10/05/16 20:00 98.1 111 17 117/76 (90) 97 10/05/16 18:28 109 10/05/16 16:00 98.2 115 17 138/91 (107) 95 10/05/16 12:00 97.6 106 17 95/62 (73) 95 I/O 10/05/16 10/05/16 10/05/16 10/06/16 10/06/16 10/06/16 07:00 15:00 23:00 07:00 15:00 23:00 Intake Total 442 ml 271 ml 280 ml Output Total 500 ml Balance 442 ml 271 ml -220 ml Intake Oral 442 ml 221 ml 280 ml IV Total 50 ml Output Urine Total 500 ml # Voids 3 4 # Bowel Movements 1 0 Physical Exam GENERAL: NAD, AAOx3 SKIN: Warm and dry. HEAD: Atraumatic. Normocephalic. EYES: Pupils equal and round. No scleral icterus. No injection or drainage. ENT: No nasal bleeding or discharge. Mucous membranes pink and moist. NECK: Trachea midline. No JVD. CARDIOVASCULAR: Regular rate and rhythm. RESPIRATORY: No accessory muscle use. Decreased breath sounds bilaterally GASTROINTESTINAL: Abdomen soft, non-tender, nondistended. Hepatic and splenic margins not palpable. MUSCULOSKELETAL: 1-2+ pitting edema NEUROLOGICAL: Awake and alert. No obvious cranial nerve deficits. Motor grossly within normal limits. Five out of 5 muscle strength in the arms and legs. Normal speech. PSYCHIATRIC: Appropriate mood and affect; insight and judgment normal. Laboratory Laboratory Tests Test 10/06/16 06:07 Blood Urea Nitrogen 20 MG/DL Creatinine 1.23 MG/DL Random Glucose 86 MG/DL Total Protein 7.1 GM/DL Albumin 3.3 GM/DL Calcium Level 8.4 MG/DL Alkaline Phosphatase 141 U/L Aspartate Amino Transf (AST/SGOT) 45 U/L Alanine Aminotransferase (ALT/SGPT) 266 U/L Total Bilirubin 3.6 MG/DL Sodium Level 135 MEQ/L Potassium Level 3.9 MEQ/L Chloride Level 97 MEQ/L Carbon Dioxide Level 30.5 MEQ/L Anion Gap 8 MEQ/L Estimat Glomerular Filtration Rate 66 ML/MIN Assessment and Plan Problem List: (1) Transaminitis ICD Codes: R74.0 - Nonspecific elevation of levels of transaminase and lactic acid dehydrogenase [LDH] Status: Acute (2) Flu ICD Codes: J11.1 - Influenza due to unidentified influenza virus with other respiratory manifestations Status: Acute (3) CHF (congestive heart failure) ICD Codes: I50.9 - Heart failure, unspecified Status: Acute (4) SOB (shortness of breath) ICD Codes: R06.02 - Shortness of breath Status: Acute (5) Low back pain radiating to both legs ICD Codes: M54.5 - Low back pain Status: Chronic (6) Morbid obesity with body mass index (BMI) of 40.0 or higher ICD Codes: E66.01 - Morbid (severe) obesity due to excess calories Status: Acute (7) Sinus tachycardia ICD Codes: R00.0 - Tachycardia, unspecified Status: Acute Assessment and Plan 1) Transaminitis/Hepatitis per GI 2) Chronic systolic heart failure Con't current medications Did not like Coreg, so switched to Lopressor Dose increased Did not like Lasix, so switched to Bumex Doing better on Bumex 3) Previous MPI negative for ischemia 4) Tobacco/marijuana cessation Claims not have used cocaine, but felt his marijuana was laced with it... now admitting to smoking crack cocaine and marijuana mixed Also abuses energy drinks Overall he needs to be on BB therapy for his cardiomyopathy, if he continues to use crack cocaine then it should be switched back to Coreg due to alpha/beta blockade 5) CPAP for SHERLY 6) No further cardiovascular issues Problem Qualifiers (1) CHF (congestive heart failure): Clovis Pearson DO Oct 06, 2016 10:40
[2016-10-06 12:32] VITALS: BP 118/73; PULSE 101; RESP 20; TEMP 97.6; O2SAT 96
--- NOTE | 2016-10-06 13:31 | HHI.PR ---
Subjective Remarks resting comfortably with no distress. overall looks more comfortable. no new complaints. Objective Vitals Vital Signs Date Time Temp Pulse Resp B/P (MAP) Pulse Ox O2 Delivery O2 Flow Rate FiO2 10/06/16 12:32 97.6 101 20 118/73 (88) 96 10/06/16 09:51 20 10/06/16 08:36 97.8 106 20 140/79 (99) 97 10/06/16 07:59 97 10/06/16 04:00 98.2 107 20 131/82 (98) 97 10/06/16 00:00 97.3 106 20 108/70 (83) 97 10/05/16 20:00 98.1 111 17 117/76 (90) 97 10/05/16 18:28 109 10/05/16 16:00 98.2 115 17 138/91 (107) 95 I/O 10/05/16 10/05/16 10/05/16 10/06/16 10/06/16 10/06/16 07:00 15:00 23:00 07:00 15:00 23:00 Intake Total 442 ml 271 ml 280 ml Output Total 500 ml Balance 442 ml 271 ml -220 ml Intake Oral 442 ml 221 ml 280 ml IV Total 50 ml Output Urine Total 500 ml # Voids 3 4 # Bowel Movements 1 0 Result Diagram: 10/03/16 0830 10/06/16 0607 Imaging Last Impressions Chest X-Ray 09/29/16 0823 Signed Impressions: Service Date/Time: September 08:24 - CONCLUSION: 1. Increased aeration of the lungs with minimal residual pulmonary vascular congestion. 2. Marked cardiomegaly. Suraj Vaughan MD Liver Ultrasound 09/29/16 0000 Signed Impressions: Service Date/Time: September 16:56 - CONCLUSION: 1. Cholelithiasis with gallbladder wall thickening and no pericholecystic fluid. 2. No evidence of biliary obstruction. 3. The liver is enlarged with findings characteristic of fatty infiltration. Jose Antonio Miles MD Head CT 09/29/16 0000 Signed Impressions: Service Date/Time: September 18:04 - CONCLUSION: Normal examination for a patient of this age. Madi Simmons MD Abdomen/Pelvis CT 09/29/16 0000 Signed Impressions: Service Date/Time: September 18:07 - CONCLUSION: 1. Mild anasarca and ascites. Splenomegaly. No focal liver lesions. 2. Multiple calcified gallstones without biliary ductal dilatation. 3. There is bladder diverticulum on the right extending into the proximal right inguinal canal. Fluid in left inguinal canal. No bowel obstruction or free air. Madi Simmons MD Objective Remarks GENERAL: This is a well-nourished, well-developed patient, in no apparent distress. CARDIOVASCULAR: Regular rate and regular rhythm without murmurs, gallops, or rubs. RESPIRATORY: Clear to auscultation. Breath sounds equal bilaterally. No wheezes , rales, or rhonchi. GASTROINTESTINAL: Abdomen soft, non-tender, nondistended. Normal, active bowel sounds MUSCULOSKELETAL: Extremities with bilateral pedal edema. NEURO: Alert & Oriented x4 to person, place, time, situation. Moves all ext x4 Procedures none Medications and IVs Current Medications Sodium Chloride 1,000 ml @ 42 mls/hr [id number] IV Last administered on 11:13; Start 09/29/16 at 10:54; Stop 09/29/16 at 12:54; Status DC Sodium Chloride (NS Flush) 2 ml UNSCH PRN IV FLUSH FLUSH AFTER USING IV ACCESS ; Start 09/29/16 at 11:00 Sodium Chloride (NS Flush) 2 ml BID IV FLUSH Last administered on 10/06/16 08: 35; Start 09/29/16 at 21:00 Ondansetron HCl (Zofran Inj) 4 mg Q6H PRN IVP NAUSEA OR VOMITING; Start at 11:00 Naloxone HCl (Narcan Inj) 0.4 mg UNSCH PRN IV SEE LABEL COMMENTS; Start at 11:00 Senna/Docusate Sodium (Mercy-Colace) 1 tab BID PO Last administered on 10:01; Start 09/29/16 at 21:00 Magnesium Hydroxide (Milk Of Magnesia Liq) 30 ml Q12H PRN PO MILD - MODERATE CONSTIPATION; Start 09/29/16 at 11:00 Sennosides (Senokot) 17.2 mg Q12H PRN PO MODERATE - SEVERE CONSTIPATION; Start 09/29/16 at 11:00 Bisacodyl (Dulcolax Supp) 10 mg DAILY PRN RECTAL SEVERE CONSITIPATION; Start at 11:00 Lactulose (Lactulose Liq) 30 ml DAILY PRN PO SEVERE CONSITIPATION; Start at 11:00 Albuterol/ Ipratropium (Duoneb Neb) 1 ampule Q4HR NEB NEB Last administered on 10/03/16 07:57; Start 09/29/16 at 16:00; Stop 10/03/16 at 16:00; Status DC Budesonide (Pulmicort Respule Neb) 0.5 mg Q12HR NEB NEB Last administered on 07:59; Start 09/29/16 at 12:30 Guaifenesin (Mucinex Er) 600 mg BID PO Last administered on 10/06/16 08:38; Start 09/29/16 at 12:30 Carvedilol (Coreg) 6.25 mg Q12HR PO ; Start 09/29/16 at 21:00; Stop 09/29/16 at 21:00; Status DC Citalopram Hydrobromide (CeleXA) 10 mg DAILY PO Last administered on 10/06/16 08:42; Start 09/30/16 at 09:00 Ferrous Sulfate (Ferrous Sulfate) 325 mg BID PO Last administered on 10/06/16 08:38; Start 09/29/16 at 21:00 Lisinopril (Prinivil) 5 mg DAILY PO Last administered on 10/06/16 08:38; Start 09/30/16 at 09:00 Spironolactone (Aldactone) 25 mg DAILY PO Last administered on 10/06/16 08:36 ; Start 09/30/16 at 09:00 Pantoprazole Sodium (Protonix) 40 mg DAILY PO Last administered on 10/06/16 08 :38; Start 09/30/16 at 09:00 Metoprolol Tartrate (Lopressor) 12.5 mg Q12HR PO Last administered on 09:39; Start 09/29/16 at 13:00; Stop 10/05/16 at 17:55; Status DC Miscellaneous (Pill Splitter) 1 ea UNSCH PRN OTHER SEE LABEL COMMENTS; Start at 13:45 Sodium Chloride (NS Flush) 2 ml UNSCH PRN IVF FLUSH AFTER USING IV ACCESS; Start 09/29/16 at 15:00; Stop 10/03/16 at 18:31; Status DC Acetylcysteine 11744 mg/Dextrose 301.25 ml @ 200 mls/ hr ONCE IV Last administered on 09/29/16 15:58; Start 09/29/16 at 15:00; Stop 09/29/16 at 15:59 ; Status DC Acetylcysteine 6750 mg/Dextrose 533.75 ml @ 125 mls/ hr ONCE IV Last administered on 09/29/16 18:21; Start 09/29/16 at 16:00; Stop 09/29/16 at 19:59 ; Status DC Acetylcysteine 67351 mg/Dextrose 1,067.5 ml @ 62.5 mls/ hr ONCE IV Last administered on 09/29/16 22:49; Start 09/29/16 at 20:00; Stop 09/30/16 at 11:59 ; Status DC Albumin Human (Albumin 25% Inj) 25 gm Q12H IV Last administered on 09/30/16 03 :15; Start 09/29/16 at 16:00; Stop 09/30/16 at 12:00; Status DC Furosemide (Lasix Inj) 40 mg BID@09,18 IV PUSH ; Start 09/30/16 at 18:00; Stop 09/30/16 at 18:00; Status DC Oseltamivir Phosphate (Tamiflu) 30 mg DAILY PO Last administered on 10/06/16 08:37; Start 09/30/16 at 12:00 Ceftriaxone Sodium 1000 mg/ Sodium Chloride 100 ml @ 200 mls/hr Q24H IV ; Start 09/30/16 at 11:00; Stop 09/30/16 at 12:19; Status DC Clindamycin Phosphate 600 mg/ Sodium Chloride 104 ml @ 208 mls/hr Q8H IV Last administered on 10/04/16 14:29; Start 09/30/16 at 14:00; Stop 10/04/16 at 16:10 ; Status DC Furosemide (Lasix Inj) 20 mg BID@09,18 IV PUSH ; Start 09/30/16 at 18:00; Stop 10/01/16 at 10:39; Status DC Bumetanide (Bumex Inj) 1 mg BID@09,18 IV PUSH Last administered on 10/06/16 08 :36; Start 10/01/16 at 18:00 Bumetanide (Bumex Inj) 1 mg ONCE ONCE IV PUSH Last administered on 10/01/16 11:57; Start 10/01/16 at 10:45; Stop 10/01/16 at 10:50; Status DC Albumin Human (Albumin 25% Inj) 12.5 gm Q12H IV Last administered on 10/06/16 02:50; Start 10/02/16 at 14:00 Lidocaine HCl (Lidoderm 5% Patch.12 Hr) 1 patch ONCE ONCE T-DERMAL Last administered on 10/02/16 19:56; Start 10/02/16 at 19:30; Stop 10/02/16 at 19:31 ; Status DC Lidocaine HCl (Lidoderm 5% Patch.12 Hr) 1 patch Q24H T-DERMAL Last administered on 10/04/16 20:57; Start 10/03/16 at 20:00 Miscellaneous Information 1 Q24H T-DERMAL Last administered on 10/05/16 08:00 ; Start 10/04/16 at 08:00 Nystatin (Mycostatin Liq) 5 ml QID SWISH-SWAL Last administered on 10/06/16 08:38; Start 10/05/16 at 10:45 Metoprolol Tartrate (Lopressor) 25 mg Q12HR PO Last administered on 10/06/16 08:38; Start 10/05/16 at 21:00 Oxycodone HCl (Roxicodone) 5 mg Q6H PRN PO PAIN SCALE 3 TO 10 Last administered on 10/06/16 08:51; Start 10/05/16 at 20:00 A/P Assessment and Plan 1. Liver Failure Drug screen positive for marijuana and Cocaine. Zaki improvement from admission. hepatitis panel negative- GI follow-up appreciated- f/u as outpatient. 2. Anxiety disorder by history 3. CHF with EF 20-25%, with BNP 1164, on Lopressor and Bumex Doctor Clovis Pearson certified coding specialist following. continue Bumex,metoprolol and lisinopril. 4. GERD by history on gastric protection on home PPIs 5. Hypertension ; continue metoprolol and lisinopril. 6. PE by history not using Warfarin as per patient for the last 10 years. 7. Morbid Obesity strongly recommended diet and exercise as outpatient. 8. Thrombocytopenia - will monitor. 9. Altered Mental status and slurred speech -all resolved.CT head normal. 10. Equivocal troponin elevation - cardiology evaluation as noted above. 11. SHERLY on CPAP asked for RT for CPAP- sleep study as outpatient and this was d/ w the patient. 12- oral thrush- start nystatin swish and swallow. Discharge Planning dc home today. see med list. f/u; pcp. d/w the patient and case management. time spent 35 min. Zhen Melgoza MD Oct 06, 2016 13:31
[2016-10-06] MEDS ORDERED: NYST1000 SWISH-SWAL (13:36)
[2016-10-06] MEDS ORDERED: OXYC-392 PO (13:36)
[2016-10-06] MEDS ORDERED: METO25TA3 PO (13:36)
[2016-10-06] MEDS ORDERED: LORA-392 PO (13:36)
[2016-10-06] MEDS ORDERED: BUME1TAB PO (13:36)
--- NOTE | 2016-10-06 13:37 | HHI.DS ---
Discharge Summary Admission Date Sep 29, 2016 at 10:50 Discharge Date: Oct 06, 2016 Admitting Diagnosis acute renal failure. Transaminitis. Acute exacerbation CHF. (1) Transaminitis ICD Code: R74.0 - Nonspecific elevation of levels of transaminase and lactic acid dehydrogenase [LDH] Diagnosis: Principal Status: Acute Procedures none Brief History - From Admission This is a pleasant 36 y/o male with cough and shortness of breath, generalized malaise and weakness, he has history of CHF, and PE not taking Warfarin for the last 10 years, as per patient having productive cough, for the last seven days, got worse for the last 3 days, decreased urine output for the past 3 days, has been confused, with mild aching headache, denied any visual changes, denied Neck pain , persistent cough, denied chest pain, no abdominal pain, no nausea, vomit or diarrhea, y chest pain. worsening lower extremity edema, has CHF with EF 20-25% . Seen in Emergency room and discussed at this time with Doctor Celestine White for me is more related to Hepatic Failure due to elevated INR in 3.4 he states he is been mixing Marijuana and Cocaine but denied any alcohol intake, as per ER specialist questioned about Tylenol and asked for Drug screen and Tylenol level , consult placed to GI specialist, will continue heart healthy diet and follow recommendations he is morbidly obese. he was seen on recent opportunities in ER. he states he has slurred speech and somnolence. CBC/BMP: 10/03/16 0830 10/06/16 0607 Significant Findings Laboratory Tests Test 10/03/16 16:16 10/04/16 09:15 10/05/16 10:19 10/06/16 06:07 Prothrombin Time 17.2 SEC (9.8-11.6) Blood Urea Nitrogen 28 MG/DL (7-18) 20 MG/DL (7-18) Albumin 3.0 GM/DL (3.4-5.0) 3.3 GM/DL (3.4-5.0) Alkaline Phosphatase 143 U/L (45-117) 141 U/L (45-117) Aspartate Amino Transf (AST/SGOT) 66 U/L (15-37) 45 U/L (15-37) Alanine Aminotransferase (ALT/SGPT) 400 U/L (12-78) 266 U/L (12-78) Total Bilirubin 4.2 MG/DL (0.2-1.0) 3.6 MG/DL (0.2-1.0) Sodium Level 134 MEQ/L (136-145) 135 MEQ/L (136-145) Chloride Level 97 MEQ/L (98-107) 97 MEQ/L (98-107) Estimat Glomerular Filtration Rate 70 ML/MIN (>89) 66 ML/MIN (>89) Ammonia 41 MCMOL/L (11-32) Calcium Level 8.4 MG/DL (8.5-10.1) Imaging Last Impressions Chest X-Ray 09/29/16 0823 Signed Impressions: Service Date/Time: September 08:24 - CONCLUSION: 1. Increased aeration of the lungs with minimal residual pulmonary vascular congestion. 2. Marked cardiomegaly. Suraj Vaughan MD Liver Ultrasound 09/29/16 0000 Signed Impressions: Service Date/Time: September 16:56 - CONCLUSION: 1. Cholelithiasis with gallbladder wall thickening and no pericholecystic fluid. 2. No evidence of biliary obstruction. 3. The liver is enlarged with findings characteristic of fatty infiltration. Jose Antonio Miles MD Head CT 09/29/16 0000 Signed Impressions: Service Date/Time: September 18:04 - CONCLUSION: Normal examination for a patient of this age. Madi Simmons MD Abdomen/Pelvis CT 09/29/16 0000 Signed Impressions: Service Date/Time: September 18:07 - CONCLUSION: 1. Mild anasarca and ascites. Splenomegaly. No focal liver lesions. 2. Multiple calcified gallstones without biliary ductal dilatation. 3. There is bladder diverticulum on the right extending into the proximal right inguinal canal. Fluid in left inguinal canal. No bowel obstruction or free air. Madi Simmons MD PE at Discharge GENERAL: This is a well-nourished, well-developed patient, in no apparent distress. CARDIOVASCULAR: Regular rate and regular rhythm without murmurs, gallops, or rubs. RESPIRATORY: Clear to auscultation. Breath sounds equal bilaterally. No wheezes , rales, or rhonchi. GASTROINTESTINAL: Abdomen soft, non-tender, nondistended. Normal, active bowel sounds MUSCULOSKELETAL: Extremities with bilateral pedal edema. NEURO: Alert & Oriented x4 to person, place, time, situation. Moves all ext x4 Hospital Course 1. Liver Failure Drug screen positive for marijuana and Cocaine. Zaki improvement from admission. hepatitis panel negative- GI follow-up appreciated- f/u as outpatient. 2. Anxiety disorder by history 3. CHF with EF 20-25%, with BNP 1164, on Lopressor and Bumex Doctor Clovis Pearson document design specialist following. continue Bumex,metoprolol and lisinopril. 4. GERD by history on gastric protection on home PPIs 5. Hypertension ; continue metoprolol and lisinopril. 6. PE by history not using Warfarin as per patient for the last 10 years. 7. Morbid Obesity strongly recommended diet and exercise as outpatient. 8. Thrombocytopenia - will monitor. 9. Altered Mental status and slurred speech -all resolved.CT head normal. 10. Equivocal troponin elevation - cardiology evaluation as noted above. 11. SHERLY on CPAP asked for RT for CPAP- sleep study as outpatient and this was d/ w the patient. 12- oral thrush- start nystatin swish and swallow. Pt Condition on Discharge: Fair Discharge Disposition: Discharge Home Discharge Time: > 30 minutes Discharge Instructions DIET: Follow Instructions for: Heart Healthy Diet, Low Sodium Diet Activities you can perform: Regular-No Restrictions Follow up Referrals: PCP Follow-up New Medications: Bumetanide (Bumetanide) 1 Mg Tab 1 MG PO DAILY, #30 TAB 0 Refills Metoprolol Tartrate (Metoprolol Tartrate) 25 Mg Tab 25 MG PO Q12HR for hypertension for 30 Days, TAB 0 Refills Nystatin Liq (Nystatin Liq) 100,000 unit/ml Susp 5 ML SWISH-SWAL QID for thrush for 5 Days, BOTTLE 0 Refills Oxycodone (Oxycodone) 5 Mg Tab 5 MG PO Q6H PRN for PAIN SCALE 3 TO 10, #15 TAB 0 Refills Continued Medications: Citalopram (Celexa) 10 Mg Tab 10 MG PO DAILY for Control Depression, #30 TAB 0 Refills Ferrous Sulfate (Ferosul) 325 Mg Tablet 325 MG PO BID, #60 TAB Lisinopril (Lisinopril) 5 Mg Tab 5 MG PO DAILY for Blood Pressure Management, #30 TAB 0 Refills Lorazepam (Ativan) 0.5 Mg Tab 0.5 MG PO Q6H PRN for Anxiety/Insomnia, #10 TAB 0 Refills (This prescription has been renewed) Omeprazole (Omeprazole) 40 Mg Cap 40 MG PO DAILY, #30 CAP 0 Refills Spironolactone (Aldactone) 25 Mg Tab 25 MG PO DAILY, #30 TAB Discontinued Medications: Carvedilol (Coreg) 6.25 Mg Tab 6.25 MG PO Q12HR, #60 TAB Furosemide (Lasix) 40 Mg Tab 40 MG PO BID, #60 TAB 0 Refills Hydrocodone-Acetaminophen (Lortab) 5-325 Mg Tab 1 TAB PO Q6H PRN for PAIN, #20 TAB 0 Refills Zhen Melgoza MD Oct 06, 2016 13:37
[2016-10-06 16:10] VITALS: BP 140/83; PULSE 104; RESP 20; TEMP 97.4; O2SAT 98
== END 2016-10-06 19:02 | disposition home or self-care (01) | DRG 442 ==
LOC: NEPE 07:34 → NEDA 10:50 → N05A 14:44
PROVIDERS: ADMIT Internal Medicine; ATTEND Internal Medicine
DX: K72.00 Acute and subacute hepatic failure without coma (principal); I50.22 Chronic systolic (congestive) heart failure; N17.9 Acute kidney failure, unspecified; B37.0 Candidal stomatitis; D69.6 Thrombocytopenia, unspecified; I11.0 Hypertensive heart disease with heart failure; I42.9 Cardiomyopathy, unspecified; Z68.43 Body mass index [BMI] 50.0-59.9, adult; L03.116 Cellulitis of left lower limb; L03.115 Cellulitis of right lower limb; E66.01 Morbid (severe) obesity due to excess calories; I10 Essential (primary) hypertension; F41.9 Anxiety disorder, unspecified; K21.9 Gastro-esophageal reflux disease without esophagitis; F17.210 Nicotine dependence, cigarettes, uncomplicated; Z86.711 Personal history of pulmonary embolism; Z79.01 Long term (current) use of anticoagulants; D64.9 Anemia, unspecified; F12.90 Cannabis use, unspecified, uncomplicated; J10.1 Influenza due to other identified influenza virus with other respiratory manifestations; G47.33 Obstructive sleep apnea (adult) (pediatric); G47.00 Insomnia, unspecified; F14.10 Cocaine abuse, uncomplicated; I87.8 Other specified disorders of veins
CPT/HCPCS: 70450; 71010; 74176; 76705; 76937; 80053; 80074; 80076; 80307; 81001; 82103; 82105; 82140; 82330; 82390; 82550; 82552; 82728; 83520; 83540; 83550; 83605; 83690; 83735; 83880; 84100; 84443; 84484; 85007; 85025; 85027; 85610; 85730; 86038; 86255; 86592; 86703; 87040; 87804; 93005; 94150; 94640; 94664; 99285; J0132; J7030; J7060; J7070; J7626; P9047

== ENCOUNTER 2016-10-15 20:05 | Emergency (ER) | payer MEDICAID ==
[~2016-10-15] VITALS: Ht 177.8 cm; Wt 150.0 kg
[~2016-10-15 20:05] MED LIST changes: +BUME1TAB PO; -CARV6.25 PO; -CLIN1CAP6 PO; -FURO1TAB60 PO; -HYDR-3533 PO; -MAGICADU2 SWISH-SPIT; +METO25TA3 PO; +NYST1000 SWISH-SWAL; +OXYC-392 PO
[2016-10-15 20:08] VITALS: BP 122/80; PULSE 137; RESP 20; TEMP 98.6; O2SAT 99
[2016-10-15 20:42] VITALS: RESP 24; O2SAT 98
[2016-10-15] MEDS ORDERED: HYDROmorphone HCL PF 1 MG/ML VIAL IVS ONE (20:45)
[2016-10-15] MEDS ORDERED: ONDANSETRON HCL 4 MG/2 ML VIAL IVP ONE (20:45)
[2016-10-15] MEDS ORDERED: SODIUM CHLORIDE 0.9% FLUSH 10 ML FLUSH IV FLUSH PRN (20:45)
[2016-10-15 21:02] LABS: AUTOMATED NEUTROPHIL # 6.5 TH/MM3 (1.8-7.7); BASOPHIL # 0.1 TH/MM3 (0-0.2); BASOPHIL % 1.2 % (0.0-2.0); EOSINOPHIL # 0.1 TH/MM3 (0-0.4); EOSINOPHIL % 1.5 % (0.0-4.0); HEMATOCRIT 38.9 % (39.0-51.0); HEMO FLAGS DIFF FINAL; LYMPH % 23.1 % (9.0-44.0); LYMPHOCYTE # 2.2 TH/MM3 (1.0-4.8); MEAN CELL VOLUME 83.4 FL (80.0-100.0); MEAN CORPUSCULAR HEMOGLOBIN 26.6 PG (27.0-34.0); MEAN CORPUSCULAR HGB CONC 31.9 % (32.0-36.0); MONO % 6.3 % (0.0-8.0); NEUT % 67.9 % (16.0-70.0); PLATELET COUNT 133 TH/MM3 (150-450); RED BLOOD COUNT 4.66 MIL/MM3 (4.50-5.90); RED CELL DISTRIBUTION WIDTH 24.3 % (11.6-17.2); WHITE BLOOD COUNT 9.6 TH/MM3 (4.0-11.0)
[2016-10-15 21:05] LABS: APTT (PATIENT) 28.4 SEC (24.3-30.1); INTERNATIONAL NORMALIZED RATIO 1.5 RATIO; PROTHROMBIN TIME - PATIENT 16.6 SEC (9.8-11.6)
--- NOTE | 2016-10-15 21:08 | PD ---
HPI Chief Complaint: Abdominal Pain Time Seen by Provider: 20:19 Travel History International Travel<30 days: No Contact w/Intl Traveler<30days: No Traveled to known affect area: No History of Present Illness HPI The patient's 36 years old. He has multiple medical problems including CHF with an EF of 20-25%. He arrives to the ER due to abdominal pain which she states is severe. Location is generalized abdomen but primarily epigastrium. He was recently admitted for acute renal failure transaminitis and acute exacerbation of CHF. At that time his drug screen is also positive for marijuana and cocaine. He was discharged home 7 days later with Bumex and reports compliance with it every day. He reports running out of pain medication about 3 days ago and has been in constant pain since. He's had no fever. He's had no chest pain. No vomiting. PFSH Past Medical History Anemia: Yes Anxiety: Yes Depression: No Heart Rhythm Problems: Yes Cancer: No Cardiomyopathy: Yes Cardiovascular Problems: Yes High Cholesterol: Yes Chest Pain: Yes Congestive Heart Failure: Yes Diminished Hearing: No Endocrine: No GERD: Yes Genitourinary: No Hiatal Hernia: Yes Hypertension: Yes Immune Disorder: No Implanted Vascular Access Dvce: No Musculoskeletal: Yes Neurologic: Yes (ON 09/26 PT STATES LEFT SIDE OF FACE BECAME NUMB AND SPEECH BECAME SLOW. ) Psychiatric: Yes Reproductive: No Respiratory: Yes (PE) Immunizations Current: Yes Tetanus Vaccination: < 5 Years Influenza Vaccination: Yes Past Surgical History Abdominal Surgery: Yes (APPENDECTOMY 2015) Appendectomy: Yes (NOVEMBER 2015) Other Surgery: Yes (apendectomy november 2015) Social History Alcohol Use: No Tobacco Use: No (1 ppd) Substance Use: No Allergies-Medications (Allergen,Severity, Reaction): Coded Allergies: ketorolac (Verified Allergy, Severe, GENERALIZED HIVES/RASH WHICH LAST FOR ABOUT A WEEK, 10/15/16) penicillin G (Verified Allergy, Severe, Anaphylaxis, 10/15/16) tramadol (Verified Allergy, Severe, GENERALIZED HIVES WHICH LAST FOR ABOUT A WEEK, 10/15/16) acetaminophen (Verified Allergy, Unknown, 10/15/16) liver failure Reported Meds & Prescriptions Reported Meds & Active Scripts Active Oxycodone (Oxycodone HCl) 5 Mg Tab 5 Mg PO Q6H PRN Bumetanide 1 Mg Tab 1 Mg PO DAILY Metoprolol Tartrate 25 Mg Tab 25 Mg PO Q12HR 30 Days Nystatin Liq 100,000 unit/ml Susp 5 Ml SWISH-SWAL QID 5 Days Ativan (Lorazepam) 0.5 Mg Tab 0.5 Mg PO Q6H PRN Aldactone (Spironolactone) 25 Mg Tab 25 Mg PO DAILY Ferosul (Ferrous Sulfate) 325 Mg Tablet 325 Mg PO BID Reported Omeprazole 40 Mg Cap 40 Mg PO DAILY Celexa (Citalopram Hydrobromide) 10 Mg Tab 10 Mg PO DAILY Lisinopril 5 Mg Tab 5 Mg PO DAILY Review of Systems Except as stated in HPI: all other systems reviewed are Neg General / Constitutional: No: Fever Physical Exam Narrative GENERAL: 36-year-old male well-nourished well-developed pleasant SKIN: Warm and dry. HEAD: Atraumatic. Normocephalic. EYES: Pupils equal and round. No scleral icterus. No injection or drainage. ENT: No nasal bleeding or discharge. Mucous membranes pink and moist. NECK: Trachea midline. No JVD. CARDIOVASCULAR: Regular rate and rhythm. RESPIRATORY: No accessory muscle use. Clear to auscultation. Breath sounds equal bilaterally. GASTROINTESTINAL: Abdomen soft, non-tender, nondistended. Hepatic and splenic margins not palpable. MUSCULOSKELETAL: Extremities without clubbing, cyanosis, or edema. No obvious deformities. NEUROLOGICAL: Awake and alert. No obvious cranial nerve deficits. Motor grossly within normal limits. Five out of 5 muscle strength in the arms and legs. Normal speech. PSYCHIATRIC: Appropriate mood and affect; insight and judgment normal. Data Data Last Documented VS Vital Signs Date Time Temp Pulse Resp B/P (MAP) Pulse Ox O2 Delivery O2 Flow Rate FiO2 10/15/16 21:16 131 17 148/85 (106) 98 Nasal Cannula 2.00 10/15/16 20:08 98.6 Vital signs reviewed Orders Orders Complete Blood Count With Diff (10/15/16 20:31) Comprehensive Metabolic Panel (10/15/16 20:31) Lipase (10/15/16 20:31) Prothrombin Time / Inr (Pt) (10/15/16 20:31) Act Partial Throm Time (Ptt) (10/15/16 20:31) Urinalysis - C+S If Indicated (10/15/16 20:31) Iv Access Insert/Monitor (10/15/16 20:31) Ecg Monitoring (10/15/16 20:31) Oximetry (10/15/16 20:31) Ondansetron Inj (Zofran Inj) (10/15/16 20:45) Sodium Chloride 0.9% Flush (Ns Flush) (10/15/16 20:45) Hydromorphone Pf Inj (Dilaudid Pf Inj) (10/15/16 20:45) Furosemide Inj (Lasix Inj) (10/15/16 22:15) Hydromorphone Pf Inj (Dilaudid Pf Inj) (10/15/16 22:30) Labs Laboratory Tests Test 10/15/16 20:35 White Blood Count 9.6 TH/MM3 Red Blood Count 4.66 MIL/MM3 Hemoglobin 12.4 GM/DL Hematocrit 38.9 % Mean Corpuscular Volume 83.4 FL Mean Corpuscular Hemoglobin 26.6 PG Mean Corpuscular Hemoglobin Concent 31.9 % Red Cell Distribution Width 24.3 % Platelet Count 133 TH/MM3 Mean Platelet Volume 8.3 FL Neutrophils (%) (Auto) 67.9 % Lymphocytes (%) (Auto) 23.1 % Monocytes (%) (Auto) 6.3 % Eosinophils (%) (Auto) 1.5 % Basophils (%) (Auto) 1.2 % Neutrophils # (Auto) 6.5 TH/MM3 Lymphocytes # (Auto) 2.2 TH/MM3 Monocytes # (Auto) 0.6 TH/MM3 Eosinophils # (Auto) 0.1 TH/MM3 Basophils # (Auto) 0.1 TH/MM3 CBC Comment DIFF FINAL Differential Comment Prothrombin Time 16.6 SEC Prothromb Time International Ratio 1.5 RATIO Activated Partial Thromboplast Time 28.4 SEC Blood Urea Nitrogen 10 MG/DL Creatinine 1.38 MG/DL Random Glucose 97 MG/DL Total Protein 7.6 GM/DL Albumin 3.1 GM/DL Calcium Level 8.4 MG/DL Alkaline Phosphatase 121 U/L Aspartate Amino Transf (AST/SGOT) 46 U/L Alanine Aminotransferase (ALT/SGPT) 55 U/L Total Bilirubin 3.3 MG/DL Sodium Level 133 MEQ/L Potassium Level 4.1 MEQ/L Chloride Level 98 MEQ/L Carbon Dioxide Level 25.1 MEQ/L Anion Gap 10 MEQ/L Estimat Glomerular Filtration Rate 58 ML/MIN Lipase 104 U/L [facility] Medical Decision Making Medical Screen Exam Complete: Yes Emergency Medical Condition: Yes Medical Record Reviewed: Yes Differential Diagnosis Constipation, Gastritis, Acute Cholecystitis, Biliary Colic, Pancreatitis, REIS , Hepatitis, Bowel Obstruction, Cystitis, Mesenteric Ischemia, AAA, Appendicitis , Renal Stone/Hydronephrosis, GERD, perforated viscous Narrative Course CBC & BMP Diagram 10/15/16 20:35 Total Protein 7.6, Albumin 3.1 L, Calcium Level 8.4 L, Alkaline Phosphatase 121 H, Aspartate Amino Transf (AST/SGOT) 46 H, Alanine Aminotransferase (ALT/SGPT) 55, Total Bilirubin 3.3 H At time of reassessment patient's symptoms have resolved, after pain medication , and it seems as though the main issue today is pain control. He is also very worried about scrotal edema and on exam there is no balanitis, evidence of Pradeep's gangrene, cellulitis or acute scrotal/testicular disease otherwise. At this point admission is considered to be of minimal benefit this patient. We 'll send him home with a short course of oxycodone. He'll follow with his primary care provider. We'll also provide her 40 mg of IV Lasix here. Return precautions discussed. Diagnosis Primary Impression: Abdominal pain Qualified Codes: R10.9 - Unspecified abdominal pain Additional Impression: Scrotal edema Referrals: [facility] call for appointment Additional Instructions: You have a choice when it comes to health care, and we are glad that you chose [facility]. Hopefully, we have met your expectations on today's visit. You are welcome to return to [facility] at any time, as we are committed to meeting the health care needs of our community. Med/Other Pt SpecificInfo: Prescription(s) given Scripts Oxycodone (Oxycodone) 5 Mg Tab 5 MG PO Q6H Y for PAIN SCALE 3 TO 10, #15 TAB 0 Refills Prov: Maycol Pearson MD 10/15/16 Disposition: 01 DISCHARGE HOME Condition: Stable Maycol Pearson MD Oct 15, 2016 21:08
[2016-10-15 21:16] VITALS: BP 148/85; PULSE 131; RESP 17; O2SAT 98
[2016-10-15 21:16] LABS: ALT (GPT) 55 U/L (12-78); ANION GAP 10 MEQ/L (5-15); AST (GOT) 46 U/L (15-37); BICARBONATE 25.1 MEQ/L (21.0-32.0); BLOOD UREA NITROGEN 10 MG/DL (7-18); CHLORIDE 98 MEQ/L (98-107); GLOMERULAR FILTRATION RATE 58 ML/MIN (>89); POTASSIUM 4.1 MEQ/L (3.5-5.1); SODIUM (NA) 133 MEQ/L (136-145)
[2016-10-15 21:19] LABS: ALKALINE PHOSPHATASE 121 U/L (45-117); TOTAL BILIRUBIN ADULT 3.3 MG/DL (0.2-1.0)
[2016-10-15] MEDS ORDERED: OXYC-392 PO (22:08)
[2016-10-15] MEDS ORDERED: FUROSEMIDE 40 MG/4 ML VIAL IV PUSH ONE (22:15)
[2016-10-15 22:24] VITALS: BP 154/79; PULSE 127; RESP 17; O2SAT 98
[2016-10-15] MEDS ORDERED: HYDROmorphone HCL PF 1 MG/ML VIAL IV PUSH ONE (22:30)
--- NOTE | 2016-10-16 09:13 | EKG ---
Date Performed: 10/15/2016 Time Performed: 20:25:56 PTAGE: 36 years EKG: SINUS TACHYCARDIA LOW QRS VOLTAGE IN PRECORDIAL LEADS NONSPECIFIC T-WAVE ABNORMALITY ABNORM AL RHYTHM ECG WARNING: DATA QUALITY MAY AFFECT INTERPRETATION PREVIOUS TRACING : 09/29/2016 08.11 DOCTOR: Gulshan Monreal Interpretating Date/Time 10/16/2016 09:11:32
== END 2016-10-15 22:39 | disposition home or self-care (01) ==
LOC: NEPE 20:05
DX: R10.9 Unspecified abdominal pain (principal); N50.89 Other specified disorders of the male genital organs; I50.9 Heart failure, unspecified
CPT/HCPCS: 80053; 83690; 85025; 85610; 85730; 93005; 96374; 96375; 99284; J1170; J1940; J2405

== ENCOUNTER 2016-10-21 09:19 | Emergency (ER) | payer MEDICAID ==
[~2016-10-21] VITALS: Ht 177.8 cm; Wt 110.0 kg
[2016-10-21 09:22] VITALS: BP 120/85; PULSE 125; RESP 22; TEMP 97.9; O2SAT 98
[2016-10-21] MEDS ORDERED: FUROSEMIDE 100 MG/10 ML VIAL IV PUSH ONE (11:00)
--- NOTE | 2016-10-21 11:06 | PD ---
HPI Chief Complaint: Edema Time Seen by Provider: 10:21 Travel History International Travel<30 days: No Contact w/Intl Traveler<30days: No Traveled to known affect area: No History of Present Illness HPI This patient complains of diffuse body swelling. This is a chronic problem she' s had for a long time. He was hospitalized for last month and had extensive evaluations. His history of CHF and liver disease. Also has mild chronic renal insufficiency. He says his last cocaine use was 2 weeks ago. He denies ever being an alcoholic. Symptoms severity is moderate. No alleviating factors. Denies fever or chest pain or shortness of breath. He is on Bumex 1 mg daily. PFSH Past Medical History Anemia: Yes Anxiety: Yes Depression: No Heart Rhythm Problems: Yes Cancer: No Cardiomyopathy: Yes Cardiovascular Problems: Yes High Cholesterol: Yes Chest Pain: Yes Congestive Heart Failure: Yes Diminished Hearing: No Endocrine: No GERD: Yes Genitourinary: No Hiatal Hernia: Yes Hypertension: Yes Immune Disorder: No Inguinal Hernia: Yes Implanted Vascular Access Dvce: No Musculoskeletal: Yes Neurologic: Yes (ON 09/26 PT STATES LEFT SIDE OF FACE BECAME NUMB AND SPEECH BECAME SLOW. ) Psychiatric: Yes Reproductive: No Respiratory: Yes (PE) Immunizations Current: Yes Tetanus Vaccination: < 5 Years Influenza Vaccination: Yes Past Surgical History Abdominal Surgery: Yes (APPENDECTOMY 2015) Appendectomy: Yes (NOVEMBER 2015) Other Surgery: Yes (apendectomy november 2015) Social History Alcohol Use: No Tobacco Use: No (QUIT 3 WEEKS AGO ) Substance Use: Yes (COCCAINE/MARIJUANA - LAST USE 6 MOS AGO ) Allergies-Medications (Allergen,Severity, Reaction): Coded Allergies: ketorolac (Verified Allergy, Severe, GENERALIZED HIVES/RASH WHICH LAST FOR ABOUT A WEEK, 10/21/16) penicillin G (Verified Allergy, Severe, Anaphylaxis, 10/21/16) tramadol (Verified Allergy, Severe, GENERALIZED HIVES WHICH LAST FOR ABOUT A WEEK, 10/21/16) acetaminophen (Verified Allergy, Unknown, 10/21/16) liver failure Reported Meds & Prescriptions Reported Meds & Active Scripts Active Oxycodone (Oxycodone HCl) 5 Mg Tab 5 Mg PO Q6H PRN Bumetanide 1 Mg Tab 1 Mg PO DAILY Metoprolol Tartrate 25 Mg Tab 25 Mg PO Q12HR 30 Days Ativan (Lorazepam) 0.5 Mg Tab 0.5 Mg PO Q6H PRN Ferosul (Ferrous Sulfate) 325 Mg Tablet 325 Mg PO BID Reported Omeprazole 40 Mg Cap 40 Mg PO DAILY Celexa (Citalopram Hydrobromide) 10 Mg Tab 10 Mg PO DAILY Lisinopril 5 Mg Tab 5 Mg PO DAILY Review of Systems General / Constitutional: No: Fever Eyes: No: Visual changes HENT: No: Headaches Cardiovascular: Positive: Edema, No: Chest Pain or Discomfort Respiratory: No: Shortness of Breath Gastrointestinal: No: Abdominal Pain Genitourinary: No: Dysuria Musculoskeletal: Positive: Myalgias, Edema, Pain Skin: No Rash Neurologic: No: Weakness Psychiatric: No: Depression Endocrine: No: Polydipsia Hematologic/Lymphatic: No: Easy Bruising Physical Exam Narrative GENERAL: Well-nourished, well-developed patient in no apparent distress. SKIN: Focused skin assessment reveals no rash and nodules. Skin is Warm and dry. HEAD: Atraumatic. Normocephalic. EYES: Pupils equal and round. No scleral icterus. No injection or drainage. ENT: No nasal bleeding or discharge. Mucous membranes pink and moist. NECK: Trachea midline. No JVD. CARDIOVASCULAR: Regular rate and rhythm. No murmur appreciated. RESPIRATORY: No accessory muscle use. Clear to auscultation. Breath sounds equal bilaterally. GASTROINTESTINAL: Abdomen soft, non-tender, nondistended. Hepatic and splenic margins not palpable. MUSCULOSKELETAL: No obvious deformities. No clubbing. No cyanosis. Pitting edema in the feet ankles and legs. He's got enlarged swollen scrotum. No sign of infection there. NEUROLOGICAL: Awake and alert. No obvious cranial nerve deficits. Motor grossly within normal limits. Normal speech. PSYCHIATRIC: Appropriate mood and affect; insight and judgment normal. Data Data Last Documented VS Vital Signs Date Time Temp Pulse Resp B/P (MAP) Pulse Ox O2 Delivery O2 Flow Rate FiO2 10/21/16 11:23 117 24 109/74 (86) 98 Room Air 10/21/16 09:22 97.9 Orders Orders Iv Access Insert/Monitor (10/21/16 10:49) Complete Blood Count With Diff (10/21/16 10:49) Comprehensive Metabolic Panel (10/21/16 10:49) Furosemide Inj (Lasix Inj) (10/21/16 11:00) Oxycodone (Roxicodone) (10/21/16 11:00) Potassium Chloride (Kcl) (10/22/16 09:00) Potassium Chloride (Kcl) (10/21/16 13:15) Labs Laboratory Tests Test 10/21/16 11:00 White Blood Count 5.7 TH/MM3 Red Blood Count 4.30 MIL/MM3 Hemoglobin 11.6 GM/DL Hematocrit 36.1 % Mean Corpuscular Volume 83.9 FL Mean Corpuscular Hemoglobin 26.9 PG Mean Corpuscular Hemoglobin Concent 32.0 % Red Cell Distribution Width 24.5 % Platelet Count 121 TH/MM3 Mean Platelet Volume 8.0 FL Neutrophils (%) (Auto) 58.3 % Lymphocytes (%) (Auto) 27.9 % Monocytes (%) (Auto) 8.4 % Eosinophils (%) (Auto) 3.9 % Basophils (%) (Auto) 1.5 % Neutrophils # (Auto) 3.3 TH/MM3 Lymphocytes # (Auto) 1.6 TH/MM3 Monocytes # (Auto) 0.5 TH/MM3 Eosinophils # (Auto) 0.2 TH/MM3 Basophils # (Auto) 0.1 TH/MM3 CBC Comment AUTO DIFF Differential Comment AUTO DIFF CONFIRMED Platelet Estimate LOW Platelet Morphology Comment ENLARGED Blood Urea Nitrogen 12 MG/DL Creatinine 1.44 MG/DL Random Glucose 89 MG/DL Total Protein 6.8 GM/DL Albumin 2.9 GM/DL Calcium Level 8.2 MG/DL Alkaline Phosphatase 106 U/L Aspartate Amino Transf (AST/SGOT) 22 U/L Alanine Aminotransferase (ALT/SGPT) 25 U/L Total Bilirubin 2.6 MG/DL Sodium Level 131 MEQ/L Potassium Level 3.2 MEQ/L Chloride Level 95 MEQ/L Carbon Dioxide Level 27.5 MEQ/L Anion Gap 9 MEQ/L Estimat Glomerular Filtration Rate 55 ML/MIN MDM Medical Decision Making Medical Screen Exam Complete: Yes Emergency Medical Condition: Yes Medical Record Reviewed: Yes Differential Diagnosis Anasarca, liver failure, CHF, renal failure Narrative Course I have reviewed the patient's electronic medical record. Reviewed his admission workup from September 2016 as well as his ER visit from 5 days ago. IV placed CBC shows some minor abnormalities Metabolic profile shows some mild hyponatremia and hypokalemia and mild renal insufficiency LFTs are normal I gave him 2 pain pills I gave him 80 mg IV Lasix Patient has anasarca which is a chronic problem. He is not an acute CHF in terms of no clinical suspicion of pulmonary edema This is a long-term project for this patient. He should follow closely with primary care. I recommended 1000 mL per 24-hour fluid restriction and addition to his Bumex therapy which I think he should take 1 mg in the morning and 1 mg in the late afternoon. We discussed admission but I don't feel that he would benefit much from hospitalization at this time. He already had extensive workup in the hospital last month. Diagnosis Primary Impression: Anasarca Additional Impressions: Renal insufficiency Hyponatremia Hypokalemia Additional Instructions: The patient was advised to follow up with their physician and return if they worsen. The patient was warned about potential sedation for the medications they will receive on prescription. Utilize 1000 mL per 24-hour fluid restriction Med/Other Pt SpecificInfo: Prescription(s) given Scripts Oxycodone (Oxycodone) 5 Mg Tab 5 MG PO Q6H Y for PAIN, #10 TAB 0 Refills Prov: Gary Alvarez MD 10/21/16 Disposition: DISCHARGE HOME Condition: Stable Gary Alvarez MD Oct 21, 2016 11:06
[2016-10-21 11:16] LABS: AUTOMATED NEUTROPHIL # 3.3 TH/MM3 (1.8-7.7); BASOPHIL # 0.1 TH/MM3 (0-0.2); BASOPHIL % 1.5 % (0.0-2.0); EOSINOPHIL # 0.2 TH/MM3 (0-0.4); EOSINOPHIL % 3.9 % (0.0-4.0); HEMATOCRIT 36.1 % (39.0-51.0); LYMPH % 27.9 % (9.0-44.0); LYMPHOCYTE # 1.6 TH/MM3 (1.0-4.8); MEAN CELL VOLUME 83.9 FL (80.0-100.0); MEAN CORPUSCULAR HEMOGLOBIN 26.9 PG (27.0-34.0); MONO % 8.4 % (0.0-8.0); NEUT % 58.3 % (16.0-70.0); PLATELET COUNT 121 TH/MM3 (150-450); RED CELL DISTRIBUTION WIDTH 24.5 % (11.6-17.2); WHITE BLOOD COUNT 5.7 TH/MM3 (4.0-11.0)
[2016-10-21 11:18] VITALS: BP 91/51; PULSE 118; RESP 21; O2SAT 98
[2016-10-21 11:23] VITALS: BP 109/74; PULSE 117; RESP 24; O2SAT 98
[2016-10-21 11:23] LABS: HEMO FLAGS AUTO DIFF
[2016-10-21 11:31] LABS: ANION GAP 9 MEQ/L (5-15); AST (GOT) 22 U/L (15-37); BICARBONATE 27.5 MEQ/L (21.0-32.0); BLOOD UREA NITROGEN 12 MG/DL (7-18); CHLORIDE 95 MEQ/L (98-107); GLOMERULAR FILTRATION RATE 55 ML/MIN (>89); POTASSIUM 3.2 MEQ/L (3.5-5.1); SODIUM (NA) 131 MEQ/L (136-145)
[2016-10-21 11:33] LABS: ALT (GPT) 25 U/L (12-78)
[2016-10-21 11:35] LABS: ALKALINE PHOSPHATASE 106 U/L (45-117); TOTAL BILIRUBIN ADULT 2.6 MG/DL (0.2-1.0)
[2016-10-21 12:33] LABS: PLATELET ESTIMATE SMEAR LOW (NORMAL); PLATELET MORPHOLOGY ENLARGED (NORMAL); SCAN/DIFF AUTO DIFF CONFIRMED
[2016-10-21] MEDS ORDERED: OXYC-392 PO (13:13)
[2016-10-21] MEDS ORDERED: POTASSIUM CHLORIDE 20 MEQ CONTROLLED RELEASE TAB PO ONE (13:15)
[2016-10-22] MEDS ORDERED: POTASSIUM CHLORIDE 20 MEQ CONTROLLED RELEASE TAB PO SCH (09:00)
== END 2016-10-21 13:57 | disposition home or self-care (01) ==
LOC: NEPD 09:19
DX: R60.1 Generalized edema (principal); I13.0 Hypertensive heart and chronic kidney disease with heart failure and stage 1 through stage 4 chronic kidney disease, or unspecified chronic kidney disease; N18.9 Chronic kidney disease, unspecified; I50.9 Heart failure, unspecified; E87.1 Hypo-osmolality and hyponatremia; E87.6 Hypokalemia; Z87.891 Personal history of nicotine dependence
CPT/HCPCS: 80053; 85025; 96374; 99284; J1940

== ENCOUNTER 2016-11-17 11:45 | Inpatient (IN) | payer MEDICAID ==
[~2016-11-17] VITALS: Ht 177.8 cm; Wt 144.2 kg
[~2016-11-17 11:45] MED LIST changes: -NYST1000 SWISH-SWAL; -SPIR25 PO
[2016-11-17 11:47] VITALS: BP 127/81; PULSE 134; RESP 28; TEMP 97.5; O2SAT 99
--- NOTE | 2016-11-17 12:40 | PD ---
HPI Chief Complaint: Abdominal Pain Time Seen by Provider: 12:20 Travel History International Travel<30 days: No Contact w/Intl Traveler<30days: No Traveled to known affect area: No History of Present Illness HPI 36-year-old male came to the emergency room brought by EMS for shortness of breath. Patient has generalized anasarca. His is here who is also giving the history and says he was discharged from [facility] about a week ago. He stayed there for 13 days at that time and was diagnosed with fibrosis of his liver. This was based on a liver biopsy. Patient has history of congestive heart failure. He has been in this institution multiple times in the past 6 months. Prior to that he had moved from [place]. Patient is complaining of generalized body pain including abdominal pain. says that since yesterday his urine color looks very dark and he's been having diarrhea. Patient was tachycardic upon arrival. Patient himself is not the best historian. [facility] Past Medical History Narrative Medical List of his past medical, surgical, social and family history is reviewed from the nursing note. Anemia: Yes Anxiety: Yes Depression: No Heart Rhythm Problems: Yes Cancer: No Cardiomyopathy: Yes Cardiovascular Problems: Yes High Cholesterol: Yes Chest Pain: Yes Congestive Heart Failure: Yes Diminished Hearing: No Endocrine: No GERD: Yes Genitourinary: No Hiatal Hernia: Yes Hypertension: Yes Immune Disorder: No Inguinal Hernia: Yes Implanted Vascular Access Dvce: No Musculoskeletal: Yes Neurologic: Yes (ON 09/26 PT STATES LEFT SIDE OF FACE BECAME NUMB AND SPEECH BECAME SLOW. ) Psychiatric: Yes Reproductive: No Respiratory: Yes (PE) Immunizations Current: Yes Past Surgical History Abdominal Surgery: Yes (APPENDECTOMY 2015) Appendectomy: Yes (NOVEMBER 2015) Other Surgery: Yes (apendectomy november 2015) Social History Alcohol Use: No Tobacco Use: No (QUIT 3 WEEKS AGO ) Substance Use: Yes (COCCAINE/MARIJUANA - LAST USE 6 MOS AGO ) Allergies-Medications (Allergen,Severity, Reaction): Coded Allergies: ketorolac (Verified Allergy, Severe, GENERALIZED HIVES/RASH WHICH LAST FOR ABOUT A WEEK, 11/17/16) penicillin G (Verified Allergy, Severe, Anaphylaxis, 11/17/16) tramadol (Verified Allergy, Severe, GENERALIZED HIVES WHICH LAST FOR ABOUT A WEEK, 11/17/16) acetaminophen (Verified Allergy, Unknown, 11/17/16) liver failure Comments List of his allergies reviewed from the nursing note. Reported Meds & Prescriptions Reported Meds & Active Scripts Active Oxycodone (Oxycodone HCl) 5 Mg Tab 5 Mg PO Q6H PRN Metoprolol Tartrate 25 Mg Tab 25 Mg PO Q12HR 30 Days Ativan (Lorazepam) 0.5 Mg Tab 0.5 Mg PO Q6H PRN Ferosul (Ferrous Sulfate) 325 Mg Tablet 325 Mg PO BID Reported Docusate Sodium 100 Mg Cap 100 Mg PO BID Furosemide 40 Mg Tab 40 Mg PO DAILY Levothyroxine (Levothyroxine Sodium) 100 Mcg Tab 100 Mcg PO DAILY Proair Hfa 8.5 GM Inh (Albuterol Sulfate) 90 Mcg/Act Aer 2 Puff INH Q4-6H PRN 108 mcg/actuation Potassium Chloride ER (Potassium Chloride) 20 Meq Tab 20 Meq PO DAILY Omeprazole 40 Mg Cap 40 Mg PO DAILY Celexa (Citalopram Hydrobromide) 10 Mg Tab 10 Mg PO DAILY Narrative Medication List of his home medications reviewed from the nursing note. Review of Systems Except as stated in HPI: all other systems reviewed are Neg Physical Exam Narrative GENERAL: Awake, alert but looks tired, morbidly obese, anasarca SKIN: Focused skin assessment warm/dry. Anasarca, jaundice HEAD: Atraumatic. Normocephalic. EYES: Pupils equal and round. Scleral icterus. No injection or drainage. ENT: No nasal bleeding or discharge. Mucous membranes pink and moist. NECK: Trachea midline. No JVD. CARDIOVASCULAR: Regular rate and rhythm. No murmur appreciated. RESPIRATORY: No accessory muscle use. Clear to auscultation. Breath sounds equal bilaterally. GASTROINTESTINAL: Abdomen soft, non-tender, nondistended. Hepatic and splenic margins not palpable. MUSCULOSKELETAL: No obvious deformities. No clubbing. No cyanosis. Generalized anasarca and edema 3+ NEUROLOGICAL: Awake and alert. No obvious cranial nerve deficits. Motor grossly within normal limits. Normal speech. PSYCHIATRIC: Appropriate mood and affect; insight and judgment normal. Data Data Last Documented VS Vital Signs Date Time Temp Pulse Resp B/P (MAP) Pulse Ox O2 Delivery O2 Flow Rate FiO2 11/17/16 14:20 126 18 97/71 (80) 97 Room Air 11/17/16 11:47 97.5 Orders Orders Complete Blood Count With Diff (11/17/16 12:40) Comprehensive Metabolic Panel (11/17/16 12:40) Lipase (11/17/16 12:40) Prothrombin Time / Inr (Pt) (11/17/16 12:40) Urinalysis - C+S If Indicated (11/17/16 12:40) Iv Access Insert/Monitor (11/17/16 12:40) Ecg Monitoring (11/17/16 12:40) Oximetry (11/17/16 12:40) Sodium Chloride 0.9% Flush (Ns Flush) (11/17/16 12:45) Direct Bilirubin (11/17/16 12:40) Type And Screen (11/17/16 12:40) Vascular Access Team Consult/P PRN (11/17/16 13:11) Vascular Poc Ultrasound (11/17/16 ) Pantoprazole (Protonix) (11/17/16 14:45) Ondansetron Inj (Zofran Inj) (11/17/16 15:15) Ct Abd/Pel W/O Iv Contrast (11/17/16 ) Ondansetron Inj (Zofran Inj) (11/17/16 15:10) Morphine Inj (Morphine Inj) (11/17/16 15:45) Admit Order (Ed Use Only) (11/17/16 17:08) Labs Laboratory Tests Test 11/17/16 12:50 11/17/16 15:15 Urine Color DARK-YELLOW Urine Turbidity CLEAR Urine pH 8.0 Urine Specific [place] 1.014 Urine Protein 100 mg/dL Urine Glucose (UA) NEG mg/dL Urine Ketones NEG mg/dL Urine Occult Blood NEG Urine Nitrite NEG Urine Bilirubin SMALL Urine Urobilinogen 8.0 MG/DL Urine Leukocyte Esterase NEG Urine RBC 1 /hpf Urine WBC 1 /hpf Urine Squamous Epithelial Cells <1 /hpf Microscopic Urinalysis Comment CULT NOT INDICATED White Blood Count 5.9 TH/MM3 Red Blood Count 4.24 MIL/MM3 Hemoglobin 12.1 GM/DL Hematocrit 37.1 % Mean Corpuscular Volume 87.4 FL Mean Corpuscular Hemoglobin 28.4 PG Mean Corpuscular Hemoglobin Concent 32.6 % Red Cell Distribution Width 24.9 % Platelet Count 132 TH/MM3 Mean Platelet Volume 7.8 FL Neutrophils (%) (Auto) 64.7 % Lymphocytes (%) (Auto) 22.2 % Monocytes (%) (Auto) 7.5 % Eosinophils (%) (Auto) 4.4 % Basophils (%) (Auto) 1.2 % Neutrophils # (Auto) 3.8 TH/MM3 Lymphocytes # (Auto) 1.3 TH/MM3 Monocytes # (Auto) 0.4 TH/MM3 Eosinophils # (Auto) 0.3 TH/MM3 Basophils # (Auto) 0.1 TH/MM3 CBC Comment AUTO DIFF Differential Comment AUTO DIFF CONFIRMED Platelet Estimate LOW Platelet Morphology Comment NORMAL Prothrombin Time 15.7 SEC Prothromb Time International Ratio 1.4 RATIO Blood Urea Nitrogen 8 MG/DL Creatinine 1.16 MG/DL Random Glucose 89 MG/DL Total Protein 8.1 GM/DL Albumin 3.4 GM/DL Calcium Level 8.8 MG/DL Alkaline Phosphatase 87 U/L Aspartate Amino Transf (AST/SGOT) 25 U/L Alanine Aminotransferase (ALT/SGPT) 19 U/L Total Bilirubin 4.3 MG/DL Direct Bilirubin 2.0 MG/DL Sodium Level 138 MEQ/L Potassium Level 4.0 MEQ/L Chloride Level 102 MEQ/L Carbon Dioxide Level 29.0 MEQ/L Anion Gap 7 MEQ/L Estimat Glomerular Filtration Rate 71 ML/MIN Lipase 67 U/L MDM Medical Decision Making Medical Screen Exam Complete: Yes Emergency Medical Condition: Yes Medical Record Reviewed: Yes Differential Diagnosis Obstructive jaundice, cirrhosis of the liver, portal hypertension, congestive heart failure Narrative Course 4:58 PM paperwork was faxed from [facility] which has the report of all the tests that were done during his stay. Patient was diagnosed with the congestive heart failure with EF of 20%. He was put on life vest. The liver biopsy showed early signs of liver fibrosis secondary to the congestive heart failure. Patient currently is not feeling his life S and said that he was hot last night and he took it off so that he could sleep better. Patient had total bilirubin of 3.8 which direct was 1.8. His bilirubin has increased slightly. Patient started to have vomiting episode based on which I ordered CT abdomen and pelvis. The CT shows worsening of his ascites, anasarca and pleural effusion. It also shows cholelithiasis as was seen in the last CT. I discussed the case with GI specialist Dr. Jimenez and requested her consult mainly for the congestive hepatitis and cholelithiasis with a possibility of biliary colic. Patient will need to be admitted. Procedures EKG Prior to Arrival: No Physician Communication Physician Communication Dr. Jimenez Diagnosis Primary Impression: Anasarca Additional Impressions: Congestive heart failure Qualified Codes: I50.9 - Heart failure, unspecified Pleural effusion Ascites Qualified Codes: R18.8 - Other ascites Cholelithiasis Qualified Codes: K80.20 - Calculus of gallbladder without cholecystitis without obstruction Hyperbilirubinemia Admitting Information Admitting Physician Requests: Admit Gini Molina MD Nov 17, 2016 12:39
[2016-11-17] MEDS ORDERED: SODIUM CHLORIDE 0.9% FLUSH 10 ML FLUSH IV FLUSH PRN (12:45)
[2016-11-17] MEDS ORDERED: ALBUAER3 INH (13:05)
[2016-11-17] MEDS ORDERED: DOCU100C PO (13:05)
[2016-11-17] MEDS ORDERED: POTA-163 PO (13:05)
[2016-11-17] MEDS ORDERED: FURO40TA PO (13:05)
[2016-11-17] MEDS ORDERED: LEVO100T5 PO (13:05)
[2016-11-17 13:34] LABS: BLOOD, URINE NEG (NEG); GLUCOSE,URINE NEG (NEG); KETONE, URINE NEG (NEG); NITRITE,URINE NEG (NEG); SQUAMOUS EPITHELIAL CELL URINE <1 /hpf (0-5); URINE COLOR DARK-YELLOW (YELLW/STRAW)
[2016-11-17 13:38] LABS: COMMENT (UR) CULT NOT INDICATED; CULTURE IF INDICATED CULT NOT INDICATED
[2016-11-17 14:20] VITALS: BP 97/71; PULSE 126; RESP 18; O2SAT 97
[2016-11-17] MEDS ORDERED: PANTOPRAZOLE SOD 40 MG DELAYED RELEASE TAB PO ONE ×2 (14:45→23:15)
[2016-11-17] MEDS ORDERED: ONDANSETRON HCL 4 MG/2 ML VIAL ONE (15:10)
[2016-11-17] MEDS ORDERED: ONDANSETRON HCL 4 MG/2 ML VIAL IV PUSH ONE (15:15)
[2016-11-17 15:35] LABS: AUTOMATED NEUTROPHIL # 3.8 TH/MM3 (1.8-7.7); BASOPHIL # 0.1 TH/MM3 (0-0.2); BASOPHIL % 1.2 % (0.0-2.0); EOSINOPHIL # 0.3 TH/MM3 (0-0.4); EOSINOPHIL % 4.4 % (0.0-4.0); HEMATOCRIT 37.1 % (39.0-51.0); LYMPH % 22.2 % (9.0-44.0); LYMPHOCYTE # 1.3 TH/MM3 (1.0-4.8); MEAN CELL VOLUME 87.4 FL (80.0-100.0); MEAN CORPUSCULAR HEMOGLOBIN 28.4 PG (27.0-34.0); MEAN CORPUSCULAR HGB CONC 32.6 % (32.0-36.0); MONO % 7.5 % (0.0-8.0); NEUT % 64.7 % (16.0-70.0); PLATELET COUNT 132 TH/MM3 (150-450); RED BLOOD COUNT 4.24 MIL/MM3 (4.50-5.90); RED CELL DISTRIBUTION WIDTH 24.9 % (11.6-17.2); WHITE BLOOD COUNT 5.9 TH/MM3 (4.0-11.0)
[2016-11-17] MEDS ORDERED: MORPHINE SULFATE 4 MG/ML INJ IV PUSH ONE (15:45)
[2016-11-17 15:46] LABS: HEMO FLAGS AUTO DIFF
[2016-11-17 15:48] LABS: INTERNATIONAL NORMALIZED RATIO 1.4 RATIO; PROTHROMBIN TIME - PATIENT 15.7 SEC (9.8-11.6)
[2016-11-17 15:54] LABS: ALT (GPT) 19 U/L (12-78); ANION GAP 7 MEQ/L (5-15); AST (GOT) 25 U/L (15-37); BLOOD UREA NITROGEN 8 MG/DL (7-18); CHLORIDE 102 MEQ/L (98-107); GLOMERULAR FILTRATION RATE 71 ML/MIN (>89); SODIUM (NA) 138 MEQ/L (136-145)
[2016-11-17 15:56] LABS: ALKALINE PHOSPHATASE 87 U/L (45-117); TOTAL BILIRUBIN ADULT 4.3 MG/DL (0.2-1.0)
--- NOTE | 2016-11-17 16:38 | RADRPT ---
EXAM DATE/TIME: 11/17/2016 16:01 [place] COMPARISON: CT ABDOMEN & PELVIS W/O CONTRAST, September 29, 2016, 18:07. INDICATIONS : Severe testicular edema and pain, jaundice, history of liver failure. ORAL CONTRAST: No oral contrast ingested. RADIATION DOSE: 36.79 CTDIvol (mGy) ; Patient body habitus MEDICAL HISTORY : Hypertension. Congestive heart failure. Hernia, hiatal.Liver failure, anemia. SURGICAL HISTORY : Appendectomy. ENCOUNTER: Initial ACUITY: 1 day PAIN SCALE: 10/10 LOCATION: Bilateral testicles TECHNIQUE: Volumetric scanning of the abdomen and pelvis was performed. Using automated exposure control and ad justment of the mA and/or kV according to patient size, radiation dose was kept as low as reasonably achievable to obtain optimal diagnostic quality images. DICOM format image data is available electro nically for review and comparison. FINDINGS: LOWER LUNGS: Small to moderate bilateral pleural effusions are again identified with mild consolidation in the pos terior lung bases. LIVER: Homogeneous density without lesion. There is no dilation of the biliary tree. Multiple calcified gal lstones are again noted. SPLEEN: The spleen remains mildly enlarged. PANCREAS: Within normal limits. KIDNEYS: Normal in size and shape. There is no mass, stone, or hydronephrosis. ADRENAL GLANDS: Within normal limits. VASCULAR: There is no aortic aneurysm. BOWEL/MESENTERY: The stomach, small bowel, and colon demonstrate no acute abnormality. There is no free intraperitone al air or fluid. There is ascitic fluid noted in the pelvis which is increased from the prior study. There is milder ascitic fluid along the lateral liver margin. ABDOMINAL WALL: Within normal limits. Anasarca is again noted which may be slightly increased from the prior study. RETROPERITONEUM: There is no lymphadenopathy. BLADDER: No wall thickening or mass. A bladder diverticulum is again noted on the right which extends into the right inguinal canal. REPRODUCTIVE: Within normal limits. INGUINAL: There is no lymphadenopathy. The bladder diverticulum extends into the right inguinal canal. There is fluid in the left inguinal canal. MUSCULOSKELETAL: Within normal limits for patient age. CONCLUSION: 1. Small to moderate bilateral pleural effusions which are new from the prior study. There is mild co nsolidation in the posterior lung bases. 2. Mild increase in anasarca and ascites. 3. Multiple calcified gallstones again noted. 4. Right-sided bladder diverticulum which extends into the right inguinal canal. 5. Nonobstructive bowel gas pattern 6. Mild splenomegaly again noted. Jose Antonio Miles MD on November 17, 2016 at 16:29 Board Certified Radiologist. This report was verified electronically.
[2016-11-17 16:55] LABS: SCAN/DIFF AUTO DIFF CONFIRMED
[2016-11-17 16:56] LABS: PLATELET ESTIMATE SMEAR LOW (NORMAL); PLATELET MORPHOLOGY NORMAL (NORMAL)
[2016-11-17] MEDS ORDERED: MAGNESIUM HYDROXIDE SUSP 30 ML CUP PO PRN (17:45)
[2016-11-17] MEDS ORDERED: NALOXONE HCL 0.4 MG/ML AMP IV PUSH PRN (17:45)
[2016-11-17] MEDS ORDERED: ONDANSETRON HCL 4 MG/2 ML VIAL IVP PRN (17:45)
[2016-11-17] MEDS ORDERED: LORazepam 0.5 MG TAB PO PRN (17:45)
--- NOTE | 2016-11-17 17:45 | HHI.HP ---
HPI Service [facility] Primary Care Physician Unknown Admission Diagnosis congestive heart failure, ascites, anasarca, abdominal pain Diagnoses: (1) SOB (shortness of breath) (2) CHF (congestive heart failure) (3) Morbid obesity with body mass index (BMI) of 40.0 or higher (4) Anasarca (5) Transaminitis (6) Acute exacerbation of CHF (congestive heart failure) (7) Pleural effusion Chief Complaint: Shortness of breath Travel History International Travel<30 Days: No Contact w/Intl Traveler <30 Da: No Traveled to Known Affected Are: No History of Present Illness Written by Jeana Orr, acting as scribe for Dr. Robles on 11/17/16 at 17:33. Mr. Wilcox is a 36-year-old male patient with a known medical history of CHF, hypertension, hyperlipidemia and axiety who presented to the ED with worsening shortness of breath and generalized swelling. Patient seen and examined in ED, at bedside. Patient states that his testicles have been increasing for a few weeks and has complaints of dyspnea constantly. He just recently was hospitalized at [facility] for 13 days for treatment of acute CHF exacerbation. At that time was placed on a LifeVest and sent home on PO diuretics. Patient states that he took the LifeVest off after shortly getting home due to it being uncomfortable and the wrong size. He states he has significant, hard areas of swelling around his bilateral chest. Patient also states he has had increasing generalized pain and ran out of his Oxycodone pain medications 2 days ago. Does admit to two bouts of vomiting while in the ED today. Does also complain of recent diarrhea for the past few days with presence of bright red blood. He said he was straining prior to that episode. He does admit to a history of Scarlet fever as a child as well as a history of alcohol and cocaine abuse, which he has now quit. Patient's production engineer is Dr. Bradley. Review of Systems Constitutional: DENIES: Fever, Chills Eyes: DENIES: Eye pain, Vision loss Respiratory: COMPLAINS OF: Shortness of breath, DENIES: Cough, Wheezing Cardiovascular: COMPLAINS OF: Dyspnea on Exertion, Lower Extremity Edema Gastrointestinal: COMPLAINS OF: Bloody stools, Diarrhea, Nausea, Vomiting, DENIES: Abdominal pain Psychiatric: COMPLAINS OF: Anxiety Except as stated in HPI: all other systems reviewed are Neg Past Family Social History Past Medical History Anxiety Anemia Hyperlipidemia Congestive heart failure Hypertension GERD Liver fibrosis Past Surgical History Appendectomy Reported Medications Active Oxycodone (Oxycodone HCl) 5 Mg Tab 5 Mg PO Q6H PRN Metoprolol Tartrate 25 Mg Tab 25 Mg PO Q12HR 30 Days Ativan (Lorazepam) 0.5 Mg Tab 0.5 Mg PO Q6H PRN Ferosul (Ferrous Sulfate) 325 Mg Tablet 325 Mg PO BID Reported Docusate Sodium 100 Mg Cap 100 Mg PO BID Furosemide 40 Mg Tab 40 Mg PO DAILY Levothyroxine (Levothyroxine Sodium) 100 Mcg Tab 100 Mcg PO DAILY Proair Hfa 8.5 GM Inh (Albuterol Sulfate) 90 Mcg/Act Aer 2 Puff INH Q4-6H PRN 108 mcg/actuation Potassium Chloride ER (Potassium Chloride) 20 Meq Tab 20 Meq PO DAILY Omeprazole 40 Mg Cap 40 Mg PO DAILY Celexa (Citalopram Hydrobromide) 10 Mg Tab 10 Mg PO DAILY Allergies: Coded Allergies: ketorolac (Verified Allergy, Severe, GENERALIZED HIVES/RASH WHICH LAST FOR ABOUT A WEEK, 11/17/16) penicillin G (Verified Allergy, Severe, Anaphylaxis, 11/17/16) tramadol (Verified Allergy, Severe, GENERALIZED HIVES WHICH LAST FOR ABOUT A WEEK, 11/17/16) acetaminophen (Verified Allergy, Unknown, 11/17/16) liver failure Active Ordered Medications Current Medications Medications (Trade) Dose Ordered Sig/Gideon Route Start Time Stop Time Status Last Admin (NS Flush) 2 ml UNSCH PRN IV FLUSH 11/17/16 12:45 Family History Maternal medical history significant for lung cancer. Paternal medical history significant for cardiovascular disease and skin cancer. Social History Denies any current cigarette use, does admit to using chewing tobacco. Denies any alcohol use, does admit to a history of alcohol abuse. Denies any current illicit drug use, does admit to using cocaine and marijuana heavily in the past. Physical Exam Vital Signs Vital Signs Date Time Temp Pulse Resp B/P (MAP) Pulse Ox O2 Delivery O2 Flow Rate FiO2 11/17/16 14:20 126 18 97/71 (80) 97 Room Air 11/17/16 12:56 18 11/17/16 11:47 97.5 134 28 127/81 (96) 99 Physical Exam GENERAL: This is an obese, well-developed male patient, lying in bed with complaints of generalized pain and shortness of breath. SKIN: No rashes, ecchymoses or lesions. Warm and clammy. HEAD: Atraumatic. Normocephalic. Pupils equal round and reactive. Extraocular motions intact. No scleral icterus. No injection or drainage. Nose without bleeding. Airway patent. NECK: Trachea midline. No JVD. Supple. CARDIOVASCULAR: Regular rate and rhythm without murmurs, gallops, or rubs. RESPIRATORY: Diminished breath sounds due to body habitus. Breath sounds equal bilaterally. No wheezes, rales, or rhonchi. GASTROINTESTINAL: Abdomen soft, non-tender. Rounded and obese. No guarding. MUSCULOSKELETAL: Extremities without clubbing, cyanosis. Anasarca noted. No joint tenderness, effusion. NEUROLOGICAL: Awake and alert. Cranial nerves II through XII intact. Motor and sensory grossly within normal limits. Five out of 5 muscle strength in all muscle groups. Normal speech. PSYCH: Mood and affect appropriate. Laboratory Laboratory Tests Test 11/17/16 12:50 11/17/16 15:15 Urine Color DARK-YELLOW Urine Turbidity CLEAR Urine pH 8.0 Urine Specific [place] 1.014 Urine Protein 100 Urine Glucose (UA) NEG Urine Ketones NEG Urine Occult Blood NEG Urine Nitrite NEG Urine Bilirubin SMALL Urine Urobilinogen 8.0 Urine Leukocyte Esterase NEG Urine RBC 1 Urine WBC 1 Urine Squamous Epithelial Cells <1 Microscopic Urinalysis Comment CULT NOT INDICATED White Blood Count 5.9 Red Blood Count 4.24 Hemoglobin 12.1 Hematocrit 37.1 Mean Corpuscular Volume 87.4 Mean Corpuscular Hemoglobin 28.4 Mean Corpuscular Hemoglobin Concent 32.6 Red Cell Distribution Width 24.9 Platelet Count 132 Mean Platelet Volume 7.8 Neutrophils (%) (Auto) 64.7 Lymphocytes (%) (Auto) 22.2 Monocytes (%) (Auto) 7.5 Eosinophils (%) (Auto) 4.4 Basophils (%) (Auto) 1.2 Neutrophils # (Auto) 3.8 Lymphocytes # (Auto) 1.3 Monocytes # (Auto) 0.4 Eosinophils # (Auto) 0.3 Basophils # (Auto) 0.1 CBC Comment AUTO DIFF Differential Comment AUTO DIFF CONFIRMED Platelet Estimate LOW Platelet Morphology Comment NORMAL Prothrombin Time 15.7 Prothromb Time International Ratio 1.4 Blood Urea Nitrogen 8 Creatinine 1.16 Random Glucose 89 Total Protein 8.1 Albumin 3.4 Calcium Level 8.8 Alkaline Phosphatase 87 Aspartate Amino Transf (AST/SGOT) 25 Alanine Aminotransferase (ALT/SGPT) 19 Total Bilirubin 4.3 Direct Bilirubin 2.0 Sodium Level 138 Potassium Level 4.0 Chloride Level 102 Carbon Dioxide Level 29.0 Anion Gap 7 Estimat Glomerular Filtration Rate 71 Lipase 67 Result Diagram: 11/17/16 1515 11/17/16 1515 Imaging Last Impressions Abdomen/Pelvis CT 11/17/16 0000 Signed Impressions: Service Date/Time: , November 17, 2016 16:01 - CONCLUSION: 1. Small to moderate bilateral pleural effusions which are new from the prior study. There is mild consolidation in the posterior lung bases. 2. Mild increase in anasarca and ascites. 3. Multiple calcified gallstones again noted. 4. Right-sided bladder diverticulum which extends into the right inguinal canal. 5. Nonobstructive bowel gas pattern 6. Mild splenomegaly again noted. MD Hudson Gatesi VTE Risk Assessment Caprini VTE Risk Assessment: No/Low Risk (score <= 1) Caprini Risk Assessment Model Point Value = 1 Point Value = 2 Point Value = 3 Point Value = 5 Age 41-60 Minor surgery BMI > 25 kg/m2 Swollen legs Varicose veins or History of unexplained or recurrent spontaneous Oral contraceptives or hormone replacement Sepsis (< 1 month) Serious lung disease, including pneumonia (< 1 month) Abnormal pulmonary function Acute myocardial infarction Congestive heart failure (< 1 month) History of inflammatory bowel disease Medical patient at bed rest Age 61-74 Arthroscopic surgery Major open surgery (> 45 min) Laparoscopic surgery (> 45 min) Malignancy Confined to bed (> 72 hours) Immobilizing plaster cast Central venous access Age >= 75 History of VTE Family history of VTE Factor V Leiden Prothrombin [id number] Lupus anticoagulant Anticardiolipin antibodies Elevated serum homocysteine Heparin-induced thrombocytopenia Other congenital or acquired thrombophilia Stroke (< 1 month) Elective arthroplasty Hip, pelvis, or leg fracture Acute spinal cord injury (< 1 month) Prophylaxis Regimen Total Risk Factor Score Risk Level Prophylaxis Regimen 0-1 Low Early ambulation 2 Moderate Order ONE of the following: *Sequential Compression Device (SCD) *Heparin 5000 units SQ BID 3-4 Higher Order ONE of the following medications: *Heparin 5000 units SQ TID *Enoxaparin/Lovenox 40 mg SQ daily (WT < 150 kg, CrCl > 30 mL/min) *Enoxaparin/Lovenox 30 mg SQ daily (WT < 150 kg, CrCl > 10-29 mL/min) *Enoxaparin/Lovenox 30 mg SQ BID (WT < 150 kg, CrCl > 30 mL/min) AND/OR *Sequential Compression Device (SCD) 5 or more Highest Order ONE of the following medications: *Heparin 5000 units SQ TID (Preferred with Epidurals) *Enoxaparin/Lovenox 40 mg SQ daily (WT < 150 kg, CrCl > 30 mL/min) *Enoxaparin/Lovenox 30 mg SQ daily (WT < 150 kg, CrCl > 10-29 mL/min) *Enoxaparin/Lovenox 30 mg SQ BID (WT < 150 kg, CrCl > 30 mL/min) AND *Sequential Compression Device (SCD) Assessment and Plan Assessment and Plan Mr. Wilcox is a 36-year-old male patient with a known medical history of CHF, hypertension, hyperlipidemia and axiety who presented to the ED with worsening shortness of breath and generalized swelling. Patient seen and examined in ED, at bedside. Patient states that his testicles have increasing in for a few weeks and has complaints of dyspnea constantly. Acute CHF exacerbation Anasarca Bilateral pleural effusions - Requested recent hospitalization reports from [facility] for recent treatment and workup. Follow. - Start on Lasix 40 mg IV BID. Also supplemental potassium as needed. Monitor intake and output closely. Continue cardiac telemetry, follow. - Consult placed to cardiology for further recommendations, appreciate recommendations. - Continue supplemental O2 to keep sats >92%. - PT/OT evaluation ordered, appreciate input. - CBC and BMP reviewed, essentially unremarkable. Will follow CBC, BMP in am. - Heart healthy diet. - Obtain EKG. Hyperbilirubinemia suspect secondary to liver fibrosis and cholelithiasis Thrombocytopenia, mild Iron deficiency anemia, chronic Hematochezia Nausea and vomiting - Abdomen/pelvis CT reviewed showing small to moderate bilateral pleural effusions. Mild consolidation in lower lung bases. Anasarca. Calcified gallstones. Mild splenomegaly. - Total bilirubin 4.3 on presentation, direct bilirubin 2.0. Lipase WNL. Continue to trend LFTs. - Continue home ferrous sulfate. Monitor CBC. - GI consulted, appreciate further input. - Zofran available PRN. - Diuresis as above. Chronic generalized pain: Continue Oxycodone PO PRN per pain scale. Morphine IV x 1 given in ED. Morphine IV PRN available for breakthrough. Anxiety: Will continue home Celexa. Also have lorazepam PO PRN if needed for anxiety. GI Prophylaxis: Prevacid. DVT prophylaxis: Lovenox. Physician Certification 2 Midnight Certification Type: Admission for Inpatient Services Order for Inpatient Services The services are ordered in accordance with Medicare regulations or non- Medicare payer requirements, as applicable. In the case of services not specified as inpatient-only, they are appropriately provided as inpatient services in accordance with the 2-midnight benchmark. Estimated LOS (days): 3 3 days is the estimated time the patient will need to remain in the hospital, assuming treatment plan goals are met and no additional complications. Post-Hospital Plan: Home Notes: This note was transcribed by alisa Orr. I, Dr. Jose Antonio Robles personally performed the history, physical exam, and medical decision making; and confirmed the accuracy of the information in the transcribed note. Authenticated by Dr. Jose Antonio Robles on 11/17/16 at 18:23. Jeana Orr Nov 17, 2016 17:45 Jose Antonio Robles DO Nov 17, 2016 18:23
[2016-11-17] MEDS: FUROSEMIDE 40 MG/4 ML VIAL IV PUSH SCH (17:58)
[2016-11-17] MEDS: ENOXAPARIN SODIUM 40 MG/0.4 ML SYRINGE SQ SCH (17:59)
[2016-11-17] MEDS ORDERED: PILL SPLITTER OTHER PRN (18:00)
[2016-11-17 18:09] VITALS: BP 118/63; PULSE 128; RESP 18; O2SAT 98
[2016-11-17] MEDS ORDERED: RESP: ALBUTEROL 2.5 MG/IPRATROPIUM 0.5 MG NEB (PRN) NEB (18:15)
[2016-11-17 19:12] VITALS: BP 118/68; PULSE 127; RESP 20; TEMP 97.8; O2SAT 95
[2016-11-17 20:00] VITALS: PULSE 128
[2016-11-17] MEDS: DOCUSATE SODIUM 100 MG CAP PO SCH (20:40)
[2016-11-17] MEDS: SODIUM CHLORIDE 0.9% FLUSH 10 ML FLUSH IV FLUSH SCH (20:40)
[2016-11-17] MEDS ORDERED: ALUMINUM/MAGNESIUM/SIMETH 30 ML CUP PO ONE (23:00)
[2016-11-17] MEDS: MORPHINE SULFATE 4 MG/ML INJ IV PUSH PRN (23:14)
[2016-11-18] VITALS: BP 94/137; PULSE 138; RESP 24; TEMP 97.4
[2016-11-18] MEDS ORDERED: FUROSEMIDE 40 MG/4 ML VIAL IV PUSH ONE (02:45)
[2016-11-18 04:00] VITALS: BP 104/61; PULSE 125; RESP 20; TEMP 97.2; O2SAT 95
[2016-11-18] MEDS: PANTOPRAZOLE SOD 40 MG DELAYED RELEASE TAB PO SCH (05:10)
[2016-11-18] MEDS: LEVOTHYROXINE SODIUM 100 MCG TAB PO SCH (05:10)
[2016-11-18] MEDS: FERROUS SULFATE 325 MG (65 MG ELEMENTAL IRON) TAB PO SCH ×2 (05:53→15:19)
[2016-11-18] MEDS: MORPHINE SULFATE 4 MG/ML INJ IV PUSH PRN ×4 (07:17→20:52)
[2016-11-18] MEDS: SODIUM CHLORIDE 0.9% FLUSH 10 ML FLUSH IV FLUSH SCH ×2 (07:28→20:52)
--- NOTE | 2016-11-18 07:47 | PD.CONS ---
HPI History of Present Illness This is a 36 year old with a history CHF, who went for a follow up appointment at his primary care's office yesterday and was referred to the hospital for further evaluation of shortness of breath. The patient also endorsed some nausea, vomiting, diarrhea, and rectal bleeding and was noted to have gallstones. GI was consulted for further evaluation. He was evaluated by our service in September for acute hepatitis. At that time, he was positive for cocaine and cannabinoids. He was also taking large amounts of tylenol and he was treated with acetylcysteine per protocol. He underwent the liver workup--- > Hepatitis negative. NADINE negative. AMA negative. ASMA negative. Iron saturation 21.2%. Ferritin 305. AFP 3.0. Alpha 1 antitrypsin 235. Ceruloplasmin 40. He was also evaluated with RUQ US (09/29/16)---> Cholelithiasis with gallbladder wall thickening and no pericholecystic fluid, no evidence of biliary obstruction, the liver is enlarged with findings characteristic of fatty infiltration. It was thought that his acute hepatitis was most likely a combination of tylenol overuse, shocked liver, on underlying fatty liver/congestive hepatopathy. The patient tells me that he was then hospitalized at [facility] for his CHF for 12 days and was released about one week ago. He states that he misunderstood his discharge instructions and was taking both Lasix and Bumex. After taking this for about 3 days, he started having nausea, vomiting with dark green/brown emesis. He also complained of LLQ/LUQ abdominal pain that he describes as an intermittent pressure like pain and diarrhea. The pain has been constant and he cannot identify any aggravating or alleviating factors. He cannot state how many bowel movements he has been having per day, but states that he has a liquid stool every times he urinates. A few days ago, he had the sudden urge to move his bowels, but states that he was not able to pass a stool and passed a large amount of blood. He has not had any further episodes. CT abdomen and pelvis ( 11/17/16)---> Small to moderate bilateral pleural effusions which are new from the prior study. There is mild consolidation in the posterior lung bases. Mild increase in anasarca and ascites. Multiple calcified gallstones again noted. Right sided bladder diverticulum which extends into the right inguinal canal. Nonobstructive bowel gas pattern, mild splenomegaly again noted. He states he had an EGD 2 years ago. (Miriam De La Cruz) PFSH Past Medical History Anxiety Anemia Hyperlipidemia Congestive heart failure Hypertension GERD Fatty liver Cholelithiasis Hiatal hernia Pulmonary embolism 2011 Past Surgical History Appendectomy (Miriam De La Cruz) Coded Allergies: ketorolac (Verified Allergy, Severe, GENERALIZED HIVES/RASH WHICH LAST FOR ABOUT A WEEK, 11/17/16) penicillin G (Verified Allergy, Severe, Anaphylaxis, 11/17/16) tramadol (Verified Allergy, Severe, GENERALIZED HIVES WHICH LAST FOR ABOUT A WEEK, 11/17/16) acetaminophen (Verified Allergy, Unknown, 11/17/16) liver failure Medications Allergies Coded Allergies Type Severity Reaction Last Updated Verified ketorolac Allergy Severe GENERALIZED HIVES/RASH WHICH LAST FOR ABOUT A WEEK Yes penicillin G Allergy Severe Anaphylaxis 11/17/16 Yes tramadol Allergy Severe GENERALIZED HIVES WHICH LAST FOR ABOUT A WEEK 11/17/16 Yes acetaminophen Allergy Unknown 11/17/16 Yes Active Scripts Medications Dose Route/Sig Max Daily Dose Days Date Category Dose Instructions Docusate Sodium 100 Mg Cap 100 Mg PO BID 11/17/16 Reported Furosemide 40 Mg Tab 40 Mg PO DAILY 11/17/16 Reported Levothyroxine (Levothyroxine Sodium) 100 Mcg Tab 100 Mcg PO DAILY 11/17/16 Reported Proair Hfa 8.5 GM Inh (Albuterol Sulfate) 90 Mcg/Act Aer 2 Puff INH Q4-6H PRN 11/17/16 Reported 108 mcg/actuation Potassium Chloride ER (Potassium Chloride) 20 Meq Tab 20 Meq PO DAILY 11/17/16 Reported Oxycodone (Oxycodone HCl) 5 Mg Tab 5 Mg PO Q6H PRN 10/21/16 Rx Metoprolol Tartrate 25 Mg Tab 25 Mg PO Q12HR 30 10/06/16 Rx Ativan (Lorazepam) 0.5 Mg Tab 0.5 Mg PO Q6H PRN 10/06/16 Rx Ferosul (Ferrous Sulfate) 325 Mg Tablet 325 Mg PO BID 08/23/16 Rx Omeprazole 40 Mg Cap 40 Mg PO DAILY 08/17/16 Reported Celexa (Citalopram Hydrobromide) 10 Mg Tab 10 Mg PO DAILY 08/17/16 Reported Family History Maternal medical history significant for lung cancer. Paternal medical history significant for cardiovascular disease and skin cancer. Social History Uses chewing tobacco. No current etoh or illicit drug use, but does have history of alcohol use and has used cocaine and marijuana in past (September of 2016). (De La CruzMiriam) Review of Systems Constitutional: COMPLAINS OF: Diaphoretic episodes, Fatigue, DENIES: Weight loss Respiratory: COMPLAINS OF: Cough, Wheezing, Shortness of breath Cardiovascular: COMPLAINS OF: Lower Extremity Edema, DENIES: Chest pain Gastrointestinal: COMPLAINS OF: Abdominal pain, Bloody stools, Diarrhea, Nausea , Vomiting, Swelling of Abdomen, Heartburn, DENIES: Black stools, Constipation Musculoskeletal: COMPLAINS OF: Back pain Hematologic/lymphatic: DENIES: Bruising Neurologic: DENIES: Headache Psychiatric: DENIES: Confusion (Miriam De La Cruz) GI Exam Vitals I&O Vital Signs Date Time Temp Pulse Resp B/P (MAP) Pulse Ox O2 Delivery O2 Flow Rate FiO2 11/18/16 04:00 97.2 125 20 104/61 (75) 95 11/18/16 00:00 97.4 138 24 94/137 (123) 11/17/16 20:00 128 11/17/16 20:00 Room Air 11/17/16 19:12 97.8 127 20 118/68 (85) 95 11/17/16 18:09 128 18 118/63 (81) 98 Room Air 11/17/16 14:20 126 18 97/71 (80) 97 Room Air 11/17/16 12:56 18 11/17/16 11:47 97.5 134 28 127/81 (96) 99 Imaging Last Impressions Abdomen/Pelvis CT 11/17/16 0000 Signed Impressions: Service Date/Time: November 16:01 - CONCLUSION: 1. Small to moderate bilateral pleural effusions which are new from the prior study. There is mild consolidation in the posterior lung bases. 2. Mild increase in anasarca and ascites. 3. Multiple calcified gallstones again noted. 4. Right-sided bladder diverticulum which extends into the right inguinal canal. 5. Nonobstructive bowel gas pattern 6. Mild splenomegaly again noted. Jose Antonio Miles MD Laboratory Test 11/17/16 12:50 11/17/16 15:15 Urine Color DARK-YELLOW Urine Turbidity CLEAR Urine pH 8.0 Urine Specific [place] 1.014 Urine Protein 100 mg/dL Urine Glucose (UA) NEG mg/dL Urine Ketones NEG mg/dL Urine Occult Blood NEG Urine Nitrite NEG Urine Bilirubin SMALL Urine Urobilinogen 8.0 MG/DL Urine Leukocyte Esterase NEG Urine RBC 1 /hpf Urine WBC 1 /hpf Urine Squamous Epithelial Cells <1 /hpf Microscopic Urinalysis Comment CULT NOT INDICATED White Blood Count 5.9 TH/MM3 Red Blood Count 4.24 MIL/MM3 Hemoglobin 12.1 GM/DL Hematocrit 37.1 % Mean Corpuscular Volume 87.4 FL Mean Corpuscular Hemoglobin 28.4 PG Mean Corpuscular Hemoglobin Concent 32.6 % Red Cell Distribution Width 24.9 % Platelet Count 132 TH/MM3 Mean Platelet Volume 7.8 FL Neutrophils (%) (Auto) 64.7 % Lymphocytes (%) (Auto) 22.2 % Monocytes (%) (Auto) 7.5 % Eosinophils (%) (Auto) 4.4 % Basophils (%) (Auto) 1.2 % Neutrophils # (Auto) 3.8 TH/MM3 Lymphocytes # (Auto) 1.3 TH/MM3 Monocytes # (Auto) 0.4 TH/MM3 Eosinophils # (Auto) 0.3 TH/MM3 Basophils # (Auto) 0.1 TH/MM3 CBC Comment AUTO DIFF Differential Comment AUTO DIFF CONFIRMED Platelet Estimate LOW Platelet Morphology Comment NORMAL Prothrombin Time 15.7 SEC Prothromb Time International Ratio 1.4 RATIO Blood Urea Nitrogen 8 MG/DL Creatinine 1.16 MG/DL Random Glucose 89 MG/DL Total Protein 8.1 GM/DL Albumin 3.4 GM/DL Calcium Level 8.8 MG/DL Alkaline Phosphatase 87 U/L Aspartate Amino Transf (AST/SGOT) 25 U/L Alanine Aminotransferase (ALT/SGPT) 19 U/L Total Bilirubin 4.3 MG/DL Direct Bilirubin 2.0 MG/DL Sodium Level 138 MEQ/L Potassium Level 4.0 MEQ/L Chloride Level 102 MEQ/L Carbon Dioxide Level 29.0 MEQ/L Anion Gap 7 MEQ/L Estimat Glomerular Filtration Rate 71 ML/MIN Lipase 67 U/L Physical Examination HEENT: Normocephalic; atraumatic; no jaundice. CHEST: CTA, diminished bases CARDIAC: RRR ABDOMEN: Abdomen obese, left sided abdominal tenderness, mildly distended, bowel sounds are present in all four quadrants. EXTREMITIES: BLE edema. SKIN: Normal; no rash; no jaundice. INTENSIVE CARE SPECIALIST: No focal deficits; alert and oriented times three. (De La CruzMiriam Lulyhodan MADRID) Assessment and Plan Plan ASSESSMENT: - Left sided abdominal pain with N/V/D. CT abdomen and pelvis (11/17/16)---> Small to moderate bilateral pleural effusions which are new from the prior study. There is mild consolidation in the posterior lung bases. Mild increase in anasarca and ascites. Multiple calcified gallstones again noted. Right sided bladder diverticulum which extends into the right inguinal canal. Nonobstructive bowel gas pattern, mild splenomegaly again noted. 3 day hx. States that this began after he misunderstood his discharge instructions from [facility] and was taking Lasix, Bumex at the same time. He is no longer having nausea/vomiting. He took cereal for breakfast and tolerated this. He complains of diarrhea- none today. Will get stool studies. PPI. - Hyperbilirubinemia. He was hospitalized in September of 2016 for acute hepatitis. RUQ US (09/29/16)---> Cholelithiasis with gallbladder wall thickening and no pericholecystic fluid, no evidence of biliary obstruction, the liver is enlarged with findings characteristic of fatty infiltration. He underwent the liver workup---> Hepatitis negative. NADINE negative. AMA negative. ASMA negative. Iron saturation 21.2%. Ferritin 305. AFP 3.0. Alpha 1 antitrypsin 235. Ceruloplasmin 40. FLU (+). It was thought that his acute hepatitis was most likely a combination of tylenol overuse, shocked liver, on underlying fatty liver/congestive hepatopathy. His LFTs on admission at that time were 11.4, AST 1159, ALT 2184, Alk PHosph 174. These are much improved with only his bilirubin elevated. - Rectal bleeding. C/O 3 day hx of diarrhea- multiple liquid stools. States one time, he had the urge to move his bowels and strained and passed large amount of red blood, independent from stool. No further episodes. HH stable. - CHF. Lasix, I/O, Per attending. - KENIA, hypothyroidism, improved. - Anemia. Stable. PLAN: - AAKASH - Cont. PPI - Send stool for CDiff, O&P, Giardia, C/S - Monitor labs - Supportive care - Further recommendations to follow based on results of above - Pt seen and examined by Dr. Jimenez and myself and this note is written on her behalf (Miriam De La Cruz) Physician Comments seen, examined agree with above we will review records (Andria Jimenez MD) Miriam De La Cruz Nov 18, 2016 07:47 Andria Jimenez MD Nov 18, 2016 19:10
[2016-11-18 08:00] VITALS: BP 114/67; PULSE 128; RESP 18; TEMP 98.8; O2SAT 96
[2016-11-18] MEDS: CITALOPRAM HYDROBROMIDE 20 MG TAB PO SCH (08:47)
[2016-11-18] MEDS: POTASSIUM CHLORIDE 20 MEQ CONTROLLED RELEASE TAB PO SCH (08:47)
[2016-11-18] MEDS: DOCUSATE SODIUM 100 MG CAP PO SCH ×2 (08:47→20:53)
[2016-11-18] MEDS: FUROSEMIDE 40 MG/4 ML VIAL IV PUSH SCH ×2 (08:48→17:03)
--- NOTE | 2016-11-18 10:32 | HHI.PR ---
Subjective Remarks The patient stated that his pain control was much improved on the current regimen. He said his anxiety medication was helpful and requested to have the doses more frequently. He said that he has been urinating a lot with Lasix and he had some abdominal cramping associated with urinating. Objective Vitals Vital Signs Date Time Temp Pulse Resp B/P (MAP) Pulse Ox O2 Delivery O2 Flow Rate FiO2 11/18/16 08:00 98.8 128 18 114/67 (83) 96 11/18/16 04:00 97.2 125 20 104/61 (75) 95 11/18/16 00:00 97.4 138 24 94/137 (123) 11/17/16 20:00 128 11/17/16 20:00 Room Air 11/17/16 19:12 97.8 127 20 118/68 (85) 95 11/17/16 18:09 128 18 118/63 (81) 98 Room Air 11/17/16 14:20 126 18 97/71 (80) 97 Room Air 11/17/16 12:56 18 11/17/16 11:47 97.5 134 28 127/81 (96) 99 Result Diagram: 11/17/16 1515 11/17/16 1515 Imaging Last Impressions Abdomen/Pelvis CT 11/17/16 0000 Signed Impressions: Service Date/Time: November 16:01 - CONCLUSION: 1. Small to moderate bilateral pleural effusions which are new from the prior study. There is mild consolidation in the posterior lung bases. 2. Mild increase in anasarca and ascites. 3. Multiple calcified gallstones again noted. 4. Right-sided bladder diverticulum which extends into the right inguinal canal. 5. Nonobstructive bowel gas pattern 6. Mild splenomegaly again noted. Jose Antonio Miles MD Objective Remarks GENERAL: This is an obese, well-developed male patient, lying in bed. SKIN: No rashes, ecchymoses or lesions. Warm and clammy. HEAD: Atraumatic. Normocephalic. Pupils equal round and reactive. Extraocular motions intact. No scleral icterus. No injection or drainage. Nose without bleeding. Airway patent. NECK: Trachea midline. No JVD. Supple. CARDIOVASCULAR: Regular rate and rhythm without murmurs, gallops, or rubs. RESPIRATORY: Diminished breath sounds due to body habitus. Breath sounds equal bilaterally. No wheezes, rales, or rhonchi. GASTROINTESTINAL: Abdomen soft, non-tender. Rounded and obese. No guarding. MUSCULOSKELETAL: Extremities without clubbing, cyanosis. Anasarca noted. No joint tenderness, effusion. NEUROLOGICAL: Awake and alert. Cranial nerves II through XII intact. Motor and sensory grossly within normal limits. Five out of 5 muscle strength in all muscle groups. Normal speech. PSYCH: Mood and affect appropriate. Medications and IVs Current Medications Medications (Trade) Dose Ordered Sig/Gideon Route Start Time Stop Time Status Last Admin (CeleXA) 10 mg DAILY PO 11/18/16 09:00 11/18/16 08:47 (Colace) 100 mg BID PO 11/17/16 21:00 11/18/16 08:47 (Ferrous Sulfate) 325 mg BIDAC PO 11/18/16 07:00 11/18/16 05:53 (Synthroid) 100 mcg DAILY@0600 PO 11/18/16 06:00 11/18/16 05:10 (Ativan) 0.5 mg Q6H PRN PO 11/17/16 17:45 11/18/16 05:10 (KCl) 20 meq DAILY PO 11/18/16 09:00 11/18/16 08:47 (Protonix) 40 mg DAILY@0600 PO 11/18/16 06:00 11/18/16 05:10 (Lasix Inj) 40 mg BID@09,18 IV PUSH 11/17/16 18:00 11/18/16 08:48 (NS Flush) 2 ml UNSCH PRN IV FLUSH 11/17/16 17:45 (NS Flush) 2 ml BID IV FLUSH 11/17/16 21:00 11/18/16 07:28 (Zofran Inj) 4 mg Q6H PRN IVP 11/17/16 17:45 (Lovenox Inj) 40 mg Q24H SQ 11/17/16 18:00 11/17/16 17:59 (Roxicodone) 10 mg Q4H PRN PO 11/17/16 17:45 11/18/16 08:47 (Morphine Inj) 4 mg Q3H PRN IV PUSH 11/17/16 17:45 10/6/17 07:17 (Roxicodone) 5 mg Q4H PRN PO 11/17/16 17:45 (Narcan Inj) 0.4 mg UNSCH PRN IV PUSH 11/17/16 17:45 (Milk Of Magnesia Liq) 30 ml Q12H PRN PO 11/17/16 17:45 (Pill Splitter) 1 ea UNSCH PRN OTHER 11/17/16 18:00 (Duoneb Neb) 1 ampule Q2HR NEB PRN NEB 11/17/16 18:15 A/P Problem List: (1) SOB (shortness of breath) ICD Code: R06.02 - Shortness of breath Status: Acute (2) CHF (congestive heart failure) ICD Code: I50.9 - Heart failure, unspecified Status: Acute (3) Morbid obesity with body mass index (BMI) of 40.0 or higher ICD Code: E66.01 - Morbid (severe) obesity due to excess calories Status: Acute (4) Anasarca ICD Code: R60.1 - Generalized edema Status: Acute (5) Transaminitis ICD Code: R74.0 - Nonspecific elevation of levels of transaminase and lactic acid dehydrogenase [LDH] Status: Acute (6) Acute exacerbation of CHF (congestive heart failure) ICD Code: I50.9 - Heart failure, unspecified Status: Acute (7) Pleural effusion ICD Code: J90 - Pleural effusion, not elsewhere classified Status: Acute Assessment and Plan Mr. Wilcox is a 36-year-old male patient with a known medical history of CHF, hypertension, hyperlipidemia and anxiety who presented to the ED with worsening shortness of breath and generalized swelling. Acute CHF exacerbation Anasarca Bilateral pleural effusions - Requested recent hospitalization reports from [facility] for recent treatment and workup. Follow. - Started on Lasix 40 mg IV BID. Also supplemental potassium as needed. Monitor intake and output closely. Continue cardiac telemetry. - Consult placed to cardiology for further recommendations. - Continue supplemental O2 to keep sats >92%. - PT/OT evaluation ordered, appreciate input. - CBC and BMP reviewed, essentially unremarkable. Will follow CBC, BMP in am. - Heart healthy diet. - Obtain EKG. Hyperbilirubinemia suspect secondary to liver fibrosis and cholelithiasis Thrombocytopenia, mild Iron deficiency anemia, chronic Hematochezia Nausea and vomiting - Abdomen/pelvis CT reviewed showing small to moderate bilateral pleural effusions. Mild consolidation in lower lung bases. Anasarca. Calcified gallstones. Mild splenomegaly. - Total bilirubin 4.3 on presentation, direct bilirubin 2.0. Lipase WNL. Continue to trend LFTs. - Continue home ferrous sulfate. Monitor CBC. - GI consult requested. - Zofran available PRN. - Diuresis as above. Chronic pain The pt reports improvement on the current regimen. - continue pain control with a bowel regimen. Anxiety Uncontrolled. - Will continue home Celexa. Also have lorazepam PO PRN. DVT prophylaxis: Lovenox Discharge Planning Awaiting cardiology Jose Antonio Dennis DO Nov 18, 2016 10:32
[2016-11-18 12:00] VITALS: BP 111/69; PULSE 131; RESP 18; TEMP 98.6; O2SAT 91
[2016-11-18 12:08] LABS: AUTOMATED NEUTROPHIL # 3.5 TH/MM3 (1.8-7.7); BASOPHIL # 0.1 TH/MM3 (0-0.2); BASOPHIL % 1.5 % (0.0-2.0); EOSINOPHIL # 0.3 TH/MM3 (0-0.4); EOSINOPHIL % 4.8 % (0.0-4.0); HEMATOCRIT 34.3 % (39.0-51.0); HEMO FLAGS DIFF FINAL; LYMPH % 22.5 % (9.0-44.0); LYMPHOCYTE # 1.2 TH/MM3 (1.0-4.8); MEAN CELL VOLUME 88.6 FL (80.0-100.0); MEAN CORPUSCULAR HEMOGLOBIN 28.7 PG (27.0-34.0); MEAN CORPUSCULAR HGB CONC 32.4 % (32.0-36.0); MONO % 7.4 % (0.0-8.0); NEUT % 63.8 % (16.0-70.0); PLATELET COUNT 122 TH/MM3 (150-450); RED BLOOD COUNT 3.87 MIL/MM3 (4.50-5.90); RED CELL DISTRIBUTION WIDTH 24.7 % (11.6-17.2); WHITE BLOOD COUNT 5.5 TH/MM3 (4.0-11.0)
[2016-11-18 12:24] LABS: INTERNATIONAL NORMALIZED RATIO 1.5 RATIO; PROTHROMBIN TIME - PATIENT 16.7 SEC (9.8-11.6)
[2016-11-18 12:43] LABS: ALT (GPT) 18 U/L (12-78); ANION GAP 8 MEQ/L (5-15); AST (GOT) 22 U/L (15-37); BICARBONATE 27.3 MEQ/L (21.0-32.0); BLOOD UREA NITROGEN 9 MG/DL (7-18); CHLORIDE 103 MEQ/L (98-107); GLOMERULAR FILTRATION RATE 66 ML/MIN (>89); POTASSIUM 3.8 MEQ/L (3.5-5.1); SODIUM (NA) 138 MEQ/L (136-145)
[2016-11-18 12:45] LABS: ALKALINE PHOSPHATASE 69 U/L (45-117); TOTAL BILIRUBIN ADULT 3.9 MG/DL (0.2-1.0)
[2016-11-18 16:00] VITALS: BP 114/70; PULSE 132; RESP 18; TEMP 97.8; O2SAT 95
[2016-11-18] MEDS: ENOXAPARIN SODIUM 40 MG/0.4 ML SYRINGE SQ SCH (17:04)
[2016-11-18 20:00] VITALS: BP 109/70; PULSE 119; PULSE 127; RESP 18; TEMP 98.1; O2SAT 93
[2016-11-19] VITALS (7 sets, daily range): BP systolic 98–124; BP diastolic 63–95; PULSE 107–127; RESP 16–20; TEMP 97.4–108; O2SAT 94–100
[2016-11-19] MEDS: LORazepam 0.5 MG TAB PO PRN (00:44)
[2016-11-19] MEDS: FERROUS SULFATE 325 MG (65 MG ELEMENTAL IRON) TAB PO SCH ×2 (06:06→16:08)
[2016-11-19] MEDS: PANTOPRAZOLE SOD 40 MG DELAYED RELEASE TAB PO SCH (06:06)
[2016-11-19] MEDS: LEVOTHYROXINE SODIUM 100 MCG TAB PO SCH (06:06)
--- NOTE | 2016-11-19 09:42 | PD.CONS ---
HPI Consult Requested By Primary Care Physician Unknown History of Present Illness 36 year old with a history chronic systolic heart failure of unknown was referred to the hospital for further evaluation of shortness of breath. He was recently hospitalized in [facility] for his CHF and was released about one week ago. He states that he misunderstood his discharge instructions and was taking both Lasix and Bumex. After taking this for about 3 days, he started having nausea, vomiting with dark green/brown emesis. He also complained of LLQ/LUQ abdominal pain that he describes as an intermittent pressure like pain and diarrhea. The pain has been constant and he cannot identify any aggravating or alleviating factors.Previous MPI negative for ischemia. Review of Systems Consitutional: DENIES: Fatigue, Fever, Chills, Weight gain, Weight loss Eyes: DENIES: Amaurosis Fugax, Change in vision HEENT: DENIES: Lightheadedness, Change in hearing Respiratory: COMPLAINS OF: Shortness of breath Cardiovascular: DENIES: See HPI, Chest pain, Palpitations, Syncope, Tachycardia Gastrointestinal: COMPLAINS OF: Nausea, Vomiting, DENIES: Change in bowel habits, Reflux, Bloody stools, Melena Genitourinary: DENIES: Urinary incontinence, Difficulty voiding Integumentary: DENIES: Rash Musculoskeletal: DENIES: Joint pain, Muscle pain, Limited range of motion, Back pain Psychiatric: COMPLAINS OF: Anxiety, DENIES: Depression, Sleep disturbances Hematologic: DENIES: Bruising tendencies, Bleeding tendencies Endocrine: COMPLAINS OF: Weight gain, DENIES: Weight loss, Thyroid disease Past Family Social History Allergies: Coded Allergies: ketorolac (Verified Allergy, Severe, GENERALIZED HIVES/RASH WHICH LAST FOR ABOUT A WEEK, 11/17/16) penicillin G (Verified Allergy, Severe, Anaphylaxis, 11/17/16) tramadol (Verified Allergy, Severe, GENERALIZED HIVES WHICH LAST FOR ABOUT A WEEK, 11/17/16) acetaminophen (Verified Allergy, Unknown, 11/17/16) liver failure Past Medical History LV dysfunction Cardiomyopathy of unknown etiology Morbid obesity Anxiety Anemia Hyperlipidemia Congestive heart failure Hypertension GERD Fatty liver Cholelithiasis Hiatal hernia Pulmonary embolism 2011 Past Surgical History Appendectomy Reported Medications Reported Meds & Active Scripts Active Oxycodone (Oxycodone HCl) 5 Mg Tab 5 Mg PO Q6H PRN Metoprolol Tartrate 25 Mg Tab 25 Mg PO Q12HR 30 Days Ativan (Lorazepam) 0.5 Mg Tab 0.5 Mg PO Q6H PRN Ferosul (Ferrous Sulfate) 325 Mg Tablet 325 Mg PO BID Reported Docusate Sodium 100 Mg Cap 100 Mg PO BID Furosemide 40 Mg Tab 40 Mg PO DAILY Levothyroxine (Levothyroxine Sodium) 100 Mcg Tab 100 Mcg PO DAILY Proair Hfa 8.5 GM Inh (Albuterol Sulfate) 90 Mcg/Act Aer 2 Puff INH Q4-6H PRN 108 mcg/actuation Potassium Chloride ER (Potassium Chloride) 20 Meq Tab 20 Meq PO DAILY Omeprazole 40 Mg Cap 40 Mg PO DAILY Celexa (Citalopram Hydrobromide) 10 Mg Tab 10 Mg PO DAILY Active Ordered Medications Current Medications Medications (Trade) Dose Ordered Sig/Gideon Route Start Time Stop Time Status Last Admin (CeleXA) 10 mg DAILY PO 11/18/16 09:00 11/18/16 08:47 (Colace) 100 mg BID PO 11/17/16 21:00 11/18/16 08:47 (Ferrous Sulfate) 325 mg BIDAC PO 11/18/16 07:00 11/19/16 06:06 (Synthroid) 100 mcg DAILY@0600 PO 11/18/16 06:00 11/19/16 06:06 (KCl) 20 meq DAILY PO 11/18/16 09:00 11/18/16 08:47 (Protonix) 40 mg DAILY@0600 PO 11/18/16 06:00 11/19/16 06:06 (Lasix Inj) 40 mg BID@09,18 IV PUSH 11/17/16 18:00 11/18/16 17:03 (NS Flush) 2 ml UNSCH PRN IV FLUSH 11/17/16 17:45 (NS Flush) 2 ml BID IV FLUSH 11/17/16 21:00 11/18/16 20:52 (Zofran Inj) 4 mg Q6H PRN IVP 11/17/16 17:45 (Lovenox Inj) 40 mg Q24H SQ 11/17/16 18:00 11/18/16 17:04 (Roxicodone) 10 mg Q4H PRN PO 11/17/16 17:45 11/19/16 06:06 (Morphine Inj) 4 mg Q3H PRN IV PUSH 11/17/16:45 11/18/16 20:52 (Roxicodone) 5 mg Q4H PRN PO 11/17/16 17:45 (Narcan Inj) 0.4 mg UNSCH PRN IV PUSH 11/17/16 17:45 (Milk Of Magnesia Liq) 30 ml Q12H PRN PO 11/17/16 17:45 (Pill Splitter) 1 ea UNSCH PRN OTHER 11/17/16 18:00 (Duoneb Neb) 1 ampule Q2HR NEB PRN NEB 11/17/16 18:15 (Ativan) 0.5 mg Q4H PRN PO 11/18/16 10:30 11/19/16 00:44 Family History Maternal medical history significant for lung cancer. Paternal medical history significant for cardiovascular disease and skin cancer. Social History Uses chewing tobacco. No current etoh or illicit drug use, but does have history of alcohol use and has used cocaine and marijuana in past (September of 2016). Physical Exam Vital Signs Vital Signs Date Time Temp Pulse Resp B/P (MAP) Pulse Ox O2 Delivery O2 Flow Rate FiO2 11/19/16 04:00 97.9 118 18 122/72 (89) 97 11/19/16 00:00 108.0 127 16 108/72 (84) 94 11/18/16 20:00 Room Air 11/18/16 20:00 98.1 127 18 109/70 (83) 93 11/18/16 20:00 119 11/18/16 16:00 97.8 132 18 114/70 (85) 95 11/18/16 12:00 98.6 131 18 111/69 (83) 91 11/18/16 11:15 Room Air Physical Exam GENERAL: Well-nourished, well-developed patient. SKIN: Warm and dry. HEAD: Normocephalic. EYES: No scleral icterus. No injection or drainage. NECK: Supple, trachea midline. + JVD or lymphadenopathy. CARDIOVASCULAR: Tachycardic without murmurs, gallops, or rubs. RESPIRATORY: Bilaterally rales. No accessory muscle use. GASTROINTESTINAL: Obese. Abdomen soft, non-tender, nondistended. EXTREMITIES: No cyanosis, or +++edema. NEUROLOGICAL: Awake, alert, and oriented x 3. Non-focal. Laboratory Laboratory Tests Test 11/18/16 11:47 White Blood Count 5.5 Red Blood Count 3.87 Hemoglobin 11.1 Hematocrit 34.3 Mean Corpuscular Volume 88.6 Mean Corpuscular Hemoglobin 28.7 Mean Corpuscular Hemoglobin Concent 32.4 Red Cell Distribution Width 24.7 Platelet Count 122 Mean Platelet Volume 8.3 Neutrophils (%) (Auto) 63.8 Lymphocytes (%) (Auto) 22.5 Monocytes (%) (Auto) 7.4 Eosinophils (%) (Auto) 4.8 Basophils (%) (Auto) 1.5 Neutrophils # (Auto) 3.5 Lymphocytes # (Auto) 1.2 Monocytes # (Auto) 0.4 Eosinophils # (Auto) 0.3 Basophils # (Auto) 0.1 CBC Comment DIFF FINAL Differential Comment Prothrombin Time 16.7 Prothromb Time International Ratio 1.5 Blood Urea Nitrogen 9 Creatinine 1.24 Random Glucose 124 Total Protein 7.2 Albumin 3.0 Calcium Level 8.4 Alkaline Phosphatase 69 Aspartate Amino Transf (AST/SGOT) 22 Alanine Aminotransferase (ALT/SGPT) 18 Total Bilirubin 3.9 Sodium Level 138 Potassium Level 3.8 Chloride Level 103 Carbon Dioxide Level 27.3 Anion Gap 8 Estimat Glomerular Filtration Rate 66 Result Diagram: 11/18/16 1147 11/18/16 1147 Imaging Last Impressions Abdomen/Pelvis CT 11/17/16 0000 Signed Impressions: Service Date/Time: November 16:01 - CONCLUSION: 1. Small to moderate bilateral pleural effusions which are new from the prior study. There is mild consolidation in the posterior lung bases. 2. Mild increase in anasarca and ascites. 3. Multiple calcified gallstones again noted. 4. Right-sided bladder diverticulum which extends into the right inguinal canal. 5. Nonobstructive bowel gas pattern 6. Mild splenomegaly again noted. Jose Antonio Miles MD Assessment and Plan Problem List: (1) Acute exacerbation of CHF (congestive heart failure) ICD Codes: I50.9 - Heart failure, unspecified Status: Acute Plan: Acute on chronic systolic heart failure exacerbation ?diet compliance. Recommendations: 1. Cont Gently diuresis 2. Strict I&O 3. Low salt diet 4. Daily weights 5. Cont home medication for HF. 6. F/U with cardiology upon discharge (2) Sinus tachycardia ICD Codes: R00.0 - Tachycardia, unspecified Status: Acute (3) Low back pain radiating to both legs ICD Codes: M54.5 - Low back pain Status: Chronic (4) Congestive heart failure ICD Codes: I50.9 - Heart failure, unspecified Status: Acute (5) SOB (shortness of breath) ICD Codes: R06.02 - Shortness of breath Status: Acute (6) CHF (congestive heart failure) ICD Codes: I50.9 - Heart failure, unspecified Status: Acute (7) Morbid obesity with body mass index (BMI) of 40.0 or higher ICD Codes: E66.01 - Morbid (severe) obesity due to excess calories Status: Acute Problem Qualifiers (1) Acute exacerbation of CHF (congestive heart failure): Qualified Codes: I50.23 - Acute on chronic systolic (congestive) heart failure (2) Congestive heart failure: Qualified Codes: I50.9 - Heart failure, unspecified Willie Hernandez MD Nov 19, 2016 09:42
[2016-11-19] MEDS: CITALOPRAM HYDROBROMIDE 20 MG TAB PO SCH (09:47)
[2016-11-19] MEDS: FUROSEMIDE 40 MG/4 ML VIAL IV PUSH SCH ×3 (09:47→18:04)
[2016-11-19] MEDS: SODIUM CHLORIDE 0.9% FLUSH 10 ML FLUSH IV FLUSH SCH ×2 (09:47→20:19)
[2016-11-19] MEDS: DOCUSATE SODIUM 100 MG CAP PO SCH ×2 (09:47→20:19)
[2016-11-19] MEDS: POTASSIUM CHLORIDE 20 MEQ CONTROLLED RELEASE TAB PO SCH (09:47)
[2016-11-19] MEDS: MORPHINE SULFATE 4 MG/ML INJ IV PUSH PRN ×2 (09:49→16:09)
--- NOTE | 2016-11-19 11:34 | HHI.PR ---
Subjective Remarks The patient said that his swelling was better. He said his pain was improved. He said he talked with the heart doctor. No acute concerns at this time. Objective Vitals Vital Signs Date Time Temp Pulse Resp B/P (MAP) Pulse Ox O2 Delivery O2 Flow Rate FiO2 11/19/16 11:20 Room Air 11/19/16 11:18 107 11/19/16 04:00 97.9 118 18 122/72 (89) 97 11/19/16 00:00 108.0 127 16 108/72 (84) 94 11/18/16 20:00 Room Air 11/18/16 20:00 98.1 127 18 109/70 (83) 93 11/18/16 20:00 119 11/18/16 16:00 97.8 132 18 114/70 (85) 95 11/18/16 12:00 98.6 131 18 111/69 (83) 91 I/O 11/18/16 11/18/16 11/18/16 11/19/16 11/19/16 11/19/16 06:59 14:59 22:59 06:59 14:59 22:59 Intake Total 480 ml Output Total 2700 ml 1275 ml Balance -2220 ml -1275 ml Intake Oral 480 ml Output Urine Total 2700 ml 1275 ml # Bowel Movements 0 Result Diagram: 11/18/16 1147 11/18/16 1147 Imaging Last Impressions Abdomen/Pelvis CT 11/17/16 0000 Signed Impressions: Service Date/Time: November 16:01 - CONCLUSION: 1. Small to moderate bilateral pleural effusions which are new from the prior study. There is mild consolidation in the posterior lung bases. 2. Mild increase in anasarca and ascites. 3. Multiple calcified gallstones again noted. 4. Right-sided bladder diverticulum which extends into the right inguinal canal. 5. Nonobstructive bowel gas pattern 6. Mild splenomegaly again noted. Jose Antonio Miles MD Objective Remarks GENERAL: This is an obese, well-developed male patient, lying in bed. SKIN: No rashes, ecchymoses or lesions. Warm and clammy. HEAD: Atraumatic. Normocephalic. Pupils equal round and reactive. Extraocular motions intact. No scleral icterus. No injection or drainage. Nose without bleeding. Airway patent. NECK: Trachea midline. No JVD. Supple. CARDIOVASCULAR: Regular rate and rhythm without murmurs, gallops, or rubs. RESPIRATORY: Diminished breath sounds due to body habitus. Breath sounds equal bilaterally. No wheezes, rales, or rhonchi. GASTROINTESTINAL: Abdomen soft, non-tender. Rounded and obese. No guarding. MUSCULOSKELETAL: Extremities without clubbing, cyanosis. Anasarca noted. No joint tenderness, effusion. NEUROLOGICAL: Awake and alert. Cranial nerves II through XII intact. Motor and sensory grossly within normal limits. Five out of 5 muscle strength in all muscle groups. Normal speech. PSYCH: Mood and affect appropriate. Medications and IVs Current Medications Medications (Trade) Dose Ordered Sig/Gideon Route Start Time Stop Time Status Last Admin (CeleXA) 10 mg DAILY PO 11/18/16 09:00 11/19/16 09:47 (Colace) 100 mg BID PO 11/17/16 21:00 11/18/16 08:47 (Ferrous Sulfate) 325 mg BIDAC PO 11/18/16 07:00 11/19/16 06:06 (Synthroid) 100 mcg DAILY@0600 PO 11/18/16 06:00 11/19/16 06:06 (KCl) 20 meq DAILY PO 11/18/16 09:00 11/19/16 09:47 (Protonix) 40 mg DAILY@0600 PO 11/18/16 06:00 11/19/16 06:06 (Lasix Inj) 40 mg BID@09,18 IV PUSH 11/17/16 18:00 11/19/16 09:47 (NS Flush) 2 ml UNSCH PRN IV FLUSH 11/17/16 17:45 (NS Flush) 2 ml BID IV FLUSH 11/17/16 21:00 11/19/16 09:47 (Zofran Inj) 4 mg Q6H PRN IVP 11/17/16 17:45 (Lovenox Inj) 40 mg Q24H SQ 11/17/16 18:00 11/18/16 17:04 (Roxicodone) 10 mg Q4H PRN PO 11/17/16 17:45 11/19/16 06:06 (Morphine Inj) 4 mg Q3H PRN IV PUSH 10/5/17 17:45 11/19/16 09:49 (Roxicodone) 5 mg Q4H PRN PO 11/17/16 17:45 (Narcan Inj) 0.4 mg UNSCH PRN IV PUSH 11/17/16 17:45 (Milk Of Magnesia Liq) 30 ml Q12H PRN PO 11/17/16 17:45 (Pill Splitter) 1 ea UNSCH PRN OTHER 11/17/16 18:00 (Duoneb Neb) 1 ampule Q2HR NEB PRN NEB 11/17/16 18:15 (Ativan) 0.5 mg Q4H PRN PO 11/18/16 10:30 11/19/16 00:44 (Lopressor) 25 mg Q12HR PO 11/19/16 21:00 A/P Problem List: (1) SOB (shortness of breath) ICD Code: R06.02 - Shortness of breath Status: Acute (2) CHF (congestive heart failure) ICD Code: I50.9 - Heart failure, unspecified Status: Acute (3) Morbid obesity with body mass index (BMI) of 40.0 or higher ICD Code: E66.01 - Morbid (severe) obesity due to excess calories Status: Acute (4) Anasarca ICD Code: R60.1 - Generalized edema Status: Acute (5) Transaminitis ICD Code: R74.0 - Nonspecific elevation of levels of transaminase and lactic acid dehydrogenase [LDH] Status: Acute (6) Acute exacerbation of CHF (congestive heart failure) ICD Code: I50.9 - Heart failure, unspecified Status: Acute (7) Pleural effusion ICD Code: J90 - Pleural effusion, not elsewhere classified Status: Acute Assessment and Plan Mr. Wilcox is a 36-year-old male patient with a known medical history of CHF, hypertension, hyperlipidemia and anxiety who presented to the ED with worsening shortness of breath and generalized swelling. Acute CHF exacerbation Anasarca Bilateral pleural effusions - Requested recent hospitalization reports from [facility] for recent treatment and workup. Follow. - Started on Lasix 40 mg IV BID. Has been having good outpt. Also supplemental potassium as needed. Monitor intake and output closely. Continue cardiac telemetry. - Consult placed to cardiology for further recommendations. Echo pending. - Continue supplemental O2 to keep sats >92%. - PT/OT evaluation ordered, appreciate input. - CBC and BMP reviewed, essentially unremarkable. Will follow CBC, BMP in am. - Heart healthy diet. - Obtain EKG. Hyperbilirubinemia suspect secondary to liver fibrosis and cholelithiasis Thrombocytopenia, mild Iron deficiency anemia, chronic Hematochezia Nausea and vomiting - Abdomen/pelvis CT reviewed showing small to moderate bilateral pleural effusions. Mild consolidation in lower lung bases. Anasarca. Calcified gallstones. Mild splenomegaly. - Total bilirubin 4.3 on presentation, direct bilirubin 2.0. Lipase WNL. Continue to trend LFTs. - Continue home ferrous sulfate. Monitor CBC. - GI consult appreciated. - Zofran available PRN. - Diuresis as above. Chronic pain The pt reports improvement on the current regimen. - continue pain control with a bowel regimen. Anxiety Uncontrolled. - Will continue home Celexa. Also have lorazepam PO PRN. DVT prophylaxis: Lovenox Discharge Planning Needs further diuresis Problem Qualifiers (1) Acute exacerbation of CHF (congestive heart failure): Qualified Codes: I50.23 - Acute on chronic systolic (congestive) heart failure Jose Antonio Robles DO Nov 19, 2016 11:34
[2016-11-19 13:05] LABS: BICARBONATE 29.4 MEQ/L (21.0-32.0); POTASSIUM 3.9 MEQ/L (3.5-5.1)
[2016-11-19] MEDS: ENOXAPARIN SODIUM 40 MG/0.4 ML SYRINGE SQ SCH (16:08)
[2016-11-19] MEDS ORDERED: METOPROLOL TARTRATE 25 MG TAB PO ONE (17:45)
[2016-11-19] MEDS ORDERED: POTASSIUM CHLORIDE 20 MEQ CONTROLLED RELEASE TAB PO SCH (21:00)
[2016-11-19] MEDS ORDERED: METOPROLOL TARTRATE 25 MG TAB PO SCH (21:00)
[2016-11-20] VITALS (7 sets, daily range): BP systolic 106–123; BP diastolic 57–82; PULSE 76–120; RESP 18–20; TEMP 97.5–98.3; O2SAT 92–100
[2016-11-20] MEDS: MORPHINE SULFATE 4 MG/ML INJ IV PUSH PRN ×3 (02:45→14:45)
[2016-11-20] MEDS: FERROUS SULFATE 325 MG (65 MG ELEMENTAL IRON) TAB PO SCH ×2 (05:47→16:54)
[2016-11-20] MEDS: PANTOPRAZOLE SOD 40 MG DELAYED RELEASE TAB PO SCH ×2 (05:47→22:08)
[2016-11-20] MEDS: LEVOTHYROXINE SODIUM 100 MCG TAB PO SCH (05:48)
[2016-11-20] MEDS: POTASSIUM CHLORIDE 20 MEQ CONTROLLED RELEASE TAB PO SCH (09:01)
[2016-11-20] MEDS: SODIUM CHLORIDE 0.9% FLUSH 10 ML FLUSH IV FLUSH SCH ×2 (09:01→22:08)
[2016-11-20] MEDS: FUROSEMIDE 40 MG/4 ML VIAL IV PUSH SCH (09:01)
[2016-11-20] MEDS: CITALOPRAM HYDROBROMIDE 20 MG TAB PO SCH (09:01)
[2016-11-20] MEDS: DOCUSATE SODIUM 100 MG CAP PO SCH ×2 (09:01→22:08)
[2016-11-20] MEDS: LORazepam 0.5 MG TAB PO PRN (09:04)
[2016-11-20] MEDS: METOPROLOL TARTRATE 50 MG TAB PO SCH ×2 (09:04→22:08)
[2016-11-20 10:14] LABS: BICARBONATE 29.9 MEQ/L (21.0-32.0); MAGNESIUM 1.7 MG/DL (1.5-2.5)
--- NOTE | 2016-11-20 12:02 | HHI.PR ---
Subjective Remarks The patient was resting comfortably in bed. Family at the bedside. The patient has been having spasms of his lower extremities. He took a shower. He has been urinating a lot. Has not had any further bowel movements. Discussed with nursing. Objective Vitals Vital Signs Date Time Temp Pulse Resp B/P (MAP) Pulse Ox O2 Delivery O2 Flow Rate FiO2 11/20/16 09:13 Room Air 11/20/16 08:03 110 11/20/16 04:00 98.2 91 20 123/82 (96) 100 11/20/16 00:00 98.2 82 20 106/59 (75) 92 11/19/16 20:00 Room Air 11/19/16 20:00 97.8 113 20 98/63 (75) 95 11/19/16 19:43 118 11/19/16 16:00 97.4 126 18 112/73 (86) 96 I/O 11/19/16 11/19/16 11/19/16 11/20/16 11/20/16 11/20/16 07:00 15:00 23:00 07:00 15:00 23:00 Intake Total 1200 ml 350 ml Output Total 1275 ml 1350 ml Balance -1275 ml 1200 ml -1000 ml Intake Oral 1200 ml 350 ml Output Urine Total 1275 ml 1350 ml # Voids 5 # Bowel Movements 1 Result Diagram: 11/18/16 1147 11/20/16 0850 Imaging Last Impressions Abdomen/Pelvis CT 11/17/16 0000 Signed Impressions: Service Date/Time: November 16:01 - CONCLUSION: 1. Small to moderate bilateral pleural effusions which are new from the prior study. There is mild consolidation in the posterior lung bases. 2. Mild increase in anasarca and ascites. 3. Multiple calcified gallstones again noted. 4. Right-sided bladder diverticulum which extends into the right inguinal canal. 5. Nonobstructive bowel gas pattern 6. Mild splenomegaly again noted. Jose Antonio Miles MD Objective Remarks GENERAL: This is an obese, well-developed male patient, lying in bed. SKIN: Dry, scabby lesions on lower extremities. HEAD: Atraumatic. Normocephalic. Pupils equal round and reactive. Extraocular motions intact. No scleral icterus. No injection or drainage. Nose without bleeding. Airway patent. NECK: Trachea midline. No JVD. Supple. CARDIOVASCULAR: Tachycardic without murmurs, gallops, or rubs. RESPIRATORY: Diminished breath sounds due to body habitus. Breath sounds equal bilaterally. No wheezes, rales, or rhonchi. GASTROINTESTINAL: Abdomen soft, non-tender. Rounded and obese. No guarding. MUSCULOSKELETAL: Extremities without clubbing, cyanosis. Anasarca noted. No joint tenderness, effusion. NEUROLOGICAL: Awake and alert. Cranial nerves II through XII intact. Motor and sensory grossly within normal limits. Five out of 5 muscle strength in all muscle groups. Normal speech. PSYCH: Mood and affect appropriate. Medications and IVs Current Medications Medications (Trade) Dose Ordered Sig/Gideon Route Start Time Stop Time Status Last Admin (CeleXA) 10 mg DAILY PO 11/18/16 09:00 11/20/16 09:01 (Colace) 100 mg BID PO 11/17/16 21:00 11/20/16 09:01 (Ferrous Sulfate) 325 mg BIDAC PO 11/18/16 07:00 11/20/16 05:47 (Synthroid) 100 mcg DAILY@0600 PO 11/18/16 06:00 11/20/16 05:48 (Protonix) 40 mg DAILY@0600 PO 11/18/16 06:00 11/20/16 05:47 (NS Flush) 2 ml UNSCH PRN IV FLUSH 11/17/16 17:45 (NS Flush) 2 ml BID IV FLUSH 11/17/16 21:00 11/20/16 09:01 (Zofran Inj) 4 mg Q6H PRN IVP 11/17/16 17:45 (Lovenox Inj) 40 mg Q24H SQ 11/17/16 18:00 11/19/16 16:08 (Roxicodone) 10 mg Q4H PRN PO 11/17/16 17:45 11/20/16 05:48 (Morphine Inj) 4 mg Q3H PRN IV PUSH 11/17/16 17:45 11/20/16 09:05 (Roxicodone) 5 mg Q4H PRN PO 11/17/16 17:45 (Narcan Inj) 0.4 mg UNSCH PRN IV PUSH 10/5/17 17:45 (Milk Of Magnesia Liq) 30 ml Q12H PRN PO 11/17/16 17:45 (Pill Splitter) 1 ea UNSCH PRN OTHER 11/17/16 18:00 (Duoneb Neb) 1 ampule Q2HR NEB PRN NEB 11/17/16 18:15 (Ativan) 0.5 mg Q4H PRN PO 11/18/16 10:30 11/20/16 09:04 (Lasix Inj) 20 mg BID@,18 IV PUSH 11/19/16 18:00 Future Hold 11/20/16 09:01 (KCl) 20 meq DAILY PO 11/20/16 09:00 11/20/16 09:01 (Lopressor) 50 mg Q12HR PO 11/20/16 09:00 11/20/16 09:04 (Betadine 10% Oint) 1 applic DAILY TOPICAL 11/20/16 11:45 UNV A/P Problem List: (1) SOB (shortness of breath) ICD Code: R06.02 - Shortness of breath Status: Acute (2) CHF (congestive heart failure) ICD Code: I50.9 - Heart failure, unspecified Status: Acute (3) Morbid obesity with body mass index (BMI) of 40.0 or higher ICD Code: E66.01 - Morbid (severe) obesity due to excess calories Status: Acute (4) Anasarca ICD Code: R60.1 - Generalized edema Status: Acute (5) Transaminitis ICD Code: R74.0 - Nonspecific elevation of levels of transaminase and lactic acid dehydrogenase [LDH] Status: Acute (6) Acute exacerbation of CHF (congestive heart failure) ICD Code: I50.9 - Heart failure, unspecified Status: Acute (7) Pleural effusion ICD Code: J90 - Pleural effusion, not elsewhere classified Status: Acute Assessment and Plan Mr. Wilcox is a 36-year-old male patient with a known medical history of CHF, hypertension, hyperlipidemia and anxiety who presented to the ED with worsening shortness of breath and generalized swelling. Acute CHF exacerbation Anasarca Bilateral pleural effusions EKG was sinus tachycardia. - Requested recent hospitalization reports from [facility] for recent treatment and workup. - Started on Lasix 40 mg IV BID. Has been having good outpt. Also supplemental potassium as needed. Monitor intake and output closely. Continue cardiac telemetry. Hold Lasix as patient is having renal insufficiency. - Consult placed to cardiology for further recommendations. Echo pending. - Continue supplemental O2 to keep sats >92%. - PT/OT evaluation ordered, appreciate input. - CBC and BMP reviewed, essentially unremarkable. Will follow CBC, BMP. - Heart healthy diet. - CXR pending. Hyperbilirubinemia suspect secondary to liver fibrosis and cholelithiasis Thrombocytopenia, mild Iron deficiency anemia, chronic Hematochezia Nausea and vomiting - Abdomen/pelvis CT reviewed showing small to moderate bilateral pleural effusions. Mild consolidation in lower lung bases. Anasarca. Calcified gallstones. Mild splenomegaly. - Total bilirubin 4.3 on presentation, direct bilirubin 2.0. Lipase WNL. Continue to trend LFTs. - Continue home ferrous sulfate. Monitor CBC. - GI consult appreciated. - Zofran available PRN. - Follow CBC. Chronic pain The pt reports improvement on the current regimen. - continue pain control with a bowel regimen. Anxiety Stable. - Will continue home Celexa. Also have lorazepam PO PRN. Chronic lower extremity lesions Improving. - Betadine ointment ordered. - Wound care consult if needed. DVT prophylaxis: Lovenox Discharge Planning Needs further diuresis Problem Qualifiers (1) Acute exacerbation of CHF (congestive heart failure): Qualified Codes: I50.23 - Acute on chronic systolic (congestive) heart failure Jose Antonio Robles DO Nov 20, 2016 12:01
[2016-11-20] MEDS: POVIDONE IODINE 10% OINT 30 GM TUBE TOPICAL SCH (12:28)
--- NOTE | 2016-11-20 12:30 | RADRPT ---
EXAM DATE/TIME: 11/20/2016 11:54 [facility] COMPARISON: CHEST SINGLE AP, September 29, 2016, 8:24. INDICATIONS : Short of breath MEDICAL HISTORY : Hypertension. Congestive heart failure. Hernia, hiatal.Liver failure, anemia SURGICAL HISTORY : Appendectomy. ENCOUNTER: Initial ACUITY: 3 days PAIN SCORE: 0/10 LOCATION: chest FINDINGS: There is advanced cardiomegaly. This is stable compared to previous exam. The lungs appear clear. Vis ualized bony structures are grossly intact. CONCLUSION: 1. Advanced cardiomegaly. Unchanged from previous. Maycol Solorio MD on November 20, 2016 at 12:28 Board Certified Radiologist. This report was verified electronically.
--- NOTE | 2016-11-20 13:55 | HHI.GIFU ---
Subjective Remarks patient is resting in bed, had 2 solid BM today, some nausea and abd aches. No vomiting or bleeding. (Edwin Frost) Objective Vitals I&O Vital Signs Date Time Temp Pulse Resp B/P (MAP) Pulse Ox O2 Delivery O2 Flow Rate FiO2 11/20/16 12:00 97.8 76 18 118/57 (77) 99 11/20/16 09:13 Room Air 11/20/16 08:03 110 11/20/16 08:00 97.5 120 18 107/60 (76) 92 11/20/16 04:00 98.2 91 20 123/82 (96) 100 11/20/16 00:00 98.2 82 20 106/59 (75) 92 11/19/16 20:00 Room Air 11/19/16 20:00 97.8 113 20 98/63 (75) 95 11/19/16 19:43 118 11/19/16 16:00 97.4 126 18 112/73 (86) 96 I/O 11/19/16 11/19/16 11/19/16 11/20/16 11/20/16 11/20/16 07:00 15:00 23:00 07:00 15:00 23:00 Intake Total 1200 ml 350 ml Output Total 1275 ml 1350 ml Balance -1275 ml 1200 ml -1000 ml Intake Oral 1200 ml 350 ml Output Urine Total 1275 ml 1350 ml # Voids 5 # Bowel Movements 1 Laboratory Laboratory Tests Test 11/20/16 08:50 Blood Urea Nitrogen 14 Creatinine 1.51 Random Glucose 87 Calcium Level 8.3 Magnesium Level 1.7 Sodium Level 136 Potassium Level 4.0 Chloride Level 98 Carbon Dioxide Level 29.9 Anion Gap 8 Estimat Glomerular Filtration Rate 52 Imaging Last Impressions Abdomen/Pelvis CT 11/17/16 0000 Signed Impressions: Service Date/Time: November 16:01 - CONCLUSION: 1. Small to moderate bilateral pleural effusions which are new from the prior study. There is mild consolidation in the posterior lung bases. 2. Mild increase in anasarca and ascites. 3. Multiple calcified gallstones again noted. 4. Right-sided bladder diverticulum which extends into the right inguinal canal. 5. Nonobstructive bowel gas pattern 6. Mild splenomegaly again noted. Jose Antonio Miles MD Physical Exam HEENT: Pupils round and reactive to light; normocephalic; atraumatic; no jaundice. Throat is clear. NECK: Neck is supple, no JVD, no lymphadenopathy. CHEST: Chest is clear to auscultation and percussion. Diminished at bases CARDIAC: Regular rate and rhythm with no murmur gallop or rubs. ABDOMEN: Abdomen obese, left sided abdominal tenderness, mildly distended, bowel sounds are present in all four quadrants. EXTREMITIES: BLE edema SKIN: Normal; no rash; no jaundice. CHIEF QUALITY OFFICER: No focal deficits; alert and oriented times three. (Edwin Frost) Assessment and Plan Plan ASSESSMENT: - Left sided abdominal pain with N/V/D. CT abdomen and pelvis (11/17/16)---> Small to moderate bilateral pleural effusions which are new from the prior study. There is mild consolidation in the posterior lung bases. Mild increase in anasarca and ascites. Multiple calcified gallstones again noted. Right sided bladder diverticulum which extends into the right inguinal canal. Nonobstructive bowel gas pattern, mild splenomegaly again noted. 3 day hx. States that this began after he misunderstood his discharge instructions from [facility] and was taking Lasix, Bumex at the same time. He is no longer having nausea/vomiting. He took cereal for breakfast and tolerated this. He complains of diarrhea- none today. Will get stool studies. PPI. - Hyperbilirubinemia. He was hospitalized in September of 2016 for acute hepatitis. RUQ US (09/29/16)---> Cholelithiasis with gallbladder wall thickening and no pericholecystic fluid, no evidence of biliary obstruction, the liver is enlarged with findings characteristic of fatty infiltration. He underwent the liver workup---> Hepatitis negative. NADINE negative. AMA negative. ASMA negative. Iron saturation 21.2%. Ferritin 305. AFP 3.0. Alpha 1 antitrypsin 235. Ceruloplasmin 40. FLU (+). It was thought that his acute hepatitis was most likely a combination of tylenol overuse, shocked liver, on underlying fatty liver/congestive hepatopathy. His LFTs on admission at that time were 11.4, AST 1159, ALT 2184, Alk PHosph 174. These are much improved with only his bilirubin elevated. - Rectal bleeding. C/O 3 day hx of diarrhea- multiple liquid stools. States one time, he had the urge to move his bowels and strained and passed large amount of red blood, independent from stool. No further episodes. HH stable. - CHF. Lasix, I/O, Per attending. - KENIA, hypothyroidism, improved. - Anemia. Stable. 11/20/16-- no diarrhea today, no bleeding, doing good. having some nausea and abd aches PLAN: - AAKASH - Cont. PPI - cbc, cmp in the am - consider EGD/colonoscopy once medically stable - Supportive care - Further recommendations to follow based on results of above - Pt seen and examined by Dr. Jimenez and myself and this note is written on her behalf (Edwin Frost) Physician Comments seen, examined agree with above Protonix bid Miralax if not better with colace egd/colon before discharge (Andria Jimenez MD) Edwin Frost Nov 20, 2016 13:55 Andria Jimenez MD Nov 20, 2016 14:42
[2016-11-20] MEDS: ENOXAPARIN SODIUM 40 MG/0.4 ML SYRINGE SQ SCH (16:54)
[2016-11-21] VITALS (7 sets, daily range): BP systolic 103–115; BP diastolic 55–78; PULSE 102–115; RESP 18–20; TEMP 97–98; O2SAT 90–98
[2016-11-21] MEDS: LEVOTHYROXINE SODIUM 100 MCG TAB PO SCH (04:55)
[2016-11-21] MEDS: FERROUS SULFATE 325 MG (65 MG ELEMENTAL IRON) TAB PO SCH ×2 (04:59→16:18)
[2016-11-21] MEDS: LORazepam 0.5 MG TAB PO PRN ×3 (06:58→21:02)
[2016-11-21 08:56] LABS: AUTOMATED NEUTROPHIL # 3.9 TH/MM3 (1.8-7.7); BASOPHIL # 0.1 TH/MM3 (0-0.2); BASOPHIL % 1.2 % (0.0-2.0); EOSINOPHIL # 0.2 TH/MM3 (0-0.4); EOSINOPHIL % 3.6 % (0.0-4.0); HEMATOCRIT 35.4 % (39.0-51.0); HEMO FLAGS DIFF FINAL; LYMPHOCYTE # 1.1 TH/MM3 (1.0-4.8); MEAN CELL VOLUME 87.6 FL (80.0-100.0); MEAN CORPUSCULAR HEMOGLOBIN 28.5 PG (27.0-34.0); MEAN CORPUSCULAR HGB CONC 32.5 % (32.0-36.0); MONO % 9.7 % (0.0-8.0); NEUT % 66.5 % (16.0-70.0); PLATELET COUNT 161 TH/MM3 (150-450); RED BLOOD COUNT 4.04 MIL/MM3 (4.50-5.90); RED CELL DISTRIBUTION WIDTH 24.6 % (11.6-17.2); WHITE BLOOD COUNT 5.9 TH/MM3 (4.0-11.0)
[2016-11-21 09:22] LABS: ANION GAP 10 MEQ/L (5-15); AST (GOT) 19 U/L (15-37); BICARBONATE 26.4 MEQ/L (21.0-32.0); BLOOD UREA NITROGEN 17 MG/DL (7-18); CHLORIDE 98 MEQ/L (98-107); GLOMERULAR FILTRATION RATE 54 ML/MIN (>89); SODIUM (NA) 134 MEQ/L (136-145)
[2016-11-21 09:24] LABS: ALT (GPT) 14 U/L (12-78)
[2016-11-21 09:25] LABS: ALKALINE PHOSPHATASE 68 U/L (45-117); TOTAL BILIRUBIN ADULT 3.8 MG/DL (0.2-1.0)
[2016-11-21] MEDS: POTASSIUM CHLORIDE 20 MEQ CONTROLLED RELEASE TAB PO SCH (09:39)
[2016-11-21] MEDS: POVIDONE IODINE 10% OINT 30 GM TUBE TOPICAL SCH (09:39)
[2016-11-21] MEDS: METOPROLOL TARTRATE 50 MG TAB PO SCH ×2 (09:40→21:00)
[2016-11-21] MEDS: CITALOPRAM HYDROBROMIDE 20 MG TAB PO SCH (09:40)
[2016-11-21] MEDS: PANTOPRAZOLE SOD 40 MG DELAYED RELEASE TAB PO SCH ×2 (09:40→21:01)
[2016-11-21] MEDS: SODIUM CHLORIDE 0.9% FLUSH 10 ML FLUSH IV FLUSH SCH ×2 (09:40→21:00)
[2016-11-21] MEDS: DOCUSATE SODIUM 100 MG CAP PO SCH ×2 (09:40→21:00)
--- NOTE | 2016-11-21 09:46 | HHI.PR ---
Subjective Remarks The patient said that he required oxygen earlier. He was breathing comfortably at this time. He complains of chronic pain. Discussed with nursing at the bedside. Objective Vitals Vital Signs Date Time Temp Pulse Resp B/P (MAP) Pulse Ox O2 Delivery O2 Flow Rate FiO2 11/21/16 08:00 97.5 102 18 112/73 (86) 90 11/21/16 08:00 Room Air 11/21/16 04:00 97.9 102 20 103/64 (77) 93 11/21/16 04:00 Room Air 11/21/16 00:00 Room Air 11/21/16 00:00 98.0 115 20 112/70 (84) 98 11/20/16 20:00 97.7 106 20 113/74 (87) 92 11/20/16 19:24 Room Air 11/20/16 16:00 98.3 102 18 114/76 (89) 93 11/20/16 12:00 97.8 76 18 118/57 (77) 99 I/O 11/20/16 11/20/16 11/20/16 11/21/16 11/21/16 11/21/16 07:00 15:00 23:00 07:00 15:00 23:00 Intake Total 350 ml 360 ml Output Total 1350 ml 1200 ml Balance -1000 ml -840 ml Intake Oral 350 ml 360 ml Output Urine Total 1350 ml 1200 ml # Bowel Movements 0 Result Diagram: 11/21/1615 11/21/16 0815 Imaging Last Impressions Chest X-Ray 11/20/16 0000 Signed Impressions: Service Date/Time: Sunday, November 20, 2016 11:54 - CONCLUSION: 1. Advanced cardiomegaly. Unchanged from previous. Maycol Solorio MD Abdomen/Pelvis CT 11/17/16 0000 Signed Impressions: Service Date/Time: November 16:01 - CONCLUSION: 1. Small to moderate bilateral pleural effusions which are new from the prior study. There is mild consolidation in the posterior lung bases. 2. Mild increase in anasarca and ascites. 3. Multiple calcified gallstones again noted. 4. Right-sided bladder diverticulum which extends into the right inguinal canal. 5. Nonobstructive bowel gas pattern 6. Mild splenomegaly again noted. Jose Antonio Miles MD Objective Remarks GENERAL: This is an obese, well-developed male patient, lying in bed. SKIN: Dry, scabby lesions on lower extremities. HEAD: Atraumatic. Normocephalic. Pupils equal round and reactive. Extraocular motions intact. No scleral icterus. No injection or drainage. Nose without bleeding. Airway patent. NECK: Trachea midline. No JVD. Supple. CARDIOVASCULAR: Tachycardic without murmurs, gallops, or rubs. RESPIRATORY: Diminished breath sounds due to body habitus. Breath sounds equal bilaterally. No wheezes, rales, or rhonchi. GASTROINTESTINAL: Abdomen soft, non-tender. Rounded and obese. No guarding. MUSCULOSKELETAL: Extremities without clubbing, cyanosis. Anasarca noted. No joint tenderness, effusion. NEUROLOGICAL: Awake and alert. Cranial nerves II through XII intact. Motor and sensory grossly within normal limits. Five out of 5 muscle strength in all muscle groups. Normal speech. PSYCH: Mood and affect appropriate. Medications and IVs Current Medications Medications (Trade) Dose Ordered Sig/Gideon Route Start Time Stop Time Status Last Admin (CeleXA) 10 mg DAILY PO 11/18/16 09:00 11/20/16 09:01 (Colace) 100 mg BID PO 11/17/16 21:00 11/20/16 22:08 (Ferrous Sulfate) 325 mg BIDAC PO 11/18/16 07:00 11/21/16 04:59 (Synthroid) 100 mcg DAILY@0600 PO 11/18/16 06:00 11/21/16 04:55 (NS Flush) 2 ml UNSCH PRN IV FLUSH 11/17/16 17:45 (NS Flush) 2 ml BID IV FLUSH 11/17/16 21:00 11/20/16 22:08 (Zofran Inj) 4 mg Q6H PRN IVP 11/17/16 17:45 (Lovenox Inj) 40 mg Q24H SQ 11/17/16 18:00 11/20/16 16:54 (Roxicodone) 10 mg Q4H PRN PO 11/17/16 17:45 11/21/16 04:54 (Morphine Inj) 4 mg Q3H PRN IV PUSH 11/17/16 17:45 11/20/16 14:45 (Roxicodone) 5 mg Q4H PRN PO 11/17/16 17:45 (Narcan Inj) 0.4 mg UNSCH PRN IV PUSH 11/17/16 17:45 (Milk Of Magnesia Liq) 30 ml Q12H PRN PO 11/17/16 17:45 (Pill Splitter) 1 ea UNSCH PRN OTHER 11/17/16 18:00 (Duoneb Neb) 1 ampule Q2HR NEB PRN NEB 11/17/16 18:15 (Ativan) 0.5 mg Q4H PRN PO 11/18/16 10:30 11/21/16 06:58 (Lasix Inj) 20 mg BID@09,18 IV PUSH 11/19/16 18:00 Future Hold 11/20/16 09:01 (KCl) 20 meq DAILY PO 11/20/16 09:00 11/20/16 09:01 (Lopressor) 50 mg Q12HR PO 11/20/16 09:00 11/20/16 22:08 (Betadine 10% Oint) 1 applic DAILY TOPICAL 11/20/16 13:00 11/20/16 12:28 (Protonix) 40 mg BID PO 11/20/16 21:00 11/20/16 22:08 A/P Problem List: (1) SOB (shortness of breath) ICD Code: R06.02 - Shortness of breath Status: Acute (2) CHF (congestive heart failure) ICD Code: I50.9 - Heart failure, unspecified Status: Acute (3) Morbid obesity with body mass index (BMI) of 40.0 or higher ICD Code: E66.01 - Morbid (severe) obesity due to excess calories Status: Acute (4) Anasarca ICD Code: R60.1 - Generalized edema Status: Acute (5) Transaminitis ICD Code: R74.0 - Nonspecific elevation of levels of transaminase and lactic acid dehydrogenase [LDH] Status: Acute (6) Acute exacerbation of CHF (congestive heart failure) ICD Code: I50.9 - Heart failure, unspecified Status: Acute (7) Pleural effusion ICD Code: J90 - Pleural effusion, not elsewhere classified Status: Acute Assessment and Plan Mr. Wilcox is a 36-year-old male patient with a known medical history of CHF, hypertension, hyperlipidemia and anxiety who presented to the ED with worsening shortness of breath and generalized swelling. Acute CHF exacerbation Anasarca Bilateral pleural effusions EKG was sinus tachycardia. - Requested recent hospitalization reports from [facility] for recent treatment and workup. - Started on Lasix 40 mg IV BID. Has been having good outpt. Also supplemental potassium as needed. Monitor intake and output closely. Continue cardiac telemetry. Hold Lasix as patient is having renal insufficiency. - Consult placed to cardiology for further recommendations. Echo pending. - Continue supplemental O2 to keep sats >92%. - PT/OT evaluation ordered, appreciate input. - CBC and BMP reviewed, essentially unremarkable. Will follow CBC, BMP. - Heart healthy diet. - CXR with advanced cardiomegaly, stable. - resume Entresto when able. - Lopressor increased to 50 mg BID. Adjust as needed. Hyperbilirubinemia suspect secondary to liver fibrosis and cholelithiasis Thrombocytopenia, mild Iron deficiency anemia, chronic Hematochezia Nausea and vomiting - Abdomen/pelvis CT reviewed showing small to moderate bilateral pleural effusions. Mild consolidation in lower lung bases. Anasarca. Calcified gallstones. Mild splenomegaly. - Total bilirubin 4.3 on presentation, direct bilirubin 2.0. Lipase WNL. Continue to trend LFTs. - Continue home ferrous sulfate. Monitor CBC. - GI consult appreciated. EGD/ colonoscopy to be done prior to d/c. - Zofran available PRN. - Follow CBC. Acute renal failure S/t diuresis. Chronic problem per pt. - hold diuretics and Entresto. - nephrology consult requested. Chronic pain The pt reports improvement on the current regimen. - continue pain control with a bowel regimen. Anxiety Stable. - Will continue home Celexa. Also have lorazepam PO PRN. Chronic lower extremity lesions Improving. - Betadine ointment ordered. - Wound care consult if needed. DVT prophylaxis: Lovenox Discharge Planning Awaiting nephrology consult, diuresis Problem Qualifiers (1) Acute exacerbation of CHF (congestive heart failure): Qualified Codes: I50.23 - Acute on chronic systolic (congestive) heart failure Jose Antonio Robles DO Nov 21, 2016 09:46
--- NOTE | 2016-11-21 11:22 | HHI.GIFU ---
Subjective Remarks Pt just getting back to bed after ambulating to restroom. SOB with exertion. O2 sat 89-92% with exertion. States he did have a bowel movement earlier today. D/W patient EGD/Colonoscopy prior to discharge. He would like to wait one more day. No nausea/vomiting. (Miriam De La Cruz) Objective Vitals I&O Vital Signs Date Time Temp Pulse Resp B/P (MAP) Pulse Ox O2 Delivery O2 Flow Rate FiO2 11/21/16 08:00 97.5 102 18 112/73 (86) 90 11/21/16 08:00 Room Air 11/21/16 04:00 97.9 102 20 103/64 (77) 93 11/21/16 04:00 Room Air 11/21/16 00:00 Room Air 11/21/16 00:00 98.0 115 20 112/70 (84) 98 11/20/16 20:00 97.7 106 20 113/74 (87) 92 11/20/16 19:24 Room Air 11/20/16 16:00 98.3 102 18 114/76 (89) 93 11/20/16 12:00 97.8 76 18 118/57 (77) 99 I/O 11/20/16 11/20/16 11/20/16 11/21/16 11/21/16 11/21/16 07:00 15:00 23:00 07:00 15:00 23:00 Intake Total 350 ml 360 ml Output Total 1350 ml 1200 ml Balance -1000 ml -840 ml Intake Oral 350 ml 360 ml Output Urine Total 1350 ml 1200 ml # Bowel Movements 0 Laboratory Laboratory Tests Test 11/21/16 08:15 White Blood Count 5.9 Red Blood Count 4.04 Hemoglobin 11.5 Hematocrit 35.4 Mean Corpuscular Volume 87.6 Mean Corpuscular Hemoglobin 28.5 Mean Corpuscular Hemoglobin Concent 32.5 Red Cell Distribution Width 24.6 Platelet Count 161 Mean Platelet Volume 8.3 Neutrophils (%) (Auto) 66.5 Lymphocytes (%) (Auto) 19.0 Monocytes (%) (Auto) 9.7 Eosinophils (%) (Auto) 3.6 Basophils (%) (Auto) 1.2 Neutrophils # (Auto) 3.9 Lymphocytes # (Auto) 1.1 Monocytes # (Auto) 0.6 Eosinophils # (Auto) 0.2 Basophils # (Auto) 0.1 CBC Comment DIFF FINAL Differential Comment Blood Urea Nitrogen 17 Creatinine 1.46 Random Glucose 96 Total Protein 7.2 Albumin 3.0 Calcium Level 8.7 Alkaline Phosphatase 68 Aspartate Amino Transf (AST/SGOT) 19 Alanine Aminotransferase (ALT/SGPT) 14 Total Bilirubin 3.8 Sodium Level 134 Potassium Level 4.0 Chloride Level 98 Carbon Dioxide Level 26.4 Anion Gap 10 Estimat Glomerular Filtration Rate 54 Imaging Last Impressions Chest X-Ray 11/20/16 0000 Signed Impressions: Service Date/Time: Sunday, November 20, 2016 11:54 - CONCLUSION: 1. Advanced cardiomegaly. Unchanged from previous. Maycol Solorio MD Abdomen/Pelvis CT 11/17/16 0000 Signed Impressions: Service Date/Time: November 16:01 - CONCLUSION: 1. Small to moderate bilateral pleural effusions which are new from the prior study. There is mild consolidation in the posterior lung bases. 2. Mild increase in anasarca and ascites. 3. Multiple calcified gallstones again noted. 4. Right-sided bladder diverticulum which extends into the right inguinal canal. 5. Nonobstructive bowel gas pattern 6. Mild splenomegaly again noted. Jose Antonio Miles MD Physical Exam HEENT: Normocephalic; atraumatic CHEST: Resp shallow/even, diminished bases, sob on exertion CARDIAC: ST ABDOMEN: Abdomen obese, nontender, , bowel sounds are present in all four quadrants. EXTREMITIES: BLE edema. SKIN: Normal; no rash; no jaundice. HOOD MAKER: No focal deficits; alert and oriented times three. (Miriam De La Cruz [facility]) Assessment and Plan Plan ASSESSMENT: - Left sided abdominal pain with N/V/D. CT abdomen and pelvis (11/17/16)---> Small to moderate bilateral pleural effusions which are new from the prior study. There is mild consolidation in the posterior lung bases. Mild increase in anasarca and ascites. Multiple calcified gallstones again noted. Right sided bladder diverticulum which extends into the right inguinal canal. Nonobstructive bowel gas pattern, mild splenomegaly again noted. 3 day hx. States that this began after he misunderstood his discharge instructions from [facility] and was taking Lasix, Bumex at the same time. He is no longer having nausea/vomiting. He took cereal for breakfast and tolerated this. He complains of diarrhea- none today. Stool studies were ordered, but now having more constipation. ( +) BM today. D/W patient further evaluation with EGD/Colonoscopy, he would like to wait another day. Of note, he is having sob on minimal exertion and therefore we will see how he is doing tomorrow. No further N/V. Not having abdominal pain. PPI. - Constipation. Colace, Add miralax. (+) BM - Hyperbilirubinemia. He was hospitalized in September of 2016 for acute hepatitis. RUQ US (09/29/16)---> Cholelithiasis with gallbladder wall thickening and no pericholecystic fluid, no evidence of biliary obstruction, the liver is enlarged with findings characteristic of fatty infiltration. He underwent the liver workup---> Hepatitis negative. NADINE negative. AMA negative. ASMA negative. Iron saturation 21.2%. Ferritin 305. AFP 3.0. Alpha 1 antitrypsin 235. Ceruloplasmin 40. FLU (+). It was thought that his acute hepatitis was most likely a combination of tylenol overuse, shocked liver, on underlying fatty liver/congestive hepatopathy. His LFTs on admission at that time were 11.4, AST 1159, ALT 2184, Alk PHosph 174. These are much improved with only his bilirubin elevated. Stable. T. Bili 3.8, AST 19, ALT 14, Alk Phosph 68. - Rectal bleeding. C/O 3 day hx of diarrhea- multiple liquid stools. States one time, he had the urge to move his bowels and strained and passed large amount of red blood, independent from stool. No further episodes. HH stable at 11.5/35.4. - CHF. Lasix, I/O, Per attending. - KENIA, hypothyroidism, improved. - Anemia. Stable. PLAN: - AAKASH - Cont. PPI - Cont. Colace - Add Miralax - Monitor labs - Supportive care - Plan for egd/colonoscopy prior to d/c, ? Monday - Further recommendations to follow based on results of above - Pt seen and examined by Dr. Brooks and myself and this note is written on his behalf (Miriam De La Cruz) Physician Comments Seen and examined with DIRECTOR DIABETES, doing well, wants to wait on gi procedures till monday. (David Brooks MD) Miriam De La Cruz Nov 21, 2016 11:22 David Brooks MD Nov 21, 2016 13:03
[2016-11-21] MEDS: POLYETHYLENE GLYCOL 17 GM PKG PO SCH (11:49)
--- NOTE | 2016-11-21 12:03 | PD.CONS ---
HPI Service Nephrology Consult Requested By Reason for Consult KENIA, needs diuresis Primary Care Physician Unknown History of Present Illness This is a 36 y/o male patient who was admitted for worsening shortness of breath. He never went to a PCP until recently, therefore most diagnosis are new to him. He was admitted to [facility] for shortness of breath, diagnosed with heart failure of unknown etiology. On arrival here he is fluid overloaded despite his diuretics. At home he was accidentally taking both Bumex once daily and Lasix BID. He also reports nausea/vomiting/ diarrhea. GI has evaluated and recommend a EGD/colonoscopy. He has a hx of HTN, hypothyroidism, anxiety, hyperlipidemia, and fatty liver disease. He had shock liver last admission that is stable now. His weight has dropped over 8 kg since admission. His weight at home is between 350-380 pounds, and he has noticed large weight increases in a short time. His creatinine runs between 1.1-1.2 at baseline. On arrival it was at baseline, increased to 1.5 but is 1.46 today. We were consulted for assistance with diuresis. He is non oliguric, imaging negative for obstruction. (Norma Granado) Review of Systems Respiratory: COMPLAINS OF: Shortness of breath, DENIES: Cough Cardiovascular: COMPLAINS OF: Dyspnea on Exertion, Lower Extremity Edema, Orthopnea, DENIES: Chest pain Gastrointestinal: COMPLAINS OF: Abdominal pain, Diarrhea, Nausea, Vomiting ( Norma Granado) Past Family Social History Allergies: Coded Allergies: ketorolac (Verified Allergy, Severe, GENERALIZED HIVES/RASH WHICH LAST FOR ABOUT A WEEK, 11/17/16) penicillin G (Verified Allergy, Severe, Anaphylaxis, 11/17/16) tramadol (Verified Allergy, Severe, GENERALIZED HIVES WHICH LAST FOR ABOUT A WEEK, 11/17/16) acetaminophen (Verified Allergy, Unknown, 11/17/16) liver failure Past Medical History Anxiety Anemia Hyperlipidemia Congestive heart failure Hypertension GERD Fatty liver Cholelithiasis Hiatal hernia Pulmonary embolism 2011 Past Surgical History Appendectomy Reported Medications Oxycodone (Oxycodone HCl) 5 Mg Tab 5 Mg PO Q6H PRN Metoprolol Tartrate 25 Mg Tab 25 Mg PO Q12HR 30 Days Ativan (Lorazepam) 0.5 Mg Tab 0.5 Mg PO Q6H PRN Ferosul (Ferrous Sulfate) 325 Mg Tablet 325 Mg PO BID Reported Docusate Sodium 100 Mg Cap 100 Mg PO BID Furosemide 40 Mg Tab 40 Mg PO DAILY Levothyroxine (Levothyroxine Sodium) 100 Mcg Tab 100 Mcg PO DAILY Proair Hfa 8.5 GM Inh (Albuterol Sulfate) 90 Mcg/Act Aer 2 Puff INH Q4-6H PRN 108 mcg/actuation Potassium Chloride ER (Potassium Chloride) 20 Meq Tab 20 Meq PO DAILY Omeprazole 40 Mg Cap 40 Mg PO DAILY Celexa (Citalopram Hydrobromide) 10 Mg Tab 10 Mg PO DAILY Active Ordered Medications Current Medications Medications (Trade) Dose Ordered Sig/Gideon Route Start Time Stop Time Status Last Admin (CeleXA) 10 mg DAILY PO 11/18/16 09:00 11/21/16 09:40 (Colace) 100 mg BID PO 11/17/16 21:00 11/21/16 09:40 (Ferrous Sulfate) 325 mg BIDAC PO 11/18/16 07:00 11/21/16 04:59 (Synthroid) 100 mcg DAILY@0600 PO 11/18/16 06:00 11/21/16 04:55 (NS Flush) 2 ml UNSCH PRN IV FLUSH 11/17/16 17:45 (NS Flush) 2 ml BID IV FLUSH 11/17/16 21:00 11/21/16 09:40 (Zofran Inj) 4 mg Q6H PRN IVP 11/17/16 17:45 (Lovenox Inj) 40 mg Q24H SQ 11/17/16 18:00 11/20/16 16:54 (Roxicodone) 10 mg Q4H PRN PO 11/17/16 17:45 11/21/16 09:45 (Morphine Inj) 4 mg Q3H PRN IV PUSH 11/17/16 17:45 11/20/16 14:45 (Roxicodone) 5 mg Q4H PRN PO 11/17/16 17:45 (Narcan Inj) 0.4 mg UNSCH PRN IV PUSH 11/17/16 17:45 (Milk Of Magnesia Liq) 30 ml Q12H PRN PO 11/17/16 17:45 (Pill Splitter) 1 ea UNSCH PRN OTHER 11/17/16 18:00 (Duoneb Neb) 1 ampule Q2HR NEB PRN NEB 11/17/16 18:15 (Ativan) 0.5 mg Q4H PRN PO 11/18/16 10:30 11/21/16 06:58 (Lasix Inj) 20 mg BID@09,18 IV PUSH 11/19/16 18:00 Future Hold 11/20/16 09:01 (KCl) 20 meq DAILY PO 11/20/16 09:00 11/21/16 09:39 (Lopressor) 50 mg Q12HR PO 11/20/16 09:00 11/21/16 09:40 (Betadine 10% Oint) 1 applic DAILY TOPICAL 11/20/16 13:00 11/21/16 09:39 (Protonix) 40 mg BID PO 11/20/16 21:00 11/21/16 09:40 (Miralax) 17 gm DAILY PO 11/21/16 11:30 Family History No hx of renal disorders Social History , lives with Has not worked in 4 yrs due to debility From [place], has been in [place] x 2 yrs independent full code (Norma Granado) Physical Exam Vital Signs Vital Signs Date Time Temp Pulse Resp B/P (MAP) Pulse Ox O2 Delivery O2 Flow Rate FiO2 11/21/16 08:00 97.5 102 18 112/73 (86) 90 11/21/16 08:00 Room Air 11/21/16 04:00 97.9 102 20 103/64 (77) 93 11/21/16 04:00 Room Air 11/21/16 00:00 Room Air 11/21/16 00:00 98.0 115 20 112/70 (84) 98 11/20/16 20:00 97.7 106 20 113/74 (87) 92 11/20/16 19:24 Room Air 11/20/16 16:00 98.3 102 18 114/76 (89) 93 11/20/16 12:00 97.8 76 18 118/57 (77) 99 Physical Exam Morbidly obese male awake/alert, oriented without deficit S1/S2, RRR no murmurs Lungs decreased in bases, bibasilar rales, no rhonchi Abd: round, very firm, slightly tender Ext: gross non pitting edema; blisters on bilateral lower extremities have opened. Laboratory Laboratory Tests Test 11/21/16 08:15 White Blood Count 5.9 Red Blood Count 4.04 Hemoglobin 11.5 Hematocrit 35.4 Mean Corpuscular Volume 87.6 Mean Corpuscular Hemoglobin 28.5 Mean Corpuscular Hemoglobin Concent 32.5 Red Cell Distribution Width 24.6 Platelet Count 161 Mean Platelet Volume 8.3 Neutrophils (%) (Auto) 66.5 Lymphocytes (%) (Auto) 19.0 Monocytes (%) (Auto) 9.7 Eosinophils (%) (Auto) 3.6 Basophils (%) (Auto) 1.2 Neutrophils # (Auto) 3.9 Lymphocytes # (Auto) 1.1 Monocytes # (Auto) 0.6 Eosinophils # (Auto) 0.2 Basophils # (Auto) 0.1 CBC Comment DIFF FINAL Differential Comment Blood Urea Nitrogen 17 Creatinine 1.46 Random Glucose 96 Total Protein 7.2 Albumin 3.0 Calcium Level 8.7 Alkaline Phosphatase 68 Aspartate Amino Transf (AST/SGOT) 19 Alanine Aminotransferase (ALT/SGPT) 14 Total Bilirubin 3.8 Sodium Level 134 Potassium Level 4.0 Chloride Level 98 Carbon Dioxide Level 26.4 Anion Gap 10 Estimat Glomerular Filtration Rate 54 (Norma Granado) Result Diagram: 11/21/16 0815 11/21/16 0815 Imaging Last Impressions Chest X-Ray 11/20/16 0000 Signed Impressions: Service Date/Time: Sunday, November 20, 2016 11:54 - CONCLUSION: 1. Advanced cardiomegaly. Unchanged from previous. Maycol Solorio MD Abdomen/Pelvis CT 11/17/16 0000 Signed Impressions: Service Date/Time: November 16:01 - CONCLUSION: 1. Small to moderate bilateral pleural effusions which are new from the prior study. There is mild consolidation in the posterior lung bases. 2. Mild increase in anasarca and ascites. 3. Multiple calcified gallstones again noted. 4. Right-sided bladder diverticulum which extends into the right inguinal canal. 5. Nonobstructive bowel gas pattern 6. Mild splenomegaly again noted. Jose Antonio Miles MD (Norma Granado) Assessment and Plan Problem List: (1) Acute renal failure ICD Codes: N17.9 - Acute kidney failure, unspecified Status: Acute Plan: His baseline is 1.1-1.2 Imaging negative for obstruction KENIA may be to overdiuresis, however his renal function has improved over the past day Trace proteinuria, recheck UA and quantify proteinuria Check A1c, serologies may be indicated depending on above follow fluid status, he has had negative balance past few days Change lasix to Bumex 2 mg BID and monitor response Continue daily KCL replacement He is non oliguric Repeat labs in AM (2) Acute exacerbation of CHF (congestive heart failure) ICD Codes: I50.9 - Heart failure, unspecified Status: Acute Plan: Cardiology is following a 2D echo has been ordered cautious diuresis (3) Ascites ICD Codes: R18.8 - Other ascites Status: Acute Plan: diuresis as above (4) Abdominal pain ICD Codes: R10.9 - Unspecified abdominal pain Plan: GI is following he may have EGD/colonoscopy tomorrow (Norma Granado) Problem List: (1) Acute renal failure ICD Codes: N17.9 - Acute kidney failure, unspecified Status: Acute Plan: His baseline is 1.1-1.2 Imaging negative for obstruction KENIA may be to overdiuresis, however his renal function has improved over the past day Trace proteinuria, recheck UA and quantify proteinuria Check A1c, serologies may be indicated depending on above follow fluid status, he has had negative balance past few days Change lasix to Bumex 2 mg BID and monitor response Continue daily KCL replacement He is non oliguric Repeat labs in AM (2) Acute exacerbation of CHF (congestive heart failure) ICD Codes: I50.9 - Heart failure, unspecified Status: Acute Plan: Cardiology is following a 2D echo has been ordered cautious diuresis (3) Ascites ICD Codes: R18.8 - Other ascites Status: Acute Plan: diuresis as above (4) Abdominal pain ICD Codes: R10.9 - Unspecified abdominal pain Plan: GI is following he may have EGD/colonoscopy tomorrow Assessment and Plan patient was seen and examined. He is morbidly obese with cardiomyopathy. Fluid overload is evident. Continue Bumex. May have cardiorenal syndrome. (Alejandro Hatfield MD) Problem Qualifiers (1) Acute exacerbation of CHF (congestive heart failure): Qualified Codes: I50.23 - Acute on chronic systolic (congestive) heart failure (2) Ascites: Qualified Codes: R18.8 - Other ascites Norma Granado Nov 21, 2016 12:03 Alejandro Hatfield MD Nov 22, 2016 12:42
--- NOTE | 2016-11-21 12:45 | EKG ---
Date Performed: 11/20/2016 Time Performed: 08:43:48 PTAGE: 36 years EKG: Sinus tachycardia. Lateral T wave changes are nonspecific Borderline ECG Compared to prior tracing no significant change PREVIOUS TRACING : 10/15/2016 20.25 DOCTOR: Hermann Miles Interpretating Date/Time 11/21/2016 12:45:10
[2016-11-21 16:03] LABS: BLOOD, URINE NEG (NEG); COMMENT (UR) CULT NOT INDICATED; CULTURE IF INDICATED CULT NOT INDICATED; GLUCOSE,URINE NEG (NEG); HYALINE CAST, URINE 4 /lpf (RARE); KETONE, URINE NEG (NEG); MUCUS URINE FEW /lpf (OCC); NITRITE,URINE NEG (NEG); PH, URINE 5.5 (5.0-8.5); SQUAMOUS EPITHELIAL CELL URINE 1 /hpf (0-5); URINE COLOR YELLOW (YELLW/STRAW)
[2016-11-21] MEDS: MORPHINE SULFATE 4 MG/ML INJ IV PUSH PRN (17:37)
--- NOTE | 2016-11-21 17:40 | ECHRPT ---
Indication: cad CONCLUSIONS Moderately dilated left ventricle. Wall thickness is normal. The left ventricular systolic function is severely reduced with an estimated ejection fraction less than 20%. There is global left ventricular dysfunction. The right ventricular systoilc function is mildly decreased. The right ventricle is mildly dilated. Mild mitral valve regurgitation. The aortic valve is not well visualized. No aortic valve regurgitation. There is mild tricuspid valve regurgitation. A left sided pleural effusion is present. BP: / HR: Rhythm: MEASUREMENTS (Male / Female) Normal Values Technical Quality:Technically difficult study 2D ECHO LV Diastolic Diameter PLAX 6.6 cm 4.2 - 5.9 / 3.9 - 5.3 cm LV Systolic Diameter PLAX 6.3 cm IVS Diastolic Thickness 0.8 cm 0.6 - 1.0 / 0.6 - 0.9 cm LVPW Diastolic Thickness 0.9 cm 0.6 - 1.0 / 0.6 - 0.9 cm LV Relative Wall Thickness 0.3 RV Internal Dim ED PLAX 4.3 cm M-MODE Aortic Root Diameter MM 3.9 cm LA Systolic Diameter MM 4.4 cm LA Ao Ratio MM 1.1 AV Cusp Separation MM 2.7 cm DOPPLER LV E' Lateral Velocity 4.0 cm/s LV E' Septal Velocity 5.9 cm/s TR Peak Velocity 208.0 cm/s TR Peak Gradient 17.3 mmHg Right Atrial Pressure 10.0 mmHg Pulmonary Artery Systolic Pressu 27.3 mmHg Right Ventricular Systolic Press 27.3 mmHg FINDINGS LEFT VENTRICLE Moderately dilated left ventricle. Wall thickness is normal. The left ventricular systolic function is severely reduced with an estimated ejection fraction less than 20%. There is global left ventricular dysfunction. RIGHT VENTRICLE The right ventricular systoilc function is mildly decreased. The right ventricle is mildly dilated. LEFT ATRIUM The left atrial size is normal. RIGHT ATRIUM The right atrial size is normal. ATRIAL SEPTUM Normal atrial septal thickness without atrial level shunting by limited color doppler interrogation. AORTA The aortic root and proximal ascending aorta are normal in size on limited imaging. MITRAL VALVE Structurally normal mitral valve. Mild mitral valve regurgitation. AORTIC VALVE The aortic valve is not well visualized. No aortic valve regurgitation. TRICUSPID VALVE Structurally normal tricuspid valve. There is mild tricuspid valve regurgitation. PULMONARY VALVE No pulmonary valve regurgitation or stenosis. VESSELS The inferior vena cava is normal in size. PERICARDIUM No pericardial effusion. A left sided pleural effusion is present. Gulshan Monreal MD, FACC (Electronically Signed) Final Date:21 November 2016 17:38
[2016-11-21] MEDS: BUMETANIDE INJ 1 MG/4 ML VIAL IV PUSH SCH (18:30)
[2016-11-21] MEDS: ENOXAPARIN SODIUM 40 MG/0.4 ML SYRINGE SQ SCH (18:30)
[2016-11-22] VITALS (7 sets, daily range): BP systolic 106–128; BP diastolic 63–72; PULSE 62–115; RESP 18–20; TEMP 96–98.8; O2SAT 93–98
[2016-11-22] MEDS: MORPHINE SULFATE 4 MG/ML INJ IV PUSH PRN ×2 (01:12→22:28)
[2016-11-22] MEDS: LEVOTHYROXINE SODIUM 100 MCG TAB PO SCH (05:20)
[2016-11-22] MEDS: LORazepam 0.5 MG TAB PO PRN (05:20)
[2016-11-22] MEDS: FERROUS SULFATE 325 MG (65 MG ELEMENTAL IRON) TAB PO SCH ×2 (05:20→16:47)
[2016-11-22] MEDS: POTASSIUM CHLORIDE 20 MEQ CONTROLLED RELEASE TAB PO SCH (07:56)
[2016-11-22] MEDS: CITALOPRAM HYDROBROMIDE 20 MG TAB PO SCH (07:56)
[2016-11-22] MEDS: PANTOPRAZOLE SOD 40 MG DELAYED RELEASE TAB PO SCH ×2 (07:56→20:33)
[2016-11-22] MEDS: POLYETHYLENE GLYCOL 17 GM PKG PO SCH (07:56)
[2016-11-22] MEDS: DOCUSATE SODIUM 100 MG CAP PO SCH ×2 (07:57→20:33)
[2016-11-22] MEDS: SODIUM CHLORIDE 0.9% FLUSH 10 ML FLUSH IV FLUSH SCH ×2 (07:57→20:37)
[2016-11-22] MEDS: POVIDONE IODINE 10% OINT 30 GM TUBE TOPICAL SCH (07:57)
[2016-11-22] MEDS: METOPROLOL TARTRATE 50 MG TAB PO SCH ×2 (08:04→20:33)
[2016-11-22] MEDS: BUMETANIDE INJ 1 MG/4 ML VIAL IV PUSH SCH ×2 (08:04→17:19)
[2016-11-22 08:48] LABS: ANION GAP 7 MEQ/L (5-15); BICARBONATE 31.3 MEQ/L (21.0-32.0); BLOOD UREA NITROGEN 19 MG/DL (7-18); CHLORIDE 97 MEQ/L (98-107); GLOMERULAR FILTRATION RATE 49 ML/MIN (>89); MAGNESIUM 1.8 MG/DL (1.5-2.5); POTASSIUM 3.8 MEQ/L (3.5-5.1); SODIUM (NA) 135 MEQ/L (136-145)
--- NOTE | 2016-11-22 12:08 | HHI.NPPN ---
Subjective Complaints: Obesity, Shortness of Breath General Problems: Edema Renal Failure: Acute Interval History He is short of breath. Renal function slightly worse but he is responding to diuretics. (Norma Granado) Review of Systems Respiratory Lungs: SOB (Norma Granado) Cardiovascular Cardiac: Edema (Norma Granado) Objective Data Data Vital Signs Date Time Temp Pulse Resp B/P (MAP) Pulse Ox O2 Delivery O2 Flow Rate FiO2 11/22/16 08:06 100 11/22/16 08:00 97.6 97 18 112/72 (85) 94 11/22/16 07:51 Room Air 11/22/16 06:56 19 11/22/16 04:00 98.0 100 20 114/67 (83) 97 11/22/16 02:08 19 11/22/16 00:00 98.1 62 18 106/71 (83) 98 11/21/16 21:00 Room Air 11/21/16 20:17 109 11/21/16 20:00 97.3 104 20 107/55 (72) 97 11/21/16 16:00 97.3 105 18 108/72 (84) 95 (Norma Granado) -: 11/21/16 0815 11/22/16 0755 Imaging Last Impressions Chest X-Ray 11/20/16 0000 Signed Impressions: Service Date/Time: Sunday, November 20, 2016 11:54 - CONCLUSION: 1. Advanced cardiomegaly. Unchanged from previous. Maycol Solorio MD Abdomen/Pelvis CT 11/17/16 0000 Signed Impressions: Service Date/Time: November 16:01 - CONCLUSION: 1. Small to moderate bilateral pleural effusions which are new from the prior study. There is mild consolidation in the posterior lung bases. 2. Mild increase in anasarca and ascites. 3. Multiple calcified gallstones again noted. 4. Right-sided bladder diverticulum which extends into the right inguinal canal. 5. Nonobstructive bowel gas pattern 6. Mild splenomegaly again noted. Jose Antonio Miles MD (Norma Granado) Physical Exam General Appearance: Well Developed, Well Nourished, Comfortable, Obese (Norma Granado) Throat Throat Exam: Oral Mucosa [place] & Moist (Norma Granado) Pulmonary Resp Exam: Breath Sounds Equal, Crackles Resp Remarks mild wheezing (Norma Granado) Cardiology CV Exam: Regular, Normal Sinus Rhythm (Norma Granado) Gastrointestinal/Abdomen GI Exam: Soft, Non-Tender, Bowel Sounds Present (Norma Granado) Musculoskeletal MS Exam: Joints Intact, Normal Gait, Normal Tone (Norma Granado) Integumentary Skin Exam: Clear, Warm, Dry, Intact (Norma Granado) Extremeties Extremities Exam: Pedal Pulses Palpable, Moderate Edema, Pitting Edema (Norma Granado) Neurologic Neuro Exam: Alert, Awake, Oriented, Speech Clear, Moving All Extremities (Norma Granado) Psychiatric Psych Exam: Appropriate Responses (Norma Granado) Assessment/Plan Discussed Condition With: Patient Assessment Summary: KENIA/Acute Renal Failure, Fluid/Volume Overload, CHF Problem List: (1) Acute renal failure ICD Codes: N17.9 - Acute kidney failure, unspecified Status: Acute Plan: His baseline is 1.1-1.2 KENIA may be due to cardiorenal syndrome and decreased renal perfusion Trace proteinuria noted, A1c is in process. follow fluid status, he is massively fluid overloaded Continue Bumex 2 mg BID for now Continue daily KCL replacement He is non oliguric Repeat labs daily (2) Acute exacerbation of CHF (congestive heart failure) ICD Codes: I50.9 - Heart failure, unspecified Status: Acute Plan: Cardiology is following 2D echo showing severe systolic heart failure, EF < 20% cautious diuresis (3) Ascites ICD Codes: R18.8 - Other ascites Status: Acute Plan: diuresis as above (4) Abdominal pain ICD Codes: R10.9 - Unspecified abdominal pain Plan: GI is following he may have EGD/colonoscopy tomorrow (Norma Granado) Plan patient was seen and examined. Agree with above assessment and plan. (Alejandro Hatfield MD) Problem Qualifiers (1) Acute exacerbation of CHF (congestive heart failure): Qualified Codes: I50.23 - Acute on chronic systolic (congestive) heart failure (2) Ascites: Qualified Codes: R18.8 - Other ascites Norma Granado Nov 22, 2016 12:08 Alejandro Hatfield MD Nov 22, 2016 17:05
--- NOTE | 2016-11-22 13:09 | HHI.PR ---
Subjective Remarks The patient said that he believes the Lasix works better than the Bumex. He denies any further episode of GI bleed. He says he has some chronic shortness of breath. No acute complaints at this time. Objective Vitals Vital Signs Date Time Temp Pulse Resp B/P (MAP) Pulse Ox O2 Delivery O2 Flow Rate FiO2 11/22/16 12:00 96.0 100 20 118/70 (86) 96 11/22/16 08:06 100 11/22/16 08:00 97.6 97 18 112/72 (85) 94 11/22/16 07:51 Room Air 11/22/16 06:56 19 11/22/16 04:00 98.0 100 20 114/67 (83) 97 11/22/16 02:08 19 11/22/16 00:00 98.1 62 18 106/71 (83) 98 11/21/16 21:00 Room Air 11/21/16 20:17 109 11/21/16 20:00 97.3 104 20 107/55 (72) 97 11/21/16 16:00 97.3 105 18 108/72 (84) 95 I/O 11/21/16 11/21/16 11/21/16 11/22/16 11/22/16 11/22/16 06:59 14:59 22:59 06:59 14:59 22:59 Intake Total 360 ml 720 ml 480 ml Output Total 1200 ml 1200 ml 1600 ml Balance -840 ml -480 ml -1120 ml Intake Oral 360 ml 720 ml 480 ml Output Urine Total 1200 ml 1200 ml 1600 ml # Bowel Movements 0 0 0 Result Diagram: 11/21/16 0815 11/22/16 0755 Imaging Last Impressions Chest X-Ray 11/20/16 0000 Signed Impressions: Service Date/Time: Sunday, November 20, 2016 11:54 - CONCLUSION: 1. Advanced cardiomegaly. Unchanged from previous. Maycol Solorio MD Abdomen/Pelvis CT 11/17/16 0000 Signed Impressions: Service Date/Time: November 16:01 - CONCLUSION: 1. Small to moderate bilateral pleural effusions which are new from the prior study. There is mild consolidation in the posterior lung bases. 2. Mild increase in anasarca and ascites. 3. Multiple calcified gallstones again noted. 4. Right-sided bladder diverticulum which extends into the right inguinal canal. 5. Nonobstructive bowel gas pattern 6. Mild splenomegaly again noted. Jose Antonio Miles MD Objective Remarks GENERAL: This is an obese, well-developed male patient, lying in bed. SKIN: Dry, scabby lesions on lower extremities. HEAD: Atraumatic. Normocephalic. Pupils equal round and reactive. Extraocular motions intact. No scleral icterus. No injection or drainage. Nose without bleeding. Airway patent. NECK: Trachea midline. No JVD. Supple. CARDIOVASCULAR: Tachycardic without murmurs, gallops, or rubs. RESPIRATORY: Diminished breath sounds due to body habitus. Breath sounds equal bilaterally. No wheezes, rales, or rhonchi. GASTROINTESTINAL: Abdomen soft, non-tender. Rounded and obese. No guarding. MUSCULOSKELETAL: Extremities without clubbing, cyanosis. Anasarca noted. No joint tenderness, effusion. NEUROLOGICAL: Awake and alert. Cranial nerves II through XII intact. Motor and sensory grossly within normal limits. Five out of 5 muscle strength in all muscle groups. Normal speech. PSYCH: Mood and affect appropriate. Medications and IVs Current Medications Medications (Trade) Dose Ordered Sig/Gideon Route Start Time Stop Time Status Last Admin (CeleXA) 10 mg DAILY PO 11/18/16 09:00 11/22/16 07:56 (Colace) 100 mg BID PO 11/17/16 21:00 11/22/16 07:57 (Ferrous Sulfate) 325 mg BIDAC PO 11/18/16 07:00 11/22/16 05:20 (Synthroid) 100 mcg DAILY@0600 PO 11/18/16 06:00 11/22/16 05:20 (NS Flush) 2 ml UNSCH PRN IV FLUSH 11/17/16 17:45 (NS Flush) 2 ml BID IV FLUSH 11/17/16 21:00 11/22/16 07:57 (Zofran Inj) 4 mg Q6H PRN IVP 11/17/16 17:45 (Lovenox Inj) 40 mg Q24H SQ 11/17/16 18:00 11/21/16 18:30 (Roxicodone) 10 mg Q4H PRN PO 11/17/16 17:45 11/22/16 11:14 (Morphine Inj) 4 mg Q3H PRN IV PUSH 11/17/16 17:45 11/22/16 01:12 (Roxicodone) 5 mg Q4H PRN PO 11/17/16 17:45 (Narcan Inj) 0.4 mg UNSCH PRN IV PUSH 11/17/16 17:45 (Milk Of Magnesia Liq) 30 ml Q12H PRN PO 11/17/16 17:45 (Pill Splitter) 1 ea UNSCH PRN OTHER 11/17/16 18:00 11/22/16 07:58 (Duoneb Neb) 1 ampule Q2HR NEB PRN NEB 11/17/16 18:15 (Ativan) 0.5 mg Q4H PRN PO 11/18/16 10:30 11/22/16 05:20 (KCl) 20 meq DAILY PO 11/20/16 09:00 11/22/16 07:56 (Lopressor) 50 mg Q12HR PO 11/20/16 09:00 11/22/16 08:04 (Betadine 10% Oint) 1 applic DAILY TOPICAL 11/20/16 13:00 11/22/16 07:57 (Protonix) 40 mg BID PO 11/20/16 21:00 11/22/16 07:56 (Miralax) 17 gm DAILY PO 11/21/16 11:30 11/22/16 07:56 (Bumex Inj) 2 mg BID@09,18 IV PUSH 11/21/16 18:00 11/22/16 08:04 A/P Problem List: (1) SOB (shortness of breath) ICD Code: R06.02 - Shortness of breath Status: Acute (2) CHF (congestive heart failure) ICD Code: I50.9 - Heart failure, unspecified Status: Acute (3) Morbid obesity with body mass index (BMI) of 40.0 or higher ICD Code: E66.01 - Morbid (severe) obesity due to excess calories Status: Acute (4) Anasarca ICD Code: R60.1 - Generalized edema Status: Acute (5) Transaminitis ICD Code: R74.0 - Nonspecific elevation of levels of transaminase and lactic acid dehydrogenase [LDH] Status: Acute (6) Acute exacerbation of CHF (congestive heart failure) ICD Code: I50.9 - Heart failure, unspecified Status: Acute (7) Pleural effusion ICD Code: J90 - Pleural effusion, not elsewhere classified Status: Acute Assessment and Plan Mr. Wilcox is a 36-year-old male patient with a known medical history of CHF, hypertension, hyperlipidemia and anxiety who presented to the ED with worsening shortness of breath and generalized swelling. Acute CHF exacerbation Anasarca Bilateral pleural effusions EKG was sinus tachycardia. - Requested recent hospitalization reports from [facility] for recent treatment and workup. - Started on Lasix 40 mg IV BID. Has been having good outpt. Also supplemental potassium as needed. Monitor intake and output closely. Continue cardiac telemetry. Lasix switched to Bumex. - Consult placed to cardiology for further recommendations. Echo with EF < 20 %. - Continue supplemental O2 to keep sats >92%. - PT/OT evaluation ordered, appreciate input. - CBC and BMP reviewed, essentially unremarkable. Will follow CBC, BMP. - Heart healthy diet. - CXR with advanced cardiomegaly, stable. - resume Entresto when able. - Lopressor increased to 50 mg BID. Adjust as needed. Hyperbilirubinemia suspect secondary to liver fibrosis and cholelithiasis Thrombocytopenia, mild Iron deficiency anemia, chronic Hematochezia Nausea and vomiting - Abdomen/pelvis CT reviewed showing small to moderate bilateral pleural effusions. Mild consolidation in lower lung bases. Anasarca. Calcified gallstones. Mild splenomegaly. - Total bilirubin 4.3 on presentation, direct bilirubin 2.0. Lipase WNL. Continue to trend LFTs. - Continue home ferrous sulfate. Monitor CBC. - GI consult appreciated. EGD/ colonoscopy to be done prior to d/c. No further signs of GIB. - Zofran available PRN. - Follow CBC. Acute renal failure S/t diuresis. Chronic problem per pt. Nephrology consult appreciated. - hold Entresto. - Bumex per nephrology. - follow BMP. Chronic pain The pt reports improvement on the current regimen. - continue pain control with a bowel regimen. Anxiety Stable. - Will continue home Celexa. Also have lorazepam PO PRN. Chronic lower extremity lesions Improving. - Betadine ointment ordered. - Wound care consult if needed. DVT prophylaxis: Lovenox Discharge Planning Awaiting further diuresis, GI work-up Problem Qualifiers (1) Acute exacerbation of CHF (congestive heart failure): Qualified Codes: I50.23 - Acute on chronic systolic (congestive) heart failure Jose Antonio Robles DO Nov 22, 2016 13:08
--- NOTE | 2016-11-22 16:19 | HHI.GIFU ---
Subjective Remarks Pt resting in bed. c/o continued pain in lower quadrants. (Peg Doe MD SENIOR RESEARCH SCIENTIST) Objective Vitals I&O Vital Signs Date Time Temp Pulse Resp B/P (MAP) Pulse Ox O2 Delivery O2 Flow Rate FiO2 11/22/16 12:00 96.0 100 20 118/70 (86) 96 11/22/16 08:06 100 11/22/16 08:00 97.6 97 18 112/72 (85) 94 11/22/16 07:51 Room Air 11/22/16 06:56 19 11/22/16 04:00 98.0 100 20 114/67 (83) 97 11/22/16 02:08 19 11/22/16 00:00 98.1 62 18 106/71 (83) 98 11/21/16 21:00 Room Air 11/21/16 20:17 109 11/21/16 20:00 97.3 104 20 107/55 (72) 97 I/O 11/21/16 11/21/16 11/21/16 11/22/16 11/22/16 11/22/16 06:59 14:59 22:59 06:59 14:59 22:59 Intake Total 360 ml 720 ml 480 ml Output Total 1200 ml 1200 ml 1600 ml Balance -840 ml -480 ml -1120 ml Intake Oral 360 ml 720 ml 480 ml Output Urine Total 1200 ml 1200 ml 1600 ml # Bowel Movements 0 0 0 Laboratory Laboratory Tests Test 11/22/16 07:55 Blood Urea Nitrogen 19 Creatinine 1.60 Random Glucose 85 Calcium Level 8.7 Phosphorus Level 3.5 Magnesium Level 1.8 Sodium Level 135 Potassium Level 3.8 Chloride Level 97 Carbon Dioxide Level 31.3 Anion Gap 7 Estimat Glomerular Filtration Rate 49 Imaging Last Impressions Chest X-Ray 11/20/16 0000 Signed Impressions: Service Date/Time: Sunday, November 20, 2016 11:54 - CONCLUSION: 1. Advanced cardiomegaly. Unchanged from previous. Maycol Solorio MD Abdomen/Pelvis CT 11/17/16 0000 Signed Impressions: Service Date/Time: November 16:01 - CONCLUSION: 1. Small to moderate bilateral pleural effusions which are new from the prior study. There is mild consolidation in the posterior lung bases. 2. Mild increase in anasarca and ascites. 3. Multiple calcified gallstones again noted. 4. Right-sided bladder diverticulum which extends into the right inguinal canal. 5. Nonobstructive bowel gas pattern 6. Mild splenomegaly again noted. Jose Antonio Miles MD Physical Exam HEENT: Normocephalic; atraumatic CHEST: Resp shallow/even, diminished CARDIAC: ST ABDOMEN: Abdomen obese, nontender, firmness lower quadrants, bowel sounds are present in all four quadrants. EXTREMITIES: BLE edema. SKIN: Normal; no rash; no jaundice. ELECTRICAL CONTINUITY TESTER: No focal deficits; alert and oriented times three. (Peg Doe [facility]) Assessment and Plan Plan ASSESSMENT: - Left sided abdominal pain with N/V/D. CT abdomen and pelvis (11/17/16)---> Small to moderate bilateral pleural effusions which are new from the prior study. There is mild consolidation in the posterior lung bases. Mild increase in anasarca and ascites. Multiple calcified gallstones again noted. Right sided bladder diverticulum which extends into the right inguinal canal. Nonobstructive bowel gas pattern, mild splenomegaly again noted. 3 day hx. States that this began after he misunderstood his discharge instructions from [facility] and was taking Lasix, Bumex at the same time. He is no longer having nausea/vomiting. He took cereal for breakfast and tolerated this. He complains of diarrhea- none today. Stool studies were ordered, but now having more constipation. ( +) BM today. D/W patient further evaluation with EGD/Colonoscopy, he would like to wait another day. Of note, he is having sob on minimal exertion and therefore we will see how he is doing tomorrow. No further N/V. Not having abdominal pain. PPI. - Constipation. Colace, Add miralax. (+) BM - Hyperbilirubinemia. He was hospitalized in September of 2016 for acute hepatitis. RUQ US (09/29/16)---> Cholelithiasis with gallbladder wall thickening and no pericholecystic fluid, no evidence of biliary obstruction, the liver is enlarged with findings characteristic of fatty infiltration. He underwent the liver workup---> Hepatitis negative. NADINE negative. AMA negative. ASMA negative. Iron saturation 21.2%. Ferritin 305. AFP 3.0. Alpha 1 antitrypsin 235. Ceruloplasmin 40. FLU (+). It was thought that his acute hepatitis was most likely a combination of tylenol overuse, shocked liver, on underlying fatty liver/congestive hepatopathy. His LFTs on admission at that time were 11.4, AST 1159, ALT 2184, Alk PHosph 174. These are much improved with only his bilirubin elevated. Stable. T. Bili 3.8, AST 19, ALT 14, Alk Phosph 68. - Rectal bleeding. C/O 3 day hx of diarrhea- multiple liquid stools. States one time, he had the urge to move his bowels and strained and passed large amount of red blood, independent from stool. No further episodes. HH stable at 11.5/35.4. - CHF. Lasix, I/O, Per attending. - KENIA, hypothyroidism, improved. - Anemia. Stable. 11/22/16 - HH stable, creatinine slightly increased today. still with lower quadrant pain. Tbil stable. EGD and colonoscopy tomorrow PLAN: - EGD/colonoscopy tomorrow - clears - obtain consent - NPO after midnight - GoLytely - Cont. PPI - Monitor labs - Supportive care - Further recommendations to follow based on results of above - Pt seen and examined by Dr. Brooks and myself and this note is written on his behalf (Peg Doe) Physician Comments Seen and examined with MD SENIOR RESEARCH SCIENTIST, egd/colonoscopy tomorrow. High risk for sedation due to weight. Will discuss withwnesthesia. Bowel prep today (David Brooks MD) Peg Doe Nov 22, 2016 16:19 David Brooks MD Nov 22, 2016 17:19
[2016-11-22] MEDS ORDERED: PEG (High)/E-LYTE SOLN 4000 ML BTL PO ONE (16:30)
[2016-11-22] MEDS: ENOXAPARIN SODIUM 40 MG/0.4 ML SYRINGE SQ SCH (17:20)
[2016-11-22 17:35] LABS: HEMOGLOBIN A1a 1.3 %; HEMOGLOBIN A1b 0.8 %; HEMOGLOBIN Ao 85.2 %; HEMOGLOBIN F 1.6 %; HEMOGLOBIN LA1C 1.7 %; HEMOGLOBIN P3 4.8 %
[2016-11-22] MEDS: SODIUM CHLORIDE 0.9% FLUSH 10 ML FLUSH IV FLUSH PRN (22:29)
[2016-11-23] VITALS (7 sets, daily range): BP systolic 104–124; BP diastolic 57–78; PULSE 59–118; RESP 18–22; TEMP 96.4–98.4; O2SAT 94–100
[2016-11-23] MEDS: MORPHINE SULFATE 4 MG/ML INJ IV PUSH PRN ×4 (04:26→20:49)
[2016-11-23] MEDS: LEVOTHYROXINE SODIUM 100 MCG TAB PO SCH (06:14)
[2016-11-23] MEDS: FERROUS SULFATE 325 MG (65 MG ELEMENTAL IRON) TAB PO SCH ×2 (06:15→16:36)
[2016-11-23] MEDS ORDERED: CHLORHEXIDINE GLUCONATE 2 % 1 PACK (2 CLOTHS) TOPICAL PRN (07:00)
[2016-11-23] MEDS ORDERED: POVIDONE IODINE 5% (ANTISEPSIS KIT) 4 APPLICATIONS EACH NARE PRN (07:00)
[2016-11-23] MEDS ORDERED: INSULIN HUMAN REGULAR 1,000 UNITS/10 ML VIAL SQ PRN (07:00)
[2016-11-23] MEDS ORDERED: SODIUM CHLORID 0.9% 500 ML IV PRN (07:00)
[2016-11-23] MEDS ORDERED: LACTATED RINGER'S 1000 ML IV PRN (07:00)
[2016-11-23] MEDS ORDERED: METOPROLOL TARTRATE 25 MG TAB PO PRN (07:00)
[2016-11-23 07:51] LABS: BICARBONATE 31.5 MEQ/L (21.0-32.0); MAGNESIUM 1.7 MG/DL (1.5-2.5); POTASSIUM 4.3 MEQ/L (3.5-5.1)
[2016-11-23] MEDS: PANTOPRAZOLE SOD 40 MG DELAYED RELEASE TAB PO SCH ×2 (08:50→20:48)
[2016-11-23] MEDS: POTASSIUM CHLORIDE 20 MEQ CONTROLLED RELEASE TAB PO SCH (08:50)
[2016-11-23] MEDS: METOPROLOL TARTRATE 50 MG TAB PO SCH ×2 (08:50→20:48)
[2016-11-23] MEDS: DOCUSATE SODIUM 100 MG CAP PO SCH ×2 (08:50→20:48)
[2016-11-23] MEDS: BUMETANIDE INJ 1 MG/4 ML VIAL IV PUSH SCH ×2 (08:50→16:36)
[2016-11-23] MEDS: CITALOPRAM HYDROBROMIDE 20 MG TAB PO SCH (08:51)
[2016-11-23] MEDS: POLYETHYLENE GLYCOL 17 GM PKG PO SCH (08:51)
[2016-11-23] MEDS: SODIUM CHLORIDE 0.9% FLUSH 10 ML FLUSH IV FLUSH SCH ×2 (08:52→20:49)
[2016-11-23] MEDS: POVIDONE IODINE 10% OINT 30 GM TUBE TOPICAL SCH (09:00)
[2016-11-23] MEDS ORDERED: KETAMINE HCL 500 MG/5 ML VIAL ONE (10:27)
--- NOTE | 2016-11-23 11:31 | GIPROC ---
[facility] [address] [facility]. [facility], [address] EGD PROCEDURE REPORT EXAM DATE: 11/23/2016 PATIENT NAME: Manjinder Wilcox MR #: [id number] BIRTHDATE: 1980 ATTENDING: David Brooks MD ORDER #: [id number] ENDOSCOPE TECHNICIAN: Nay Aviles Foust, Dan, and Bella Amezcua STATUS: inpatient INDICATIONS: The patient is a 36 yr old male here for an EGD due to history of esophageal reflux PROCEDURE PERFORMED: EGD w/ biopsy MEDICATIONS: None and Per Anesthesia. TOPICAL ANESTHETIC: CONSENT: The patient understands the risks and benefits of the procedure and understands that these risks include, but are not limited to: sedation, allergic reaction, infection, perforation and/or bleeding. Alternative means of evaluation and treatment include, among others: physical exam, x-rays, and/or surgical intervention. The patient elects to proceed with this endoscopic procedure. medical equipment was checked for proper function. Hand hygiene and appropriate measures for infection prevention was taken. After the risks, benefits and alternatives of the procedure were thoroughly explained, Informed consent was verified, confirmed and timeout was successfully executed by the treatment team. The patient was anesthetized with topical anesthesia and the EC-[id number] (Pedi C) endoscope was introduced through the mouth and advanced to the second portion of the duodenum. Retroflexed views revealed no abnormalities and Retroflexed views revealed The gastroscope was then slowly withdrawn and removed. 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 The length of circumferential Faulkner's was 1cm (Turner C1) and the length of Maximal extent of Faulkner's was 2cm (Turner M2). There was no nodular mucosa noted in the Faulkner's segment. A biopsy was performed using cold forceps. Sample sent for histology. STOMACH: There was erythematous moderate gastritis in the gastric antrum. A biopsy was performed using cold forceps. Sample sent for histology. DUODENUM: The duodenal mucosa appeared normal in the bulb and second portion of the duodenum. ADVERSE EVENTS: There were no complications. IMPRESSIONS: 1. 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 There was erythematous gastritis in the gastric antrum; biopsy was performed 3. Normal duodenal mucosa in the bulb and second portion of the duodenum 4. Retroflexed views revealed no abnormalities 5. Retroflexed views revealed RECOMMENDATIONS: 1. Await biopsy results. Biopsy results will not be ready for 7-10 days. If you don't hear from us in two weeks, call our office for biopsy results. 2. Continue PPI PATIENT CONDITION: stable DISPOSITION: Inpatient REPEAT EXAM: Return 2 years EGD pending biopsy results David Brooks MD eSigned: David Brooks MD 11/23/2016 11:31 AM cc: PATIENT NAME: Manjinder Wilcox MR#: [id number]
--- NOTE | 2016-11-23 11:34 | GIPROC ---
[facility] [address] [facility]. [facility] [place] [facility], [address] COLONOSCOPY PROCEDURE REPORT EXAM DATE: 11/23/2016 PATIENT NAME: Manjinder Wilcox MR #: [id number] BIRTHDATE: 1980 ENDOSCOPIST: David Brooks MD ORDER #: [id number] CHEMIST PROTEINS: Salvador Butt Duff, Pat, and Bella Amezcua STATUS: inpatient INDICATIONS: The patient is a 36 yr old male here for a colonoscopy due to abdominal pain and iron deficiency anemia PROCEDURE PERFORMED: Colonoscopy, diagnostic MEDICATIONS: None and Per Anesthesia. PREP QUALITY: The Selma Bowel Prep Score was Right colon 2, Mid colon 3, and Left colon 3. Total = 8. PREP TYPE:GoLytely ESTIMATED BLOOD LOSS: None CONSENT: The patient understands the risks and benefits of the procedure and understands that these risks include, but are not limited to: sedation, allergic reaction, infection, perforation and/or bleeding. Alternative means of evaluation and treatment include, among others: physical exam, x-rays, and/or surgical intervention. The patient elects to proceed with this endoscopic procedure. medical equipment was checked for proper function. Hand hygiene and appropriate measures for infection prevention was taken. After the risks, benefits and alternatives of the procedure were thoroughly explained, Informed consent was verified, confirmed and timeout was successfully executed by the treatment team. A digital exam revealed external hemorrhoids The Pentax EC-[id number] endoscope was introduced through the anus and advanced to the cecum, which was identified by both the appendix and ileocecal valve. The instrument was then slowly withdrawn as the colon was fully examined. COLON FINDINGS: There was moderate diverticulosis noted in the sigmoid colon with associated tortuosity. Retroflexed views revealed internal hemorrhoids and Retroflexed views revealed small internal hemorrhoids The scope was then completely withdrawn from the patient and the procedure terminated. PROCEDURE WITHDRAWAL TIME:6minutes ADVERSE EVENTS: There were no complications. IMPRESSIONS: 1. There was moderate diverticulosis noted in the sigmoid colon 2. Retroflexed views revealed internal hemorrhoids 3. Retroflexed views revealed small internal hemorrhoids 4. Revealed external hemorrhoids RECOMMENDATIONS: 1. Benefiber 2 tsp daily 2. Continue surveillance 3. Yearly hemoccult RECALL: Return 5 years Colonoscopy David Brooks MD eSigned: David Brooks MD 11/23/2016 11:33 AM cc:
[2016-11-23] MEDS ORDERED: DO NOT ADM ANY ANTICOAGULANT DRUGS PRN (11:38)
[2016-11-23] MEDS ORDERED: PROPOFOL 200 MG/20 ML AMP ONE (11:42)
[2016-11-23] MEDS: SPIRONOLACTONE 50 MG TAB PO SCH (12:23)
--- NOTE | 2016-11-23 12:30 | HHI.PR ---
Subjective Remarks The patient just returned from his GI procedures. He said he was groggy. He said he had increased back pain from moving from the stretcher to the beds and such. He said he was urinating a lot. Discussed with nursing at the bedside. Objective Vitals Vital Signs Date Time Temp Pulse Resp B/P (MAP) Pulse Ox O2 Delivery O2 Flow Rate FiO2 11/23/16 11:50 98 19 106/62 (77) 98 Nasal Cannula 4 11/23/16 11:38 97.2 96 19 101/52 (68) 100 Nasal Cannula 4 11/23/16 04:00 98.1 102 20 109/78 (88) 97 11/23/16 00:00 97.4 101 20 121/75 (90) 100 11/22/16 20:00 110 11/22/16 20:00 98.0 115 20 128/63 (84) 93 11/22/16 20:00 Room Air 11/22/16 16:00 98.8 102 20 107/68 (81) 93 I/O 11/22/16 11/22/16 11/22/16 11/23/16 11/23/16 11/23/16 07:00 15:00 23:00 07:00 15:00 23:00 Intake Total 480 ml 2080 ml Output Total 1600 ml 2600 ml 400 ml Balance -1120 ml -520 ml -400 ml Intake Oral 480 ml 2080 ml Output Urine Total 1600 ml 2600 ml 400 ml # Bowel Movements 0 5 2 Result Diagram: 11/21/16 0815 11/23/16 0632 Imaging Last Impressions Chest X-Ray 11/20/16 0000 Signed Impressions: Service Date/Time: Sunday, November 20, 2016 11:54 - CONCLUSION: 1. Advanced cardiomegaly. Unchanged from previous. Maycol Solorio MD Abdomen/Pelvis CT 11/17/16 0000 Signed Impressions: Service Date/Time: November 16:01 - CONCLUSION: 1. Small to moderate bilateral pleural effusions which are new from the prior study. There is mild consolidation in the posterior lung bases. 2. Mild increase in anasarca and ascites. 3. Multiple calcified gallstones again noted. 4. Right-sided bladder diverticulum which extends into the right inguinal canal. 5. Nonobstructive bowel gas pattern 6. Mild splenomegaly again noted. Jose Antonio Miles MD Objective Remarks GENERAL: This is an obese, well-developed male patient, lying in bed. SKIN: Dry, scabby lesions on lower extremities. HEAD: Atraumatic. Normocephalic. Pupils equal round and reactive. Extraocular motions intact. No scleral icterus. No injection or drainage. Nose without bleeding. Airway patent. NECK: Trachea midline. No JVD. Supple. CARDIOVASCULAR: Tachycardic without murmurs, gallops, or rubs. RESPIRATORY: Diminished breath sounds due to body habitus. Breath sounds equal bilaterally. No wheezes, rales, or rhonchi. GASTROINTESTINAL: Abdomen soft, non-tender. Rounded and obese. No guarding. MUSCULOSKELETAL: Extremities without clubbing, cyanosis. Anasarca noted. No joint tenderness, effusion. NEUROLOGICAL: Awake and alert, drowsy following procedures. Cranial nerves II through XII intact. Motor and sensory grossly within normal limits. Five out of 5 muscle strength in all muscle groups. Normal speech. PSYCH: Mood and affect appropriate. Procedures EGD/ colonoscopy 11/23 Medications and IVs Current Medications Medications (Trade) Dose Ordered Sig/Gideon Route Start Time Stop Time Status Last Admin (CeleXA) 10 mg DAILY PO 11/18/16 09:00 11/23/16 08:51 (Colace) 100 mg BID PO 11/17/16 21:00 11/23/16 08:50 (Ferrous Sulfate) 325 mg BIDAC PO 11/18/16 07:00 11/22/16 16:47 (Synthroid) 100 mcg DAILY@0600 PO 11/18/16 06:00 11/23/16 06:14 (NS Flush) 2 ml UNSCH PRN IV FLUSH 11/17/16 17:45 11/22/16 22:29 (NS Flush) 2 ml BID IV FLUSH 11/17/16 21:00 11/23/16 08:52 (Zofran Inj) 4 mg Q6H PRN IVP 11/17/16 17:45 (Lovenox Inj) 40 mg Q24H SQ 11/17/16 18:00 11/22/16 17:20 (Roxicodone) 10 mg Q4H PRN PO 11/17/16 17:45 11/23/16 12:24 (Morphine Inj) 4 mg Q3H PRN IV PUSH 11/17/16 17:45 11/23/16 08:49 (Roxicodone) 5 mg Q4H PRN PO 11/17/16 17:45 (Narcan Inj) 0.4 mg UNSCH PRN IV PUSH 11/17/16 17:45 (Milk Of Magnesia Liq) 30 ml Q12H PRN PO 11/17/16 17:45 (Pill Splitter) 1 ea UNSCH PRN OTHER 11/17/16 18:00 11/22/16 07:58 (Duoneb Neb) 1 ampule Q2HR NEB PRN NEB 11/17/16 18:15 (Ativan) 0.5 mg Q4H PRN PO 11/18/16 10:30 11/22/16 05:20 (KCl) 20 meq DAILY PO 11/20/16 09:00 11/23/16 08:50 (Lopressor) 50 mg Q12HR PO 11/20/16 09:00 11/23/16 08:50 (Betadine 10% Oint) 1 applic DAILY TOPICAL 11/20/16 13:00 11/22/16 07:57 (Protonix) 40 mg BID PO 11/20/16 21:00 11/23/16 08:50 (Miralax) 17 gm DAILY PO 11/21/16 11:30 11/22/16 07:56 (Bumex Inj) 2 mg BID@09,18 IV PUSH 11/21/16 18:00 11/23/16 08:50 Lactated Ringer's 1,000 ml @ 30 mls/hr Q24H PRN IV 11/23/16 07:00 11/26/16 06:59 Sodium Chloride 500 ml @ 30 mls/hr [id number] PRN IV 11/23/16 07:00 11/26/16 06:59 (Lopressor) 25 mg LABELING STRATEGIST PRN PO 11/23/16 07:00 11/26/16 06:59 (Betadine 5% Antisepsis Kit) 1 applic LABELING STRATEGIST PRN EACH NARE 11/23/16 07:00 11/26/16 06:59 (Chlorhexidine 2% Cloth) 3 pack LABELING STRATEGIST PRN TOPICAL 11/23/16 07:00 11/26/16 06:59 (NovoLIN R INJ) See Protocol Table ... LABELING STRATEGIST PRN SQ 11/23/16 07:00 11/26/16 06:59 (Aldactone) 50 mg DAILY PO 11/23/16 11:45 11/23/16 12:23 A/P Problem List: (1) SOB (shortness of breath) ICD Code: R06.02 - Shortness of breath Status: Acute (2) CHF (congestive heart failure) ICD Code: I50.9 - Heart failure, unspecified Status: Acute (3) Morbid obesity with body mass index (BMI) of 40.0 or higher ICD Code: E66.01 - Morbid (severe) obesity due to excess calories Status: Acute (4) Anasarca ICD Code: R60.1 - Generalized edema Status: Acute (5) Transaminitis ICD Code: R74.0 - Nonspecific elevation of levels of transaminase and lactic acid dehydrogenase [LDH] Status: Acute (6) Acute exacerbation of CHF (congestive heart failure) ICD Code: I50.9 - Heart failure, unspecified Status: Acute (7) Pleural effusion ICD Code: J90 - Pleural effusion, not elsewhere classified Status: Acute Assessment and Plan Mr. Wilcox is a 36-year-old male patient with a known medical history of CHF, hypertension, hyperlipidemia and anxiety who presented to the ED with worsening shortness of breath and generalized swelling. Acute CHF exacerbation Anasarca Bilateral pleural effusions EKG was sinus tachycardia. - Requested recent hospitalization reports from [facility] for recent treatment and workup. - Started on Lasix 40 mg IV BID. Has been having good outpt. Also supplemental potassium as needed. Monitor intake and output closely. Continue cardiac telemetry. Lasix switched to Bumex. - Consult placed to cardiology for further recommendations. Echo with EF < 20 %. - Continue supplemental O2 to keep sats >92%. - PT/OT evaluation ordered, appreciate input. - CBC and BMP reviewed, essentially unremarkable. Will follow CBC, BMP. - Heart healthy diet. - CXR with advanced cardiomegaly, stable. - resume Entresto when able. - Lopressor increased to 75 mg BID with holding parameters. Adjust as needed. Hyperbilirubinemia suspect secondary to liver fibrosis and cholelithiasis Thrombocytopenia, mild Iron deficiency anemia, chronic Hematochezia Nausea and vomiting - Abdomen/pelvis CT reviewed showing small to moderate bilateral pleural effusions. Mild consolidation in lower lung bases. Anasarca. Calcified gallstones. Mild splenomegaly. - Total bilirubin 4.3 on presentation, direct bilirubin 2.0. Lipase WNL. Continue to trend LFTs. - Continue home ferrous sulfate. Monitor CBC. - GI consult appreciated. EGD/ colonoscopy to be done prior to d/c. No further signs of GIB. EGD with Faulkner's, colonoscopy with diverticulosis. - Zofran available PRN. - PPI BID. Acute renal failure S/t diuresis. Chronic problem per pt. Nephrology consult appreciated. - hold Entresto. - Bumex per nephrology. - follow BMP. Creatinine improving. Chronic pain The pt reports improvement on the current regimen. - continue pain control with a bowel regimen. Anxiety Stable. - Will continue home Celexa. Also have lorazepam PO PRN. Chronic lower extremity lesions Improving. - Betadine ointment ordered. - Wound care consult if needed. DVT prophylaxis: Lovenox Discharge Planning Awaiting further diuresis Problem Qualifiers (1) Acute exacerbation of CHF (congestive heart failure): Qualified Codes: I50.23 - Acute on chronic systolic (congestive) heart failure Jose Antonio Robles DO Nov 23, 2016 12:30
--- NOTE | 2016-11-23 16:15 | HHI.NPPN ---
Subjective Complaints: Obesity, Shortness of Breath General Problems: Edema Renal Failure: Acute Interval History He had EGD/colonoscopy today. Is sitting in bed eating. He had Go Litely last night for bowel prep. Has numerous PO fluid containers around his room. Renal function is better. (Norma Granado) Review of Systems Respiratory Lungs: SOB (Norma Granado) Cardiovascular Cardiac: Edema (Norma Granado) Objective Data Data Vital Signs Date Time Temp Pulse Resp B/P (MAP) Pulse Ox O2 Delivery O2 Flow Rate FiO2 11/23/16 12:00 97.7 100 20 123/76 (92) 98 11/23/16 11:59 100 19 113/75 (88) 95 Nasal Cannula 4 11/23/16 11:50 98 19 106/62 (77) 98 Nasal Cannula 4 11/23/16 11:38 97.2 96 19 101/52 (68) 100 Nasal Cannula 4 11/23/16 08:05 103 11/23/16 08:00 97.8 118 22 124/72 (89) 95 11/23/16 07:15 Room Air 11/23/16 04:00 98.1 102 20 109/78 (88) 97 11/23/16 00:00 97.4 101 20 121/75 (90) 100 11/22/16 20:00 110 11/22/16 20:00 98.0 115 20 128/63 (84) 93 11/22/16 20:00 Room Air (Norma Granado) -: 11/21/16 0815 11/23/16 0632 Physical Exam General Appearance: Well Developed, Well Nourished, Comfortable, Obese (Norma Granado) Throat Throat Exam: Oral Mucosa [place] & Moist (Norma Granado) Pulmonary Resp Exam: Breath Sounds Equal, Crackles Resp Remarks mild wheezing (Norma Granado) Cardiology CV Exam: Regular, Normal Sinus Rhythm (Norma Granado) Gastrointestinal/Abdomen GI Exam: Soft, Non-Tender, Bowel Sounds Present (Norma Granado) Musculoskeletal MS Exam: Joints Intact, Normal Gait, Normal Tone (Norma Granado) Integumentary Skin Exam: Clear, Warm, Dry, Intact (Norma Granado) Extremeties Extremities Exam: Pedal Pulses Palpable, Moderate Edema, Pitting Edema (Norma Granado) Neurologic Neuro Exam: Alert, Awake, Oriented, Speech Clear, Moving All Extremities (Norma Granado) Psychiatric Psych Exam: Appropriate Responses (Norma Granado) Assessment/Plan Discussed Condition With: Patient Assessment Summary: KENIA/Acute Renal Failure, Fluid/Volume Overload, CHF Problem List: (1) Acute renal failure ICD Codes: N17.9 - Acute kidney failure, unspecified Status: Acute Plan: His baseline is 1.1-1.2 KENIA may be due to cardiorenal syndrome and decreased renal perfusion. Trace proteinuria in a non diabetic (A1c < 6%), which may be non specific finding At this time continue diuresis, have added Spironolactone Needs to limit fluid intake. Continue daily KCL replacement He is non oliguric Repeat labs in AM (2) Acute exacerbation of CHF (congestive heart failure) ICD Codes: I50.9 - Heart failure, unspecified Status: Acute Plan: Cardiology is following a 2D echo shows EF < 20% Needs fluid restriction and education on Low Na diet continue diuresis (3) Ascites ICD Codes: R18.8 - Other ascites Status: Acute Plan: diuresis as above (4) Abdominal pain ICD Codes: R10.9 - Unspecified abdominal pain Plan: GI is following s/p EGD/colonoscopy today, await biopsy results, will be 10 days no acute findings (Norma Granado) Plan patient was seen and examined. Spironolactone added, continue loop diuretic. Renal function is stable. Monitor potassium. (Alejandro Hatfield MD) Problem Qualifiers (1) Acute exacerbation of CHF (congestive heart failure): Qualified Codes: I50.23 - Acute on chronic systolic (congestive) heart failure (2) Ascites: Qualified Codes: R18.8 - Other ascites Norma Granado Nov 23, 2016 16:15 Alejandro Hatfield MD Nov 23, 2016 18:07
[2016-11-23] MEDS: ENOXAPARIN SODIUM 40 MG/0.4 ML SYRINGE SQ SCH (16:37)
[2016-11-23] MEDS: LORazepam 0.5 MG TAB PO PRN (20:48)
[2016-11-24] VITALS: BP 121/71; PULSE 110; RESP 18; TEMP 97.8; O2SAT 92
[2016-11-24 04:00] VITALS: BP 108/68; PULSE 119; RESP 18; TEMP 97.8; O2SAT 95
[2016-11-24] MEDS: FERROUS SULFATE 325 MG (65 MG ELEMENTAL IRON) TAB PO SCH ×2 (06:01→17:15)
[2016-11-24] MEDS: LORazepam 0.5 MG TAB PO PRN ×2 (06:01→13:44)
[2016-11-24] MEDS: LEVOTHYROXINE SODIUM 100 MCG TAB PO SCH (06:01)
[2016-11-24] MEDS: SODIUM CHLORIDE 0.9% FLUSH 10 ML FLUSH IV FLUSH PRN (06:48)
[2016-11-24] MEDS: MORPHINE SULFATE 4 MG/ML INJ IV PUSH PRN ×2 (06:48→10:25)
[2016-11-24 08:00] VITALS: BP 117/66; PULSE 106; PULSE 109; RESP 20; TEMP 97.7; O2SAT 92
[2016-11-24] MEDS: PANTOPRAZOLE SOD 40 MG DELAYED RELEASE TAB PO SCH ×2 (08:20→21:32)
[2016-11-24] MEDS: SPIRONOLACTONE 50 MG TAB PO SCH (08:20)
[2016-11-24] MEDS: DOCUSATE SODIUM 100 MG CAP PO SCH ×2 (08:21→21:00)
[2016-11-24] MEDS: BUMETANIDE INJ 1 MG/4 ML VIAL IV PUSH SCH (08:21)
[2016-11-24] MEDS: POTASSIUM CHLORIDE 20 MEQ CONTROLLED RELEASE TAB PO SCH (08:22)
[2016-11-24] MEDS: METOPROLOL TARTRATE 50 MG TAB PO SCH ×2 (08:22→21:00)
[2016-11-24] MEDS: CITALOPRAM HYDROBROMIDE 20 MG TAB PO SCH (08:22)
[2016-11-24] MEDS: POLYETHYLENE GLYCOL 17 GM PKG PO SCH (08:24)
[2016-11-24] MEDS: SODIUM CHLORIDE 0.9% FLUSH 10 ML FLUSH IV FLUSH SCH ×2 (08:26→21:31)
[2016-11-24] MEDS: POVIDONE IODINE 10% OINT 30 GM TUBE TOPICAL SCH (08:26)
[2016-11-24 09:07] LABS: HEMATOCRIT 35.8 % (39.0-51.0); MEAN CELL VOLUME 88.5 FL (80.0-100.0); MEAN CORPUSCULAR HEMOGLOBIN 28.7 PG (27.0-34.0); MEAN CORPUSCULAR HGB CONC 32.5 % (32.0-36.0); PLATELET COUNT 148 TH/MM3 (150-450); RED BLOOD COUNT 4.05 MIL/MM3 (4.50-5.90); RED CELL DISTRIBUTION WIDTH 24.7 % (11.6-17.2); REVIEW FLAG FINAL; WHITE BLOOD COUNT 4.5 TH/MM3 (4.0-11.0)
[2016-11-24 09:36] LABS: BICARBONATE 31.2 MEQ/L (21.0-32.0); MAGNESIUM 1.6 MG/DL (1.5-2.5); POTASSIUM 3.3 MEQ/L (3.5-5.1)
[2016-11-24 12:00] VITALS: BP 109/55; PULSE 96; RESP 20; TEMP 97.7; O2SAT 94
[2016-11-24] MEDS ORDERED: POTASSIUM CHLORIDE 20 MEQ CONTROLLED RELEASE TAB PO ONE (12:00)
--- NOTE | 2016-11-24 12:02 | HHI.NPPN ---
Subjective Complaints: Obesity, Shortness of Breath General Problems: Edema Renal Failure: Acute Interval History He is more awake today. Renal function is better. (Norma Granado) Review of Systems Respiratory Lungs: SOB (Norma Granado) Cardiovascular Cardiac: Edema (Norma Granado) Objective Data Data Vital Signs Date Time Temp Pulse Resp B/P (MAP) Pulse Ox O2 Delivery O2 Flow Rate FiO2 11/24/16 08:00 109 11/24/16 04:00 97.8 119 18 108/68 (81) 95 11/24/16 00:00 97.8 110 18 121/71 (88) 92 11/23/16 20:00 108 11/23/16 20:00 98.4 59 18 104/57 (73) 95 11/23/16 20:00 Room Air 11/23/16 16:00 96.4 98 22 112/59 (76) 94 (Norma Granado) -: 11/24/16 0828 11/24/16 0828 Imaging Last Impressions Chest X-Ray 11/20/16 0000 Signed Impressions: Service Date/Time: Sunday, November 20, 2016 11:54 - CONCLUSION: 1. Advanced cardiomegaly. Unchanged from previous. Maycol Solorio MD Abdomen/Pelvis CT 11/17/16 0000 Signed Impressions: Service Date/Time: November 16:01 - CONCLUSION: 1. Small to moderate bilateral pleural effusions which are new from the prior study. There is mild consolidation in the posterior lung bases. 2. Mild increase in anasarca and ascites. 3. Multiple calcified gallstones again noted. 4. Right-sided bladder diverticulum which extends into the right inguinal canal. 5. Nonobstructive bowel gas pattern 6. Mild splenomegaly again noted. Jose Antonio Miles MD (Norma Granado) Physical Exam General Appearance: Well Developed, Well Nourished, Comfortable, Obese (Norma Granado) Throat Throat Exam: Oral Mucosa [place] & Moist (Norma Granado) Pulmonary Resp Exam: Breath Sounds Equal, Crackles Resp Remarks mild wheezing (Norma Granado) Cardiology CV Exam: Regular, Normal Sinus Rhythm (Norma Granado) Gastrointestinal/Abdomen GI Exam: Soft, Non-Tender, Bowel Sounds Present (Norma Granado) Musculoskeletal MS Exam: Joints Intact, Normal Gait, Normal Tone (Norma Granado) Integumentary Skin Exam: Clear, Warm, Dry, Intact (Norma Granado) Extremeties Extremities Exam: Pedal Pulses Palpable, Moderate Edema, Pitting Edema (Norma Granado) Neurologic Neuro Exam: Alert, Awake, Oriented, Speech Clear, Moving All Extremities (Norma Granado) Psychiatric Psych Exam: Appropriate Responses (Norma Granado) Assessment/Plan Discussed Condition With: Patient Assessment Summary: KENIA/Acute Renal Failure, Fluid/Volume Overload, CHF Problem List: (1) Acute renal failure ICD Codes: N17.9 - Acute kidney failure, unspecified Status: Acute Plan: His baseline is 1.1-1.2 KENIA may be due to cardiorenal syndrome and decreased renal perfusion. Trace proteinuria in a non diabetic, which may be non specific finding At this time continue diuresis, Bumex changed to PO Also on spironolactone Limit Oral fluid intake. D/W patient Continue to replace K as needed He is non oliguric (2) Acute exacerbation of CHF (congestive heart failure) ICD Codes: I50.9 - Heart failure, unspecified Status: Acute Plan: Cardiology is following a 2D echo shows EF < 20% Needs fluid restriction and education on Low Na diet continue diuresis (3) Ascites ICD Codes: R18.8 - Other ascites Status: Acute Plan: diuresis as above (4) Abdominal pain ICD Codes: R10.9 - Unspecified abdominal pain Plan: GI is following s/p EGD/colonoscopy today, await biopsy results, will be 10 days no acute findings Plan We will sign off at this time, call us if needed (Norma Granado) Plan patient was seen and examined. Agree with above assessment and plan. We will sign off at this time. (Alejandro Hatfield MD) Problem Qualifiers (1) Acute exacerbation of CHF (congestive heart failure): Qualified Codes: I50.23 - Acute on chronic systolic (congestive) heart failure (2) Ascites: Qualified Codes: R18.8 - Other ascites Norma Granado Nov 24, 2016 12:02 Alejandro Hatfield MD Nov 24, 2016 16:53
--- NOTE | 2016-11-24 12:14 | HHI.PR ---
Subjective Remarks The patient was resting comfortably in bed. He said that he the kidney doctors this morning and they were concerned about his kidneys and diuretic use. He endorsed some confusion. No other acute complaints. Objective Vitals Vital Signs Date Time Temp Pulse Resp B/P (MAP) Pulse Ox O2 Delivery O2 Flow Rate FiO2 11/24/16 08:00 109 11/24/16 04:00 97.8 119 18 108/68 (81) 95 11/24/16 00:00 97.8 110 18 121/71 (88) 92 11/23/16 20:00 108 11/23/16 20:00 98.4 59 18 104/57 (73) 95 11/23/16 20:00 Room Air 11/23/16 16:00 96.4 98 22 112/59 (76) 94 I/O 11/23/16 11/23/16 11/23/16 11/24/16 11/24/16 11/24/16 06:59 14:59 22:59 06:59 14:59 22:59 Intake Total 480 ml 720 ml Output Total 400 ml 3200 ml 450 ml Balance -400 ml -2720 ml 270 ml Intake Oral 480 ml 720 ml Output Urine Total 400 ml 3200 ml 450 ml # Bowel Movements 2 1 1 Result Diagram: 11/24/1682711/24/16827 Imaging Last Impressions Chest X-Ray 11/20/16 0000 Signed Impressions: Service Date/Time: Sunday, November 20, 2016 11:54 - CONCLUSION: 1. Advanced cardiomegaly. Unchanged from previous. Maycol Solorio MD Abdomen/Pelvis CT 11/17/16 0000 Signed Impressions: Service Date/Time: November 16:01 - CONCLUSION: 1. Small to moderate bilateral pleural effusions which are new from the prior study. There is mild consolidation in the posterior lung bases. 2. Mild increase in anasarca and ascites. 3. Multiple calcified gallstones again noted. 4. Right-sided bladder diverticulum which extends into the right inguinal canal. 5. Nonobstructive bowel gas pattern 6. Mild splenomegaly again noted. Jose Antonio Miles MD Objective Remarks GENERAL: This is an obese, well-developed male patient, lying in bed. SKIN: Dry, scabby lesions on lower extremities. HEAD: Atraumatic. Normocephalic. Pupils equal round and reactive. Extraocular motions intact. No scleral icterus. No injection or drainage. Nose without bleeding. Airway patent. NECK: Trachea midline. No JVD. Supple. CARDIOVASCULAR: Tachycardic without murmurs, gallops, or rubs. RESPIRATORY: Diminished breath sounds due to body habitus. Breath sounds equal bilaterally. No wheezes, rales, or rhonchi. GASTROINTESTINAL: Abdomen soft, non-tender. Rounded and obese. No guarding. MUSCULOSKELETAL: Extremities without clubbing, cyanosis. Anasarca noted. No joint tenderness, effusion. NEUROLOGICAL: Awake and alert. Cranial nerves II through XII intact. Motor and sensory grossly within normal limits. Five out of 5 muscle strength in all muscle groups. Normal speech. PSYCH: Mood and affect appropriate. Procedures EGD/ colonoscopy 11/23 Medications and IVs Current Medications Medications (Trade) Dose Ordered Sig/Gideon Route Start Time Stop Time Status Last Admin (CeleXA) 10 mg DAILY PO 11/18/16 09:00 11/24/16 08:22 (Colace) 100 mg BID PO 11/17/16 21:00 11/24/16 08:21 (Ferrous Sulfate) 325 mg BIDAC PO 11/18/16 07:00 11/24/16 06:01 (Synthroid) 100 mcg DAILY@0600 PO 11/18/16 06:00 11/24/16 06:01 (NS Flush) 2 ml UNSCH PRN IV FLUSH 11/17/16 17:45 11/24/16 06:48 (NS Flush) 2 ml BID IV FLUSH 11/17/16 21:00 11/24/16 08:26 (Zofran Inj) 4 mg Q6H PRN IVP 11/17/16 17:45 (Lovenox Inj) 40 mg Q24H SQ 11/17/16 18:00 11/22/16 17:20 (Roxicodone) 10 mg Q4H PRN PO 11/17/16 17:45 11/24/16 08:20 (Morphine Inj) 4 mg Q3H PRN IV PUSH 11/17/16 17:45 11/24/16 10:25 (Roxicodone) 5 mg Q4H PRN PO 11/17/16 17:45 (Narcan Inj) 0.4 mg UNSCH PRN IV PUSH 11/17/16 17:45 (Milk Of Magnesia Liq) 30 ml Q12H PRN PO 11/17/16 17:45 (Pill Splitter) 1 ea UNSCH PRN OTHER 11/17/16 18:00 11/22/16 07:58 (Duoneb Neb) 1 ampule Q2HR NEB PRN NEB 11/17/16 18:15 (Ativan) 0.5 mg Q4H PRN PO 11/18/16 10:30 11/23/16 20:48 (KCl) 20 meq DAILY PO 11/20/16 09:00 11/24/16 08:22 (Betadine 10% Oint) 1 applic DAILY TOPICAL 11/20/16 13:00 11/22/16 07:57 (Protonix) 40 mg BID PO 11/20/16 21:00 11/24/16 08:20 (Miralax) 17 gm DAILY PO 11/21/16 11:30 11/22/16 07:56 (Bumex Inj) 2 mg BID@,18 IV PUSH 11/21/16 18:00 11/24/16 08:21 Lactated Ringer's 1,000 ml @ 30 mls/hr Q24H PRN IV 11/23/16 07:00 11/26/16 06:59 Sodium Chloride 500 ml @ 30 mls/hr [id number] PRN IV 11/23/16 07:00 11/26/16 06:59 (Lopressor) 25 mg TRACK LAYING MACHINE OPERATOR PRN PO 11/23/16 07:00 11/26/16 06:59 (Betadine 5% Antisepsis Kit) 1 applic TRACK LAYING MACHINE OPERATOR PRN EACH NARE 11/23/16 07:00 11/26/16 06:59 (Chlorhexidine 2% Cloth) 3 pack TRACK LAYING MACHINE OPERATOR PRN TOPICAL 11/23/16 07:00 11/26/16 06:59 (NovoLIN R INJ) See Protocol Table ... TRACK LAYING MACHINE OPERATOR PRN SQ 11/23/16 07:00 11/26/16 06:59 (Aldactone) 50 mg DAILY PO 11/23/16 11:45 11/24/16 08:20 (Lopressor) 75 mg Q12HR PO 11/23/16 21:00 10/12/17 08:22 (KCl) 20 meq ONCE ONCE PO 11/24/16 12:00 11/24/16 12:01 A/P Problem List: (1) SOB (shortness of breath) ICD Code: R06.02 - Shortness of breath Status: Acute (2) CHF (congestive heart failure) ICD Code: I50.9 - Heart failure, unspecified Status: Acute (3) Morbid obesity with body mass index (BMI) of 40.0 or higher ICD Code: E66.01 - Morbid (severe) obesity due to excess calories Status: Acute (4) Anasarca ICD Code: R60.1 - Generalized edema Status: Acute (5) Transaminitis ICD Code: R74.0 - Nonspecific elevation of levels of transaminase and lactic acid dehydrogenase [LDH] Status: Acute (6) Acute exacerbation of CHF (congestive heart failure) ICD Code: I50.9 - Heart failure, unspecified Status: Acute (7) Pleural effusion ICD Code: J90 - Pleural effusion, not elsewhere classified Status: Acute Assessment and Plan Mr. Wilcox is a 36-year-old male patient with a known medical history of CHF, hypertension, hyperlipidemia and anxiety who presented to the ED with worsening shortness of breath and generalized swelling. Acute CHF exacerbation Anasarca Bilateral pleural effusions EKG was sinus tachycardia. - Requested recent hospitalization reports from [facility] for recent treatment and workup. - Started on Lasix 40 mg IV BID. Monitor intake and output closely. Continue cardiac telemetry. Lasix switched to Bumex. Diuresing well. - Consult placed to cardiology for further recommendations. Echo with EF < 20 %. - Continue supplemental O2 to keep sats >92%. - PT/OT evaluation ordered, appreciate input. - CBC and BMP reviewed, essentially unremarkable. Will follow CBC, BMP. - Heart healthy diet. - CXR with advanced cardiomegaly, stable. - resume Entresto when able. The pt says he was on a medium dose. - Lopressor increased to 75 mg BID with holding parameters. Adjust as needed. - The pt doesn't like the fit of his LifeVest. Will try to have it brought in the hospital for adjustment. Hyperbilirubinemia suspect secondary to liver fibrosis and cholelithiasis Thrombocytopenia, mild Iron deficiency anemia, chronic Hematochezia Nausea and vomiting - Abdomen/pelvis CT reviewed showing small to moderate bilateral pleural effusions. Mild consolidation in lower lung bases. Anasarca. Calcified gallstones. Mild splenomegaly. - Total bilirubin 4.3 on presentation, direct bilirubin 2.0. Lipase WNL. Continue to trend LFTs. - Continue home ferrous sulfate. Monitor CBC. - GI consult appreciated. EGD/ colonoscopy to be done prior to d/c. No further signs of GIB. EGD with Faulkner's, colonoscopy with diverticulosis. - Zofran available PRN. - PPI BID. Acute renal failure S/t diuresis. Chronic problem per pt. Nephrology consult appreciated. - hold Entresto for now. May resume soon. - Bumex per nephrology. Aldactone added. - follow BMP. Creatinine improving. Chronic pain The pt reports improvement on the current regimen. - continue pain control with a bowel regimen. Anxiety Stable. - Will continue home Celexa. Also have lorazepam PO PRN. Chronic lower extremity lesions Improving. - Betadine ointment ordered. - Wound care consult if needed. DVT prophylaxis: Lovenox Discharge Planning Awaiting further diuresis, clearance from nephrology and cardiology. Problem Qualifiers (1) Acute exacerbation of CHF (congestive heart failure): Qualified Codes: I50.23 - Acute on chronic systolic (congestive) heart failure Jose Antonio Robles DO Nov 24, 2016 12:13
[2016-11-24 16:00] VITALS: BP 110/58; PULSE 107; RESP 22; TEMP 97.9; O2SAT 96
[2016-11-24] MEDS: ENOXAPARIN SODIUM 40 MG/0.4 ML SYRINGE SQ SCH (17:16)
[2016-11-24] MEDS: BUMETANIDE 1 MG TAB PO SCH (17:20)
[2016-11-24 20:00] VITALS: BP 100/57; PULSE 104; PULSE 105; RESP 18; TEMP 97.8; O2SAT 96
[2016-11-25] VITALS: BP 114/69; PULSE 108; RESP 18; TEMP 98.2; O2SAT 95
[2016-11-25 04:00] VITALS: BP 112/65; PULSE 109; RESP 18; TEMP 97.5; O2SAT 95
[2016-11-25] MEDS: FERROUS SULFATE 325 MG (65 MG ELEMENTAL IRON) TAB PO SCH ×2 (06:23→15:02)
[2016-11-25] MEDS: LORazepam 0.5 MG TAB PO PRN (06:23)
[2016-11-25] MEDS: LEVOTHYROXINE SODIUM 100 MCG TAB PO SCH (06:23)
[2016-11-25] MEDS: SODIUM CHLORIDE 0.9% FLUSH 10 ML FLUSH IV FLUSH SCH ×2 (07:56→22:15)
[2016-11-25 08:00] VITALS: BP 106/54; PULSE 107; RESP 16; TEMP 97.8; O2SAT 95
[2016-11-25] MEDS: POLYETHYLENE GLYCOL 17 GM PKG PO SCH (08:39)
[2016-11-25] MEDS: SPIRONOLACTONE 50 MG TAB PO SCH (08:40)
[2016-11-25] MEDS: DOCUSATE SODIUM 100 MG CAP PO SCH ×2 (08:40→22:15)
[2016-11-25] MEDS: PANTOPRAZOLE SOD 40 MG DELAYED RELEASE TAB PO SCH ×2 (08:40→22:14)
[2016-11-25] MEDS: CITALOPRAM HYDROBROMIDE 20 MG TAB PO SCH (08:40)
[2016-11-25] MEDS: BUMETANIDE 1 MG TAB PO SCH ×2 (08:40→17:06)
[2016-11-25] MEDS: METOPROLOL TARTRATE 50 MG TAB PO SCH ×2 (08:41→22:15)
[2016-11-25] MEDS: POTASSIUM CHLORIDE 20 MEQ CONTROLLED RELEASE TAB PO SCH (08:41)
[2016-11-25] MEDS: POVIDONE IODINE 10% OINT 30 GM TUBE TOPICAL SCH (08:41)
[2016-11-25 09:23] LABS: MAGNESIUM 1.5 MG/DL (1.5-2.5); POTASSIUM 3.2 MEQ/L (3.5-5.1)
[2016-11-25] MEDS ORDERED: POTASSIUM CHLORIDE 20 MEQ CONTROLLED RELEASE TAB PO ONE (10:35)
[2016-11-25] MEDS ORDERED: MAGNESIUM SULFATE 1 GM PREMIX 100 ML IV ONE (11:00)
[2016-11-25 12:00] VITALS: BP 97/53; PULSE 112; RESP 16; TEMP 97.9; O2SAT 94
[2016-11-25] MEDS ORDERED: POTASSIUM CHLORIDE 10 MEQ CONTROLLED RELEASE TAB PO ONE (13:15)
[2016-11-25] MEDS ORDERED: FUROSEMIDE 20 MG TAB PO ONE (13:15)
[2016-11-25 13:50] LABS: INDIRECT BILIRUBIN 1.4 MG/DL (0.0-0.8)
[2016-11-25 15:44] VITALS: BP 102/63; PULSE 112; RESP 16; TEMP 97.7; O2SAT 93
[2016-11-25] MEDS: ENOXAPARIN SODIUM 40 MG/0.4 ML SYRINGE SQ SCH (17:06)
--- NOTE | 2016-11-25 18:53 | HHI.PR ---
Subjective Remarks Patient seen today around noon. He denies any chest pain or shortness of breath. He does report continued bilateral lower extremity edema, scrotal edema which is not improving. Objective Vital Signs Date Time Temp Pulse Resp B/P (MAP) Pulse Ox O2 Delivery O2 Flow Rate FiO2 11/25/16 15:44 97.7 112 16 102/63 (76) 93 11/25/16 15:29 Room Air 11/25/16 12:00 97.9 112 16 97/53 (68) 94 11/25/16 08:00 97.8 107 16 106/54 (71) 95 11/25/16 04:00 97.5 109 18 112/65 (81) 95 11/25/16 00:00 98.2 108 18 114/69 (84) 95 11/24/16 20:00 97.8 105 18 100/57 (71) 96 11/24/16 20:00 104 11/24/16 20:00 Room Air I/O 11/24/16 11/24/16 11/24/16 11/25/16 11/25/16 11/25/16 07:00 15:00 23:00 07:00 15:00 23:00 Intake Total 720 ml 960 ml 840 ml Output Total 450 ml 750 ml 1800 ml Balance 270 ml 210 ml -960 ml Intake Oral 720 ml 960 ml 840 ml Output Urine Total 450 ml 750 ml 1800 ml # Bowel Movements 1 0 1 Result Diagram: 11/24/16 0828 11/25/16 0830 Objective Remarks GENERAL: patient sitting up in bed. Appears uncomfortable. SKIN: Warm and dry. HEAD: Normocephalic. EYES: No scleral icterus. No injection or drainage. NECK: Supple, trachea midline. No JVD. CARDIOVASCULAR: Regular rate and rhythm without murmurs, gallops, or rubs. RESPIRATORY: Breath sounds equal bilaterally. No accessory muscle use. GASTROINTESTINAL: Abdomen soft, non-tender, nondistended. MUSCULOSKELETAL: No cyanosis. 2+ bilateral lower extremity edema. Scrotal edema as well without erythema BACK: Nontender without obvious deformity. No CVA tenderness. A/P Assessment and Plan ===11/25/16 //CHF exacerbation. Edema not improving as expected. Significant scrotal edema. Order fluid restrictions. Additional diuresis today. Strict intake and output. Patient unable to go home at this time. -Note that patient is tachycardic. Apparently metoprolol was held due to hypertension. Will change parameters to hold metoprolol only if blood pressure below 90. //Hypokalemia. Potassium 3.2. Replaced. //Hypomagnesemia. Magnesium 1.5. Replaced. //Hyperbilirubinemia. 3.0. Improving. Continue to monitor. Mr. Wilcox is a 36-year-old male patient with a known medical history of CHF, hypertension, hyperlipidemia and anxiety who presented to the ED with worsening shortness of breath and generalized swelling. //Acute CHF exacerbation //Anasarca Bilateral pleural effusions //EKG was sinus tachycardia. - Requested recent hospitalization reports from [facility] for recent treatment and workup. - Started on Lasix 40 mg IV BID. Monitor intake and output closely. Continue cardiac telemetry. Lasix switched to Bumex. Diuresing well. - Consult placed to cardiology for further recommendations. Echo with EF < 20 %. - Continue supplemental O2 to keep sats >92%. - PT/OT evaluation ordered, appreciate input. - CBC and BMP reviewed, essentially unremarkable. Will follow CBC, BMP. - Heart healthy diet. - CXR with advanced cardiomegaly, stable. - resume Entresto when able. The pt says he was on a medium dose. - Lopressor increased to 75 mg BID with holding parameters. Adjust as needed. - The pt doesn't like the fit of his LifeVest. Will try to have it brought in the hospital for adjustment. //Hyperbilirubinemia suspect secondary to liver fibrosis and cholelithiasis //Thrombocytopenia, mild //Iron deficiency anemia, chronic //Hematochezia //Nausea and vomiting - Abdomen/pelvis CT reviewed showing small to moderate bilateral pleural effusions. Mild consolidation in lower lung bases. Anasarca. Calcified gallstones. Mild splenomegaly. - Total bilirubin 4.3 on presentation, direct bilirubin 2.0. Lipase WNL. Continue to trend LFTs. - Continue home ferrous sulfate. Monitor CBC. - GI consult appreciated. EGD/ colonoscopy to be done prior to d/c. No further signs of GIB. EGD with Faulkner's, colonoscopy with diverticulosis. - Zofran available PRN. - PPI BID. //Acute renal failure S/t diuresis. Chronic problem per pt. Nephrology consult appreciated. - hold Entresto for now. May resume soon. - Bumex per nephrology. Aldactone added. - follow BMP. Creatinine improving. //Chronic pain The pt reports improvement on the current regimen. - continue pain control with a bowel regimen. //Anxiety Stable. - Will continue home Celexa. Also have lorazepam PO PRN. //Chronic lower extremity lesions Improving. - Betadine ointment ordered. - Wound care consult if needed. DVT prophylaxis: Lovenox Discharge Planning when edema improves. Jb Kiran MD Nov 25, 2016 18:53
[2016-11-25 20:00] VITALS: BP 120/62; PULSE 113; PULSE 114; RESP 16; TEMP 97.7; O2SAT 96
[2016-11-26] VITALS (8 sets, daily range): BP systolic 92–123; BP diastolic 61–66; PULSE 97–113; RESP 18–20; TEMP 97.4–98.6; O2SAT 92–97
[2016-11-26] MEDS: LEVOTHYROXINE SODIUM 100 MCG TAB PO SCH (06:59)
[2016-11-26] MEDS: FERROUS SULFATE 325 MG (65 MG ELEMENTAL IRON) TAB PO SCH ×2 (06:59→16:01)
[2016-11-26] MEDS: POLYETHYLENE GLYCOL 17 GM PKG PO SCH (08:21)
[2016-11-26] MEDS: CITALOPRAM HYDROBROMIDE 20 MG TAB PO SCH (08:21)
[2016-11-26] MEDS: PANTOPRAZOLE SOD 40 MG DELAYED RELEASE TAB PO SCH ×2 (08:21→21:15)
[2016-11-26] MEDS: SPIRONOLACTONE 50 MG TAB PO SCH (08:21)
[2016-11-26] MEDS: BUMETANIDE 1 MG TAB PO SCH ×2 (08:21→17:57)
[2016-11-26] MEDS: DOCUSATE SODIUM 100 MG CAP PO SCH ×2 (08:21→21:15)
[2016-11-26] MEDS: POTASSIUM CHLORIDE 20 MEQ CONTROLLED RELEASE TAB PO SCH (08:22)
[2016-11-26] MEDS: SODIUM CHLORIDE 0.9% FLUSH 10 ML FLUSH IV FLUSH SCH ×2 (08:22→21:16)
[2016-11-26] MEDS: METOPROLOL TARTRATE 50 MG TAB PO SCH ×2 (08:22→21:22)
[2016-11-26] MEDS: POVIDONE IODINE 10% OINT 30 GM TUBE TOPICAL SCH (08:22)
[2016-11-26] MEDS: LORazepam 0.5 MG TAB PO PRN (08:38)
[2016-11-26 09:35] LABS: AUTOMATED NEUTROPHIL # 2.8 TH/MM3 (1.8-7.7); EOSINOPHIL # 0.2 TH/MM3 (0-0.4); EOSINOPHIL % 4.7 % (0.0-4.0); HEMATOCRIT 33.7 % (39.0-51.0); HEMO FLAGS DIFF FINAL; LYMPH % 22.7 % (9.0-44.0); MEAN CELL VOLUME 89.1 FL (80.0-100.0); MEAN CORPUSCULAR HEMOGLOBIN 28.5 PG (27.0-34.0); MONO % 10.1 % (0.0-8.0); NEUT % 61.5 % (16.0-70.0); PLATELET COUNT 139 TH/MM3 (150-450); RED BLOOD COUNT 3.78 MIL/MM3 (4.50-5.90); RED CELL DISTRIBUTION WIDTH 24.7 % (11.6-17.2); WHITE BLOOD COUNT 4.5 TH/MM3 (4.0-11.0)
[2016-11-26 09:47] LABS: BICARBONATE 30.7 MEQ/L (21.0-32.0); POTASSIUM 3.5 MEQ/L (3.5-5.1)
--- NOTE | 2016-11-26 17:07 | HHI.PR ---
Subjective Remarks Patient seen this morning. Continues with bilateral lower extremity edema, anasarca, scrotal edema. at bedside says she does not believe that he would be safe to go home. She is not at home most the day, cannot take care of him. Inks and he may benefit from SNF. We discussed strict intake and output, fluid restrictions, daily weights, which patient will need to be doing at home. Objective Vital Signs Date Time Temp Pulse Resp B/P (MAP) Pulse Ox O2 Delivery O2 Flow Rate FiO2 11/26/16 16:15 97.8 102 20 109/62 (78) 94 11/26/16 12:36 Room Air 11/26/16 12:09 97.6 101 18 107/61 (76) 94 11/26/16 08:09 98.0 99 18 98/64 (75) 92 11/26/16 04:00 97.5 97 20 123/64 (83) 96 11/26/16 00:00 98.6 100 20 96/62 (73) 94 11/25/16 20:00 114 11/25/16 20:00 97.7 113 16 120/62 (81) 96 11/25/16 20:00 Room Air I/O 11/25/16 11/25/16 11/25/16 11/26/16 11/26/16 11/26/16 06:59 14:59 22:59 06:59 14:59 22:59 Intake Total 840 ml 650 ml Output Total 1800 ml 1450 ml Balance -960 ml -800 ml Intake Oral 840 ml 650 ml Output Urine Total 1800 ml 1450 ml # Bowel Movements 1 4 Result Diagram: 11/26/1633 11/26/16832 Objective Remarks GENERAL: patient sitting up in bed. Appears uncomfortableas before.. SKIN: Warm and dry. HEAD: Normocephalic. EYES: No scleral icterus. No injection or drainage. NECK: Supple, trachea midline. No JVD. CARDIOVASCULAR: Regular rate and rhythm without murmurs, gallops, or rubs. RESPIRATORY: Breath sounds equal bilaterally. No accessory muscle use. GASTROINTESTINAL: Abdomen soft, non-tender, nondistended. MUSCULOSKELETAL: No cyanosis. 2+ bilateral lower extremity edema. Scrotal edema as well without erythema. Patient also with abdominal anasarca which is. Tense. BACK: Nontender without obvious deformity. No CVA tenderness. A/P Assessment and Plan ===11/26/16 //CHF exacerbation. Edema with slow improvement. Significant scrotal edema, anasarca, even abdominal edema will take weeks to go down. Patient unable to go home at this time. We discussed daily weights, fluid restrictions which will be paramount in preventing readmission. //Hypokalemia. Potassium 3.5 parasolreplacement.. //Hypomagnesemia. Magnesium 1.5. Replaced. //Suspected sleep apnea. Snoring at night. Very poor sleep. Patient reports using his CPAP on previous admissions. We will order one here. Mr. Wilcox is a 36-year-old male patient with a known medical history of CHF, hypertension, hyperlipidemia and anxiety who presented to the ED with worsening shortness of breath and generalized swelling. //Acute CHF exacerbation //Anasarca Bilateral pleural effusions //EKG was sinus tachycardia. - Requested recent hospitalization reports from [facility] for recent treatment and workup. - Started on Lasix 40 mg IV BID. Monitor intake and output closely. Continue cardiac telemetry. Lasix switched to Bumex. Diuresing well. - Consult placed to cardiology for further recommendations. Echo with EF < 20 %. - Continue supplemental O2 to keep sats >92%. - PT/OT evaluation ordered, appreciate input. - CBC and BMP reviewed, essentially unremarkable. Will follow CBC, BMP. - Heart healthy diet. - CXR with advanced cardiomegaly, stable. - resume Entresto when able. The pt says he was on a medium dose. - Lopressor increased to 75 mg BID with holding parameters. Adjust as needed. - The pt doesn't like the fit of his LifeVest. Will try to have it brought in the hospital for adjustment. //Hyperbilirubinemia suspect secondary to liver fibrosis and cholelithiasis //Thrombocytopenia, mild //Iron deficiency anemia, chronic //Hematochezia //Nausea and vomiting - Abdomen/pelvis CT reviewed showing small to moderate bilateral pleural effusions. Mild consolidation in lower lung bases. Anasarca. Calcified gallstones. Mild splenomegaly. - Total bilirubin 4.3 on presentation, direct bilirubin 2.0. Lipase WNL. Continue to trend LFTs. - Continue home ferrous sulfate. Monitor CBC. - GI consult appreciated. EGD/ colonoscopy to be done prior to d/c. No further signs of GIB. EGD with Faulkner's, colonoscopy with diverticulosis. - Zofran available PRN. - PPI BID. //Acute renal failure S/t diuresis. Chronic problem per pt. Nephrology consult appreciated. - hold Entresto for now. May resume soon. - Bumex per nephrology. Aldactone added. - follow BMP. Creatinine improving. //Chronic pain The pt reports improvement on the current regimen. - continue pain control with a bowel regimen. //Anxiety Stable. - Will continue home Celexa. Also have lorazepam PO PRN. //Chronic lower extremity lesions Improving. - Betadine ointment ordered. - Wound care consult if needed. DVT prophylaxis: Lovenox Discharge Planning PT recommends home with outpatient PT, however has concerns with patient being able to take care of himself at home. = Patient with multiple readmissions. = CHF regimen with home health for medication management, daily weights, fluid restrictions will be most important in preventing readmission. when edema improves. Jb Kiran MD Nov 26, 2016 17:07
[2016-11-26] MEDS: ENOXAPARIN SODIUM 40 MG/0.4 ML SYRINGE SQ SCH (17:59)
[2016-11-27] VITALS (8 sets, daily range): BP systolic 97–111; BP diastolic 61–72; PULSE 93–103; RESP 16–20; TEMP 97.1–97.9; O2SAT 93–98
[2016-11-27] MEDS: LORazepam 0.5 MG TAB PO PRN (03:20)
[2016-11-27] MEDS: LEVOTHYROXINE SODIUM 100 MCG TAB PO SCH (06:09)
[2016-11-27] MEDS: FERROUS SULFATE 325 MG (65 MG ELEMENTAL IRON) TAB PO SCH ×2 (06:09→18:42)
[2016-11-27 08:00] LABS: AUTOMATED NEUTROPHIL # 3.1 TH/MM3 (1.8-7.7); BASOPHIL # 0.1 TH/MM3 (0-0.2); BASOPHIL % 1.1 % (0.0-2.0); EOSINOPHIL # 0.2 TH/MM3 (0-0.4); EOSINOPHIL % 4.7 % (0.0-4.0); HEMATOCRIT 33.9 % (39.0-51.0); HEMO FLAGS DIFF FINAL; LYMPH % 24.7 % (9.0-44.0); LYMPHOCYTE # 1.3 TH/MM3 (1.0-4.8); MEAN CELL VOLUME 88.3 FL (80.0-100.0); MEAN CORPUSCULAR HEMOGLOBIN 28.9 PG (27.0-34.0); MEAN CORPUSCULAR HGB CONC 32.7 % (32.0-36.0); MONO % 9.9 % (0.0-8.0); NEUT % 59.6 % (16.0-70.0); PLATELET COUNT 135 TH/MM3 (150-450); RED BLOOD COUNT 3.84 MIL/MM3 (4.50-5.90); RED CELL DISTRIBUTION WIDTH 24.8 % (11.6-17.2); WHITE BLOOD COUNT 5.2 TH/MM3 (4.0-11.0)
[2016-11-27 08:17] LABS: MAGNESIUM 1.8 MG/DL (1.5-2.5); POTASSIUM 3.4 MEQ/L (3.5-5.1)
[2016-11-27 08:20] LABS: INDIRECT BILIRUBIN 1.4 MG/DL (0.0-0.8); TOTAL BILIRUBIN ADULT 3.1 MG/DL (0.2-1.0)
[2016-11-27] MEDS: POLYETHYLENE GLYCOL 17 GM PKG PO SCH ×2 (09:00→09:47)
[2016-11-27] MEDS: BUMETANIDE 1 MG TAB PO SCH ×2 (09:42→18:43)
[2016-11-27] MEDS: METOPROLOL TARTRATE 50 MG TAB PO SCH ×2 (09:43→20:04)
[2016-11-27] MEDS: CITALOPRAM HYDROBROMIDE 20 MG TAB PO SCH (09:43)
[2016-11-27] MEDS: PANTOPRAZOLE SOD 40 MG DELAYED RELEASE TAB PO SCH ×2 (09:44→20:04)
[2016-11-27] MEDS: POTASSIUM CHLORIDE 20 MEQ CONTROLLED RELEASE TAB PO SCH (09:44)
[2016-11-27] MEDS: SODIUM CHLORIDE 0.9% FLUSH 10 ML FLUSH IV FLUSH SCH ×2 (09:44→20:03)
[2016-11-27] MEDS: SPIRONOLACTONE 50 MG TAB PO SCH (09:44)
[2016-11-27] MEDS: POVIDONE IODINE 10% OINT 30 GM TUBE TOPICAL SCH (09:48)
[2016-11-27] MEDS: DOCUSATE SODIUM 100 MG CAP PO SCH ×2 (10:02→20:03)
[2016-11-27] MEDS ORDERED: POTASSIUM CHLORIDE 10 MEQ CONTROLLED RELEASE TAB PO ONE (11:00)
--- NOTE | 2016-11-27 17:56 | HHI.PR ---
Subjective Remarks Patient seen this morning around 11 AM. Says he is feeling a little better overall. We discussed interventions that he needs to do, mainly fluid restrictions, daily weights, and he feels he might be able to go home tomorrow. Denies any chest pain or shortness of breath. Says scrotum is slightly less uncomfortable today. Objective Vital Signs Date Time Temp Pulse Resp B/P (MAP) Pulse Ox O2 Delivery O2 Flow Rate FiO2 11/27/16 12:00 97.1 93 16 111/61 (78) 97 11/27/16 08:31 93 11/27/16 08:00 97.9 95 16 104/62 (76) 98 11/27/16 04:00 Room Air 11/27/16 04:00 97.6 98 19 104/72 (83) 96 11/27/16 00:00 Room Air 11/27/16 00:00 97.5 103 19 97/62 (74) 97 11/26/16 21:15 97 Nasal Cannula 4.00 11/26/16 20:00 97.4 113 20 92/66 (75) 97 11/26/16 20:00 109 11/26/16 20:00 Room Air I/O 11/26/16 11/26/16 11/26/16 11/27/16 11/27/16 11/27/16 06:59 14:59 22:59 06:59 14:59 22:59 Intake Total 650 ml 720 ml 240 ml Output Total 1450 ml 1150 ml 2450 ml Balance -800 ml -430 ml -2210 ml Intake Oral 650 ml 720 ml 240 ml Output Urine Total 1450 ml 1150 ml 2450 ml # Bowel Movements 4 1 Result Diagram: 11/27/16 0730 11/27/16 0730 Objective Remarks GENERAL: patient sitting up in bed. Appears uncomfortable, although slightly improved from before.. SKIN: Warm and dry. HEAD: Normocephalic. EYES: No scleral icterus. No injection or drainage. NECK: Supple, trachea midline. No JVD. CARDIOVASCULAR: Regular rate and rhythm without murmurs, gallops, or rubs. RESPIRATORY: Breath sounds equal bilaterally. No accessory muscle use. GASTROINTESTINAL: Abdomen soft, non-tender, nondistended. MUSCULOSKELETAL: No cyanosis. 2+ bilateral lower extremity edema. Scrotal edema as well without erythema. Patient also with abdominal anasarca which is slightly less Tense. BACK: Nontender without obvious deformity. No CVA tenderness. A/P Assessment and Plan ===11/27/16 //CHF exacerbation. Continue diuresis. Patient is -2.6 L overnight. Renal function stable. Continue to monitor. //Hypokalemia. Potassium 3.4. Replaced again. //Hypomagnesemia. Magnesium 1.8. Improved after replacement. //Suspected sleep apnea. CPAP at night. Mr. Wilcox is a 36-year-old male patient with a known medical history of CHF, hypertension, hyperlipidemia and anxiety who presented to the ED with worsening shortness of breath and generalized swelling. //Acute CHF exacerbation //Anasarca Bilateral pleural effusions //EKG was sinus tachycardia. - Requested recent hospitalization reports from [facility] for recent treatment and workup. - Started on Lasix 40 mg IV BID. Monitor intake and output closely. Continue cardiac telemetry. Lasix switched to Bumex. Diuresing well. - Consult placed to cardiology for further recommendations. Echo with EF < 20 %. - Continue supplemental O2 to keep sats >92%. - PT/OT evaluation ordered, appreciate input. - CBC and BMP reviewed, essentially unremarkable. Will follow CBC, BMP. - Heart healthy diet. - CXR with advanced cardiomegaly, stable. - resume Entresto when able. The pt says he was on a medium dose. - Lopressor increased to 75 mg BID with holding parameters. Adjust as needed. - The pt doesn't like the fit of his LifeVest. Will try to have it brought in the hospital for adjustment. =Significant scrotal edema, anasarca, even abdominal edema will take weeks to go down. Patient unable to go home at this time. We discussed daily weights, fluid restrictions which will be paramount in preventing readmission. //Hyperbilirubinemia suspect secondary to liver fibrosis and cholelithiasis //Thrombocytopenia, mild //Iron deficiency anemia, chronic //Hematochezia //Nausea and vomiting - Abdomen/pelvis CT reviewed showing small to moderate bilateral pleural effusions. Mild consolidation in lower lung bases. Anasarca. Calcified gallstones. Mild splenomegaly. - Total bilirubin 4.3 on presentation, direct bilirubin 2.0. Lipase WNL. Continue to trend LFTs. - Continue home ferrous sulfate. Monitor CBC. - GI consult appreciated. EGD/ colonoscopy to be done prior to d/c. No further signs of GIB. EGD with Fa[facility]ner's, colonoscopy with diverticulosis. - Zofran available PRN. - PPI BID. //Acute renal failure S/t diuresis. Chronic problem per pt. Nephrology consult appreciated. - hold Entresto for now. May resume soon. - Bumex per nephrology. Aldactone added. - follow BMP. Creatinine improving. //Chronic pain The pt reports improvement on the current regimen. - continue pain control with a bowel regimen. //Anxiety Stable. - Will continue home Celexa. Also have lorazepam PO PRN. //Chronic lower extremity lesions Improving. - Betadine ointment ordered. - Wound care consult if needed. DVT prophylaxis: Lovenox Discharge Planning PT recommends home with outpatient PT, however has concerns with patient being able to take care of himself at home. = Patient with multiple readmissions. = CHF regimen with home health for medication management, daily weights, fluid restrictions will be most important in preventing readmission. when edema improves. Jb Kiran MD Nov 27, 2016 17:56
[2016-11-27] MEDS: ENOXAPARIN SODIUM 40 MG/0.4 ML SYRINGE SQ SCH (18:44)
[2016-11-28] VITALS: BP 93/62; PULSE 99; RESP 22; TEMP 97.4; O2SAT 97
[2016-11-28] MEDS: LORazepam 0.5 MG TAB PO PRN ×3 (02:04→20:17)
[2016-11-28 04:00] VITALS: BP 109/63; PULSE 95; RESP 20; TEMP 97.8; O2SAT 97
[2016-11-28 06:12] LABS: AUTOMATED NEUTROPHIL # 3.1 TH/MM3 (1.8-7.7); BASOPHIL # 0.1 TH/MM3 (0-0.2); EOSINOPHIL # 0.2 TH/MM3 (0-0.4); EOSINOPHIL % 4.7 % (0.0-4.0); HEMATOCRIT 34.2 % (39.0-51.0); HEMO FLAGS DIFF FINAL; LYMPH % 24.4 % (9.0-44.0); LYMPHOCYTE # 1.3 TH/MM3 (1.0-4.8); MEAN CELL VOLUME 88.2 FL (80.0-100.0); MEAN CORPUSCULAR HEMOGLOBIN 29.1 PG (27.0-34.0); MONO % 9.9 % (0.0-8.0); PLATELET COUNT 122 TH/MM3 (150-450); RED BLOOD COUNT 3.87 MIL/MM3 (4.50-5.90); RED CELL DISTRIBUTION WIDTH 24.3 % (11.6-17.2); WHITE BLOOD COUNT 5.2 TH/MM3 (4.0-11.0)
[2016-11-28] MEDS: LEVOTHYROXINE SODIUM 100 MCG TAB PO SCH (06:13)
[2016-11-28] MEDS: FERROUS SULFATE 325 MG (65 MG ELEMENTAL IRON) TAB PO SCH ×2 (06:13→15:16)
[2016-11-28 06:37] LABS: MAGNESIUM 1.8 MG/DL (1.5-2.5); POTASSIUM 3.4 MEQ/L (3.5-5.1)
[2016-11-28 08:00] VITALS: BP 114/75; PULSE 105; RESP 20; TEMP 97.3; O2SAT 94
[2016-11-28 08:01] VITALS: PULSE 94
[2016-11-28] MEDS: POLYETHYLENE GLYCOL 17 GM PKG PO SCH (09:00)
[2016-11-28] MEDS: METOPROLOL TARTRATE 50 MG TAB PO SCH ×2 (09:24→20:16)
[2016-11-28] MEDS: BUMETANIDE 1 MG TAB PO SCH ×2 (09:24→17:43)
[2016-11-28] MEDS: SPIRONOLACTONE 50 MG TAB PO SCH (09:24)
[2016-11-28] MEDS: CITALOPRAM HYDROBROMIDE 20 MG TAB PO SCH (09:25)
[2016-11-28] MEDS: POTASSIUM CHLORIDE 20 MEQ CONTROLLED RELEASE TAB PO SCH (09:25)
[2016-11-28] MEDS: DOCUSATE SODIUM 100 MG CAP PO SCH ×2 (09:25→20:17)
[2016-11-28] MEDS: PANTOPRAZOLE SOD 40 MG DELAYED RELEASE TAB PO SCH ×2 (09:25→20:17)
[2016-11-28] MEDS: SODIUM CHLORIDE 0.9% FLUSH 10 ML FLUSH IV FLUSH SCH ×2 (09:26→20:17)
[2016-11-28] MEDS: POVIDONE IODINE 10% OINT 30 GM TUBE TOPICAL SCH (09:28)
[2016-11-28 12:00] VITALS: BP 108/65; PULSE 91; RESP 20; TEMP 97.6; O2SAT 90
--- NOTE | 2016-11-28 15:03 | HHI.PR ---
Subjective Remarks Patient reports that he still has significant scrotal swelling and discomfort. No increased in SOB. Still report abdomen is tight from edema. Objective Vitals Vital Signs Date Time Temp Pulse Resp B/P (MAP) Pulse Ox O2 Delivery O2 Flow Rate FiO2 11/28/16 09:00 Room Air 11/28/16 08:00 97.3 105 20 114/75 (88) 94 11/28/16 04:00 97.8 95 20 109/63 (78) 97 11/28/16 04:00 Room Air 11/28/16 00:00 97.4 99 22 93/62 (72) 97 11/28/16 00:00 Room Air 11/27/16 20:00 101 11/27/16 20:00 Room Air 11/27/16 20:00 97.2 97 20 108/64 (79) 94 11/27/16 16:00 97.3 97 18 100/63 (75) 97 I/O 11/27/16 11/27/16 11/27/16 11/28/16 11/28/16 11/28/16 07:00 15:00 23:00 07:00 15:00 23:00 Intake Total 240 ml 480 ml 240 ml Output Total 2450 ml 2050 ml Balance -2210 ml 480 ml -1810 ml Intake Oral 240 ml 480 ml 240 ml Output Urine Total 2450 ml 2050 ml # Voids 3 # Bowel Movements 1 4 Result Diagram: 11/28/16 0540 11/28/16 0450 Objective Remarks GENERAL: Morbidly obese. Generalized edema/anasarca. CARDIOVASCULAR: Regular rate and rhythm. RESPIRATORY: Air movement is fair. Diminished at the bases GASTROINTESTINAL: Abdomen obese with pitting edema. MUSCULOSKELETAL: 2+ adriana LE edema : Marked scrotal swelling and diffuse tenderness to palpation. NEUROLOGICAL: Awake and alert. No obvious cranial nerve deficits. Normal speech. PSYCHIATRIC: Appropriate mood and affect; insight and judgment fair. Procedures EGD/ colonoscopy 11/23 A/P Problem List: (1) SOB (shortness of breath) ICD Code: R06.02 - Shortness of breath Status: Acute (2) CHF (congestive heart failure) ICD Code: I50.9 - Heart failure, unspecified Status: Acute (3) Morbid obesity with body mass index (BMI) of 40.0 or higher ICD Code: E66.01 - Morbid (severe) obesity due to excess calories Status: Acute (4) Anasarca ICD Code: R60.1 - Generalized edema Status: Acute (5) Transaminitis ICD Code: R74.0 - Nonspecific elevation of levels of transaminase and lactic acid dehydrogenase [LDH] Status: Acute (6) Acute exacerbation of CHF (congestive heart failure) ICD Code: I50.9 - Heart failure, unspecified Status: Acute (7) Pleural effusion ICD Code: J90 - Pleural effusion, not elsewhere classified Status: Acute Assessment and Plan 36-year-old male patient with a severe CHF, hypertension, hyperlipidemia and anxiety who presented to the ED with worsening shortness of breath and generalized swelling. CHF exacerbation. Continue diuresis. - Patient previously on Entresto which was discontinued. Cardiology evaluated the patient. Currently on Bumex, Aldactone, Metoprolol - Still has a lot of fluid on board which will take time to resolve. Give a dose of Metolazone today and monitor response - EF<20%, The pt doesn't like the fit of his LifeVest. Will try to have it brought in the hospital for adjustment. Hypothyroidism: Continue Synthroid Anxiety: Continue Celexa. Ativan as needed. Hematochezia Nausea and vomiting - Abdomen/pelvis CT reviewed showing small to moderate bilateral pleural effusions. Mild consolidation in lower lung bases. Anasarca. Calcified gallstones. Mild splenomegaly. - Total bilirubin 4.3 on presentation, direct bilirubin 2.0. Lipase WNL. Continue to trend LFTs. - Continue home ferrous sulfate. Monitor CBC. - GI consult appreciated. EGD/ colonoscopy to be done prior to d/c. No further signs of GIB. EGD with Faulkner's, colonoscopy with diverticulosis. - Zofran available PRN. - PPI BID. Acute renal failure: Resolving. Renal functions improved S/t diuresis. Chronic problem per pt. Nephrology consult appreciated. - hold Entresto for now. - Bumex per nephrology. Aldactone added. - follow BMP. Chronic pain The pt reports improvement on the current regimen. - continue pain control with a bowel regimen. DVT prophylaxis: Lovenox Discharge Planning Plan for home with [facility] in 1-2 days. Problem Qualifiers (1) Acute exacerbation of CHF (congestive heart failure): Qualified Codes: I50.23 - Acute on chronic systolic (congestive) heart failure Rimpel,Ricardy MD Nov 28, 2016 15:03
[2016-11-28] MEDS ORDERED: METOLAZONE 5 MG TAB PO ONE (15:15)
[2016-11-28] MEDS: ENOXAPARIN SODIUM 40 MG/0.4 ML SYRINGE SQ SCH (17:43)
[2016-11-28 20:00] VITALS: BP 106/55; PULSE 103; PULSE 96; RESP 20; TEMP 97.5; O2SAT 94
[2016-11-29] VITALS (9 sets, daily range): BP systolic 94–131; BP diastolic 55–78; PULSE 60–105; RESP 16–19; TEMP 97.4–98.1; O2SAT 91–100
[2016-11-29] MEDS: LORazepam 0.5 MG TAB PO PRN (01:04)
[2016-11-29] MEDS: LEVOTHYROXINE SODIUM 100 MCG TAB PO SCH (05:14)
[2016-11-29 08:37] LABS: HEMATOCRIT 36.5 % (39.0-51.0); MEAN CELL VOLUME 88.2 FL (80.0-100.0); MEAN CORPUSCULAR HEMOGLOBIN 29.1 PG (27.0-34.0); PLATELET COUNT 78 TH/MM3 (150-450); RED BLOOD COUNT 4.14 MIL/MM3 (4.50-5.90); RED CELL DISTRIBUTION WIDTH 24.8 % (11.6-17.2); WHITE BLOOD COUNT 5.4 TH/MM3 (4.0-11.0)
[2016-11-29 08:39] LABS: BICARBONATE 32.4 MEQ/L (21.0-32.0); POTASSIUM 3.3 MEQ/L (3.5-5.1)
[2016-11-29] MEDS: POVIDONE IODINE 10% OINT 30 GM TUBE TOPICAL SCH (09:00)
[2016-11-29] MEDS: BUMETANIDE 1 MG TAB PO SCH ×2 (09:17→18:36)
[2016-11-29] MEDS: DOCUSATE SODIUM 100 MG CAP PO SCH ×2 (09:17→21:16)
[2016-11-29] MEDS: METOPROLOL TARTRATE 50 MG TAB PO SCH ×2 (09:18→21:16)
[2016-11-29] MEDS: PANTOPRAZOLE SOD 40 MG DELAYED RELEASE TAB PO SCH ×2 (09:19→21:16)
[2016-11-29] MEDS: FERROUS SULFATE 325 MG (65 MG ELEMENTAL IRON) TAB PO SCH ×2 (09:19→14:31)
[2016-11-29] MEDS: SODIUM CHLORIDE 0.9% FLUSH 10 ML FLUSH IV FLUSH SCH ×2 (09:19→21:17)
[2016-11-29] MEDS: CITALOPRAM HYDROBROMIDE 20 MG TAB PO SCH (09:19)
[2016-11-29] MEDS: SPIRONOLACTONE 50 MG TAB PO SCH (09:19)
[2016-11-29] MEDS ORDERED: BEDSIDE COMMODE1 MI1 (10:52)
--- NOTE | 2016-11-29 10:53 | HHI.PR ---
Subjective Remarks Patient reports he is feeling less swollen. -3.5 L today. He he does not want to go home yet. His roommate is fixing his bathroom/toilet. However he could not give me a time as to when this will be completed. Objective Vitals Vital Signs Date Time Temp Pulse Resp B/P (MAP) Pulse Ox O2 Delivery O2 Flow Rate FiO2 11/29/16 08:10 94 11/29/16 08:00 97.4 97 18 113/56 (75) 93 11/29/16 07:15 Room Air 11/29/16 04:00 97.7 60 16 131/62 (85) 96 11/29/16 04:00 Room Air 11/29/16 00:00 97.5 92 18 104/59 (74) 94 11/29/16 00:00 Room Air 11/28/16 20:00 Room Air 11/28/16 20:00 103 11/28/16 20:00 97.5 96 20 106/55 (72) 94 11/28/16 16:00 Room Air 11/28/16 12:00 Room Air 11/28/16 12:00 97.6 91 20 108/65 (79) 90 I/O 11/28/16 11/28/16 11/28/16 11/29/16 11/29/16 11/29/16 07:00 15:00 23:00 07:00 15:00 23:00 Intake Total 240 ml 600 ml 240 ml Output Total 2050 ml 975 ml 3400 ml Balance -1810 ml -375 ml -3160 ml Intake Oral 240 ml 600 ml 240 ml Output Urine Total 2050 ml 975 ml 3400 ml # Bowel Movements 4 1 1 Result Diagram: 11/29/16 0711/29/16 07 Objective Remarks GENERAL: Morbidly obese. Generalized edema/anasarca. CARDIOVASCULAR: Regular rate and rhythm. RESPIRATORY: Air movement is fair. Diminished at the bases GASTROINTESTINAL: Abdomen obese with pitting edema. MUSCULOSKELETAL: 2+ adriana LE edema : Marked scrotal swelling and diffuse tenderness to palpation. NEUROLOGICAL: Awake and alert. No obvious cranial nerve deficits. Normal speech. PSYCHIATRIC: Appropriate mood and affect; insight and judgment fair. Procedures EGD/ colonoscopy 11/23 A/P Problem List: (1) SOB (shortness of breath) ICD Code: R06.02 - Shortness of breath Status: Acute (2) CHF (congestive heart failure) ICD Code: I50.9 - Heart failure, unspecified Status: Acute (3) Morbid obesity with body mass index (BMI) of 40.0 or higher ICD Code: E66.01 - Morbid (severe) obesity due to excess calories Status: Acute (4) Anasarca ICD Code: R60.1 - Generalized edema Status: Acute (5) Transaminitis ICD Code: R74.0 - Nonspecific elevation of levels of transaminase and lactic acid dehydrogenase [LDH] Status: Acute (6) Acute exacerbation of CHF (congestive heart failure) ICD Code: I50.9 - Heart failure, unspecified Status: Acute (7) Pleural effusion ICD Code: J90 - Pleural effusion, not elsewhere classified Status: Acute Assessment and Plan 36-year-old male patient with a severe CHF, hypertension, hyperlipidemia and anxiety who presented to the ED with worsening shortness of breath and generalized swelling. CHF exacerbation. Continue diuresis. Slowly improving. - Patient previously on Entresto which was discontinued. Cardiology evaluated the patient. Currently on Bumex, Aldactone, Metoprolol - Patient has a lot of fluid on board which will take time to resolve. Give another dose of Metolazone today and monitor response. Great response with diuretics. If in fact he is compliant at home. He will get better. - EF<20%, The pt doesn't like the fit of his LifeVest. He was counseled on the risk of sudden . - I had an extensive discussion with the patient regarding the chronic nature of his illness and that he will need to restrict his fluid intake and take his medications as prescribed in order to see long-term results. He voiced understanding. Hypothyroidism: Continue Synthroid Anxiety: Continue Celexa. Ativan as needed. Hematochezia Nausea and vomiting - Abdomen/pelvis CT reviewed showing small to moderate bilateral pleural effusions. Mild consolidation in lower lung bases. Anasarca. Calcified gallstones. Mild splenomegaly. - Total bilirubin 4.3 on presentation, direct bilirubin 2.0. Lipase WNL. Continue to trend LFTs. - Continue home ferrous sulfate. Monitor CBC. - GI consult appreciated. EGD/ colonoscopy to be done prior to d/c. No further signs of GIB. EGD with Faulkner's, colonoscopy with diverticulosis. - Zofran available PRN. - PPI BID. Acute renal failure: Resolving. Renal functions improved S/t diuresis. Chronic problem per pt. Nephrology consult appreciated. - hold Entresto for now. - Bumex per nephrology. Aldactone added. - follow BMP. Chronic pain The pt reports improvement on the current regimen. - continue pain control with a bowel regimen. DVT prophylaxis: Lovenox Discharge Planning DC home with C in AM. Problem Qualifiers (1) Acute exacerbation of CHF (congestive heart failure): Qualified Codes: I50.23 - Acute on chronic systolic (congestive) heart failure Jeremy Mane MD Nov 29, 2016 10:53
[2016-11-29] MEDS ORDERED: METOLAZONE 5 MG TAB PO ONE (11:30)
[2016-11-29] MEDS: POTASSIUM CHLORIDE 20 MEQ CONTROLLED RELEASE TAB PO SCH (11:42)
--- NOTE | 2016-11-29 12:07 | HHI.FF ---
Face to Face Verification Diagnosis: (1) SOB (shortness of breath) (2) Acute exacerbation of CHF (congestive heart failure) (3) Morbid obesity with body mass index (BMI) of 40.0 or higher (4) Anasarca (5) Transaminitis (6) Pleural effusion Home Health Nursing Order: Medical education CHF education Medication education-adverse effect I have seen patient Manjinder Wilcox on 11/29/16. My clinical findings support the need for the requested home health care services because: Med compliance is questionable Need for psychosocial assistance I certify that my clinical findings support that this patient is homebound because: Need for psychosocial assistance Poor cardiac reserve Jeana Orr Nov 29, 2016 12:07 Jeremy Mane MD Nov 29, 2016 20:03
[2016-11-30 00:10] VITALS: BP 90/54; PULSE 105; RESP 19; TEMP 98; O2SAT 94
[2016-11-30 00:19] VITALS: BP 106/56
[2016-11-30] MEDS: LEVOTHYROXINE SODIUM 100 MCG TAB PO SCH (05:43)
[2016-11-30] MEDS: FERROUS SULFATE 325 MG (65 MG ELEMENTAL IRON) TAB PO SCH ×2 (05:43→17:44)
[2016-11-30 06:15] VITALS: BP 93/50; PULSE 93; RESP 19; TEMP 97.7; O2SAT 97
[2016-11-30 08:00] VITALS: BP 100/57; PULSE 94; PULSE 98; RESP 18; TEMP 97.8; O2SAT 93
[2016-11-30] MEDS: POVIDONE IODINE 10% OINT 30 GM TUBE TOPICAL SCH (09:00)
[2016-11-30] MEDS: DOCUSATE SODIUM 100 MG CAP PO SCH (09:10)
[2016-11-30] MEDS: METOPROLOL TARTRATE 50 MG TAB PO SCH (09:11)
[2016-11-30] MEDS: PANTOPRAZOLE SOD 40 MG DELAYED RELEASE TAB PO SCH (09:11)
[2016-11-30] MEDS: SPIRONOLACTONE 50 MG TAB PO SCH (09:11)
[2016-11-30] MEDS: POTASSIUM CHLORIDE 20 MEQ CONTROLLED RELEASE TAB PO SCH (09:11)
[2016-11-30] MEDS: CITALOPRAM HYDROBROMIDE 20 MG TAB PO SCH (09:11)
[2016-11-30] MEDS: BUMETANIDE 1 MG TAB PO SCH (09:11)
[2016-11-30] MEDS: SODIUM CHLORIDE 0.9% FLUSH 10 ML FLUSH IV FLUSH SCH (09:13)
[2016-11-30] MEDS ORDERED: ALDA50TA2 PO (09:43)
[2016-11-30] MEDS ORDERED: BUME1TAB PO (09:43)
[2016-11-30] MEDS ORDERED: METO-309 PO (09:43)
[2016-11-30] MEDS ORDERED: METO5TAB3 PO (09:51)
--- NOTE | 2016-11-30 10:08 | HHI.DS ---
Discharge Summary Admission Date Nov 17, 2016 at 17:09 Discharge Date: Nov 30, 2016 Admitting Diagnosis congestive heart failure, ascites, anasarca, abdominal pain (1) SOB (shortness of breath) ICD Code: R06.02 - Shortness of breath Status: Acute (2) CHF (congestive heart failure) ICD Code: I50.9 - Heart failure, unspecified Status: Acute (3) Morbid obesity with body mass index (BMI) of 40.0 or higher ICD Code: E66.01 - Morbid (severe) obesity due to excess calories Status: Acute (4) Anasarca ICD Code: R60.1 - Generalized edema Status: Acute (5) Transaminitis ICD Code: R74.0 - Nonspecific elevation of levels of transaminase and lactic acid dehydrogenase [LDH] Status: Acute (6) Acute exacerbation of CHF (congestive heart failure) ICD Code: I50.9 - Heart failure, unspecified Status: Acute (7) Pleural effusion ICD Code: J90 - Pleural effusion, not elsewhere classified Status: Acute Procedures EGD/ colonoscopy 11/23 Brief History - From Admission HPI by the admitting physician. Mr. Wilcox is a 36-year-old male patient with a known medical history of CHF, hypertension, hyperlipidemia and axiety who presented to the ED with worsening shortness of breath and generalized swelling. Patient seen and examined in ED, at bedside. Patient states that his testicles have been increasing for a few weeks and has complaints of dyspnea constantly. He just recently was hospitalized at [facility] for 13 days for treatment of acute CHF exacerbation. At that time was placed on a LifeVest and sent home on PO diuretics. Patient states that he took the LifeVest off after shortly getting home due to it being uncomfortable and the wrong size. He states he has significant, hard areas of swelling around his bilateral chest. Patient also states he has had increasing generalized pain and ran out of his Oxycodone pain medications 2 days ago. Does admit to two bouts of vomiting while in the ED today. Does also complain of recent diarrhea for the past few days with presence of bright red blood. He said he was straining prior to that episode. He does admit to a history of Scarlet fever as a child as well as a history of alcohol and cocaine abuse, which he has now quit. Patient's manager cardiac cath is Dr. Bradley. CBC/BMP: 11/29/16 0700 11/29/16 0700 Significant Findings Laboratory Tests Test 11/28/16 04:50 11/28/16 05:40 11/29/16 07:00 Albumin 3.0 GM/DL (3.4-5.0) Sodium Level 134 MEQ/L (136-145) 134 MEQ/L (136-145) Potassium Level 3.4 MEQ/L (3.5-5.1) 3.3 MEQ/L (3.5-5.1) Chloride Level 97 MEQ/L (98-107) 91 MEQ/L (98-107) Estimat Glomerular Filtration Rate 64 ML/MIN (>89) 64 ML/MIN (>89) Red Blood Count 3.87 MIL/MM3 (4.50-5.90) 4.14 MIL/MM3 (4.50-5.90) Hemoglobin 11.3 GM/DL (13.0-17.0) 12.1 GM/DL (13.0-17.0) Hematocrit 34.2 % (39.0-51.0) 36.5 % (39.0-51.0) Red Cell Distribution Width 24.3 % (11.6-17.2) 24.8 % (11.6-17.2) Platelet Count 122 TH/MM3 (150-450) 78 TH/MM3 (150-450) Monocytes (%) (Auto) 9.9 % (0.0-8.0) Eosinophils (%) (Auto) 4.7 % (0.0-4.0) Carbon Dioxide Level 32.4 MEQ/L (21.0-32.0) Imaging Last Impressions Chest X-Ray 11/20/16 0000 Signed Impressions: Service Date/Time: Sunday, November 20, 2016 11:54 - CONCLUSION: 1. Advanced cardiomegaly. Unchanged from previous. Maycol Solorio MD Abdomen/Pelvis CT 11/17/16 0000 Signed Impressions: Service Date/Time: November 16:01 - CONCLUSION: 1. Small to moderate bilateral pleural effusions which are new from the prior study. There is mild consolidation in the posterior lung bases. 2. Mild increase in anasarca and ascites. 3. Multiple calcified gallstones again noted. 4. Right-sided bladder diverticulum which extends into the right inguinal canal. 5. Nonobstructive bowel gas pattern 6. Mild splenomegaly again noted. Jose Antonio Miles MD PE at Discharge GENERAL: Morbidly obese. Generalized edema/anasarca. CARDIOVASCULAR: Regular rate and rhythm. RESPIRATORY: Air movement is fair. Diminished at the bases GASTROINTESTINAL: Abdomen obese with pitting edema. MUSCULOSKELETAL: 2+ adriana LE edema : Marked scrotal swelling and diffuse tenderness to palpation. NEUROLOGICAL: Awake and alert. No obvious cranial nerve deficits. Normal speech. PSYCHIATRIC: Appropriate mood and affect; insight and judgment fair. Pt update on day of discharge Patient reports he is doing okay. Urinating a lot. No shortness of breath or chest pain. Scrotum is less painful, he is able to move around easier. Hospital Course 36-year-old male patient with a severe CHF, hypertension, hyperlipidemia and anxiety who presented to the ED with worsening shortness of breath and anasarca. The patient has an EF that is less than 20%. He has not been wearing his LifeVest because he does not like it. He was admitted to the hospital and treated aggressively with diuretics. He was evaluated by cardiology. He is current regimen include Bumex, Aldactone, and metoprolol. He did have good response to Metolazone. He received two doses. He has been in the negative fluid balance for the past few days. He does have significant anasarca which will take time to improve if he remains strictly compliant with his medications. He should continue to see improvement. - I had an extensive discussion with the patient regarding the chronic nature of his illness and that he will need to restrict his fluid intake and take his medications as prescribed in order to see long-term results. He voiced understanding. Other conditions treated include: Hypothyroidism: Continue Synthroid Anxiety: Continue Celexa. Hematochezia Nausea and vomiting - Abdomen/pelvis CT reviewed showing small to moderate bilateral pleural effusions. Mild consolidation in lower lung bases. Anasarca. Calcified gallstones. Mild splenomegaly. - Total bilirubin 4.3 on presentation, direct bilirubin 2.0. Lipase WNL. Continue to trend LFTs. - Continue home ferrous sulfate. Monitor CBC. - GI consult appreciated. EGD with Faulkner's, colonoscopy with diverticulosis. - PPI BID. Acute renal failure: Resolving. Renal functions improved S/t diuresis. Chronic problem per pt. Nephrology consult appreciated. - Continue to hold Entresto. - Bumex per nephrology. Aldactone added. - Outpatient follow-up is advised. Chronic pain - continue pain control with a bowel regimen. Pt Condition on Discharge: Stable Discharge Disposition: Disch w/ Home Health Serv Discharge Time: > 30 minutes Discharge Instructions DIET: Follow Instructions for: Heart Healthy Diet Activities you can perform: Regular-No Restrictions Follow up Referrals: PCP Follow-up - 1 Week New Medications: Bedside Commode (Bedside Commode) 1 Mis Mis EA .ROUTE DIRECTED, #1 Metolazone (Metolazone) 5 Mg Tab 5 MG PO EVERY OTHER DAY for diuretic, #5 TAB 0 Refills Bumetanide (Bumetanide) 1 Mg Tab 2 MG PO BID@09,18 for Diuretic for 30 Days, #60 TAB Metoprolol Tartrate (Lopressor) 50 Mg Tab 75 MG PO Q12HR for HTN for 30 Days, #60 TAB Spironolactone (Aldactone) 50 Mg Tab 50 MG PO DAILY for Diuretic for 30 Days, #30 TAB Continued Medications: Albuterol 8.5 GM Inh (Proair Hfa 8.5 GM Inh) 90 Mcg/Act Aer 2 PUFF INH Q4-6H PRN for SHORTNESS OF BREATH, #1 INHALER 0 Refills 108 mcg/actuation Citalopram (Celexa) 10 Mg Tab 10 MG PO DAILY for Control Depression, #30 TAB 0 Refills Docusate Sodium (Docusate Sodium) 100 Mg Cap 100 MG PO BID for Prevent Constipation, #60 CAP 0 Refills Ferrous Sulfate (Ferosul) 325 Mg Tablet 325 MG PO BID, #60 TAB Levothyroxine (Levothyroxine) 100 Mcg Tab 100 MCG PO DAILY for Thyroid, #30 TAB 0 Refills Lorazepam (Ativan) 0.5 Mg Tab 0.5 MG PO Q6H PRN for Anxiety/Insomnia, #10 TAB 0 Refills Omeprazole (Omeprazole) 40 Mg Cap 40 MG PO DAILY, #30 CAP 0 Refills Oxycodone (Oxycodone) 5 Mg Tab 5 MG PO Q6H PRN for PAIN, #10 TAB 0 Refills Potassium Chloride ER (Potassium Chloride ER) 20 Meq Tab 20 MEQ PO DAILY for Electrolyte Replacement, #30 TAB 0 Refills Discontinued Medications: Furosemide (Furosemide) 40 Mg Tab 40 MG PO DAILY, #30 TAB 0 Refills Metoprolol Tartrate (Metoprolol Tartrate) 25 Mg Tab 25 MG PO Q12HR for hypertension for 30 Days, TAB 0 Refills Jeremy Mane MD Nov 30, 2016 10:07
[2016-11-30 12:00] VITALS: BP 100/57; PULSE 94; RESP 18; TEMP 97.8; O2SAT 93
[2016-11-30] MEDS ORDERED: OXYC-392 PO (12:42)
[2016-11-30 16:00] VITALS: BP 110/62; PULSE 92; RESP 18; TEMP 97.9; O2SAT 94
== END 2016-11-30 18:02 | disposition home or self-care (01) | DRG 291 ==
LOC: NEPC 11:45 → NEDA 17:09 → N04A 19:12
PROVIDERS: ADMIT Family Medicine; ATTEND Family Medicine
PROC: 0DJD8ZZ Inspection of Lower Intestinal Tract, Via Natural or Artificial Opening Endoscopic (ICD-10-PCS; 2016-11-23)
PROC: 0DB58ZX Excision of Esophagus, Via Natural or Artificial Opening Endoscopic, Diagnostic (ICD-10-PCS; principal; 2016-11-23 11:10)
PROC: 0DB68ZX Excision of Stomach, Via Natural or Artificial Opening Endoscopic, Diagnostic (ICD-10-PCS; 2016-11-23 11:10)
DX: I11.0 Hypertensive heart disease with heart failure (principal); K72.00 Acute and subacute hepatic failure without coma; N17.9 Acute kidney failure, unspecified; Z68.42 Body mass index [BMI] 45.0-49.9, adult; R18.8 Other ascites; E83.42 Hypomagnesemia; I50.23 Acute on chronic systolic (congestive) heart failure; I42.9 Cardiomyopathy, unspecified; K22.70 Barrett's esophagus without dysplasia; E66.01 Morbid (severe) obesity due to excess calories; R16.1 Splenomegaly, not elsewhere classified; K80.20 Calculus of gallbladder without cholecystitis without obstruction; N32.3 Diverticulum of bladder; D50.9 Iron deficiency anemia, unspecified; E03.9 Hypothyroidism, unspecified; E78.5 Hyperlipidemia, unspecified; E87.6 Hypokalemia; G89.29 Other chronic pain; K21.9 Gastro-esophageal reflux disease without esophagitis; K57.90 Diverticulosis of intestine, part unspecified, without perforation or abscess without bleeding; K59.00 Constipation, unspecified; K74.0 Hepatic fibrosis; N50.89 Other specified disorders of the male genital organs; F17.220 Nicotine dependence, chewing tobacco, uncomplicated; Z86.711 Personal history of pulmonary embolism
CPT/HCPCS: 71010; 74176; 76937; 80048; 80053; 80069; 80076; 81001; 82043; 82248; 83036; 83690; 83735; 83880; 84100; 85025; 85027; 85610; 86850; 86900; 86901; 88305; 88312; 93005; 93306; 96374; 96375; J1650; J1940; J2270; J2405; J3475

== ENCOUNTER 2017-01-01 21:56 | Inpatient (IN) | payer MEDICAID ==
[2017-01-01] VITALS (7 sets, daily range): BP systolic 120–145; BP diastolic 67–97; PULSE 115–136; RESP 24–30; TEMP 99; O2SAT 99–100
[~2017-01-01] VITALS: Ht 177.8 cm; Wt 150.0 kg
[~2017-01-01 21:56] MED LIST changes: +ALBUAER3 INH; +ALDA50TA2 PO; +BEDSIDE COMMODE1 MI1; +DOCU100C15 PO; +LEVO100T5 PO; -LISI-519 PO; +METO-309 PO; -METO25TA3 PO; +METO5TAB3 PO; +POTA-163 PO
[2017-01-01] MEDS ORDERED: FURO20TA PO (22:05)
[2017-01-01] MEDS ORDERED: LORazepam 0.5 MG TAB PO ONE (22:15)
[2017-01-01] MEDS ORDERED: SODIUM CHLORIDE 0.9% FLUSH 10 ML FLUSH IVF PRN (22:15)
[2017-01-01] MEDS ORDERED: ACETAMINOPHEN/HYDROcodone 325 MG/7.5 MG TAB PO ONE (22:15)
[2017-01-01] MEDS: NITROGLYCERIN 0.4 MG SL 25 TABS/BTL SL SCH ×3 (22:20→22:29)
[2017-01-01 22:32] LABS: AUTOMATED NEUTROPHIL # 5.2 TH/MM3 (1.8-7.7); BASOPHIL # 0.1 TH/MM3 (0-0.2); BASOPHIL % 1.2 % (0.0-2.0); EOSINOPHIL # 0.1 TH/MM3 (0-0.4); EOSINOPHIL % 1.8 % (0.0-4.0); HEMATOCRIT 37.4 % (39.0-51.0); HEMO FLAGS DIFF FINAL; LYMPH % 25.5 % (9.0-44.0); LYMPHOCYTE # 2.1 TH/MM3 (1.0-4.8); MEAN CELL VOLUME 92.8 FL (80.0-100.0); MEAN CORPUSCULAR HEMOGLOBIN 30.8 PG (27.0-34.0); MEAN CORPUSCULAR HGB CONC 33.3 % (32.0-36.0); NEUT % 64.5 % (16.0-70.0); PLATELET COUNT 220 TH/MM3 (150-450); RED BLOOD COUNT 4.03 MIL/MM3 (4.50-5.90); RED CELL DISTRIBUTION WIDTH 20.1 % (11.6-17.2); WHITE BLOOD COUNT 8.1 TH/MM3 (4.0-11.0)
--- NOTE | 2017-01-01 22:44 | RADRPT ---
EXAM DATE/TIME: 01/01/2017 22:19 [facility] COMPARISON: CHEST SINGLE AP, November 20, 2016, 11:54. INDICATIONS : Chest pain and shortness of breath. MEDICAL HISTORY : Congestive heart failure. Renal failure, chronic. Hypertension. Liver failure. SURGICAL HISTORY : None. ENCOUNTER: Initial ACUITY: 2 days PAIN SCORE: 9/10 LOCATION: Bilateral upper chest FINDINGS: Single AP view of the chest. Moderate cardiac silhouette enlargement unchanged. Lungs are grossly gaurav ar. No evidence of pleural effusion or pneumothorax. CONCLUSION: Chronic cardiac silhouette enlargement. Lungs grossly clear. Donnell Turner MD on January 01, 2017 at 22:41 Board Certified Radiologist. This report was verified electronically.
[2017-01-01 22:47] LABS: APTT (PATIENT) 29.7 SEC (24.3-30.1); INTERNATIONAL NORMALIZED RATIO 1.6 RATIO
[2017-01-01 22:51] LABS: ALT (GPT) 14 U/L (12-78); ANION GAP 9 MEQ/L (5-15); AST (GOT) 23 U/L (15-37); BICARBONATE 25.9 MEQ/L (21.0-32.0); BLOOD UREA NITROGEN 13 MG/DL (7-18); CHLORIDE 96 MEQ/L (98-107); GLOMERULAR FILTRATION RATE 71 ML/MIN (>89); MAGNESIUM 1.9 MG/DL (1.5-2.5); POTASSIUM 4.5 MEQ/L (3.5-5.1); SODIUM (NA) 131 MEQ/L (136-145)
[2017-01-01 22:55] LABS: ALKALINE PHOSPHATASE 98 U/L (45-117); TOTAL BILIRUBIN ADULT 4.3 MG/DL (0.2-1.0)
--- NOTE | 2017-01-01 22:57 | PD ---
HPI Chief Complaint: Respiratory Symptoms Time Seen by Provider: 22:13 Travel History International Travel<30 days: No Contact w/Intl Traveler<30days: No Traveled to known affect area: No History of Present Illness HPI 36-year-old male arrives to the ER complaining of shortness of breath and chest pain. He continues to state that he feels terrible all over. His significant other notes the patient has been intermittently compliant with Bumex and that he has gained 40 pounds in 2 days. Both the patient and the significant other reveal the patient recently ran out of oxycodone and Ativan. PFSH Past Medical History Anemia: Yes Arthritis: No Asthma: No Autoimmune Disease: No Anxiety: Yes Depression: No Heart Rhythm Problems: Yes Cancer: No Cardiomyopathy: Yes Cardiovascular Problems: Yes High Cholesterol: Yes Chest Pain: Yes Congestive Heart Failure: Yes COPD: No Cerebrovascular Accident: No Diabetes: No Diminished Hearing: No Endocrine: No GERD: Yes Genitourinary: No Hiatal Hernia: Yes Hypertension: Yes Immune Disorder: No Inguinal Hernia: Yes Implanted Vascular Access Dvce: No Kidney Stones: No Musculoskeletal: Yes Neurologic: No Psychiatric: Yes Reproductive: No Respiratory: Yes (PE) Immunizations Current: Yes Migraines: Yes Renal Failure: Yes Seizures: No Sickle Cell Disease: No Sleep Apnea: Yes Thyroid Disease: Yes Ulcer: No Influenza Vaccination: No Past Surgical History Abdominal Surgery: Yes (APPENDECTOMY 2015) Appendectomy: Yes (NOVEMBER 2015) Cardiac Surgery: No Ear Surgery: No Endocrine Surgery: No Eye Surgery: No Genitourinary Surgery: No Gynecologic Surgery: No Oral Surgery: No Thoracic Surgery: No Other Surgery: Yes (liver biopsy) Social History Alcohol Use: No Tobacco Use: Yes (2 a day ) Substance Use: No Allergies-Medications (Allergen,Severity, Reaction): Coded Allergies: ketorolac (Verified Allergy, Severe, GENERALIZED HIVES/RASH WHICH LAST FOR ABOUT A WEEK, 01/02/17) penicillin G (Verified Allergy, Severe, Anaphylaxis, 01/01/17) tramadol (Verified Allergy, Severe, GENERALIZED HIVES WHICH LAST FOR ABOUT A WEEK, 01/01/17) acetaminophen (Verified Allergy, Unknown, 01/01/17) liver failure Reported Meds & Prescriptions Reported Meds & Active Scripts Active Oxycodone (Oxycodone HCl) 5 Mg Tab 5 Mg PO Q6H PRN Metolazone 5 Mg Tab 5 Mg PO EVERY OTHER DAY Bumetanide 1 Mg Tab 2 Mg PO BID@09,18 30 Days Aldactone (Spironolactone) 50 Mg Tab 50 Mg PO DAILY 30 Days Lopressor (Metoprolol Tartrate) 50 Mg Tab 75 Mg PO Q12HR 30 Days Bedside Commode (Device) 1 Mis Mis Ea .ROUTE DIRECTED Ativan (Lorazepam) 0.5 Mg Tab 0.5 Mg PO Q6H PRN Ferosul (Ferrous Sulfate) 325 Mg Tablet 325 Mg PO BID Reported Furosemide 20 Mg Tab 20 Mg PO BID Docusate Sodium 100 Mg Cap 100 Mg PO BID Levothyroxine (Levothyroxine Sodium) 100 Mcg Tab 100 Mcg PO DAILY Proair Hfa 8.5 GM Inh (Albuterol Sulfate) 90 Mcg/Act Aer 2 Puff INH Q4-6H PRN 108 mcg/actuation Potassium Chloride ER (Potassium Chloride) 20 Meq Tab 20 Meq PO DAILY Omeprazole 40 Mg Cap 40 Mg PO DAILY Celexa (Citalopram Hydrobromide) 10 Mg Tab 10 Mg PO DAILY Review of Systems Except as stated in HPI: all other systems reviewed are Neg General / Constitutional: No: Fever Cardiovascular: Positive: Chest Pain or Discomfort Respiratory: Positive: Shortness of Breath Gastrointestinal: Positive: Abdominal Pain Physical Exam Narrative GENERAL: 36-year-old male mild to moderate distress, tearful, speaking in sentences SKIN: Focused skin assessment warm/dry. HEAD: Atraumatic. Normocephalic. EYES: Pupils equal and round. No scleral icterus. No injection or drainage. ENT: No nasal bleeding or discharge. Mucous membranes pink and moist. NECK: Trachea midline. No JVD. CARDIOVASCULAR: Tachycardia. Regular rhythm. RESPIRATORY: No tachypnea. The lungs are clear. GASTROINTESTINAL: Abdomen soft, non-tender, nondistended. Hepatic and splenic margins not palpable. MUSCULOSKELETAL: No obvious deformities. No clubbing. No cyanosis. There is bilateral lower extremity edema. NEUROLOGICAL: Awake and alert. No obvious cranial nerve deficits. Motor grossly within normal limits. Normal speech. PSYCHIATRIC: Appropriate mood and affect; insight and judgment normal. Data Data Last Documented VS Vital Signs Date Time Temp Pulse Resp B/P (MAP) Pulse Ox O2 Delivery O2 Flow Rate FiO2 01/02/17 00:05 107 100 BiPAP 01/02/17 00:02 21 01/01/17 23:35 28 01/01/17 21:57 99.0 BP 120/91 Orders Orders Electrocardiogram (01/01/17 22:15) B-Type Natriuretic Peptide (01/01/17 22:15) Ckmb (Isoenzyme) Profile (01/01/17 22:15) Complete Blood Count With Diff (01/01/17 22:15) Comprehensive Metabolic Panel (01/01/17 22:15) Magnesium (Mg) (01/01/17 22:15) Prothrombin Time / Inr (Pt) (01/01/17 22:15) Act Partial Throm Time (Ptt) (01/01/17 22:15) Troponin I (01/01/17 22:15) Lipase (01/01/17 22:15) Chest, Single Ap (01/01/17 22:15) Ecg Monitoring (01/01/17 22:15) Bilateral Bp Monitoring (01/01/17 22:15) Iv Access Insert/Monitor (01/01/17 22:15) Oximetry (01/01/17:15) Oxygen Administration (01/01/17 22:15) Sodium Chloride 0.9% Flush (Ns Flush) (01/01/17 22:15) Nitroglycerin Sl (Nitrostat Sl) (01/01/17 22:15) Acetamin-Hydrocod 325-7.5 Mg (White 7.5 (01/01/17 22:15) Lorazepam (Ativan) (01/01/17 22:15) Methylprednisolone So Succ Inj (Solumedr (01/01/17 23:00) Albuterol-Ipratropium Neb (Duoneb Neb) (01/01/17 23:00) Drug Screen, Random Urine (01/01/17 23:23) Metoprolol Tartrate Inj (Lopressor Inj) (01/01/17 23:30) Furosemide Inj (Lasix Inj) (01/02/17 00:00) Arterial Blood Gas (Abg) (01/01/17 23:46) Resp Bipap / Cpap Non Invas Vt (01/01/17 23:46) Lorazepam Inj (Ativan Inj) (01/02/17 00:00) Admit Order (Ed Use Only) (01/02/17 ) [employer] / Telemetry VINCE.Q8H (01/02/17 00:13) Vital Signs (Adult) Q4H (01/02/17 00:13) Diet Heart Healthy (01/02/17 Breakfast) Activity Bed Rest (01/02/17 00:13) Labs Laboratory Tests Test 01/01/17 00:37 01/01/17 22:20 White Blood Count 8.1 TH/MM3 Red Blood Count 4.03 MIL/MM3 Hemoglobin 12.4 GM/DL Hematocrit 37.4 % Mean Corpuscular Volume 92.8 FL Mean Corpuscular Hemoglobin 30.8 PG Mean Corpuscular Hemoglobin Concent 33.3 % Red Cell Distribution Width 20.1 % Platelet Count 220 TH/MM3 Mean Platelet Volume 8.3 FL Neutrophils (%) (Auto) 64.5 % Lymphocytes (%) (Auto) 25.5 % Monocytes (%) (Auto) 7.0 % Eosinophils (%) (Auto) 1.8 % Basophils (%) (Auto) 1.2 % Neutrophils # (Auto) 5.2 TH/MM3 Lymphocytes # (Auto) 2.1 TH/MM3 Monocytes # (Auto) 0.6 TH/MM3 Eosinophils # (Auto) 0.1 TH/MM3 Basophils # (Auto) 0.1 TH/MM3 CBC Comment DIFF FINAL Differential Comment Prothrombin Time 18.0 SEC Prothromb Time International Ratio 1.6 RATIO Activated Partial Thromboplast Time 29.7 SEC Blood Urea Nitrogen 13 MG/DL Creatinine 1.16 MG/DL Random Glucose 116 MG/DL Total Protein 7.6 GM/DL Albumin 3.1 GM/DL Calcium Level 8.4 MG/DL Magnesium Level 1.9 MG/DL Alkaline Phosphatase 98 U/L Aspartate Amino Transf (AST/SGOT) 23 U/L Alanine Aminotransferase (ALT/SGPT) 14 U/L Total Bilirubin 4.3 MG/DL Sodium Level 131 MEQ/L Potassium Level 4.5 MEQ/L Chloride Level 96 MEQ/L Carbon Dioxide Level 25.9 MEQ/L Anion Gap 9 MEQ/L Estimat Glomerular Filtration Rate 71 ML/MIN Total Creatine Kinase 45 U/L Troponin I 0.02 NG/ML B-Type Natriuretic Peptide 1910 PG/ML Lipase 99 U/L MDM Medical Decision Making Medical Screen Exam Complete: Yes Emergency Medical Condition: Yes Medical Record Reviewed: Yes Differential Diagnosis NSTEMI, unstable angina, coronary vasospasm, PE, PTX, aortic dissection, pericarditis, myocarditis, endocarditis, PNA, esophageal disease, aneurysm, musculoskeletal etiologies, anxiety, cocaine/sympathomimetic abuse Narrative Course CBC & BMP Diagram 01/01/17 22:20 Total Protein 7.6, Albumin 3.1 L, Calcium Level 8.4 L, Magnesium Level 1.9, Alkaline Phosphatase 98, Aspartate Amino Transf (AST/SGOT) 23, Alanine Aminotransferase (ALT/SGPT) 14, Total Bilirubin 4.3 H The BNP is 1910 Tn 0.02 EKG shows a sinus rhythm with a rate of 130 Patient received Lortab and Ativan shortly following arrival with marginal improvement. The patient received 40 mg IV Lasix. The patient will be admitted for CHF exacerbation. BiPAP started on due to subjective complaints of worsening dyspnea. His O2 sat is 96% at rest on 2 L nasal cannula. The patient has a history of tachycardia with most vital sign recordings of 90 bpm and into the 130s. Case d/w Dr Tinoco Critical Care Narrative Aggregate critical care time was 35 minutes. Time to perform other separately billable procedures was not included in the critical care time. My time did not include minutes spent treating any other patients simultaneously or on activities that did not directly contribute to the patient's treatment. The services I provided to this patient were to treat and/or prevent clinically significant deterioration that could result in: Cardiopulmonary arrest, respiratory arrest I provided critical care services requiring my management, as noted below: Chart data review, documentation time, medication orders and management, vital sign assessments/reviewing monitor data, ordering and reviewing lab tests, ordering and interpreting/reviewing x-rays and diagnostic studies, care of the patient and discussion of the patient with the admitting physicians. Diagnosis Primary Impression: Acute exacerbation of CHF (congestive heart failure) Qualified Codes: I50.9 - Heart failure, unspecified Additional Impression: Sinus tachycardia Admitting Information Admitting Physician Requests: Admit Maycol Pearson MD Jan 01, 2017 22:57
[2017-01-01] MEDS ORDERED: methylPREDNISolone SOD SUCC 125 MG/2 ML VIAL IV PUSH ONE (23:00)
[2017-01-01] MEDS: RESP: ALBUTEROL 2.5 MG/IPRATROPIUM 0.5 MG NEB (SCH) INH ×2 (23:04→23:05)
[2017-01-01 23:06] LABS: CREATINE KINASE 45 U/L (39-308)
[2017-01-01] MEDS: METOPROLOL TARTRATE 5 MG/5 ML VIAL IVS SCH ×3 (23:34→23:40)
[2017-01-02] VITALS (34 sets, daily range): BP systolic 100–130; BP diastolic 58–84; PULSE 93–121; RESP 18–25; TEMP 97.5–98.3; O2SAT 94–100
[2017-01-02] MEDS ORDERED: FUROSEMIDE 40 MG/4 ML VIAL IV PUSH ONE
[2017-01-02] MEDS ORDERED: LORazepam 2 MG/ML VIAL IV PUSH ONE
[2017-01-02] MEDS ORDERED: SODIUM CHLORIDE 0.9% FLUSH 10 ML FLUSH IV FLUSH PRN (00:30)
[2017-01-02] MEDS ORDERED: BISACODYL 10 MG SUPP RECTAL PRN (00:30)
[2017-01-02] MEDS ORDERED: MAGNESIUM HYDROXIDE SUSP 30 ML CUP PO PRN (00:30)
[2017-01-02] MEDS ORDERED: LACTULOSE SYRUP 20 GM/30 ML CUP PO PRN (00:30)
[2017-01-02] MEDS ORDERED: MORPHINE SULFATE 4 MG/ML INJ IV PUSH PRN (00:30)
[2017-01-02] MEDS ORDERED: ONDANSETRON HCL 4 MG/2 ML VIAL IVP PRN (00:30)
[2017-01-02] MEDS ORDERED: SENNOSIDES 8.6 MG TAB PO PRN (00:30)
--- NOTE | 2017-01-02 00:42 | HHI.HP ---
HPI Service [facility] Primary Care Physician Unknown Admission Diagnosis CHF Exacerbation; Anxiety; Chronic Pain Diagnoses: (1) CHF (congestive heart failure) Diagnosis: Principal (2) Sinus tachycardia Diagnosis: Principal (3) Non-compliance Diagnosis: Principal (4) Anxiety Diagnosis: Principal (5) Tobacco abuse Diagnosis: Principal Travel History International Travel<30 Days: No Contact w/Intl Traveler <30 Da: No Traveled to Known Affected Are: No History of Present Illness This is a 36-year-old male with PMH of Anxiety, HTN, Hyperlipidemia, CHF (Echo 11/21/16 w/ EF <20%), Non-Compliance and Tobacco Abuse who presented to the ER w / complaints of SOB and weight gain. States he ran out of his diuretics 2 days ago and has been off his medications. Notes weight gain of approx 40lbs in the last two days. Previous admit 11/17-11/30/16 for CHF, s/p eval by Cardiology, EF <20%, pt previously non-compliant w/ LifeVest. On arrival, BP 138/80, HR 136 , O2 sat 100% on RA, Afebrile. While in ER placed on BIPAP for respiratory distress. BNP 1910, s/p Lasix IV. Also noted to have some wheezing on exam, s/ p Solu-Medrol and DuoNeb in ER. Currently improved. CXR with chronic cardiac silhouette enlargement, lungs grossly clear. Review of Systems Except as stated in HPI: all other systems reviewed are Neg ROS: 14 point review of systems otherwise negative. Past Family Social History Past Medical History PMH: Anxiety, HTN, Hyperlipidemia, CHF (Echo 11/21/16 w/ EF <20%), Non- Compliance and Tobacco Abuse Past Surgical History PAST SURGICAL HISTORY: Appendectomy, Liver Biopsy Allergies: Coded Allergies: ketorolac (Verified Allergy, Severe, GENERALIZED HIVES/RASH WHICH LAST FOR ABOUT A WEEK, 01/01/17) penicillin G (Verified Allergy, Severe, Anaphylaxis, 01/01/17) tramadol (Verified Allergy, Severe, GENERALIZED HIVES WHICH LAST FOR ABOUT A WEEK, 01/01/17) acetaminophen (Verified Allergy, Unknown, 01/01/17) liver failure Family History PAST FAMILY HISTORY: Reviewed. No h/o DM or CAD Social History PAST SOCIAL HISTORY: History of Alcohol and Cocaine, quit. Positive for tobacco. Physical Exam Vital Signs Vital Signs Date Time Temp Pulse Resp B/P (MAP) Pulse Ox O2 Delivery O2 Flow Rate FiO2 01/02/17 00:05 107 100 BiPAP 01/02/17 00:02 98 21 01/01/17 23:35 115 28 127/70 (89) 99 Room Air 01/01/17 23:05 130 28 137/78 (97) 99 Room Air 145/67 (93) 01/01/17 22:31 100 Room Air 01/01/17 22:31 99 Room Air 01/01/17 22:14 136 30 138/80 (99) 100 Room Air 01/01/17 22:05 135 28 132/97 (109) 99 01/01/17 21:57 99.0 136 24 120/91 (101) 99 Room Air 01/01/17 20:05 99 21 01/01/17 20:05 99 21 Physical Exam PE: GENERAL: Middle-aged white male in no acute distress. HEENT: PERRLA, EOMI. No scleral icterus or conjunctival pallor. No lid lag or facial droop. CARDIOVASCULAR: Tachycardia. No obvious murmurs to auscultation. No chest tenderness to palpation. RESPIRATORY: No obvious rhonchi or wheezing. Clear to auscultation. Breath sounds equal bilaterally. GASTROINTESTINAL: Abdomen soft, non-tender, nondistended. BS normal. MUSCULOSKELETAL: Extremities without clubbing, cyanosis. 2+ edema. No obvious deformities. NEUROLOGICAL: Awake, alert and oriented x4. No focal neurologic deficits. Moving both upper and lower extremities spontaneously. Laboratory Laboratory Tests Test 01/01/17 22:20 White Blood Count 8.1 Red Blood Count 4.03 Hemoglobin 12.4 Hematocrit 37.4 Mean Corpuscular Volume 92.8 Mean Corpuscular Hemoglobin 30.8 Mean Corpuscular Hemoglobin Concent 33.3 Red Cell Distribution Width 20.1 Platelet Count 220 Mean Platelet Volume 8.3 Neutrophils (%) (Auto) 64.5 Lymphocytes (%) (Auto) 25.5 Monocytes (%) (Auto) 7.0 Eosinophils (%) (Auto) 1.8 Basophils (%) (Auto) 1.2 Neutrophils # (Auto) 5.2 Lymphocytes # (Auto) 2.1 Monocytes # (Auto) 0.6 Eosinophils # (Auto) 0.1 Basophils # (Auto) 0.1 CBC Comment DIFF FINAL Differential Comment Prothrombin Time 18.0 Prothromb Time International Ratio 1.6 Activated Partial Thromboplast Time 29.7 Blood Urea Nitrogen 13 Creatinine 1.16 Random Glucose 116 Total Protein 7.6 Albumin 3.1 Calcium Level 8.4 Magnesium Level 1.9 Alkaline Phosphatase 98 Aspartate Amino Transf (AST/SGOT) 23 Alanine Aminotransferase (ALT/SGPT) 14 Total Bilirubin 4.3 Sodium Level 131 Potassium Level 4.5 Chloride Level 96 Carbon Dioxide Level 25.9 Anion Gap 9 Estimat Glomerular Filtration Rate 71 Total Creatine Kinase 45 Troponin I 0.02 B-Type Natriuretic Peptide 1910 Lipase 99 Result Diagram: 01/01/17221901/01/172219 Caprini VTE Risk Assessment Caprini VTE Risk Assessment: Mod/High Risk (score >= 2) Caprini Risk Assessment Model Point Value = 1 Point Value = 2 Point Value = 3 Point Value = 5 Age 41-60 Minor surgery BMI > 25 kg/m2 Swollen legs Varicose veins or History of unexplained or recurrent spontaneous Oral contraceptives or hormone replacement Sepsis (< 1 month) Serious lung disease, including pneumonia (< 1 month) Abnormal pulmonary function Acute myocardial infarction Congestive heart failure (< 1 month) History of inflammatory bowel disease Medical patient at bed rest Age 61-74 Arthroscopic surgery Major open surgery (> 45 min) Laparoscopic surgery (> 45 min) Malignancy Confined to bed (> 72 hours) Immobilizing plaster cast Central venous access Age >= 75 History of VTE Family history of VTE Factor V Leiden Prothrombin [id number] Lupus anticoagulant Anticardiolipin antibodies Elevated serum homocysteine Heparin-induced thrombocytopenia Other congenital or acquired thrombophilia Stroke (< 1 month) Elective arthroplasty Hip, pelvis, or leg fracture Acute spinal cord injury (< 1 month) Prophylaxis Regimen Total Risk Factor Score Risk Level Prophylaxis Regimen 0-1 Low Early ambulation 2 Moderate Order ONE of the following: *Sequential Compression Device (SCD) *Heparin 5000 units SQ BID 3-4 Higher Order ONE of the following medications: *Heparin 5000 units SQ TID *Enoxaparin/Lovenox 40 mg SQ daily (WT < 150 kg, CrCl > 30 mL/min) *Enoxaparin/Lovenox 30 mg SQ daily (WT < 150 kg, CrCl > 10-29 mL/min) *Enoxaparin/Lovenox 30 mg SQ BID (WT < 150 kg, CrCl > 30 mL/min) AND/OR *Sequential Compression Device (SCD) 5 or more Highest Order ONE of the following medications: *Heparin 5000 units SQ TID (Preferred with Epidurals) *Enoxaparin/Lovenox 40 mg SQ daily (WT < 150 kg, CrCl > 30 mL/min) *Enoxaparin/Lovenox 30 mg SQ daily (WT < 150 kg, CrCl > 10-29 mL/min) *Enoxaparin/Lovenox 30 mg SQ BID (WT < 150 kg, CrCl > 30 mL/min) AND *Sequential Compression Device (SCD) Assessment and Plan Problem List: (1) CHF (congestive heart failure) ICD Code: I50.9 - Heart failure, unspecified Status: Acute (2) Non-compliance ICD Code: Z91.19 - Patient's noncompliance with other medical treatment and regimen (3) Sinus tachycardia ICD Code: R00.0 - Tachycardia, unspecified Status: Acute (4) Anxiety ICD Code: F41.9 - Anxiety disorder, unspecified (5) Tobacco abuse ICD Code: Z72.0 - Tobacco use Assessment and Plan A/P: 1. CHF: Acute on Chronic. Systolic. Secondary to Non-compliance w/ medications. Echo 11/21/16 w/ EF <20%, previous admit at , given LifeVest however non-compliant. BNP 1910, CXR w/ no effusion, images reviewed by me. S/ p Brie in ER, resume home Bumex/Metolazone-good result on last admit. Monitor I/O. Fluid Restriction. Follows w/ Dr. Bradley as outpatient. 2. Non-Compliance: As above, pt non-compliant w/ meds/LifeVest. Stressed importance of follow up and adherence to medication regimen. 3. Sinus Tachycardia: Likely compounded by acute respiratory distress and anxiety. HR 136 on arrival, currently 107. Resume home Metoprolol. Monitor. 4. Anxiety: Resume home Ativan. 5. Tobacco Abuse: Counselled. Ativan prn if needed, no NicoDerm to avoid vasoconstriction. 6. DVT Prophylaxis: Heparin sq 7. Social work for d/c planning as needed. 8. Case discussed w/ ER physician at length. Physician Certification 2 Midnight Certification Type: Admission for Inpatient Services Order for Inpatient Services The services are ordered in accordance with Medicare regulations or non- Medicare payer requirements, as applicable. In the case of services not specified as inpatient-only, they are appropriately provided as inpatient services in accordance with the 2-midnight benchmark. Estimated LOS (days): 2 days is the estimated time the patient will need to remain in the hospital, assuming treatment plan goals are met and no additional complications. Post-Hospital Plan: Not yet determined Rea Tinoco MD Jan 02, 2017 00:42
[2017-01-02 00:45] LABS: BLOOD GAS BASE EXCESS -6.1 mmol/L (-2-2); BLOOD GAS CARBOXYHEMOGLOBIN 2.8 % (0-4); BLOOD GAS HCO3 17 mmol/L (22-26); BLOOD GAS METHEMOGLOBIN 0.2 % (0-2); BLOOD GAS O2 HGB SATURATION 96 % (90-100); BLOOD GAS OXYGEN CONTENT 17.2 Vol % (12.0-20.0); BLOOD GAS PCO2 23 mmHg (38-42); BLOOD GAS PO2 107 mmHG (61-120); BLOOD GAS TOTAL HGB 12.7 G/DL (12.0-16.0); TEMP CORR TO 98.6
[2017-01-02] MEDS ORDERED: MORPHINE SULFATE 2 MG/ML INJ IV PRN (00:45)
[2017-01-02 00:47] LABS: CRITICAL VALUE YES; DRAW SITE LT RADIAL; FIO2 21 %; NUMBER OF ARTERIAL PUNCTURES 2; OXYGEN DEVICE BiPAP; STAT YES; ULNAR PULSE PRESENT; VENT SETTINGS EPAP16/EPAP6
[2017-01-02] MEDS ORDERED: BUMETANIDE 1 MG TAB PO ONE (03:45)
[2017-01-02] MEDS: BENZONATATE 100 MG CAP PO PRN ×3 (03:53→21:06)
[2017-01-02] MEDS: LEVOTHYROXINE SODIUM 100 MCG TAB PO SCH (04:27)
--- NOTE | 2017-01-02 07:30 | HHI.PR ---
Subjective Remarks f/u; CHF in no acute distress. denies chest pain. sob has improved and now on room air. has occasional cough. d/w the RN and no acute issues over night. Objective Vitals Vital Signs Date Time Temp Pulse Resp B/P (MAP) Pulse Ox O2 Delivery O2 Flow Rate FiO2 01/02/17 07:21 97.7 118 18 112/74 (87) 95 01/02/17 06:00 110 01/02/17 05:00 119 01/02/17 04:00 115 01/02/17 03:22 98 21 01/02/17 03:00 98 Room Air 01/02/17 03:00 119 01/02/17 03:00 97.9 114 25 130/84 (99) 98 01/02/17 02:50 98 Nasal Cannula 3.00 01/02/17 02:00 115 01/02/17 01:26 96 21 01/02/17 01:20 121 22 118/81 (93) 98 01/02/17 01:20 Bi-Pap 21 01/02/17 01:17 119 01/02/17 00:55 98 3.00 01/02/17 00:51 101 22 121/70 (87) 100 BiPAP 21 01/02/17 00:42 01/02/17 00:05 107 100 BiPAP 21 01/02/17 00:02 98 21 01/01/17 23:35 115 28 127/70 (89) 99 Room Air 01/01/17 23:05 130 28 137/78 (97) 99 Room Air 145/67 (93) 01/01/17 22:31 100 Room Air 01/01/17 22:31 99 Room Air 01/01/17 22:14 136 30 138/80 (99) 100 Room Air 01/01/17 22:05 135 28 132/97 (109) 99 01/01/17 21:57 99.0 136 24 120/91 (101) 99 Room Air 01/01/17 20:05 99 21 01/01/17 20:05 99 21 I/O 01/01/17 01/01/17 01/01/17 01/02/17 01/02/17 01/02/17 07:00 15:00 23:00 07:00 15:00 23:00 Intake Total 240 ml Output Total 225 ml Balance 15 ml Intake Oral 240 ml Output Urine Total 225 ml # Bowel Movements 0 Result Diagram: 01/01/17221901/01/172219 Imaging Last Impressions Chest X-Ray 01/01/172214 Signed Impressions: Service Date/Time: Sunday, January 01, 2017 22:19 - CONCLUSION: Chronic cardiac silhouette enlargement. Lungs grossly clear. Donnell Turner MD Objective Remarks GENERAL: obese, in no apparent distress. CARDIOVASCULAR: Regular rate and regular rhythm without murmurs, gallops, or rubs. RESPIRATORY: diminished air entry bilaterally. GASTROINTESTINAL: Abdomen soft, non-tender, nondistended. Normal, active bowel sounds MUSCULOSKELETAL: Extremities with bilateral pedal edema. NEURO: Alert & Oriented x4 to person, place, time, situation. Moves all ext x4 Medications and IVs Current Medications Sodium Chloride (NS Flush) 2 ml UNSCH PRN IVF FLUSH AFTER USING IV ACCESS; Start 01/01/17 at 22:15; Stop 01/02/17 at 00:37; Status DC Nitroglycerin (Nitrostat Sl) 0.4 mg Q5M SL Last administered on 01/01/17 22: 29; Start 01/01/17 at 22:15; Stop 01/01/17 at 22:26; Status DC Acetaminophen/ Hydrocodone Bitart ([place] 7.5-325 Mg) 2 tab ONCE ONCE PO Last administered on 01/01/17 22:29; Start 01/01/17 at 22:15; Stop 01/01/17 at 22 :18; Status DC Lorazepam (Ativan) 0.5 mg ONCE ONCE PO Last administered on 01/01/17 22:29; Start 01/01/17 at 22:15; Stop 01/01/17 at 22:18; Status DC Methylprednisolone Sodium Succinate (SoluMEDROL INJ) 125 mg ONCE ONCE IV PUSH Last administered on 01/01/17 23:05; Start 01/01/17 at 23:00; Stop 01/01/17 at 23:01; Status DC Albuterol/ Ipratropium (Duoneb Neb) 1 ampule Q15M INH Last administered on 23:05; Start 01/01/17 at 23:00; Stop 01/01/17 at 23:31; Status DC Metoprolol Tartrate (Lopressor Inj) 5 mg Q5M IVS Last administered on 23:34; Start 01/01/17 at 23:30; Stop 01/01/17 at 23:41; Status DC Furosemide (Lasix Inj) 40 mg ONCE ONCE IV PUSH Last administered on 23:55; Start 01/02/17 at 00:00; Stop 01/02/17 at 00:01; Status DC Lorazepam (Ativan Inj) 0.5 mg ONCE ONCE IV PUSH Last administered on 23:55; Start 01/02/17 at 00:00; Stop 01/02/17 at 00:01; Status DC Sodium Chloride (NS Flush) 2 ml UNSCH PRN IV FLUSH FLUSH AFTER USING IV ACCESS ; Start 01/02/17 at 00:30 Sodium Chloride (NS Flush) 2 ml BID IV FLUSH ; Start 01/02/17 at 09:00 Ondansetron HCl (Zofran Inj) 4 mg Q6H PRN IVP NAUSEA OR VOMITING; Start at 00:30 Heparin Sodium (Porcine) (Heparin Inj) 5,000 units Q12H SQ ; Start 01/02/17 at 09:00 Morphine Sulfate (Morphine Inj) 2 mg Q3H PRN IV PUSH Pain 6-10; Start at 00:30; Stop 01/02/17 at 00:37; Status DC Oxycodone HCl (Roxicodone) 5 mg Q4H PRN PO PAIN SCALE 3 TO 5 Last administered on 01/02/17 03:52; Start 01/02/17 at 00:30 Senna/Docusate Sodium ([place]-Colace) 1 tab BID PO ; Start 01/02/17 at 09:00 Magnesium Hydroxide (Milk Of Magnesia Liq) 30 ml Q12H PRN PO Mild constipation ; Start 01/02/17 at 00:30 Sennosides (Senokot) 17.2 mg Q12H PRN PO Moderate constipation; Start at 00:30 Bisacodyl (Dulcolax Supp) 10 mg DAILY PRN RECTAL SEVERE CONSITIPATION; Start 01/02/17 at 00:30 Lactulose (Lactulose Liq) 30 ml DAILY PRN PO SEVERE CONSITIPATION; Start 01/02 at 00:30 Bumetanide (Bumetanide) 2 mg BID@,18 PO ; Start 01/02/17 at 09:00 Citalopram Hydrobromide (CeleXA) 10 mg DAILY PO ; Start 01/02/17 at 09:00 Docusate Sodium (Colace) 100 mg BID PO ; Start 01/02/17 at 09:00 Ferrous Sulfate (Ferrous Sulfate) 325 mg BID PO ; Start 01/02/17 at 09:00 Levothyroxine Sodium (Synthroid) 100 mcg DAILY@0600 PO ; Start 01/02/17 at 06: 00 Lorazepam (Ativan) 0.5 mg Q6H PRN PO Anxiety/Insomnia; Start 01/02/17 at 00:30 Metolazone (Zaroxolyn) 5 mg EVERY OTHER DAY PO ; Start 01/02/17 at 09:00 Metoprolol Tartrate (Lopressor) 75 mg Q12HR PO ; Start 01/02/17 at 09:00 Spironolactone (Aldactone) 50 mg DAILY PO ; Start 01/02/17 at 09:00 Pantoprazole Sodium (Protonix) 40 mg DAILY PO ; Start 01/02/17 at 09:00 Morphine Sulfate (Morphine Inj) 2 mg Q3H PRN IV PAIN SCALE 6 TO 10 Last administered on 01/02/17 00:47; Start 01/02/17 at 00:45 Bumetanide (Bumetanide) 2 mg ONCE ONCE PO Last administered on 01/02/17 03: 52; Start 01/02/17 at 03:45; Stop 01/02/17 at 03:56; Status DC Benzonatate (Tessalon) 200 mg TID PRN PO cough interfering with rest Last administered on 01/02/17 03:53; Start 01/02/17 at 03:45 A/P Problem List: (1) CHF (congestive heart failure) ICD Code: I50.9 - Heart failure, unspecified Status: Acute (2) Non-compliance ICD Code: Z91.19 - Patient's noncompliance with other medical treatment and regimen (3) Sinus tachycardia ICD Code: R00.0 - Tachycardia, unspecified Status: Acute (4) Anxiety ICD Code: F41.9 - Anxiety disorder, unspecified (5) Tobacco abuse ICD Code: Z72.0 - Tobacco use Assessment and Plan A/P 1. CHF: Acute on Chronic. Systolic. Secondary to Non-compliance w/ medications. Echo 11/21/16 w/ EF <20%, previous admit at , given LifeVest however non-compliant. S/p Lasix in ER, resume home Bumex; will change Bumex to IV- /contine Metolazone-. Monitor I/O and daily weight. Fluid Restriction. Follows w/ Dr. Bradley as outpatient. 2. Non-Compliance: As above, pt non-compliant w/ meds/LifeVest. Stressed importance of follow up and adherence to medication regimen. 3. Sinus Tachycardia: Likely compounded by acute respiratory distress and anxiety. HR 136 on arrival, currently low 100's.. Resume home Metoprolol. Monitor. 4. Anxiety: Resumed home Ativan. 5. Tobacco Abuse: Counselled. Ativan prn if needed, no NicoDerm to avoid vasoconstriction. 6. DVT Prophylaxis: Heparin sq transfer to [facility]. Discharge Planning dc planning within the next 24-48 hrs if continues to improve . Zhen Melgoza MD Jan 02, 2017 07:30
[2017-01-02] MEDS: BUMETANIDE INJ 1 MG/4 ML VIAL IV PUSH SCH ×2 (08:56→17:42)
[2017-01-02] MEDS: HEPARIN SODIUM - SQ 10,000 UNITS/ML VIAL SQ SCH ×2 (08:56→21:07)
[2017-01-02] MEDS: SPIRONOLACTONE 50 MG TAB PO SCH (08:57)
[2017-01-02] MEDS: CITALOPRAM HYDROBROMIDE 20 MG TAB PO SCH (08:57)
[2017-01-02] MEDS: PANTOPRAZOLE SOD 40 MG DELAYED RELEASE TAB PO SCH (08:58)
[2017-01-02] MEDS: FERROUS SULFATE 325 MG (65 MG ELEMENTAL IRON) TAB PO SCH ×2 (08:58→21:08)
[2017-01-02] MEDS: DOCUSATE SODIUM 50 MG/SENNA 8.6 MG TAB PO SCH ×2 (08:58→21:00)
[2017-01-02] MEDS: DOCUSATE SODIUM 100 MG CAP PO SCH ×2 (08:58→21:13)
[2017-01-02] MEDS: LORazepam 0.5 MG TAB PO PRN ×2 (08:58→21:07)
[2017-01-02] MEDS: METOPROLOL TARTRATE 25 MG TAB PO SCH ×2 (08:58→21:08)
[2017-01-02] MEDS ORDERED: METOLAZONE 5 MG TAB PO SCH (09:00)
[2017-01-02] MEDS ORDERED: BUMETANIDE 1 MG TAB PO SCH (09:00)
[2017-01-02] MEDS: SODIUM CHLORIDE 0.9% FLUSH 10 ML FLUSH IV FLUSH SCH ×2 (09:00→21:00)
--- NOTE | 2017-01-02 16:17 | EKG ---
Date Performed: 01/01/2017 Time Performed: 22:04:26 PTAGE: 36 years EKG: SINUS TACHYCARDIA LOW QRS VOLTAGE IN PRECORDIAL LEADS NONSPECIFIC T-WAVE ABNORMALITY Compar ed to prior tracing no significant change ABNORMAL RHYTHM ECG PREVIOUS TRACING : 11/20/2016 08.43 DOCTOR: Tray Lofton Interpretating Date/Time 01/02/2017 16:15:56
[2017-01-03] VITALS (23 sets, daily range): BP systolic 104–131; BP diastolic 64–81; PULSE 87–108; RESP 16–22; TEMP 97.4–98.1; O2SAT 95–97
[2017-01-03] MEDS: LEVOTHYROXINE SODIUM 100 MCG TAB PO SCH (05:07)
[2017-01-03] MEDS: LORazepam 0.5 MG TAB PO PRN ×2 (07:30→17:41)
--- NOTE | 2017-01-03 07:38 | HHI.PR ---
Subjective Remarks in no acute distress. sob and swelling of the legs has improved. good urine output. feels better today. d/w the RN and no acute issues over night. Objective Vitals Vital Signs Date Time Temp Pulse Resp B/P (MAP) Pulse Ox O2 Delivery O2 Flow Rate FiO2 01/03/17 06:00 103 01/03/17 05:00 95 01/03/17 04:00 91 01/03/17 03:20 98 Room Air 01/03/17 03:00 99 01/03/17 02:00 87 01/03/17 01:00 100 01/03/17 00:00 90 01/02/17 23:15 94 Room Air 01/02/17 23:15 97.5 93 20 100/58 (72) 94 01/02/17 23:00 95 01/02/17 22:00 112 01/02/17 21:00 98 01/02/17 20:00 102 01/02/17 19:30 97 Room Air 01/02/17 19:30 97.8 100 22 114/74 (87) 97 01/02/17 19:00 103 01/02/17 18:20 113 01/02/17 17:00 100 01/02/17 16:00 98 01/02/17 15:00 98.3 100 20 116/82 (93) 96 01/02/17 15:00 100 01/02/17 15:00 94 Room Air 01/02/17 14:00 99 01/02/17 13:24 96 01/02/17 12:00 98 01/02/17 11:15 97 Room Air 01/02/17 11:11 97.6 101 22 117/80 (92) 97 01/02/17 11:00 99 01/02/17 10:00 106 01/02/17 09:00 112 01/02/17 08:00 110 01/02/17 07:56 95 Room Air I/O 01/02/17 01/02/17 01/02/17 01/03/17 01/03/17 01/03/17 07:00 15:00 23:00 07:00 15:00 23:00 Intake Total 240 ml 720 ml 820 ml Output Total 225 ml 2400 ml 3150 ml Balance 15 ml -1680 ml -2330 ml Intake Oral 240 ml 720 ml 820 ml Output Urine Total 225 ml 2400 ml 3150 ml # Bowel Movements 0 0 1 Result Diagram: 01/01/17221901/01/172219 Imaging Last Impressions Chest X-Ray 01/01/172214 Signed Impressions: Service Date/Time: Sunday, January 01, 2017 22:19 - CONCLUSION: Chronic cardiac silhouette enlargement. Lungs grossly clear. Donnell Turner MD Objective Remarks GENERAL: obese, in no apparent distress. CARDIOVASCULAR: Regular rate and regular rhythm without murmurs, gallops, or rubs. RESPIRATORY: diminished air entry bilaterally. GASTROINTESTINAL: Abdomen soft, non-tender, nondistended. Normal, active bowel sounds MUSCULOSKELETAL: Extremities with bilateral pedal edema. NEURO: Alert & Oriented x4 to person, place, time, situation. Moves all ext x4 Procedures none Medications and IVs Current Medications Sodium Chloride (NS Flush) 2 ml UNSCH PRN IVF FLUSH AFTER USING IV ACCESS; Start 01/01/17 at 22:15; Stop 01/02/17 at 00:37; Status DC Nitroglycerin (Nitrostat Sl) 0.4 mg Q5M SL Last administered on 01/01/17 22: 29; Start 01/01/17 at 22:15; Stop 01/01/17 at 22:26; Status DC Acetaminophen/ Hydrocodone Bitart ([place] 7.5-325 Mg) 2 tab ONCE ONCE PO Last administered on 01/01/17 22:29; Start 01/01/17 at 22:15; Stop 01/01/17 at 22 :18; Status DC Lorazepam (Ativan) 0.5 mg ONCE ONCE PO Last administered on 01/01/17 22:29; Start 01/01/17 at 22:15; Stop 01/01/17 at 22:18; Status DC Methylprednisolone Sodium Succinate (SoluMEDROL INJ) 125 mg ONCE ONCE IV PUSH Last administered on 01/01/17 23:05; Start 01/01/17 at 23:00; Stop 01/01/17 at 23:01; Status DC Albuterol/ Ipratropium (Duoneb Neb) 1 ampule Q15M INH Last administered on 23:05; Start 01/01/17 at 23:00; Stop 01/01/17 at 23:31; Status DC Metoprolol Tartrate (Lopressor Inj) 5 mg Q5M IVS Last administered on 23:34; Start 01/01/17 at 23:30; Stop 01/01/17 at 23:41; Status DC Furosemide (Lasix Inj) 40 mg ONCE ONCE IV PUSH Last administered on 23:55; Start 01/02/17 at 00:00; Stop 01/02/17 at 00:01; Status DC Lorazepam (Ativan Inj) 0.5 mg ONCE ONCE IV PUSH Last administered on 23:55; Start 01/02/17 at 00:00; Stop 01/02/17 at 00:01; Status DC Sodium Chloride (NS Flush) 2 ml UNSCH PRN IV FLUSH FLUSH AFTER USING IV ACCESS Last administered on 01/02/17 17:42; Start 01/02/17 at 00:30 Sodium Chloride (NS Flush) 2 ml BID IV FLUSH Last administered on 01/02/17 21 :00; Start 01/02/17 at 09:00 Ondansetron HCl (Zofran Inj) 4 mg Q6H PRN IVP NAUSEA OR VOMITING; Start at 00:30 Heparin Sodium (Porcine) (Heparin Inj) 5,000 units Q12H SQ Last administered on 01/02/17 21:07; Start 01/02/17 at 09:00 Morphine Sulfate (Morphine Inj) 2 mg Q3H PRN IV PUSH Pain 6-10; Start at 00:30; Stop 01/02/17 at 00:37; Status DC Oxycodone HCl (Roxicodone) 5 mg Q4H PRN PO PAIN SCALE 3 TO 5 Last administered on 01/02/17 08:57; Start 01/02/17 at 00:30; Stop 01/02/17 at 11:21; Status DC Senna/Docusate Sodium ([facility]-Colace) 1 tab BID PO Last administered on 08:58; Start 01/02/17 at 09:00 Magnesium Hydroxide (Milk Of Magnesia Liq) 30 ml Q12H PRN PO Mild constipation ; Start 01/02/17 at 00:30 Sennosides (Senokot) 17.2 mg Q12H PRN PO Moderate constipation; Start at 00:30 Bisacodyl (Dulcolax Supp) 10 mg DAILY PRN RECTAL SEVERE CONSITIPATION; Start 01/02/17 at 00:30 Lactulose (Lactulose Liq) 30 ml DAILY PRN PO SEVERE CONSITIPATION; Start 01/02 at 00:30 Bumetanide (Bumetanide) 2 mg BID@09,18 PO ; Start 01/02/17 at 09:00; Stop at 09:00; Status DC Citalopram Hydrobromide (CeleXA) 10 mg DAILY PO Last administered on 08:57; Start 01/02/17 at 09:00 Docusate Sodium (Colace) 100 mg BID PO Last administered on 01/02/17 21:13; Start 01/02/17 at 09:00 Ferrous Sulfate (Ferrous Sulfate) 325 mg BID PO Last administered on 21:08; Start 01/02/17 at 09:00 Levothyroxine Sodium (Synthroid) 100 mcg DAILY@0600 PO ; Start 01/02/17 at 06: 00 Lorazepam (Ativan) 0.5 mg Q6H PRN PO Anxiety/Insomnia Last administered on 21:07; Start 01/02/17 at 00:30 Metolazone (Zaroxolyn) 5 mg EVERY OTHER DAY PO Last administered on 08:57; Start 01/02/17 at 09:00 Metoprolol Tartrate (Lopressor) 75 mg Q12HR PO Last administered on 01/02/17 21:08; Start 01/02/17 at 09:00 Spironolactone (Aldactone) 50 mg DAILY PO Last administered on 01/02/17 08:57 ; Start 01/02/17 at 09:00 Pantoprazole Sodium (Protonix) 40 mg DAILY PO Last administered on 01/02/17 08:58; Start 01/02/17 at 09:00 Morphine Sulfate (Morphine Inj) 2 mg Q3H PRN IV PAIN SCALE 6 TO 10 Last administered on 01/02/17 00:47; Start 01/02/17 at 00:45 Bumetanide (Bumetanide) 2 mg ONCE ONCE PO Last administered on 01/02/17 03: 52; Start 01/02/17 at 03:45; Stop 01/02/17 at 03:56; Status DC Benzonatate (Tessalon) 200 mg TID PRN PO cough interfering with rest Last administered on 01/02/17 21:06; Start 01/02/17 at 03:45 Bumetanide (Bumex Inj) 1 mg BID@09,18 IV PUSH Last administered on 01/02/17 17:42; Start 01/02/17 at 09:00 Oxycodone HCl (Roxicodone) 10 mg Q4H PRN PO PAIN SCALE 3 TO 5 Last administered on 01/03/17 07:28; Start 01/02/17 at 12:30 A/P Problem List: (1) CHF (congestive heart failure) ICD Code: I50.9 - Heart failure, unspecified Status: Acute (2) Non-compliance ICD Code: Z91.19 - Patient's noncompliance with other medical treatment and regimen (3) Sinus tachycardia ICD Code: R00.0 - Tachycardia, unspecified Status: Acute (4) Anxiety ICD Code: F41.9 - Anxiety disorder, unspecified (5) Tobacco abuse ICD Code: Z72.0 - Tobacco use Assessment and Plan A/P 1. CHF: Acute on Chronic. Systolic. Secondary to Non-compliance w/ medications. Echo 11/21/16 w/ EF <20%, previous admit at , given LifeVest however non-compliant. continue IV Bumex - /contine Metolazone-. Monitor I/O and daily weight. Fluid Restriction. Follows w/ Dr. Bradley as outpatient. 2. Non-Compliance: As above, pt non-compliant w/ meds/LifeVest. Stressed importance of follow up and adherence to medication regimen. 3. Sinus Tachycardia: overall better. Resumed home Metoprolol. Monitor. 4. Anxiety: Resumed home Ativan. 5. Tobacco Abuse: Counselled. Ativan prn if needed, no NicoDerm to avoid vasoconstriction. 6. DVT Prophylaxis: Heparin sq for transfer to [facility]. Discharge Planning dc home tomorrow if continues to improve. d/w the patient and Zhen Smith MD Jan 03, 2017 07:38
[2017-01-03] MEDS ORDERED: BUME1TAB PO (07:39)
[2017-01-03] MEDS: CITALOPRAM HYDROBROMIDE 20 MG TAB PO SCH (08:58)
[2017-01-03] MEDS: FERROUS SULFATE 325 MG (65 MG ELEMENTAL IRON) TAB PO SCH ×2 (08:58→21:15)
[2017-01-03] MEDS: DOCUSATE SODIUM 100 MG CAP PO SCH ×2 (08:58→21:15)
[2017-01-03] MEDS: PANTOPRAZOLE SOD 40 MG DELAYED RELEASE TAB PO SCH (08:59)
[2017-01-03] MEDS: SODIUM CHLORIDE 0.9% FLUSH 10 ML FLUSH IV FLUSH SCH ×2 (08:59→21:20)
[2017-01-03] MEDS: METOPROLOL TARTRATE 25 MG TAB PO SCH ×2 (08:59→21:15)
[2017-01-03] MEDS: SPIRONOLACTONE 50 MG TAB PO SCH (08:59)
[2017-01-03] MEDS: BUMETANIDE INJ 1 MG/4 ML VIAL IV PUSH SCH (08:59)
[2017-01-03] MEDS: DOCUSATE SODIUM 50 MG/SENNA 8.6 MG TAB PO SCH ×3 (08:59→21:15)
[2017-01-03] MEDS: HEPARIN SODIUM - SQ 10,000 UNITS/ML VIAL SQ SCH ×2 (09:00→21:17)
[2017-01-03 11:14] LABS: AUTOMATED NEUTROPHIL # 8.8 TH/MM3 (1.8-7.7); BASOPHIL % 0.2 % (0.0-2.0); HEMATOCRIT 39.1 % (39.0-51.0); HEMO FLAGS DIFF FINAL; LYMPH % 8.8 % (9.0-44.0); LYMPHOCYTE # 0.9 TH/MM3 (1.0-4.8); MEAN CELL VOLUME 92.6 FL (80.0-100.0); MEAN CORPUSCULAR HEMOGLOBIN 30.8 PG (27.0-34.0); MEAN CORPUSCULAR HGB CONC 33.3 % (32.0-36.0); MONO % 5.3 % (0.0-8.0); NEUT % 85.7 % (16.0-70.0); PLATELET COUNT 190 TH/MM3 (150-450); RED BLOOD COUNT 4.22 MIL/MM3 (4.50-5.90); RED CELL DISTRIBUTION WIDTH 19.9 % (11.6-17.2); WHITE BLOOD COUNT 10.2 TH/MM3 (4.0-11.0)
[2017-01-03 11:48] LABS: ALT (GPT) 12 U/L (12-78); ANION GAP 11 MEQ/L (5-15); AST (GOT) 17 U/L (15-37); BICARBONATE 26.2 MEQ/L (21.0-32.0); BLOOD UREA NITROGEN 26 MG/DL (7-18); CHLORIDE 92 MEQ/L (98-107); GLOMERULAR FILTRATION RATE 53 ML/MIN (>89); POTASSIUM 3.7 MEQ/L (3.5-5.1); SODIUM (NA) 129 MEQ/L (136-145)
[2017-01-03 11:54] LABS: ALKALINE PHOSPHATASE 87 U/L (45-117); TOTAL BILIRUBIN ADULT 4.2 MG/DL (0.2-1.0)
[2017-01-03] MEDS ORDERED: POTASSIUM CHLORIDE 10 MEQ CONTROLLED RELEASE TAB PO ONE (12:15)
[2017-01-04] MEDS ORDERED: BUMETANIDE INJ 1 MG/4 ML VIAL IV PUSH SCH (09:00)
== END 2017-01-03 22:40 | disposition left against medical advice (07) | DRG 293 ==
LOC: NEPC 21:56 → NEDA 01-02 00:17 → HCPC 01-02 01:15
PROVIDERS: ADMIT Internal Medicine; ATTEND Internal Medicine
PROC: 5A09357 Assistance with Respiratory Ventilation, Less than 24 Consecutive Hours, Continuous Positive Airway Pressure (ICD-10-PCS; principal; 2017-01-01)
DX: I11.0 Hypertensive heart disease with heart failure (principal); I42.9 Cardiomyopathy, unspecified; I50.23 Acute on chronic systolic (congestive) heart failure; F41.9 Anxiety disorder, unspecified; G47.30 Sleep apnea, unspecified; R00.0 Tachycardia, unspecified; Z72.0 Tobacco use; G43.909 Migraine, unspecified, not intractable, without status migrainosus; K40.90 Unilateral inguinal hernia, without obstruction or gangrene, not specified as recurrent; K44.9 Diaphragmatic hernia without obstruction or gangrene; K21.9 Gastro-esophageal reflux disease without esophagitis; E78.00 Pure hypercholesterolemia, unspecified; Z91.14 Patient's other noncompliance with medication regimen; R06.03 Acute respiratory distress; Z91.19 Patient's noncompliance with other medical treatment and regimen
CPT/HCPCS: 36600; 71010; 80053; 80307; 82550; 82805; 83690; 83735; 83880; 84484; 85025; 85610; 85730; 93005; 94002; 94640; 94664; 96374; 96375; J1644; J1940; J2060; J2270; J2930